=== PATIENT | male | born 1940 | race Caucasian/White ===

== ENCOUNTER 2017-01-19 15:58 | Observation (INO) ==
[2017-01-19] MEDS ORDERED: methylPREDNISolone 125 MG/2 ML VIAL IVP ONE (16:15)
[2017-01-19] MEDS ORDERED: Ipratropium/Albuterol Neb 3 ML IH ONE (16:15)
--- NOTE | 2017-01-19 16:16 | Emergency Department Note ---
START Narrative - START START: I examined this patient and my medical decision-making was reviewed with the Resident Physician. I agree with the documented findings, disposition and treatment plan as described except to the extent set forth below. 76 yo M here for sob/wheezing. hx of copd. on oxygen periodcially at home. uses nebs at home but no relief today. +wheezing. will eval for copd exacerbation vs pneumonia.
[2017-01-19] MEDS ORDERED: Ondansetron 4 MG/2 ML VIAL IVP ONE (16:26)
[2017-01-19 16:38] LABS: Hematocrit 42.7 % (37.5-50.1); Hemoglobin 13.4 g/dL (12.9-16.9); Mean Corpuscular HGB Conc 31.4 g/dL (31.6-35.5); Mean Corpuscular Hemoglobin 26.5 pg (28.0-33.3); Mean Corpuscular Volume 84.4 fL (83.0-100.0); Mean Platelet Volume 9.9 fL (9.4-12.4); Platelet Count 253 K/mcL (140-400); Red Blood Count 5.06 M/mcL (4.19-5.50); Red Cell Distribution Width 18.1 % (11.5-14.5)
[2017-01-19 16:50] LABS: Albumin 3.6 g/dL (3.5-5.0); Albumin/Globulin Ratio 0.9 (1.1-2.2); Bilirubin,Direct 0.1 mg/dL (0.0-0.5); Bilirubin,Indirect 0.3 mg/dL (0.0-1.2); Bilirubin,Total 0.4 mg/dL (0.2-1.2); Calcium 9.7 mg/dL (8.6-10.8); Globulin 4.1 g/dL (2.4-3.5); Potassium 4.5 mEq/L (3.5-4.5); Total Protein 7.7 g/dL (6.0-8.3)
[2017-01-19 17:03] LABS: Eosinophils # 2.4 K/mcL (0.0-0.6); Lymphocytes # 1.8 K/mcL (0.6-4.6); Monocytes # 1.5 K/mcL (0.0-1.3); Neutrophils # 2.4 K/mcL (1.6-8.9); Platelet Estimate Normal (Normal)
[2017-01-19 17:04] LABS: Anisocytosis 1+ (Not Present)
--- NOTE | 2017-01-19 17:23 | Emergency Department Note ---
Disposition Clinical Impression: COPD (chronic obstructive pulmonary disease) Qualifiers: COPD type: COPD with acute exacerbation Qualified Code(s): J44.1 - Chronic obstructive pulmonary disease with (acute) exacerbation Disposition: Admitted As Inpatient Forms: ED Satisfaction Letter Time of Disposition: 17:41 General Adult HPI - General Chief complaint: ED Shortness of Breath/Dyspnea Stated complaint: PACO Time Seen by Provider: 01/19/17 16:10 Source: patient Limitations: no limitations Nursing Notes Reviewed: Yes Vital Signs Reviewed: Yes - History of Present Illness HPI Narrative: Two-week history of worsening dyspnea, productive cough with green sputum which is changed from his normal. No fevers. No chest pain. Does use albuterol at home with no relief. Pain Scale: 5 - Related Data Home Medications Medication Instructions Recorded Confirmed Albuterol Sulfate [Ventolin Hfa] 2 puff IH Q4H PRN 01/24/16 01/08/17 Aspirin 81 mg PO DAILY 01/24/16 01/08/17 Atorvastatin [Lipitor] 40 mg PO HS 01/24/16 01/08/17 Budesonide/Formoterol 160/4.5 2 puff IH BIDR 01/24/16 01/08/17 [Symbicort 160/4.5] Carvedilol 12.5 mg PO BID 01/24/16 01/08/17 Cholecalciferol (D-3) [Vitamin D] 2,000 unit PO DAILY 01/24/16 01/08/17 DULoxetine [Cymbalta] 30 mg PO DAILY 01/24/16 01/08/17 Fluticasone Propionate Nasal 1 spray NS DAILY 01/24/16 01/08/17 [Flonase] Furosemide [Lasix] 20 mg PO DAILY 01/24/16 01/08/17 Lisinopril [Zestril] 10 mg PO DAILY 01/24/16 01/08/17 Meclizine HCl [Verticalm] 25 mg PO AD PRN 01/24/16 01/08/17 Montelukast [Singulair] 10 mg PO DAILY 01/24/16 01/08/17 Multivitamin [Multi-Day Vitamins] 1 tab PO DAILY 01/24/16 01/08/17 Oxygen 1 each .ROUTE AD PRN 01/24/16 01/08/17 Roflumilast [Daliresp] 500 mcg PO DAILY 01/24/16 01/08/17 Ipratropium/Albuterol Neb [Duoneb] 3 ml IH Q6HR 12/03/16 01/08/17 Zanaflex PRN 12/04/16 Allergies Allergy/AdvReac Type Severity Reaction Status Date / Time Amoxicillin [From Augmentin] Allergy Vomiting Verified 01/25/16 17:09 clavulanic acid Allergy Vomiting Verified 01/25/16 17:09 [From Augmentin] codeine Allergy Hallucinati Verified 01/08/17 09:48 ng hydrocodone [From Vicodin] Allergy Vomiting Verified 01/25/16 17:09 Iodinated Contrast- Oral and Allergy See Verified 01/25/16 17:09 IV Dye Comments [Iodinated Contrast Media - IV Dye] latex Allergy See Verified 01/25/16 17:09 Comments meloxicam [From Mobic] Allergy Dizziness Verified 01/25/16 17:09 ondansetron Allergy Vomiting Verified 01/25/16 17:09 [From Zofran (as hydrochloride)] Oxycodone [From Percocet] Allergy Hallucinati Verified 01/25/16 17:09 ng pregabalin [From Lyrica] Allergy Dizziness Verified 01/25/16 17:09 All systems ED: reviewed and negative except as stated. Constitutional: Denies: fever, chills ENT ED: Denies: congestion Cardiovascular: Denies: chest pain, palpitations, dyspnea on exertion, syncope Respiratory: Reports: cough, dyspnea, wheezes, sputum production Gastrointestinal: Reports: nausea, vomiting (Associated with the coughing), diarrhea. Denies: abdominal pain, hematemesis, melena, hematochezia Genitourinary: Denies: urgency, dysuria, frequency, hematuria Musculoskeletal: Denies: back pain, neck pain Integumentary: Denies: rash, abrasion Neurological: Denies: headache, weakness Past Medical History - Past Medical History Attestation: Yes The following information was validated with the patient. Source: patient Medical history: Reports: aortic aneurysm, COPD, coronary artery disease, hyperlipidemia, myocardial infarction, renal disease, other Surgical history: Reports: angioplasty/stent, coronary bypass (CABG) Psychiatric history: Reports: anxiety - Social History Smoking Status: Former smoker Smokeless Tobacco Status: No Alcohol use: Reports: none Drug use: Reports: none Physical Exam - General Limitations: no limitations General appearance: alert, in distress (Patient appears to be in respiratory distress. He is using accessory muscles.) - Head Head exam: atraumatic, normocephalic, normal inspection - Eye Eye exam: Present: normal appearance, PERRL, EOMI. Absent: scleral icterus, conjunctival injection - ENT ENT exam: normal exam, normal oropharynx, mucous membranes moist - Neck Neck exam: Present: normal inspection, full ROM, trachea midline. Absent: tenderness, meningismus, lymphadenopathy - Chest Chest inspection: Present: normal inspection, symmetric chest wall rise. Absent : tenderness - Respiratory Respiratory exam: Present: respiratory distress, wheezes, accessory muscle use, prolonged expiratory phase - Cardiovascular Cardiovascular exam: Present: regular rate, normal rhythm, normal heart sounds - Abdominal Exam Abdominal exam: Present: soft, Non-Tender, normal bowel sounds. Absent: tenderness, distention, guarding, rebound, rigidity, organomegaly, Powell's sign , Rovsing's sign, tenderness at McBurney's Point - Extremities Exam Extremities exam: Present: normal inspection, full ROM, normal capillary refill. Absent: tenderness, pedal edema - Back Exam Back exam: Present: normal inspection, full ROM. Absent: tenderness - Neurological Exam Neurological exam: Present: alert, oriented X3 - Psychiatric Psychiatric exam: Present: normal affect, normal mood - Skin Skin exam: Present: warm, dry, intact, normal color. Absent: rash, cyanosis, diaphoresis, erythema Course Course Narrative: Male patient presents emergency department complaining of a 2 week history of dyspnea. States it has been getting worse over the past 2 days. Denies any fever or chills. Does have a productive cough with green sputum. Has a history of COPD. He is short of breath while sitting in bed. He is tachypneic. He has wheezing diffusely. He is using accessory muscles. He denies being a smoker. Patient denies any chest pain. He denies any extremity swelling. He also reports a 2 day history of nausea vomiting and diarrhea. We will provide the patient with 3 DuoNeb's and steroids. We will do a chest x- ray and get basic lab workup on patient. He does use oxygen at home but only intermittently. I anticipate admission for this patient for COPD exacerbation. - Reevaluation(s) Reevaluation #1: Patient reassessed and found to be breathing easier after 3 DuoNeb's and steroids. We will admit him to the hospital for COPD exacerbation. We have started him on antibiotics due to his change in sputum. Patient's glucose was noted to be low. He is still mentating appropriately. We have provided him with snacks. States that he did not want me earlier today due to being nauseated and short of breath. Time: 17:39 - Consultations Consultation #1: [employer] [facility] accepted Pt in stable condition Time: 17:49 Vital Signs Temperature 98.3 F 01/19/17 16:00 Pulse Rate 84 01/19/17 16:00 Respiratory Rate 16 01/19/17 16:00 Blood Pressure 147/81 01/19/17 16:00 O2 Sat by Pulse Oximetry 97 01/19/17 16:00 Temperature 98.3 F 01/19/17 16:00 Pulse Rate 65 01/19/17 17:18 Respiratory Rate 18 01/19/17 17:18 Blood Pressure 107/76 01/19/17 17:18 O2 Sat by Pulse Oximetry 96 01/19/17 17:18 Oxygen Delivery Oxygen Delivery Nasal Cannula Medical Decision Making - Medical Records Medical records reviewed: Yes I reviewed the patient's medical records. - Lab Data Lab results reviewed: Yes I reviewed the patient's lab results. Result diagrams: 01/19/17 16:28 01/19/17 16:28 Lab Results 01/19/17 01/19/17 01/19/17 Range/Units 16:28 16:28 16:28 WBC 8.1 (4.3-11.1) K/mcL RBC 5.06 (4.19-5.50) M/mcL Hgb 13.4 (12.9-16.9) g/dL Hct 42.7 (37.5-50.1) % MCV 84.4 (83.0-100.0) fL MCH 26.5 L (28.0-33.3) pg MCHC 31.4 L (31.6-35.5) g/dL RDW 18.1 H (11.5-14.5) % Plt Count 253 (140-400) K/mcL MPV 9.9 (9.4-12.4) fL Immature Gran % Test Not Performed Seg Neutrophils % 30.0 % Lymphocytes % 22.0 % Monocytes % 18.0 % Eosinophils % 30.0 % Basophils % Test Not Performed Neutrophils # 2.4 (1.6-8.9) K/mcL Lymphocytes # 1.8 (0.6-4.6) K/mcL Monocytes # 1.5 H (0.0-1.3) K/mcL Eosinophils # 2.4 H (0.0-0.6) K/mcL Basophils # Test Not Performed Platelet Estimate Normal (Normal) Anisocytosis 1+ A (Not Present) Sodium 136 (136-145) mEq/L Potassium 4.5 (3.5-4.5) mEq/L Chloride 103 (98-109) mEq/L Carbon Dioxide 24 (19-29) mEq/L BUN 20 (8-26) mg/dL Creatinine 1.55 H (0.72-1.25) mg/dL Est GFR ( Amer) 53 L (> 60) Est GFR (Non-Af Amer) 44 L (> 60) BUN/Creatinine Ratio 13 (6-26) Glucose 58 L (70-99) mg/dL Calculated Osmolality 282 (280-300) Lactic Acid 1.8 (0.5-2.2) mmol/L Calcium 9.7 (8.6-10.8) mg/dL Total Bilirubin 0.4 (0.2-1.2) mg/dL Direct Bilirubin 0.1 (0.0-0.5) mg/dL Indirect Bilirubin 0.3 (0.0-1.2) mg/dL AST 24 (5-34) Units/L ALT 21 (0-55) Units/L Alkaline Phosphatase 68 (38-126) Units/L Troponin I (0-0.03) ng/mL B-Natriuretic Peptide (0-100) pg/mL Serum Total Protein 7.7 (6.0-8.3) g/dL Albumin 3.6 (3.5-5.0) g/dL Globulin 4.1 H (2.4-3.5) g/dL Albumin/Globulin Ratio 0.9 L (1.1-2.2) Lipase 51 (8-78) Units/L 01/19/17 01/19/17 Range/Units 16:28 16:28 WBC (4.3-11.1) K/mcL RBC (4.19-5.50) M/mcL Hgb (12.9-16.9) g/dL Hct (37.5-50.1) % MCV (83.0-100.0) fL MCH (28.0-33.3) pg MCHC (31.6-35.5) g/dL RDW (11.5-14.5) % Plt Count (140-400) K/mcL MPV (9.4-12.4) fL Immature Gran % Seg Neutrophils % % Lymphocytes % % Monocytes % % Eosinophils % % Basophils % Neutrophils # (1.6-8.9) K/mcL Lymphocytes # (0.6-4.6) K/mcL Monocytes # (0.0-1.3) K/mcL Eosinophils # (0.0-0.6) K/mcL Basophils # Platelet Estimate (Normal) Anisocytosis (Not Present) Sodium (136-145) mEq/L Potassium (3.5-4.5) mEq/L Chloride (98-109) mEq/L Carbon Dioxide (19-29) mEq/L BUN (8-26) mg/dL Creatinine (0.72-1.25) mg/dL Est GFR ( Amer) (> 60) Est GFR (Non-Af Amer) (> 60) BUN/Creatinine Ratio (6-26) Glucose (70-99) mg/dL Calculated Osmolality (280-300) Lactic Acid (0.5-2.2) mmol/L Calcium (8.6-10.8) mg/dL Total Bilirubin (0.2-1.2) mg/dL Direct Bilirubin (0.0-0.5) mg/dL Indirect Bilirubin (0.0-1.2) mg/dL AST (5-34) Units/L ALT (0-55) Units/L Alkaline Phosphatase (38-126) Units/L Troponin I 0.01 (0-0.03) ng/mL B-Natriuretic Peptide 56 (0-100) pg/mL Serum Total Protein (6.0-8.3) g/dL Albumin (3.5-5.0) g/dL Globulin (2.4-3.5) g/dL Albumin/Globulin Ratio (1.1-2.2) Lipase (8-78) Units/L - Radiology Data Radiology results reviewed: Yes I reviewed the patient's radiology results. Chest X-Ray 10/08/17 16:15 IMPRESSION: No acute process. D/ / Portillo Vernon MD / Portillo Vernon MD Interpreting Provider: Portillo Vernon MD - EKG Data EKG #1 EKG attestation: Yes I reviewed and interpreted this EKG. EKG results narrative: ormal sinus rh no signs of acute ischemia. Right bundle branch block. No significant changes from previous EKG dated 01/24/2016. However his previous EKG did have an incomplete bundle branch block now it is completed.
[2017-01-19] MEDS ORDERED: Azithromycin 500 MG in D5% in Water 250 ML IVPB ONE (17:36)
[2017-01-19] MEDS ORDERED: Acetaminophen 325 MG TABLET PO PRN (19:39)
[2017-01-19] MEDS ORDERED: Naloxone 0.4 MG/ML INJ IVP PRN (19:39)
[2017-01-19] MEDS ORDERED: Albuterol 2.5 MG/3 ML NEBULIZER IH PRN (19:43)
--- NOTE | 2017-01-19 19:51 | Internal Med History&Physical ---
<Elidia Barr M - Last Filed: 01/19/17 20:36> Date of Encounter: 01/19/17 Time of Encounter: 19:47 Assessment and Plan (1) Acute exacerbation of chronic obstructive airways disease Current visit: Yes Status: Acute Patient presents with increased shortness of breath and productive cough. He wears oxygen PRN at home but has been using it more often. CXR showed no acute process. Diffuse wheezing on auscultation. Solu-medrol 125mg IVP given in the ED. Continue with 40mg IVP TID. Levaquin 500mg IVPB daily duoneb treatments QID albuterol nebulizer Q2hr prn budesonide formotorol BID Continue home doses of Singulair and Darilesp titrate oxygent to maintain saturation. (2) CAD (coronary artery disease) Current visit: Yes Status: Chronic Patient with CAD s/p CABG. He denies any chest pain today and troponin is 0.01. EKG shows no ischemic changes. Continue home dose of aspirin, beta re, statin. Qualifiers: Coronary Disease-Associated Artery/Lesion type: bypass graft [place] vs. transplanted heart: [place] heart Associated angina: without angina Qualified Code(s): I25.810 - Atherosclerosis of coronary artery bypass graft(s) without angina pectoris (3) Hypertension Current visit: Yes Status: Chronic Holding lasix and lisinopril for THADDEUS. Continue home beta re. Hydralazine PRN. Qualifiers: Hypertension type: essential hypertension Qualified Code(s): I10 - Essential (primary) hypertension (4) Acute kidney injury superimposed on chronic kidney disease Current visit: Yes Status: Acute Creatinine of 1.55, up from previous of 1.26. Patient reports Nausea and vomiting the last 2 days, and THADDEUS likely secondary to mild dehyration. Hold lasix and lisinopril. 0.9NS at 100mL/hr x 1L. Check chemistry in the morning. (5) Nausea and vomiting Current visit: Yes Status: Acute Patient reports nausea and vomiting over the last 2 days, though has been able to hold down food. He denies any sick contacts. Had HIatal hernia repair 1 year ago. IV fluids 0.9NS at 100mL/hr Protonix 40mg IVP daily Maalox prn Qualifiers: Vomiting type: cyclical vomiting Vomiting Intractability: non-intractable Qualified Code(s): G43.A0 - Cyclical vomiting, not intractable (6) DVT prophylaxis Current visit: Yes Status: Acute anti-embolic stockings Heparin SQ TID Internal Medicine - H&P: HPI Chief complaint: shortness of breath Admitted From: Emergency Dept Plans for Post Hospital Care: Home History of present illness: Mr. Perez is a 76 year old male with HTN, HLD, CAD s/p CABG, COPD, CKD who presented to the ED today with complaints of increased shortness of breath, productive cough. Patient reports that for the last 2 weeks, he has had increasing shortness of breath, wheezing and productive cough. He wears oxygen PRN at home and has needed to wear it more often recently. He also reports occasional chills. Yesterday, he developed nausea, vomiting and diarrhea as well. He denies lightheadedness, headache, chest pain, palpitations. Evaluation in the ED included a CXR which showed no acute process, ekg showed normal sinus rhythm. BNP was normal at 56. troponin was negative at 0.01. He had THADDEUS with Cr of 1.55, up from previous of 1.26. He was given steroids, duoneb treatments and azithromycin in the ED. On exam, patient alert and oriented, in no distress. Heart has regular rate and rhythm, lungs have diffuse wheezing bilaterally. abdomen is soft with some epigastric tenderness and positive bowel sounds. No peripheral edema. Past Med Surg Social Fam HX - Past Medical History Medical history: aortic aneurysm, COPD, coronary artery disease, hyperlipidemia , myocardial infarction, renal disease, other Psychiatric history: anxiety - Past Surgical History Surgical History: angioplasty/stent, coronary bypass (CABG) - Social History Smoking Status: Former smoker Smokeless Tobacco Status: No Alcohol use: none Drug use: none - Family History Mother Living Status: Father Living Status: Internal Medicine - H&P: Meds Albuterol Sulfate [Ventolin Hfa] 2 puff IH Q4H PRN 01/24/16 [History] Aspirin 81 mg PO DAILY 01/24/16 [History] Atorvastatin [Lipitor] 40 mg PO HS 01/24/16 [History] Budesonide/Formoterol 160/4.5 [Symbicort 160/4.5] 2 puff IH BIDR 01/24/16 [ History] Carvedilol 12.5 mg PO BID 01/24/16 [History] Cholecalciferol (D-3) [Vitamin D] 2,000 unit PO DAILY 01/24/16 [History] DULoxetine [Cymbalta] 30 mg PO DAILY 01/24/16 [History] Fluticasone Propionate Nasal [Flonase] 1 spray NS DAILY 01/24/16 [History] Furosemide [Lasix] 20 mg PO DAILY 01/24/16 [History] Lisinopril [Zestril] 10 mg PO DAILY 01/24/16 [History] Meclizine HCl [Verticalm] 25 mg PO AD PRN 01/24/16 [History] Montelukast [Singulair] 10 mg PO DAILY 01/24/16 [History] Multivitamin [Multi-Day Vitamins] 1 tab PO DAILY 01/24/16 [History] Oxygen 1 each .ROUTE AD PRN 01/24/16 [History] Roflumilast [Daliresp] 500 mcg PO DAILY 01/24/16 [History] Ipratropium/Albuterol Neb [Duoneb] 3 ml IH Q6HR 12/03/16 [History] Zanaflex PRN 12/04/16 [History] 3 Allergy/AdvReac Type Severity Reaction Status Date / Time Amoxicillin [From Augmentin] Allergy Vomiting Verified 01/25/16 17:09 clavulanic acid Allergy Vomiting Verified 01/25/16 17:09 [From Augmentin] codeine Allergy Hallucinati Verified 01/08/17 09:48 ng hydrocodone [From Vicodin] Allergy Vomiting Verified 01/25/16 17:09 Iodinated Contrast- Oral and Allergy See Verified 01/25/16 17:09 IV Dye Comments [Iodinated Contrast Media - IV Dye] latex Allergy See Verified 01/25/16 17:09 Comments meloxicam [From Mobic] Allergy Dizziness Verified 01/25/16 17:09 ondansetron Allergy Vomiting Verified 01/25/16 17:09 [From Zofran (as hydrochloride)] Oxycodone [From Percocet] Allergy Hallucinati Verified 01/25/16 17:09 ng pregabalin [From Lyrica] Allergy Dizziness Verified 01/25/16 17:09 All Systems PM: A 10-system review of systems was performed and is negative for pertinent findings except as documented above in the HPI. - Constitutional Constitutional: chills, no fever(s), no night sweats - EENT Eyes: no change in vision, no discharge, no pain, no photophobia Ears: no ear discharge, no ear pain, no tinnitus Nose, mouth and throat: no dysphagia, no nasal discharge, no neck pain, no sore throat - Cardiovascular Cardiovascular ROS IM: dyspnea, no chest pain, no diaphoresis, no lightheadedness, no palpitations, no syncope - Respiratory Respiratory: cough, dyspnea, dyspnea on exertion, wheezing, excessive phlegm production - Gastrointestinal Gastrointestinal: diarrhea, nausea, vomiting, no abdominal pain, no hematemesis , no hematochezia, no melena - Musculoskeletal Musculoskeletal ROS IM: no numbness, no tingling - Integumentary Integumentary IM: no rash, no unusual bruising - Neurological Neurological ROS: no confusion, no convulsions, no focal weakness, no numbness, no tingling, no tremor(s) - Hematologic/Lymphatic Hematologic/Lymphatic: no easy bruising - Constitutional Vitals: Temp Pulse Resp BP Pulse Ox 98.3 F 65 16 110/59 96 01/19/17 16:00 01/19/17 17:18 01/19/17 18:35 01/19/17 18:35 01/19/17 17:18 General appearance: Present: A&O X 3, pleasant, no acute distress - Head Head exam: Present: atraumatic, normocephalic - Eye Eye exam: Present: PERRL, conjuntiva pink, sclera anicteric Pupils: Present: PERRL - Neck Neck exam general surgery: Present: supple, trachea midline. Absent: lymphadenopathy - Respiratory Respiratory exam: Present: wheezes. Absent: accessory muscle use, rales, rhonchi - Cardiovascular Cardiovascular exam: Present: RRR, +S1, +S2. Absent: diastolic murmur, gallop, rubs, systolic murmur - GI/Abdominal GI/Abdominal exam: Present: normal bowel sounds, soft, no peritoneal signs. Absent: distended, tenderness - Extremities Exam Extremities exam: Present: warm, radial pulses palpable and symmetrical. Absent : calf tenderness, cyanotic, pedal edema - Neurological Exam Neurological exam: Present: CN II-XII intact, oriented X3, no focal deficits. Absent: pronater drift, facial droop, speech deficit - Skin Skin exam: Present: dry, intact Internal Med - H&P Results - Labs CBC & Chem 7: 01/19/17 16:28 01/19/17 16:28 Labs: All Lab Results (24 Hours) 01/19/17 01/19/17 01/19/17 Range/Units 16:28 16:28 16:28 WBC 8.1 (4.3-11.1) K/mcL RBC 5.06 (4.19-5.50) M/mcL Hgb 13.4 (12.9-16.9) g/dL Hct 42.7 (37.5-50.1) % MCV 84.4 (83.0-100.0) fL MCH 26.5 L (28.0-33.3) pg MCHC 31.4 L (31.6-35.5) g/dL RDW 18.1 H (11.5-14.5) % Plt Count 253 (140-400) K/mcL MPV 9.9 (9.4-12.4) fL Immature Gran % Test Not Performed Seg Neutrophils % 30.0 % Lymphocytes % 22.0 % Monocytes % 18.0 % Eosinophils % 30.0 % Basophils % Test Not Performed Neutrophils # 2.4 (1.6-8.9) K/mcL Lymphocytes # 1.8 (0.6-4.6) K/mcL Monocytes # 1.5 H (0.0-1.3) K/mcL Eosinophils # 2.4 H (0.0-0.6) K/mcL Basophils # Test Not Performed Platelet Estimate Normal (Normal) Anisocytosis 1+ A (Not Present) Sodium 136 (136-145) mEq/L Potassium 4.5 (3.5-4.5) mEq/L Chloride 103 (98-109) mEq/L Carbon Dioxide 24 (19-29) mEq/L BUN 20 (8-26) mg/dL Creatinine 1.55 H (0.72-1.25) mg/dL Est GFR ( Amer) 53 L (> 60) Est GFR (Non-Af Amer) 44 L (> 60) BUN/Creatinine Ratio 13 (6-26) Glucose 58 L (70-99) mg/dL Calculated Osmolality 282 (280-300) Lactic Acid 1.8 (0.5-2.2) mmol/L Calcium 9.7 (8.6-10.8) mg/dL Total Bilirubin 0.4 (0.2-1.2) mg/dL Direct Bilirubin 0.1 (0.0-0.5) mg/dL Indirect Bilirubin 0.3 (0.0-1.2) mg/dL AST 24 (5-34) Units/L ALT 21 (0-55) Units/L Alkaline Phosphatase 68 (38-126) Units/L Troponin I (0-0.03) ng/mL B-Natriuretic Peptide (0-100) pg/mL Serum Total Protein 7.7 (6.0-8.3) g/dL Albumin 3.6 (3.5-5.0) g/dL Globulin 4.1 H (2.4-3.5) g/dL Albumin/Globulin Ratio 0.9 L (1.1-2.2) Lipase 51 (8-78) Units/L 01/19/17 01/19/17 Range/Units 16:28 16:28 WBC (4.3-11.1) K/mcL RBC (4.19-5.50) M/mcL Hgb (12.9-16.9) g/dL Hct (37.5-50.1) % MCV (83.0-100.0) fL MCH (28.0-33.3) pg MCHC (31.6-35.5) g/dL RDW (11.5-14.5) % Plt Count (140-400) K/mcL MPV (9.4-12.4) fL Immature Gran % Seg Neutrophils % % Lymphocytes % % Monocytes % % Eosinophils % % Basophils % Neutrophils # (1.6-8.9) K/mcL Lymphocytes # (0.6-4.6) K/mcL Monocytes # (0.0-1.3) K/mcL Eosinophils # (0.0-0.6) K/mcL Basophils # Platelet Estimate (Normal) Anisocytosis (Not Present) Sodium (136-145) mEq/L Potassium (3.5-4.5) mEq/L Chloride (98-109) mEq/L Carbon Dioxide (19-29) mEq/L BUN (8-26) mg/dL Creatinine (0.72-1.25) mg/dL Est GFR ( Amer) (> 60) Est GFR (Non-Af Amer) (> 60) BUN/Creatinine Ratio (6-26) Glucose (70-99) mg/dL Calculated Osmolality (280-300) Lactic Acid (0.5-2.2) mmol/L Calcium (8.6-10.8) mg/dL Total Bilirubin (0.2-1.2) mg/dL Direct Bilirubin (0.0-0.5) mg/dL Indirect Bilirubin (0.0-1.2) mg/dL AST (5-34) Units/L ALT (0-55) Units/L Alkaline Phosphatase (38-126) Units/L Troponin I 0.01 (0-0.03) ng/mL B-Natriuretic Peptide 56 (0-100) pg/mL Serum Total Protein (6.0-8.3) g/dL Albumin (3.5-5.0) g/dL Globulin (2.4-3.5) g/dL Albumin/Globulin Ratio (1.1-2.2) Lipase (8-78) Units/L - Diagnostic Studies Chest x-ray Additional comments: Chest X-Ray 01/19/17 16:15 IMPRESSION: No acute process. D/ / Portillo Vernon MD / Portillo Vernon MD Interpreting Provider: Portillo Vernon MD <Fareed Lundberg - Last Filed: 01/20/17 06:15> Date of Encounter: 01/19/17 Internal Medicine - H&P: HPI History of present illness: Mr. Perez is a 76 year old male All Systems PM: A 10-system review of systems was performed and is negative for pertinent findings except as documented above in the HPI. - Constitutional Vitals: Temp Pulse Resp BP Pulse Ox 97.8 F 67 16 129/70 96 01/20/17 04:00 01/20/17 04:00 01/20/17 04:42 01/20/17 04:00 01/20/17 04:42 Internal Med - H&P Results - Labs CBC & Chem 7: 01/20/17 04:24 10/09/17 04:24 Labs: Short CBC 01/20/17 Range/Units 04:24 WBC 3.5 L D (4.3-11.1) K/mcL Hgb 12.2 L (12.9-16.9) g/dL Hct 38.1 (37.5-50.1) % Plt Count 204 (140-400) K/mcL Neutrophils # 2.4 (1.6-8.9) K/mcL BMP 01/20/17 04:24 Sodium 135 L Potassium 4.8 H Chloride 105 Carbon Dioxide 22 BUN 22 Creatinine 1.33 H Glucose 138 H Calcium 9.0 - Attending Attestation I have personally performed a face to face evaluation on this patient and I discussed the assessment and plan with the nurse practitioner. I have reviewed and agree with the documented care plan. History and Exam by me shows: Mr. Perez is a 76 year old male with HTN, HLD, CAD s/p CABG, COPD, CKD who presented to the ED today with complaints of increased shortness of breath, productive cough. Patient reports that for the last 2 weeks, he has had increasing shortness of breath, wheezing and productive cough. He wears oxygen PRN at home and has needed to wear it more often recently. Evaluation in the ED included a CXR which showed no acute process, ekg showed normal sinus rhythm. BNP was normal at 56. troponin was negative at 0.01. Gen: A, A< O x 3 Chest: Diminished BS b/l basal regions, Moderate wheezing noticed Heart : S1 S2 + RRR No murmurs a/p 1. Acute COPD exacerbation Cont Duoneb + O2 Cont IV Steroids
[2017-01-19] MEDS ORDERED: 0.9 % Sodium Chloride 1,000 ML IVC SCH ×2 (20:00)
[2017-01-19] MEDS ORDERED: Levofloxacin 500 MG/100 ML 500 MG/100 ML BAG IVPB SCH (20:00)
[2017-01-19] MEDS ORDERED: Mag Hydrox/Al Hydrox/Simeth 30 ML UDC PO PRN (20:50)
[2017-01-19] MEDS ORDERED: Levofloxacin 500 MG/100 ML 500 MG/100 ML BAG IVPB ONE (21:00)
[2017-01-19] MEDS: *HR* Heparin 5,000 UNIT/ML VIAL SQ SCH (21:30)
[2017-01-19] MEDS: Ipratropium/Albuterol Neb 3 ML IH SCH (22:25)
[2017-01-19] MEDS: Budesonide/Formoterol 160/4.5 MDI IH SCH (22:33)
[2017-01-19] MEDS: MethylPREDNISolone 40 MG/ML VIAL IVP SCH (23:43)
[2017-01-20] MEDS: Ipratropium/Albuterol Neb 3 ML IH SCH ×2 (04:42→11:02)
[2017-01-20 05:11] LABS: Eosinophils % 0.3 %; Hematocrit 38.1 % (37.5-50.1); Hemoglobin 12.2 g/dL (12.9-16.9); Immature Granulocytes % 0.6 % (0-4); Lymphocytes % 28.7 %; Mean Corpuscular Hemoglobin 27.2 pg (28.0-33.3); Mean Corpuscular Volume 84.9 fL (83.0-100.0); Mean Platelet Volume 11.4 fL (9.4-12.4); Monocytes # 0.1 K/mcL (0.0-1.3); Monocytes % 1.7 %; Neutrophils # 2.4 K/mcL (1.6-8.9); Platelet Count 204 K/mcL (140-400); Red Blood Count 4.49 M/mcL (4.19-5.50); Red Cell Distribution Width 17.6 % (11.5-14.5); Segmented Neutrophils % 68.7 %
[2017-01-20 05:24] LABS: BUN/Creatinine Ratio 17 (6-26); Blood Urea Nitrogen 22 mg/dL (8-26); Carbon Dioxide 22 mEq/L (19-29); Chloride 105 mEq/L (98-109); Glucose 138 mg/dL (70-99); Osmolality,Calculated 286 (280-300); Potassium 4.8 mEq/L (3.5-4.5); Sodium 135 mEq/L (136-145); eGFR For African Americans > 60 (> 60); eGFR For Non-African Americans 52 (> 60)
[2017-01-20] MEDS: *HR* Heparin 5,000 UNIT/ML VIAL SQ SCH ×2 (05:56→13:24)
[2017-01-20] MEDS ORDERED: Pantoprazole 40 MG VIAL IVP SCH (06:30)
[2017-01-20] MEDS: MethylPREDNISolone 40 MG/ML VIAL IVP SCH (07:36)
[2017-01-20] MEDS ORDERED: DALIRESP 500 MCG PO SCH (09:00)
[2017-01-20] MEDS ORDERED: Aspirin 81 MG TAB.CHEW PO SCH (09:00)
[2017-01-20] MEDS: Budesonide/Formoterol 160/4.5 MDI IH SCH (11:02)
--- NOTE | 2017-01-20 13:11 | Discharge Summary ---
Date of Encounter: 01/20/17 Time of Encounter: 12:59 - Discharge Diagnosis (1) Acute exacerbation of chronic obstructive airways disease Priority: Primary Status: Acute Comments: Prateek Perez is a 36-year-old male with past medical history COPD, CAD, CKD, immunodeficiency who presented to [facility] 01/19/2017 with complaints of shortness of breath. He was found to be in a COPD exacerbation was placed in observation status for IV ATB steroids. His symptoms improved and he was discharged home with PO ATB and steroids. 1. Acute exacerbation of COPD: presented with worsening shortness of breath and diffuse wheezing. CXR nonacute, no evidence of infiltrates. Symptoms improved with IV steroids and Levaquin. Wears home O2 PRN. Back to baseline at time of discharge. Discharge home on steroid burst, Levaquin (to complete total course of 7 days). Recommend follow-up with PCP within one week. 2. Acute on chronic kidney disease: per hx. Cr 1.5 on arrival which is slightly higher than baseline. Likely prerenal with poor PO intake prior to presentation. Creatinine improved with holding home Lasix, VALENTÍN and IV fluids. Recommend repeat CMP with PCP within one week 3. Hypertension: per hx. home Lasix and VALENTÍN held with THADDEUS.. BP has been stable ( low/soft at times). Insinuating holding home VALENTÍN and Lasix; we will defer resuming to PCP. Cont home BB. 4. Hypoglycemia: Blood sugar 58 on presentation. Patient reports not eating day before. Blood sugar normalized with by mouth intake. Can follow-up with PCP. 5. CAD: per hx. asymptomatic, denied chest pain. Continue home ASA, BB, statin. 6. 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 Can follow-up as previously planned. (2) Acute kidney injury superimposed on chronic kidney disease Priority: Primary Status: Acute (3) CAD (coronary artery disease) Priority: Primary Status: Chronic Qualifiers: Coronary Disease-Associated Artery/Lesion type: bypass graft Kaw vs. transplanted heart: [place] heart Associated angina: without angina Qualified Code(s): I25.810 - Atherosclerosis of coronary artery bypass graft(s) without angina pectoris (4) Chronic back pain Priority: Primary Status: Chronic Qualifiers: Back pain location: low back pain Back pain laterality: unspecified Sciatica presence: without sciatica Qualified Code(s): M54.5 - Low back pain; G89.29 - Other chronic pain - Discharge Medications Prescriptions: Levofloxacin [Levaquin] 250 mg PO DAILY #6 tablet predniSONE [PredniSONE] 40 mg PO DAILY #5 tablet Home Medications: Albuterol Sulfate [Ventolin Hfa] 2 puff IH Q4H PRN 01/24/16 [History] Aspirin 81 mg PO DAILY 01/24/16 [History] Atorvastatin [Lipitor] 40 mg PO HS 01/24/16 [History] Budesonide/Formoterol 160/4.5 [Symbicort 160/4.5] 2 puff IH BIDR 01/24/16 [ History] Carvedilol 12.5 mg PO BID 01/24/16 [History] Cholecalciferol (D-3) [Vitamin D] 2,000 unit PO DAILY 01/24/16 [History] DULoxetine [Cymbalta] 30 mg PO DAILY 01/24/16 [History] Fluticasone Propionate Nasal [Flonase] 1 spray NS DAILY 01/24/16 [History] Meclizine HCl [Verticalm] 25 mg PO AD PRN 01/24/16 [History] Montelukast [Singulair] 10 mg PO DAILY 01/24/16 [History] Multivitamin [Multi-Day Vitamins] 1 tab PO DAILY 01/24/16 [History] Oxygen 1 each .ROUTE AD PRN 01/24/16 [History] Roflumilast [Daliresp] 500 mcg PO DAILY 01/24/16 [History] Ipratropium/Albuterol Neb [Duoneb] 3 ml IH Q6HR 12/03/16 [History] Levofloxacin [Levaquin] 250 mg PO DAILY #6 tablet 01/20/17 [Rx] predniSONE [PredniSONE] 40 mg PO DAILY #5 tablet 01/20/17 [Rx] Allergies/Adverse Reactions: 3 Allergy/AdvReac Type Severity Reaction Status Date / Time Amoxicillin [From Augmentin] Allergy Vomiting Verified 01/25/16 17:09 clavulanic acid Allergy Vomiting Verified 01/25/16 17:09 [From Augmentin] codeine Allergy Hallucinati Verified 01/08/17 09:48 ng hydrocodone [From Vicodin] Allergy Vomiting Verified 01/25/16 17:09 Iodinated Contrast- Oral and Allergy See Verified 01/25/16 17:09 IV Dye Comments [Iodinated Contrast Media - IV Dye] latex Allergy See Verified 01/25/16 17:09 Comments meloxicam [From Mobic] Allergy Dizziness Verified 01/25/16 17:09 ondansetron Allergy Vomiting Verified 01/25/16 17:09 [From Zofran (as hydrochloride)] Oxycodone [From Percocet] Allergy Hallucinati Verified 01/25/16 17:09 ng pregabalin [From Lyrica] Allergy Dizziness Verified 01/25/16 17:09 Date of admission: 01/19/17 18:01 Primary care physician: Joaquina Amezquita CNP Discharging clinician: Allie Mcdaniel Anticipated date of discharge: 01/20/17 - Patient Status Disposition: Home, Self-Care Condition: Good Functional capacity at discharge: independent ambulation Overall status at discharge: patient is progressing back to baseline - Discharge Instructions Follow Up With: Joaquina Amezquita CNP [Primary Care Provider] - Additional Instructions: Please call your family doctor and make an appointment within 1 week. Your Lasix and lisinopril was stopped this admission due to increasing your kidney function. You should have your blood pressure and labs rechecked within 5-7 days - Diet and Activity Activity: increase activity as tolerated, resume usual activities as tolerated Diet: advance to your usual diet Interval History: Seen and examined at bedside, patient is new to me. Information obtained from chart review and patient report. Patient says he feels better, is back to baseline. No fevers or chills has some shortness of breath with ambulation. Denies chest pain. Hospital course: See assessment and plan for hospital course - Time Spent with Patient Total time spent providing and/or coordinating discharge services: Less than 30 minutes - Constitutional Vitals: Temp Pulse Resp BP Pulse Ox 98.2 F 93 16 125/70 97 01/20/17 10:45 01/20/17 10:45 01/20/17 11:03 01/20/17 10:45 01/20/17 11:03 General appearance: Present: A&O X 3, pleasant, no acute distress - Head Head exam: Present: atraumatic, normocephalic - Eye Eye exam: Present: PERRL, conjuntiva pink, sclera anicteric Pupils: Present: PERRL - Neck Neck exam general surgery: Present: supple, trachea midline. Absent: lymphadenopathy - Respiratory Respiratory exam: Present: CTAB. Absent: accessory muscle use, rales, rhonchi, wheezes - Cardiovascular Cardiovascular exam: Present: RRR, +S1, +S2. Absent: diastolic murmur, gallop, rubs, systolic murmur - GI/Abdominal GI/Abdominal exam: Present: normal bowel sounds, soft, no peritoneal signs. Absent: distended, tenderness - Extremities Exam Extremities exam: Present: warm, radial pulses palpable and symmetrical. Absent : calf tenderness, cyanotic, pedal edema - Neurological Exam Neurological exam: Present: CN II-XII intact, oriented X3, no focal deficits. Absent: pronater drift, facial droop, speech deficit - Skin Skin exam: Present: dry, intact
--- NOTE | 2017-01-20 13:28 | Electrocardiograph Report ---
[place] [id number] Test Date: 2017-01-19 Pat Name: Prateek Perez Department: 103 Room: 3B37 Gender: M [employer]: MSC : 1940 Requested By: Ashley Long Order Number: [id number] Reading MD: Skyler Rosenbaum Measurements Intervals Arthur Rate: 91 P: 67 DC: 143 QRS: -62 QRSD: 145 T: 68 QT: 362 QTc: 411 Interpretive Statements SINUS RHYTHM POSSIBLE LEFT ATRIAL ENLARGEMENT [-0.1mV P WAVE IN V1/V2] MARKED LEFT AXIS DEVIATION [QRS AXIS < -30] RIGHT BUNDLE BRANCH BLOCK [120+ ms QRS DURATION, UPRIGHT V1, 40+ ms S IN I/aVL/V4/V5/V6] Electronically Signed On 01-20-2017 13:26:55 EDT by Skyler Rosenbaum
[2017-01-20 14:10] VITALS: BP 133/64
[2017-01-20] MEDS ORDERED: Levofloxacin 250 MG/50 ML 250 MG/50 ML BAG IVPB SCH (21:00)
== END 2017-01-20 14:50 | disposition home or self-care (01) ==
LOC: 3BNU 15:58 → EMEROO 15:58 → 3BNU 20:00
PROVIDERS: ADMIT Nurse Practitioner Family; ATTEND Registered Nurse

== ENCOUNTER 2017-03-02 20:58 | Inpatient (IN) ==
[2017-03-02] MEDS ORDERED: Vancomycin 1,500 MG in D5% in Water 250 ML IVPB ONE (21:06)
[2017-03-02] MEDS ORDERED: 0.9 % Sodium Chloride 500 ML IVC ONE (21:07)
[2017-03-02] MEDS ORDERED: Ipratropium/Albuterol Neb 3 ML IH ONE (21:08)
[2017-03-02 21:29] LABS: Basophils # 0.1 K/mcL (0.0-0.2); Basophils % 0.7 %; Eosinophils # 0.6 K/mcL (0.0-0.6); Eosinophils % 6.8 %; Hematocrit 43.8 % (37.5-50.1); Hemoglobin 14.4 g/dL (12.9-16.9); Immature Granulocytes % 1.7 % (0-4); Lymphocytes # 1.4 K/mcL (0.6-4.6); Lymphocytes % 14.3 %; Mean Corpuscular HGB Conc 32.9 g/dL (31.6-35.5); Mean Corpuscular Hemoglobin 27.5 pg (28.0-33.3); Mean Corpuscular Volume 83.6 fL (83.0-100.0); Mean Platelet Volume 10.6 fL (9.4-12.4); Monocytes # 1.3 K/mcL (0.0-1.3); Monocytes % 14.2 %; Neutrophils # 5.9 K/mcL (1.6-8.9); Platelet Count 244 K/mcL (140-400); Red Blood Count 5.24 M/mcL (4.19-5.50); Red Cell Distribution Width 15.5 % (11.5-14.5); Segmented Neutrophils % 62.3 %
[2017-03-02] MEDS ORDERED: Cefepime HCl 2,000 MG in Water for inj. (sterile) 20 ML IVP ONE (21:29)
[2017-03-02 21:35] LABS: INR 1.1; Prothrombin Time 11.5 Seconds (9.4-12.1)
[2017-03-02 21:37] LABS: Bilirubin,Urine Negative (Negative); Blood,Urine Negative (Negative); Clarity,Urine Clear (Clear); Color,Urine Yellow (Yellow); Glucose,Urine (UA) Normal (Normal); Ketones,Urine Negative (Negative); Leukocyte Esterase,Urine Negative (Negative); Nitrite,Urine Negative (Negative); Protein,Urine Trace mg/dL (Neg-Trace); Specific Gravity,Urine 1.019 (1.010-1.025); Urobilinogen,Urine Normal (Normal)
[2017-03-02 21:37] LABS: Activated Partial Thrombo Time 28.7 Seconds (26.0-36.0)
[2017-03-02 21:39] LABS: Bacteria,Urine None Seen per hpf (None-Few); Hyaline Casts,Urine None Seen per lpf (None-Few); RBC,Urine 0-3 per hpf (0-3); Squamous Epithelial Cell,Urine Moderate per lpf (None-Few); WBC,Urine 0-3 per hpf (0-3)
[2017-03-02] MEDS: 0.9 % Sodium Chloride 1,000 ML IVC SCH ×2 (21:39→22:41)
[2017-03-02 21:45] LABS: Alanine Aminotransferase 50 Units/L (0-55); Albumin 3.1 g/dL (3.5-5.0); Albumin/Globulin Ratio 0.9 (1.1-2.2); Alkaline Phosphatase 65 Units/L (38-126); Aspartate Amino Transferase 31 Units/L (5-34); BUN/Creatinine Ratio 24 (6-26); Bilirubin,Direct 0.2 mg/dL (0.0-0.5); Bilirubin,Indirect 0.3 mg/dL (0.0-1.2); Bilirubin,Total 0.5 mg/dL (0.2-1.2); Blood Urea Nitrogen 26 mg/dL (8-26); Calcium 8.8 mg/dL (8.6-10.8); Carbon Dioxide 20 mEq/L (19-29); Chloride 105 mEq/L (98-109); Globulin 3.6 g/dL (2.4-3.5); Glucose 100 mg/dL (70-99); Lipase 505 Units/L (8-78); Magnesium 1.8 mg/dL (1.6-2.6); Osmolality,Calculated 287 (280-300); Phosphorous 2.8 mg/dL (2.3-4.7); Sodium 136 mEq/L (136-145); Total Protein 6.7 g/dL (6.0-8.3); eGFR For African Americans > 60 (> 60); eGFR For Non-African Americans > 60 (> 60)
[2017-03-02] MEDS ORDERED: Aspirin 325 MG TABLET PO ONE (21:54)
[2017-03-02 21:56] LABS: ABG Base Excess 1 mEq/L (-2 to 3); ABG HCO3 23 mEq/L (21-27); ABG Oxygen Saturation 98 % (95-98); ABG PCO2 31 mmHg (35-45); ABG PH 7.48 pH Units (7.32-7.45); ABG PO2 101 mmHg (85-104); ABG TCO2 24 mEq/L (20-26); Blood Gas Modality NC
--- NOTE | 2017-03-02 21:58 | Emergency Department Note ---
Disposition Clinical Impression: COPD (chronic obstructive pulmonary disease) Qualifiers: COPD type: unspecified COPD Qualified Code(s): J44.9 - Chronic obstructive pulmonary disease, unspecified Chronic kidney disease (CKD) Qualifiers: Chronic kidney disease stage: unspecified stage Qualified Code(s): N18.9 - Chronic kidney disease, unspecified Nausea and vomiting Qualifiers: Vomiting type: unspecified Vomiting Intractability: non-intractable Qualified Code(s): R11.2 - Nausea with vomiting, unspecified Diarrhea Qualifiers: Diarrhea type: presumed infectious Qualified Code(s): A09 - Infectious gastroenteritis and colitis, unspecified Pancreatitis Qualifiers: Chronicity: acute Pancreatitis type: unspecified pancreatitis type Acute pancreatitis complication: no infection or necrosis Qualified Code(s): K85.90 - Acute pancreatitis without necrosis or infection, unspecified Disposition: Admitted As Inpatient Condition: Undetermined Time of Disposition: 23:41 SOB HPI - General Chief Complaint: ED Shortness of Breath/Dyspnea Stated Complaint: CP, PACO Time Seen by Provider: 03/02/17 21:04 Source: patient Mode of arrival: ambulatory Limitations: no limitations Nursing Notes Reviewed: Yes Vital Signs Reviewed: Yes - History of Present Illness 76-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 The patient states that he has been experiencing some intermittent watery diarrhea and nausea over the course of the past 4-7 days. The patient is unsure exactly when it started but states that he has had multiple episodes. Patient recently finished up antibiotics for what he thought was an upper respiratory infection. The patient also states that he has been experiencing a hacking cough with sputum production and shortness of breath with chest discomfort that has been ongoing over the course of the past 24 hours. The patient noted that he is febrile with a fever as high as 102 degrees Fahrenheit at home. He denies any other complaints at this time. He is on oxygen here in the emergency department. He denies any other complaints. Pt Subjective Complaint: shortness of breath Onset (ago): day(s) (4-7) Context: recent illness Severity: mild, moderate Associated symptoms: Reports: chest pain, fever, cough, sputum production Treatment prior to arrival: none Cough present: Yes Cough Description: Involuntary, Productive Cough Frequency: Continuous Sputum production: Yes Sputum Amount: Moderate Sputum Color: Cream, Yellow - Related Data Home oxygen amount: none Home Medications Medication Instructions Recorded Confirmed Albuterol Sulfate [Ventolin Hfa] 2 puff IH Q4H PRN 01/24/16 03/03/17 Aspirin 81 mg PO DAILY 01/24/16 03/03/17 Atorvastatin [Lipitor] 40 mg PO HS 01/24/16 03/03/17 Budesonide/Formoterol 160/4.5 2 puff IH BIDR 01/24/16 03/03/17 [Symbicort 160/4.5] Carvedilol 12.5 mg PO BID 01/24/16 03/03/17 DULoxetine [Cymbalta] 30 mg PO DAILY 01/24/16 03/03/17 Fluticasone Propionate Nasal 1 spray NS DAILY 01/24/16 03/03/17 [Flonase] Meclizine HCl [Verticalm] 25 mg PO AD PRN 01/24/16 03/03/17 Montelukast [Singulair] 10 mg PO DAILY 01/24/16 03/03/17 Multivitamin [Multi-Day Vitamins] 1 tab PO DAILY 01/24/16 03/03/17 Oxygen 1 each .ROUTE AD PRN 01/24/16 03/03/17 Roflumilast [Daliresp] 500 mcg PO DAILY 01/24/16 03/03/17 Ipratropium/Albuterol Neb [Duoneb] 3 ml IH Q6HR 12/03/16 01/20/17 Allergies Allergy/AdvReac Type Severity Reaction Status Date / Time Amoxicillin [From Augmentin] Allergy Vomiting Verified 03/02/17 21:02 clavulanic acid Allergy Vomiting Verified 03/02/17 21:02 [From Augmentin] codeine Allergy Hallucinati Verified 03/02/17 21:02 ng hydrocodone [From Vicodin] Allergy Vomiting Verified 03/02/17 21:02 Iodinated Contrast- Oral and Allergy See Verified 03/02/17 21:02 IV Dye Comments [Iodinated Contrast Media - IV Dye] latex Allergy See Verified 03/02/17 21:02 Comments meloxicam [From Mobic] Allergy Dizziness Verified 03/02/17 21:02 ondansetron Allergy Vomiting Verified 03/02/17 21:02 [From Zofran (as hydrochloride)] Oxycodone [From Percocet] Allergy Hallucinati Verified 03/02/17 21:02 ng pregabalin [From Lyrica] Allergy Dizziness Verified 03/02/17 21:02 All systems ED: reviewed and negative except as stated. Constitutional: Reports: fever, chills, weakness ENT ED: Reports: congestion Cardiovascular: Reports: chest pain, dyspnea on exertion. Denies: orthopnea Respiratory: Reports: cough, dyspnea, sputum production. Denies: wheezes, hemoptysis Gastrointestinal: Reports: nausea, diarrhea. Denies: abdominal pain, vomiting, constipation Genitourinary: Denies: urgency, dysuria Musculoskeletal: Denies: back pain Neurological: Denies: headache, weakness, numbness Past Medical History - Past Medical History Attestation: Yes The following information was validated with the patient. Source: patient Medical history: Reports: aortic aneurysm, COPD, coronary artery disease, hyperlipidemia, myocardial infarction, renal disease, other Surgical history: Reports: angioplasty/stent, coronary bypass (CABG) Psychiatric history: Reports: anxiety - Social History Smoking Status: Former smoker Smokeless Tobacco Status: No Alcohol use: Reports: none Drug use: Reports: none Physical Exam - General Limitations: no limitations General appearance: alert, in no apparent distress - Head Head exam: atraumatic, normocephalic, normal inspection - Eye Eye exam: Present: normal appearance, PERRL, EOMI - ENT ENT exam: normal exam, normal oropharynx, mucous membranes moist - Neck Neck exam: Present: normal inspection, full ROM, trachea midline - Chest Chest inspection: Present: normal inspection, symmetric chest wall rise - Respiratory Respiratory exam: Present: other (Coarse breath sounds) - Cardiovascular Cardiovascular exam: Present: normal rhythm, tachycardia, normal heart sounds - Abdominal Exam Abdominal exam: Present: soft, Non-Tender. Absent: tenderness, distention, guarding, rebound, rigidity - Extremities Exam Extremities exam: Present: normal inspection, full ROM. Absent: tenderness, pedal edema Course Vital Signs Temperature 101.0 F H 03/02/17 21:00 Pulse Rate 117 03/02/17 21:00 Respiratory Rate 22 03/02/17 21:00 Blood Pressure 112/79 03/02/17 21:00 O2 Sat by Pulse Oximetry 98 03/02/17 21:00 Temperature 97.8 F 03/03/17 02:01 Pulse Rate 67 03/03/17 02:01 Respiratory Rate 14 03/03/17 02:01 Blood Pressure 111/71 03/03/17 02:01 O2 Sat by Pulse Oximetry 97 03/03/17 02:01 Oxygen Delivery Oxygen Delivery Nasal Cannula Shortness of Breath/Dyspnea - MDM Narrative Medical decision making narrative: Workup in the emergency department demonstrates findings consistent with pancreatitis. CT of abdomen and pelvis also has findings consistent with pancreatitis. There is also some noted perinephric fat stranding. Patient has no signs of urinary tract infection. The patient has been experiencing some diarrhea status post anabolic U so I am concerned about possible C. difficile. Awaiting sample at this time. We will admit the patient to the hospital service for pancreatitis as well as generalized weakness. The patient agrees to plan. We will admit to the hospitalist, accepted by Dr. Gonzalez. - Lab Data Lab results reviewed: Yes I reviewed the patient's lab results. Result diagrams: 03/03/17 03:50 03/03/17 03:50 Lab Results 03/02/17 03/02/17 03/02/17 Range/Units 21:21 21:21 21:21 WBC 9.5 (4.3-11.1) K/mcL RBC 5.24 (4.19-5.50) M/mcL Hgb 14.4 (12.9-16.9) g/dL Hct 43.8 (37.5-50.1) % MCV 83.6 (83.0-100.0) fL MCH 27.5 L (28.0-33.3) pg MCHC 32.9 (31.6-35.5) g/dL RDW 15.5 H (11.5-14.5) % Plt Count 244 (140-400) K/mcL MPV 10.6 (9.4-12.4) fL Immature Gran % 1.7 (0-4) % Seg Neutrophils % 62.3 % Lymphocytes % 14.3 % Monocytes % 14.2 % Eosinophils % 6.8 % Basophils % 0.7 % Neutrophils # 5.9 (1.6-8.9) K/mcL Lymphocytes # 1.4 (0.6-4.6) K/mcL Monocytes # 1.3 (0.0-1.3) K/mcL Eosinophils # 0.6 (0.0-0.6) K/mcL Basophils # 0.1 (0.0-0.2) K/mcL PT 11.5 (9.4-12.1) Seconds INR 1.1 APTT 28.7 (26.0-36.0) Seconds ABG pH (7.32-7.45) pH Units ABG pCO2 (35-45) mmHg ABG pO2 (85-104) mmHg ABG HCO3 (21-27) mEq/L ABG Total CO2 (20-26) mEq/L ABG O2 Saturation (95-98) % ABG Base Excess (-2 to 3) mEq/L Blood Gas Modality Inspired O2 (1-15=lpm [id number]=%) Sodium 136 (136-145) mEq/L Potassium 4.0 (3.5-4.5) mEq/L Chloride 105 (98-109) mEq/L Carbon Dioxide 20 (19-29) mEq/L BUN 26 (8-26) mg/dL Creatinine 1.09 (0.72-1.25) mg/dL Est GFR ( Amer) > 60 (> 60) Est GFR (Non-Af Amer) > 60 (> 60) BUN/Creatinine Ratio 24 (6-26) Glucose 100 H (70-99) mg/dL Calculated Osmolality 287 (280-300) Lactic Acid (0.5-2.2) mmol/L Calcium 8.8 (8.6-10.8) mg/dL Phosphorus 2.8 (2.3-4.7) mg/dL Magnesium 1.8 (1.6-2.6) mg/dL Total Bilirubin 0.5 (0.2-1.2) mg/dL Direct Bilirubin 0.2 (0.0-0.5) mg/dL Indirect Bilirubin 0.3 (0.0-1.2) mg/dL AST 31 (5-34) Units/L ALT 50 (0-55) Units/L Alkaline Phosphatase 65 (38-126) Units/L Troponin I (0-0.03) ng/mL B-Natriuretic Peptide (0-100) pg/mL Serum Total Protein 6.7 (6.0-8.3) g/dL Albumin 3.1 L (3.5-5.0) g/dL Globulin 3.6 H (2.4-3.5) g/dL Albumin/Globulin Ratio 0.9 L (1.1-2.2) Lipase 505 H (8-78) Units/L Urine Color (Yellow) Urine Clarity (Clear) Urine pH (5.0-8.0) pH Units Ur Specific [place] (1.010-1.025) Urine Protein (Neg-Trace) mg/dL Urine Glucose (UA) (Normal) mg/dL Urine Ketones (Negative) mg/dL Urine Blood (Negative) Urine Nitrite (Negative) Urine Bilirubin (Negative) Urine Urobilinogen (Normal) mg/dL Ur Leukocyte Esterase (Negative) Urine Microscopic RBC (0-3) per hpf Urine Microscopic WBC (0-3) per hpf Ur Squamous Epith Cells (None-Few) per lpf Urine Bacteria (None-Few) per hpf Hyaline Casts (None-Few) per lpf Ur Culture Indicated? (NO) Stl C. diff Tox B Gene Specimen Rejected 03/02/17 03/02/17 03/02/17 Range/Units 21:21 21:21 21:21 WBC (4.3-11.1) K/mcL RBC (4.19-5.50) M/mcL Hgb (12.9-16.9) g/dL Hct (37.5-50.1) % MCV (83.0-100.0) fL MCH (28.0-33.3) pg MCHC (31.6-35.5) g/dL RDW (11.5-14.5) % Plt Count (140-400) K/mcL MPV (9.4-12.4) fL Immature Gran % (0-4) % Seg Neutrophils % % Lymphocytes % % Monocytes % % Eosinophils % % Basophils % % Neutrophils # (1.6-8.9) K/mcL Lymphocytes # (0.6-4.6) K/mcL Monocytes # (0.0-1.3) K/mcL Eosinophils # (0.0-0.6) K/mcL Basophils # (0.0-0.2) K/mcL PT (9.4-12.1) Seconds INR APTT (26.0-36.0) Seconds ABG pH (7.32-7.45) pH Units ABG pCO2 (35-45) mmHg ABG pO2 (85-104) mmHg ABG HCO3 (21-27) mEq/L ABG Total CO2 (20-26) mEq/L ABG O2 Saturation (95-98) % ABG Base Excess (-2 to 3) mEq/L Blood Gas Modality Inspired O2 (1-15=lpm ci67-655=%) Sodium (136-145) mEq/L Potassium (3.5-4.5) mEq/L Chloride (98-109) mEq/L Carbon Dioxide (19-29) mEq/L BUN (8-26) mg/dL Creatinine (0.72-1.25) mg/dL Est GFR ( Amer) (> 60) Est GFR (Non-Af Amer) (> 60) BUN/Creatinine Ratio (6-26) Glucose (70-99) mg/dL Calculated Osmolality (280-300) Lactic Acid 1.0 (0.5-2.2) mmol/L Calcium (8.6-10.8) mg/dL Phosphorus (2.3-4.7) mg/dL Magnesium (1.6-2.6) mg/dL Total Bilirubin (0.2-1.2) mg/dL Direct Bilirubin (0.0-0.5) mg/dL Indirect Bilirubin (0.0-1.2) mg/dL AST (5-34) Units/L ALT (0-55) Units/L Alkaline Phosphatase (38-126) Units/L Troponin I 0.04 H* (0-0.03) ng/mL B-Natriuretic Peptide 69 (0-100) pg/mL Serum Total Protein (6.0-8.3) g/dL Albumin (3.5-5.0) g/dL Globulin (2.4-3.5) g/dL Albumin/Globulin Ratio (1.1-2.2) Lipase (8-78) Units/L Urine Color (Yellow) Urine Clarity (Clear) Urine pH (5.0-8.0) pH Units Ur Specific [place] (1.010-1.025) Urine Protein (Neg-Trace) mg/dL Urine Glucose (UA) (Normal) mg/dL Urine Ketones (Negative) mg/dL Urine Blood (Negative) Urine Nitrite (Negative) Urine Bilirubin (Negative) Urine Urobilinogen (Normal) mg/dL Ur Leukocyte Esterase (Negative) Urine Microscopic RBC (0-3) per hpf Urine Microscopic WBC (0-3) per hpf Ur Squamous Epith Cells (None-Few) per lpf Urine Bacteria (None-Few) per hpf Hyaline Casts (None-Few) per lpf Ur Culture Indicated? (NO) Stl C. diff Tox B Gene Specimen Rejected 03/02/17 03/02/17 03/02/17 Range/Units 21:28 21:51 23:23 WBC (4.3-11.1) K/mcL RBC (4.19-5.50) M/mcL Hgb (12.9-16.9) g/dL Hct (37.5-50.1) % MCV (83.0-100.0) fL MCH (28.0-33.3) pg MCHC (31.6-35.5) g/dL RDW (11.5-14.5) % Plt Count (140-400) K/mcL MPV (9.4-12.4) fL Immature Gran % (0-4) % Seg Neutrophils % % Lymphocytes % % Monocytes % % Eosinophils % % Basophils % % Neutrophils # (1.6-8.9) K/mcL Lymphocytes # (0.6-4.6) K/mcL Monocytes # (0.0-1.3) K/mcL Eosinophils # (0.0-0.6) K/mcL Basophils # (0.0-0.2) K/mcL PT (9.4-12.1) Seconds INR APTT (26.0-36.0) Seconds ABG pH 7.48 H (7.32-7.45) pH Units ABG pCO2 31 L (35-45) mmHg ABG pO2 101 (85-104) mmHg ABG HCO3 23 (21-27) mEq/L ABG Total CO2 24 (20-26) mEq/L ABG O2 Saturation 98 (95-98) % ABG Base Excess 1 (-2 to 3) mEq/L Blood Gas Modality [place] Inspired O2 32.0 (1-15=lpm xi81-487=%) Sodium (136-145) mEq/L Potassium (3.5-4.5) mEq/L Chloride (98-109) mEq/L Carbon Dioxide (19-29) mEq/L BUN (8-26) mg/dL Creatinine (0.72-1.25) mg/dL Est GFR ( Amer) (> 60) Est GFR (Non-Af Amer) (> 60) BUN/Creatinine Ratio (6-26) Glucose (70-99) mg/dL Calculated Osmolality (280-300) Lactic Acid (0.5-2.2) mmol/L Calcium (8.6-10.8) mg/dL Phosphorus (2.3-4.7) mg/dL Magnesium (1.6-2.6) mg/dL Total Bilirubin (0.2-1.2) mg/dL Direct Bilirubin (0.0-0.5) mg/dL Indirect Bilirubin (0.0-1.2) mg/dL AST (5-34) Units/L ALT (0-55) Units/L Alkaline Phosphatase (38-126) Units/L Troponin I (0-0.03) ng/mL B-Natriuretic Peptide (0-100) pg/mL Serum Total Protein (6.0-8.3) g/dL Albumin (3.5-5.0) g/dL Globulin (2.4-3.5) g/dL Albumin/Globulin Ratio (1.1-2.2) Lipase (8-78) Units/L Urine Color Yellow (Yellow) Urine Clarity Clear (Clear) Urine pH 6.0 (5.0-8.0) pH Units Ur Specific [place] 1.019 (1.010-1.025) Urine Protein Trace (Neg-Trace) mg/dL Urine Glucose (UA) Normal (Normal) mg/dL Urine Ketones Negative (Negative) mg/dL Urine Blood Negative (Negative) Urine Nitrite Negative (Negative) Urine Bilirubin Negative (Negative) Urine Urobilinogen Normal (Normal) mg/dL Ur Leukocyte Esterase Negative (Negative) Urine Microscopic RBC 0-3 (0-3) per hpf Urine Microscopic WBC 0-3 (0-3) per hpf Ur Squamous Epith Cells Moderate H (None-Few) per lpf Urine Bacteria None Seen (None-Few) per hpf Hyaline Casts None Seen (None-Few) per lpf Ur Culture Indicated? NO (NO) Stl C. diff Tox B Gene TNP Specimen Rejected 03/02/17 Range/Units 23:23 WBC (4.3-11.1) K/mcL RBC (4.19-5.50) M/mcL Hgb (12.9-16.9) g/dL Hct (37.5-50.1) % MCV (83.0-100.0) fL MCH (28.0-33.3) pg MCHC (31.6-35.5) g/dL RDW (11.5-14.5) % Plt Count (140-400) K/mcL MPV (9.4-12.4) fL Immature Gran % (0-4) % Seg Neutrophils % % Lymphocytes % % Monocytes % % Eosinophils % % Basophils % % Neutrophils # (1.6-8.9) K/mcL Lymphocytes # (0.6-4.6) K/mcL Monocytes # (0.0-1.3) K/mcL Eosinophils # (0.0-0.6) K/mcL Basophils # (0.0-0.2) K/mcL PT (9.4-12.1) Seconds INR APTT (26.0-36.0) Seconds ABG pH (7.32-7.45) pH Units ABG pCO2 (35-45) mmHg ABG pO2 (85-104) mmHg ABG HCO3 (21-27) mEq/L ABG Total CO2 (20-26) mEq/L ABG O2 Saturation (95-98) % ABG Base Excess (-2 to 3) mEq/L Blood Gas Modality Inspired O2 (1-15=lpm [id number]=%) Sodium (136-145) mEq/L Potassium (3.5-4.5) mEq/L Chloride (98-109) mEq/L Carbon Dioxide (19-29) mEq/L BUN (8-26) mg/dL Creatinine (0.72-1.25) mg/dL Est GFR ( Amer) (> 60) Est GFR (Non-Af Amer) (> 60) BUN/Creatinine Ratio (6-26) Glucose (70-99) mg/dL Calculated Osmolality (280-300) Lactic Acid (0.5-2.2) mmol/L Calcium (8.6-10.8) mg/dL Phosphorus (2.3-4.7) mg/dL Magnesium (1.6-2.6) mg/dL Total Bilirubin (0.2-1.2) mg/dL Direct Bilirubin (0.0-0.5) mg/dL Indirect Bilirubin (0.0-1.2) mg/dL AST (5-34) Units/L ALT (0-55) Units/L Alkaline Phosphatase (38-126) Units/L Troponin I (0-0.03) ng/mL B-Natriuretic Peptide (0-100) pg/mL Serum Total Protein (6.0-8.3) g/dL Albumin (3.5-5.0) g/dL Globulin (2.4-3.5) g/dL Albumin/Globulin Ratio (1.1-2.2) Lipase (8-78) Units/L Urine Color (Yellow) Urine Clarity (Clear) Urine pH (5.0-8.0) pH Units Ur Specific [place] (1.010-1.025) Urine Protein (Neg-Trace) mg/dL Urine Glucose (UA) (Normal) mg/dL Urine Ketones (Negative) mg/dL Urine Blood (Negative) Urine Nitrite (Negative) Urine Bilirubin (Negative) Urine Urobilinogen (Normal) mg/dL Ur Leukocyte Esterase (Negative) Urine Microscopic RBC (0-3) per hpf Urine Microscopic WBC (0-3) per hpf Ur Squamous Epith Cells (None-Few) per lpf Urine Bacteria (None-Few) per hpf Hyaline Casts (None-Few) per lpf Ur Culture Indicated? (NO) Stl C. diff Tox B Gene Specimen Rejected Not Liquid - EKG Data EKG attestation: Yes I reviewed and interpreted this EKG. EKG results narrative: Heart rate 10 4 bpm. VT interval 362 seconds. Normal axis. Electronic ventricular pacemaker. EKG similar to EKG from 01/19/2017. No acute changes noted. Attestation Statement - Attestation Attestation: I examined this patient and my medical decision-making was reviewed with the Resident Physician. I agree with the documented findings, disposition and treatment plan as described except to the extent set forth below. Fever, acute pancreatitis. Sepsis workup initiated. Broad spectrum antibiotics initiated. Plan admit for further evaluation pancreatitis in the setting of febrile illness and possible sepsis.
[2017-03-02] MEDS ORDERED: traMADol 50 MG TABLET PO ONE (22:39)
[2017-03-03] MEDS ORDERED: Naloxone 0.4 MG/ML INJ IVP PRN (03:31)
--- NOTE | 2017-03-03 04:02 | Internal Med History&Physical ---
Date of Encounter: 03/03/17 Time of Encounter: 03:20 Assessment and Plan (1) Acute pancreatitis Current visit: Yes Status: Acute Elevated lipase and CT findings reporting acute pancreatitis continue IV fluids pain control Phenergan prn n/v NPO at this time Pt denies any alcohol use f/u lipid panel Pt's clinical exam negative at this time, however I evaluated the patient after he had received pain medications in the ER. Qualifiers: Pancreatitis type: unspecified pancreatitis type Acute pancreatitis complication: unspecified Qualified Code(s): K85.90 - Acute pancreatitis without necrosis or infection, unspecified (2) Atypical chest pain Current visit: Yes Status: Acute Unlikely of cardiac etiology, however given history, will trend serial TNI chest pain free at this time If repeat TNI worsens, call cardiology consult continue ASA, BB, statin tele monitoring nitroglycerin SL prn chest pain Echo from Jan 2016: LVEF 55-60%. There is hypokinesis of the basal-mid inferior wall. Mild left ventricular diastolic dysfunction. (3) Elevated troponin Current visit: Yes Status: Acute as listed above (4) COPD (chronic obstructive pulmonary disease) Current visit: Yes Status: Acute Qualifiers: COPD type: unspecified COPD Qualified Code(s): J44.9 - Chronic obstructive pulmonary disease, unspecified (5) CAD (coronary artery disease) Current visit: No Status: Chronic chest pain free at this time trend serial TNI continue ASA, statin, BB Qualifiers: Coronary Disease-Associated Artery/Lesion type: bypass graft [place] vs. transplanted heart: [place] heart Associated angina: without angina Qualified Code(s): I25.810 - Atherosclerosis of coronary artery bypass graft(s) without angina pectoris (6) Hypertension Current visit: No Status: Chronic BP within acceptable range continue home meds Qualifiers: Hypertension type: essential hypertension Qualified Code(s): I10 - Essential (primary) hypertension (7) DVT prophylaxis Current visit: No Status: Acute Heparin SQ Internal Medicine - H&P: HPI Chief complaint: fever Admitted From: Home Plans for Post Hospital Care: Home History of present illness: Mr. Perez is a 76 year old male with PMH of HTN, HLD, CAD s/p CABG, COPD, CKD who presented to the ER for evaluation of persistent fever and cough x 2 days. Pt states he has been febrile (Tmax at home: 102) with generalized weakness and intermittent substernal chest pain for the last two days. States the chest pain is dull in nature with radiation to the back. Has of CAD s/p CABG and states this pain is different from his prior [place]. Reports of having loose stools one time in the last two days. Denies any n/v. In the ER, pt received empiric abx treatment Vancomycin and Cefepime. CT abd/pelvis concerning for acute pancreatitis. Mild elevation of TNI noted. At this time, patient resting in bed and denies any discomfort. No chest pain, sob, abd pain, n/v, fever, or chills. Social hx: former smoker Denies alcohol use Of note: pt was admitted on 01/19/17 for COPD exacerbation Past Med Surg Social Fam HX - Past Medical History Medical history: aortic aneurysm, COPD, coronary artery disease, hyperlipidemia , myocardial infarction, renal disease, other Psychiatric history: anxiety - Past Surgical History Surgical History: angioplasty/stent, coronary bypass (CABG) - Social History Smoking Status: Former smoker Smokeless Tobacco Status: No Alcohol use: none Drug use: none - Family History Mother Adopted: No Living Status: Hx Family Cardiac Disorders: No Hx Family Respiratory Disorders: No Hx Family Cancer: No Hx Family GI Disorders: No Hx Family Genitourinary Disorders: No Hx Family Endocrine Disorder: Yes Hx Family Musculoskeletal Disorders: No Hx Family Neuromuscular Disorders: No Hx Family Neurologic Disorders: No Hx Family HEENT Disorders: No Hx Family Autoimmune Disorders: No Hx Family Psychosocial Disorders: No Hx Family Medical Disorders: No Father History Unknown: Yes Adopted: No Living Status: Hx Family Cardiac Disorders: Yes Hx Family Respiratory Disorders: Yes Hx Family Cancer: No Hx Family Genitourinary Disorders: No Hx Family Endocrine Disorder: No Hx Family Musculoskeletal Disorders: No Hx Family Neuromuscular Disorders: No Hx Family Neurologic Disorders: No Hx Family Reproductive Disorders: No Hx Family Psychosocial Disorders: No Hx Family Medical Disorders: No Internal Medicine - H&P: Meds Albuterol Sulfate [Ventolin Hfa] 2 puff IH Q4H PRN 01/24/16 [History] Aspirin 81 mg PO DAILY 01/24/16 [History] Atorvastatin [Lipitor] 40 mg PO HS 01/24/16 [History] Budesonide/Formoterol 160/4.5 [Symbicort 160/4.5] 2 puff IH BIDR 01/24/16 [ History] Carvedilol 12.5 mg PO BID 01/24/16 [History] DULoxetine [Cymbalta] 30 mg PO DAILY 01/24/16 [History] Fluticasone Propionate Nasal [Flonase] 1 spray NS DAILY 01/24/16 [History] Meclizine HCl [Verticalm] 25 mg PO AD PRN 01/24/16 [History] Montelukast [Singulair] 10 mg PO DAILY 01/24/16 [History] Multivitamin [Multi-Day Vitamins] 1 tab PO DAILY 01/24/16 [History] Oxygen 1 each .ROUTE AD PRN 01/24/16 [History] Roflumilast [Daliresp] 500 mcg PO DAILY 01/24/16 [History] Ipratropium/Albuterol Neb [Duoneb] 3 ml IH Q6HR 12/03/16 [History] 3 Allergy/AdvReac Type Severity Reaction Status Date / Time Amoxicillin [From Augmentin] Allergy Vomiting Verified 03/02/17 21:02 clavulanic acid Allergy Vomiting Verified 03/02/17 21:02 [From Augmentin] codeine Allergy Hallucinati Verified 03/02/17 21:02 ng hydrocodone [From Vicodin] Allergy Vomiting Verified 03/02/17 21:02 Iodinated Contrast- Oral and Allergy See Verified 03/02/17 21:02 IV Dye Comments [Iodinated Contrast Media - IV Dye] latex Allergy See Verified 03/02/17 21:02 Comments meloxicam [From Mobic] Allergy Dizziness Verified 03/02/17 21:02 ondansetron Allergy Vomiting Verified 03/02/17 21:02 [From Zofran (as hydrochloride)] Oxycodone [From Percocet] Allergy Hallucinati Verified 03/02/17 21:02 ng pregabalin [From Lyrica] Allergy Dizziness Verified 03/02/17 21:02 All Systems PM: A 10-system review of systems was performed and is negative for pertinent findings except as documented above in the HPI. - Constitutional Constitutional: as per HPI - Constitutional Vitals: Temp Pulse Resp BP Pulse Ox 97.8 F 67 14 111/71 97 03/03/17 02:01 03/03/17 02:01 03/03/17 02:01 03/03/17 02:01 03/03/17 02:01 General appearance: Present: cooperative, A&O X 3, no acute distress, answers questions appropriately - Head Head exam: Present: atraumatic, normocephalic - Eye Eye exam: Present: conjuntiva pink, sclera anicteric - Respiratory Respiratory exam: Present: CTAB. Absent: accessory muscle use, rales, rhonchi, wheezes - Cardiovascular Cardiovascular exam: Present: RRR, +S1, +S2. Absent: diastolic murmur, gallop, rubs, systolic murmur - GI/Abdominal GI/Abdominal exam: Present: normal bowel sounds, soft, no peritoneal signs. Absent: distended, tenderness - Extremities Exam Extremities exam: Present: warm, radial pulses palpable and symmetrical. Absent : calf tenderness, cyanotic, pedal edema - Neurological Exam Neurological exam: Present: alert, oriented X3 - Psychiatric Psychiatric exam: Present: normal affect, normal mood Internal Med - H&P Results - Labs CBC & Chem 7: 03/02/17 21:21 03/02/17 21:21
[2017-03-03] MEDS ORDERED: Ipratropium/Albuterol Neb 3 ML IH PRN (04:13)
[2017-03-03] MEDS ORDERED: Nitroglycerin 0.4 MG TAB.SUBL SL PRN (04:17)
[2017-03-03 04:28] LABS: Basophils % 0.7 %; Eosinophils # 0.4 K/mcL (0.0-0.6); Eosinophils % 8.1 %; Hematocrit 41.4 % (37.5-50.1); Hemoglobin 13.3 g/dL (12.9-16.9); Immature Granulocytes % 3.2 % (0-4); Lymphocytes % 19.3 %; Mean Corpuscular HGB Conc 32.1 g/dL (31.6-35.5); Mean Corpuscular Hemoglobin 27.5 pg (28.0-33.3); Mean Corpuscular Volume 85.7 fL (83.0-100.0); Mean Platelet Volume 10.9 fL (9.4-12.4); Monocytes # 0.7 K/mcL (0.0-1.3); Monocytes % 13.9 %; Neutrophils # 2.9 K/mcL (1.6-8.9); Platelet Count 185 K/mcL (140-400); Red Blood Count 4.83 M/mcL (4.19-5.50); Red Cell Distribution Width 15.7 % (11.5-14.5); Segmented Neutrophils % 54.8 %
[2017-03-03 04:51] LABS: BUN/Creatinine Ratio 20 (6-26); Blood Urea Nitrogen 21 mg/dL (8-26); Calcium 8.1 mg/dL (8.6-10.8); Carbon Dioxide 21 mEq/L (19-29); Chloride 109 mEq/L (98-109); Cholesterol 117 mg/dL (< 200); Glucose 89 mg/dL (70-99); HDL Cholesterol 39 mg/dL (40-59); LDL Cholesterol,Calculated 47 mg/dL (0-99); Osmolality,Calculated 286 (280-300); Phosphorous 3.1 mg/dL (2.3-4.7); Potassium 3.8 mEq/L (3.5-4.5); Sodium 137 mEq/L (136-145); Triglycerides 156 mg/dL (< 150); eGFR For African Americans > 60 (> 60); eGFR For Non-African Americans > 60 (> 60)
[2017-03-03 04:59] LABS: Magnesium 1.9 mg/dL (1.6-2.6)
[2017-03-03] MEDS: 0.9 % Sodium Chloride 1,000 ML IVC SCH ×3 (06:13→13:32)
[2017-03-03] MEDS: *HR* Heparin 5,000 UNIT/ML VIAL SQ SCH ×2 (06:14→17:53)
[2017-03-03] MEDS ORDERED: Piperacillin/Tazobactam 3.375 GM in D5% in Water 50 ML IVPB SCH (08:00)
[2017-03-03] MEDS: Budesonide/Formoterol 160/4.5 MDI IH SCH ×2 (08:17→21:35)
--- NOTE | 2017-03-03 09:20 | Internal Med Progress Note ---
<Octavia Sanchez - Last Filed: 03/03/17 18:10> Date of Encounter: 03/03/17 Time of Encounter: 09:19 - Assessment and plan (1) Acute pancreatitis Current Visit: Yes Status: Acute Assessment and plan: -CT findings suggestive of pancreatitis, initial lipase elevated (505) -continue IVF, decreased rate to 100mL/hr -morphine 2mg IVP and tramadol PO PRN for pain -continue NPO, avoid PO meds when possible -consider clear liquid diet tomorrow -will recheck lipase in morning Qualifiers: Pancreatitis type: unspecified pancreatitis type Acute pancreatitis complication: unspecified Qualified Code(s): K85.90 - Acute pancreatitis without necrosis or infection, unspecified (2) COPD (chronic obstructive pulmonary disease) Current Visit: Yes Status: Acute Assessment and plan: -albuterol inhaler as needed -duoneb and symbicort scheduled -IV rocephin for bronchitis Qualifiers: COPD type: unspecified COPD Qualified Code(s): J44.9 - Chronic obstructive pulmonary disease, unspecified (3) CAD (coronary artery disease) Current Visit: No Status: Chronic Assessment and plan: -ASA, statin, beta-re -no chest pain at this time Qualifiers: Coronary Disease-Associated Artery/Lesion type: bypass graft [place] vs. transplanted heart: [place] heart Associated angina: without angina Qualified Code(s): I25.810 - Atherosclerosis of coronary artery bypass graft(s) without angina pectoris (4) Atypical chest pain Current Visit: Yes Status: Acute Assessment and plan: -no complaints of chest pain at this time -initial troponin elevated (0.04) and trending down (0.01) -01/2016 Echo shows LVEF 55-60% -sublingual nitro for chest pain as needed -will continue to monitor on telemetry (5) Elevated troponin Current Visit: Yes Status: Acute Assessment and plan: -no complaints of chest pain at this time -initial troponin 0.04, this morning 0.01 -continue telemetry monitoring (6) Hypertension Current Visit: No Status: Chronic Assessment and plan: -IV hydralazine for SBP >160 -holding lisinopril to avoid PO meds and because pancreatitis can be an adverse effect of this medication Qualifiers: Hypertension type: essential hypertension Qualified Code(s): I10 - Essential (primary) hypertension (7) DVT prophylaxis Current Visit: No Status: Acute Assessment and plan: -heparin 5000 units SubQ Q12H - Subjective Interval history: Patient seen and examined this morning at bedside, he is sitting comfortably in bed. Patient is feeling well, denies fever, N/V, abdominal pain, dyspnea, coughing, wheezing, pain between shoulders. He admits to "shaking chills," pain at left IV site that radiates up to shoulder. - Constitutional Vitals: Temp Pulse Resp BP Pulse Ox 98.0 F 81 16 133/75 100 03/03/17 07:08 03/03/17 07:08 03/03/17 08:19 03/03/17 07:08 03/03/17 08:19 General appearance: Present: cooperative, A&O X 3, no acute distress, answers questions appropriately Exam: Gen.: Vitals noted. No acute distress. HEENT: EOMI, Normocephalic, atraumatic, MMM Neck: Supple. No adenopathy. Cardiac: RRR, no murmur, +S1/S2 Pulmonary: CTA bilaterally, no wheezes, rales or rhonchi Abdomen: soft, nontender, BS noted Extremities: no BLE edema, DP pulses palpable and equal b/l Neuro: AAOx3, moves all extremities, no focal deficits Psych: Appropriate mood and behavior Internal Medicine: Result - Labs CBC & Chem 7: 03/03/17 03:50 03/03/17 03:50 Labs: Short CBC 03/03/17 Range/Units 03:50 WBC 5.3 (4.3-11.1) K/mcL Hgb 13.3 (12.9-16.9) g/dL Hct 41.4 (37.5-50.1) % Plt Count 185 (140-400) K/mcL Neutrophils # 2.9 (1.6-8.9) K/mcL BMP 03/03/17 03:50 Sodium 137 Potassium 3.8 Chloride 109 Carbon Dioxide 21 BUN 21 Creatinine 1.07 Glucose 89 Calcium 8.1 L Cardiac Enzymes 03/03/17 Range/Units 03:50 Troponin I 0.01 (0-0.03) ng/mL - ABG Interpretation ABG results: ABG ABG pH 7.48 pH Units (7.32-7.45) H 03/02/17 21:51 ABG pCO2 31 mmHg (35-45) L 03/02/17 21:51 ABG pO2 101 mmHg (85-104) 03/02/17 21:51 ABG O2 Saturation 98 % (95-98) 03/02/17 21:51 PT/INR, D-dimer PT 11.5 Seconds (9.4-12.1) 03/02/17 21:21 - VTE Documentation of Mechanical Device: Intermittent pneumatic compression device Consult Discharge Plan - Plan Referrals: Joaquina Amezquita CNP [Primary Care Provider] - <Jama Jones - Last Filed: 03/03/17 18:26> Date of Encounter: 03/03/17 - Constitutional Vitals: Temp Pulse Resp BP Pulse Ox 99.0 F 80 16 128/63 98 03/03/17 14:52 03/03/17 14:52 03/03/17 15:51 03/03/17 14:52 03/03/17 15:51 Internal Medicine: Result - Labs CBC & Chem 7: 03/03/17 03:50 03/03/17 03:50 Labs: Short CBC 03/03/17 Range/Units 03:50 WBC 5.3 (4.3-11.1) K/mcL Hgb 13.3 (12.9-16.9) g/dL Hct 41.4 (37.5-50.1) % Plt Count 185 (140-400) K/mcL Neutrophils # 2.9 (1.6-8.9) K/mcL BMP 03/03/17 03:50 Sodium 137 Potassium 3.8 Chloride 109 Carbon Dioxide 21 BUN 21 Creatinine 1.07 Glucose 89 Calcium 8.1 L Cardiac Enzymes 03/03/17 Range/Units 03:50 Troponin I 0.01 (0-0.03) ng/mL - ABG Interpretation ABG results: ABG ABG pH 7.48 pH Units (7.32-7.45) H 03/02/17 21:51 ABG pCO2 31 mmHg (35-45) L 03/02/17 21:51 ABG pO2 101 mmHg (85-104) 03/02/17 21:51 ABG O2 Saturation 98 % (95-98) 03/02/17 21:51 PT/INR, D-dimer PT 11.5 Seconds (9.4-12.1) 03/02/17 21:21 - Attending Attestation acute pancreatitis npo IVF, may start clears in the morning if stable hx of IgG deficiency COPD stable, treat acute bacterial bronchitis with rocephin I examined this patient and my medical decision-making was reviewed with the Resident Physician. I agree with the documented findings, disposition and treatment plan as described except to the extent set forth below.
[2017-03-03] MEDS: Aspirin 81 MG TAB.CHEW PO SCH (10:18)
[2017-03-03] MEDS: Multivit/Ca/Min/Fe/FA 1 TAB TABLET PO SCH (10:19)
[2017-03-03] MEDS: DALIRESP 500 MCG PO SCH (10:23)
[2017-03-03] MEDS: Fluticasone Propionate Nasal 50 MCG/SPRAY BOTTLE NS SCH (10:24)
[2017-03-03] MEDS: traMADol 50 MG TABLET PO PRN ×2 (10:34→19:41)
[2017-03-03] MEDS: Ipratropium/Albuterol Neb 3 ML IH SCH ×3 (11:35→21:35)
--- NOTE | 2017-03-03 13:09 | Electrocardiograph Report ---
[place] [id number] Test Date: 2017-03-02 Pat Name: Prateek Perez Department: 104 Room: 3A Gender: M Contact Lens Lathe Operator: NISREEN : 1940 Requested By: Oscar Sainz Order Number: [id number] Reading MD: Anisha Bailey Measurements Intervals [place] Rate: 104 P: ME: 362 QRS: -21 QRSD: 134 T: 67 QT: 328 QTc: 388 Interpretive Statements PROBABLY SINUS RHYTHM WITH RBBB ARTIFACT LIMITS INTERPRETATION Electronically Signed On 03-03-2017 12:47:24 EST by Anisha Bailey
[2017-03-03] MEDS: *HR* Promethazine 25 MG/ML VIAL IVP PRN (13:22)
[2017-03-03] MEDS: cefTRIAXone 1,000 MG in Water for inj. (sterile) 10 ML IVP SCH (13:28)
[2017-03-03] MEDS: *HR* Morphine 2 MG/ML SYRINGE IVP PRN (17:49)
[2017-03-03] MEDS ORDERED: *HR* Dextrose 50 % in Water (Syg) 50 ML SYRINGE IVP ONE (18:12)
[2017-03-03] MEDS: D5% in 0.45% NACL 1,000 ML IVC SCH (18:22)
[2017-03-03] MEDS: Acetaminophen 325 MG TABLET PO PRN (19:59)
[2017-03-03] MEDS ORDERED: Cefepime HCl 2,000 MG in Water for inj. (sterile) 20 ML IVP ONE (21:07)
[2017-03-04] MEDS: 0.9 % Sodium Chloride 1,000 ML IVC SCH (02:57)
[2017-03-04] MEDS: Ipratropium/Albuterol Neb 3 ML IH SCH ×4 (04:33→21:25)
[2017-03-04] MEDS: D5% in 0.45% NACL 1,000 ML IVC SCH (04:50)
[2017-03-04] MEDS: *HR* Heparin 5,000 UNIT/ML VIAL SQ SCH ×2 (04:52→16:27)
[2017-03-04] MEDS: *HR* Morphine 2 MG/ML SYRINGE IVP PRN ×3 (04:56→22:15)
[2017-03-04] MEDS: *HR* Promethazine 25 MG/ML VIAL IVP PRN ×3 (04:56→22:14)
[2017-03-04 05:50] LABS: BUN/Creatinine Ratio 17 (6-26); Blood Urea Nitrogen 20 mg/dL (8-26); Calcium 8.2 mg/dL (8.6-10.8); Carbon Dioxide 24 mEq/L (19-29); Chloride 106 mEq/L (98-109); Glucose 92 mg/dL (70-99); Lipase 32 Units/L (8-78); Osmolality,Calculated 280 (280-300); Sodium 134 mEq/L (136-145); eGFR For African Americans > 60 (> 60); eGFR For Non-African Americans 59 (> 60)
[2017-03-04] MEDS: cefTRIAXone 1,000 MG in Water for inj. (sterile) 10 ML IVP SCH (08:06)
[2017-03-04] MEDS: Aspirin 81 MG TAB.CHEW PO SCH (08:06)
[2017-03-04] MEDS: Multivit/Ca/Min/Fe/FA 1 TAB TABLET PO SCH (08:06)
[2017-03-04] MEDS: DALIRESP 500 MCG PO SCH (08:07)
[2017-03-04] MEDS: Fluticasone Propionate Nasal 50 MCG/SPRAY BOTTLE NS SCH (08:08)
[2017-03-04] MEDS: Budesonide/Formoterol 160/4.5 MDI IH SCH ×2 (10:47→21:25)
[2017-03-04] MEDS: traMADol 50 MG TABLET PO PRN (16:27)
--- NOTE | 2017-03-04 18:26 | Internal Med Progress Note ---
Date of Encounter: 03/04/17 Time of Encounter: 18:24 - Assessment and plan (1) Acute pancreatitis Current Visit: Yes Status: Acute Qualifiers: Pancreatitis type: unspecified pancreatitis type Acute pancreatitis complication: unspecified Qualified Code(s): K85.90 - Acute pancreatitis without necrosis or infection, unspecified (2) COPD (chronic obstructive pulmonary disease) Current Visit: Yes Status: Acute Qualifiers: COPD type: unspecified COPD Qualified Code(s): J44.9 - Chronic obstructive pulmonary disease, unspecified (3) Chest pain Current Visit: Yes Status: Acute Qualifiers: Chest pain type: unspecified Qualified Code(s): R07.9 - Chest pain, unspecified (4) Hypertension Current Visit: Yes Status: Chronic Qualifiers: Hypertension type: essential hypertension Qualified Code(s): I10 - Essential (primary) hypertension - Subjective Interval history: Admitted for alcoholic pancreatitis. CT scan showed pseudocyst. Patient is running low-grade fever. WBC was not followed previously therefore I ordered CBC and CMP and a repeat chest x-ray. Patient is on IV Rocephin I will add meropenem also. His amylase lipase will also be followed. Abdominal examination showed tender belly and apparently patient was eating. I will make him nothing by mouth except for meds and recommended not even use ice chips. We would like to see if pseudocyst stabilized. An admission patient had chest pain with mildly elevated troponin. - Constitutional Vitals: Temp Pulse Resp BP Pulse Ox 99.3 F 71 16 121/66 97 03/04/17 15:00 03/04/17 15:00 03/04/17 15:58 03/04/17 15:00 03/04/17 15:58 General appearance: Present: cooperative, A&O X 3, no acute distress, answers questions appropriately - Head Head exam: Present: atraumatic, normocephalic - Eye Eye exam: Present: PERRL, conjuntiva pink, sclera anicteric Pupils: Present: PERRL - Neck Neck exam general surgery: Present: supple, trachea midline. Absent: lymphadenopathy - Respiratory Respiratory exam: Present: CTAB. Absent: accessory muscle use, rales, rhonchi, wheezes - Cardiovascular Cardiovascular exam: Present: RRR, +S1, +S2. Absent: diastolic murmur, gallop, rubs, systolic murmur - GI/Abdominal GI/Abdominal exam: Present: diminished bowel sounds, distended, soft, tenderness , no peritoneal signs - Extremities Exam Extremities exam: Present: warm, radial pulses palpable and symmetrical. Absent : calf tenderness, cyanotic, pedal edema - Neurological Exam Neurological exam: Present: CN II-XII intact, oriented X3, no focal deficits. Absent: pronater drift, facial droop, speech deficit - Skin Skin exam: Present: dry, intact Internal Medicine: Result - Labs CBC & Chem 7: 03/03/17 03:50 03/04/17 04:49 Labs: BMP 03/04/17 04:49 Sodium 134 L Potassium 4.0 Chloride 106 Carbon Dioxide 24 BUN 20 Creatinine 1.20 Glucose 92 Calcium 8.2 L - ABG Interpretation ABG results: ABG ABG pH 7.48 pH Units (7.32-7.45) H 03/02/17 21:51 ABG pCO2 31 mmHg (35-45) L 03/02/17 21:51 ABG pO2 101 mmHg (85-104) 03/02/17 21:51 ABG O2 Saturation 98 % (95-98) 03/02/17 21:51 PT/INR, D-dimer PT 11.5 Seconds (9.4-12.1) 03/02/17 21:21 - VTE Documentation of Mechanical Device: Intermittent pneumatic compression device Consult Discharge Plan - Plan Referrals: Joaquina Amezquita, [employer] OPERATOR [Primary Care Provider] -
[2017-03-04] MEDS: Meropenem 1,000 MG in Water for inj. (sterile) 10 ML IVP SCH ×2 (21:47→22:15)
[2017-03-05] MEDS: Ipratropium/Albuterol Neb 3 ML IH SCH ×4 (03:44→21:53)
[2017-03-05] MEDS: Meropenem 1,000 MG in Water for inj. (sterile) 10 ML IVP SCH (05:14)
[2017-03-05] MEDS: *HR* Heparin 5,000 UNIT/ML VIAL SQ SCH ×2 (05:15→17:43)
[2017-03-05 05:45] LABS: Basophils % 0.7 %; Eosinophils # 0.4 K/mcL (0.0-0.6); Eosinophils % 8.3 %; Immature Granulocytes % 0.7 % (0-4); Lymphocytes # 0.9 K/mcL (0.6-4.6); Lymphocytes % 21.3 %; Mean Corpuscular HGB Conc 32.2 g/dL (31.6-35.5); Mean Corpuscular Hemoglobin 27.4 pg (28.0-33.3); Mean Corpuscular Volume 84.9 fL (83.0-100.0); Mean Platelet Volume 11.1 fL (9.4-12.4); Monocytes # 0.7 K/mcL (0.0-1.3); Monocytes % 15.8 %; Neutrophils # 2.3 K/mcL (1.6-8.9); Platelet Count 142 K/mcL (140-400); Red Blood Count 4.24 M/mcL (4.19-5.50); Red Cell Distribution Width 15.9 % (11.5-14.5); Segmented Neutrophils % 53.2 %
[2017-03-05 05:49] LABS: Hemoglobin 11.6 g/dL (12.9-16.9)
[2017-03-05 06:03] LABS: Albumin/Globulin Ratio 0.7 (1.1-2.2); Bilirubin,Total 0.5 mg/dL (0.2-1.2); Calcium 8.2 mg/dL (8.6-10.8); Chol/HDL Ratio 3.4 (0-4.9); Globulin 3.2 g/dL (2.4-3.5); Potassium 4.3 mEq/L (3.5-4.5); Total Protein 5.4 g/dL (6.0-8.3)
[2017-03-05 06:08] LABS: Albumin 2.2 g/dL (3.5-5.0)
[2017-03-05] MEDS: cefTRIAXone 1,000 MG in Water for inj. (sterile) 10 ML IVP SCH (09:39)
[2017-03-05] MEDS: traMADol 50 MG TABLET PO PRN (09:41)
[2017-03-05] MEDS: Multivit/Ca/Min/Fe/FA 1 TAB TABLET PO SCH (09:42)
[2017-03-05] MEDS: Aspirin 81 MG TAB.CHEW PO SCH (09:42)
[2017-03-05] MEDS: Fluticasone Propionate Nasal 50 MCG/SPRAY BOTTLE NS SCH (09:43)
[2017-03-05] MEDS: Budesonide/Formoterol 160/4.5 MDI IH SCH ×2 (11:09→21:53)
[2017-03-05] MEDS ORDERED: *HR* Dextrose 50 % in Water (Syg) 50 ML SYRINGE IVP ONE (12:05)
[2017-03-05] MEDS: *HR* Morphine 2 MG/ML SYRINGE IVP PRN (14:30)
--- NOTE | 2017-03-05 16:23 | Internal Med Progress Note ---
Date of Encounter: 03/05/17 Time of Encounter: 16:21 - Assessment and plan (1) Acute pancreatitis Current Visit: Yes Status: Acute Qualifiers: Pancreatitis type: unspecified pancreatitis type Acute pancreatitis complication: unspecified Qualified Code(s): K85.90 - Acute pancreatitis without necrosis or infection, unspecified (2) COPD (chronic obstructive pulmonary disease) Current Visit: Yes Status: Acute Qualifiers: COPD type: unspecified COPD Qualified Code(s): J44.9 - Chronic obstructive pulmonary disease, unspecified (3) Chest pain Current Visit: Yes Status: Acute Qualifiers: Chest pain type: unspecified Qualified Code(s): R07.9 - Chest pain, unspecified (4) Hypertension Current Visit: Yes Status: Chronic Qualifiers: Hypertension type: essential hypertension Qualified Code(s): I10 - Essential (primary) hypertension - Subjective Interval history: Admitted for alcoholic pancreatitis. CT scan showed pseudocyst. Patient is running low-grade fever. WBC was not followed previously therefore I ordered CBC and CMP and a repeat chest x-ray. Patient is on IV Rocephin I will add meropenem also. His amylase lipase will also be followed. Abdominal examination showed tender belly and apparently patient was eating. I will make him nothing by mouth except for meds and recommended not even use ice chips. We would like to see if pseudocyst stabilized. An admission patient had chest pain with mildly elevated troponin. 03/05 patient claims that his belly pain has improved. Abdominal tenderness has reduced. Wants to eat. Still has some belly pain. His lipase is down now. We will restart clear liquids to see if he continues to improve. White count has elevated we will watch it closely. Chest x-ray showed bilateral pneumonia therefore Oni is admitted beside Rocephin. Meropenem can be DC'd. - Constitutional Vitals: Temp Pulse Resp BP Pulse Ox 99.2 F 61 16 118/68 95 03/05/17 11:26 03/05/17 11:26 03/05/17 16:19 03/05/17 11:26 03/05/17 16:19 General appearance: Present: cooperative, A&O X 3, no acute distress, answers questions appropriately - Head Head exam: Present: atraumatic, normocephalic - Eye Eye exam: Present: PERRL, conjuntiva pink, sclera anicteric Pupils: Present: PERRL - Neck Neck exam general surgery: Present: supple, trachea midline. Absent: lymphadenopathy - Respiratory Respiratory exam: Present: CTAB. Absent: accessory muscle use, rales, rhonchi, wheezes - Cardiovascular Cardiovascular exam: Present: RRR, +S1, +S2. Absent: diastolic murmur, gallop, rubs, systolic murmur - GI/Abdominal GI/Abdominal exam: Present: normal bowel sounds, soft, tenderness, no peritoneal signs. Absent: distended - Extremities Exam Extremities exam: Present: warm, radial pulses palpable and symmetrical. Absent : calf tenderness, cyanotic, pedal edema - Neurological Exam Neurological exam: Present: CN II-XII intact, oriented X3, no focal deficits. Absent: pronater drift, facial droop, speech deficit - Skin Skin exam: Present: dry, intact Internal Medicine: Result - Labs CBC & Chem 7: 03/05/17 04:36 03/05/17 04:36 - ABG Interpretation ABG results: ABG ABG pH 7.48 pH Units (7.32-7.45) H 03/02/17 21:51 ABG pCO2 31 mmHg (35-45) L 03/02/17 21:51 ABG pO2 101 mmHg (85-104) 03/02/17 21:51 ABG O2 Saturation 98 % (95-98) 03/02/17 21:51 PT/INR, D-dimer PT 11.5 Seconds (9.4-12.1) 03/02/17 21:21 - VTE Documentation of Mechanical Device: Intermittent pneumatic compression device Consult Discharge Plan - Plan Referrals: Joaquina Amezquita INSO[employer] LIP TURNER [Primary Care Provider] -
[2017-03-05] MEDS: MetroNIDAZOLE 500 MG/100 ML 500 MG/100 ML BAG IVPB SCH ×2 (16:31→23:59)
[2017-03-05] MEDS: Acetaminophen 325 MG TABLET PO PRN (19:42)
[2017-03-06] MEDS: *HR* Morphine 2 MG/ML SYRINGE IVP PRN (04:17)
[2017-03-06] MEDS: Ipratropium/Albuterol Neb 3 ML IH SCH ×4 (04:40→22:40)
[2017-03-06 04:46] LABS: Basophils % 0.5 %; Eosinophils # 0.4 K/mcL (0.0-0.6); Eosinophils % 9.8 %; Hematocrit 35.1 % (37.5-50.1); Hemoglobin 11.3 g/dL (12.9-16.9); Immature Granulocytes % 0.8 % (0-4); Lymphocytes # 0.7 K/mcL (0.6-4.6); Lymphocytes % 18.8 %; Mean Corpuscular HGB Conc 32.2 g/dL (31.6-35.5); Mean Corpuscular Hemoglobin 27.6 pg (28.0-33.3); Mean Corpuscular Volume 85.6 fL (83.0-100.0); Mean Platelet Volume 11.1 fL (9.4-12.4); Monocytes # 0.6 K/mcL (0.0-1.3); Monocytes % 14.9 %; Platelet Count 134 K/mcL (140-400); Red Cell Distribution Width 15.8 % (11.5-14.5); Segmented Neutrophils % 55.2 %
[2017-03-06 05:07] LABS: Albumin 2.2 g/dL (3.5-5.0); Albumin/Globulin Ratio 0.8 (1.1-2.2); Bilirubin,Total 0.3 mg/dL (0.2-1.2); Calcium 8.2 mg/dL (8.6-10.8); Globulin 2.9 g/dL (2.4-3.5); Magnesium 2.1 mg/dL (1.6-2.6); Total Protein 5.1 g/dL (6.0-8.3)
[2017-03-06] MEDS: *HR* Heparin 5,000 UNIT/ML VIAL SQ SCH ×2 (05:59→18:29)
[2017-03-06] MEDS ORDERED: *HR* Dextrose 50 % in Water (Syg) 50 ML SYRINGE IVP ONE (07:48)
[2017-03-06] MEDS: MetroNIDAZOLE 500 MG/100 ML 500 MG/100 ML BAG IVPB SCH ×3 (08:23→23:49)
[2017-03-06] MEDS: Aspirin 81 MG TAB.CHEW PO SCH (08:24)
[2017-03-06] MEDS: Multivit/Ca/Min/Fe/FA 1 TAB TABLET PO SCH (08:25)
[2017-03-06] MEDS: Fluticasone Propionate Nasal 50 MCG/SPRAY BOTTLE NS SCH (08:25)
[2017-03-06] MEDS: Budesonide/Formoterol 160/4.5 MDI IH SCH ×2 (09:22→22:40)
[2017-03-06] MEDS: cefTRIAXone 1,000 MG in Water for inj. (sterile) 10 ML IVP SCH (09:58)
[2017-03-06] MEDS: traMADol 50 MG TABLET PO PRN (13:02)
--- NOTE | 2017-03-06 14:54 | Internal Med Progress Note ---
Date of Encounter: 03/06/17 Time of Encounter: 14:50 - Assessment and plan (1) Acute pancreatitis Current Visit: Yes Status: Acute Qualifiers: Pancreatitis type: unspecified pancreatitis type Acute pancreatitis complication: unspecified Qualified Code(s): K85.90 - Acute pancreatitis without necrosis or infection, unspecified (2) COPD (chronic obstructive pulmonary disease) Current Visit: Yes Status: Acute Qualifiers: COPD type: unspecified COPD Qualified Code(s): J44.9 - Chronic obstructive pulmonary disease, unspecified (3) Chest pain Current Visit: Yes Status: Acute Qualifiers: Chest pain type: unspecified Qualified Code(s): R07.9 - Chest pain, unspecified (4) Aspiration pneumonia Current Visit: Yes Status: Acute Qualifiers: Aspiration pneumonia type: unspecified Laterality: bilateral Lung location: lower lobe of lung Qualified Code(s): J69.0 - Pneumonitis due to inhalation of food and vomit (5) Hypertension Current Visit: Yes Status: Chronic Qualifiers: Hypertension type: essential hypertension Qualified Code(s): I10 - Essential (primary) hypertension - Subjective Interval history: Admitted for alcoholic pancreatitis. CT scan showed pseudocyst. Patient is running low-grade fever. WBC was not followed previously therefore I ordered CBC and CMP and a repeat chest x-ray. Patient is on IV Rocephin . His amylase lipase will also be followed. Abdominal examination showed tender belly and apparently patient was eating. I will make him nothing by mouth except for meds and recommended not even use ice chips. We would like to see if pseudocyst stabilized. An admission patient had chest pain with mildly elevated troponin. 03/05 patient claims that his belly pain has improved. Abdominal tenderness has reduced. Wants to eat. Still has some belly pain. His lipase is down now. We will restart clear liquids to see if he continues to improve. White count has elevated we will watch it closely. Chest x-ray showed bilateral pneumonia therefore Oni is admitted beside Rocephin. Meropenem can be DC'd. 03/06 asymptomatic. Abdominal and has resolved. Wants to eat Will restart diet. Noted creatinine has been rising though overall fluid balance is positive. This could be a complication off pancreatitis versus drug reaction versus sepsis. Initially when I came in he was on vancomycin which has been DC' d. He had meropenem for couple of days but now he has been switched to Rocephin and Flagyl for his pneumonia which is bilateral. For now I will leave the Rocephin while we are consulting nephrology and ordering UA. Repeat renal function. Gentle IV hydration - Constitutional Vitals: Temp Pulse Resp BP Pulse Ox 98.1 F 79 16 123/68 96 03/06/17 14:32 03/06/17 14:32 03/06/17 14:32 03/06/17 14:32 03/06/17 14:32 General appearance: Present: cooperative, A&O X 3, no acute distress, answers questions appropriately - Head Head exam: Present: atraumatic, normocephalic - Eye Eye exam: Present: PERRL, conjuntiva pink, sclera anicteric Pupils: Present: PERRL - Neck Neck exam general surgery: Present: supple, trachea midline. Absent: lymphadenopathy - Respiratory Respiratory exam: Present: CTAB. Absent: accessory muscle use, rales, rhonchi, wheezes - Cardiovascular Cardiovascular exam: Present: RRR, +S1, +S2. Absent: diastolic murmur, gallop, rubs, systolic murmur - GI/Abdominal GI/Abdominal exam: Present: normal bowel sounds, soft, no peritoneal signs. Absent: distended, tenderness - Extremities Exam Extremities exam: Present: warm, radial pulses palpable and symmetrical. Absent : calf tenderness, cyanotic, pedal edema - Neurological Exam Neurological exam: Present: CN II-XII intact, oriented X3, no focal deficits. Absent: pronater drift, facial droop, speech deficit - Skin Skin exam: Present: dry, intact Internal Medicine: Result - Labs CBC & Chem 7: 03/06/17 04:00 03/06/17 04:00 Labs: Short CBC 03/06/17 Range/Units 04:00 WBC 3.7 L (4.3-11.1) K/mcL Hgb 11.3 L (12.9-16.9) g/dL Hct 35.1 L (37.5-50.1) % Plt Count 134 L (140-400) K/mcL Neutrophils # 2.0 (1.6-8.9) K/mcL BMP 03/06/17 04:00 Sodium 134 L Potassium 4.0 Chloride 106 Carbon Dioxide 22 BUN 25 Creatinine 2.28 H Glucose 150 H Calcium 8.2 L Liver Function 03/06/17 Range/Units 04:00 Total Bilirubin 0.3 (0.2-1.2) mg/dL AST 25 (5-34) Units/L ALT 28 (0-55) Units/L Alkaline Phosphatase 41 (38-126) Units/L Albumin 2.2 L (3.5-5.0) g/dL - ABG Interpretation ABG results: ABG ABG pH 7.48 pH Units (7.32-7.45) H 03/02/17 21:51 ABG pCO2 31 mmHg (35-45) L 03/02/17 21:51 ABG pO2 101 mmHg (85-104) 03/02/17 21:51 ABG O2 Saturation 98 % (95-98) 03/02/17 21:51 PT/INR, D-dimer PT 11.5 Seconds (9.4-12.1) 03/02/17 21:21 - VTE Documentation of Mechanical Device: Intermittent pneumatic compression device Consult Discharge Plan - Plan Referrals: Joaquina Amezquita USER EXPERIENCE LEAD [Primary Care Provider] -
[2017-03-06 15:54] LABS: Bilirubin,Urine Negative (Negative); Blood,Urine Negative (Negative); Clarity,Urine Cloudy (Clear); Color,Urine Yellow (Yellow); Glucose,Urine (UA) Normal (Normal); Ketones,Urine Negative (Negative); Leukocyte Esterase,Urine Trace (Negative); Nitrite,Urine Negative (Negative); Protein,Urine 30 mg/dL (Neg-Trace); Specific Gravity,Urine 1.017 (1.010-1.025); Urobilinogen,Urine Normal (Normal)
[2017-03-06 15:57] LABS: Bacteria,Urine None Seen per hpf (None-Few); Hyaline Casts,Urine None Seen per lpf (None-Few); Squamous Epithelial Cell,Urine Many per lpf (None-Few)
--- NOTE | 2017-03-06 16:31 | Nephrology Consult Note ---
Date of Encounter: 03/06/17 Time of Encounter: 16:00 Assessment and Plan (1) KEVIN (acute kidney injury) Status: Acute Elevated SCr in the setting of acute pancreatitis and decreased po intake suspect pre-renal Will resume IVF Will check CPK and uric acid levels Will check urine for sodium, eosinophils, creatinine and UA Avoid nephrotoxins if possible (2) Acute pancreatitis Status: Acute Per primary team but clinically resolved Qualifiers: Pancreatitis type: unspecified pancreatitis type Acute pancreatitis complication: unspecified Qualified Code(s): K85.90 - Acute pancreatitis without necrosis or infection, unspecified History of Present Illness - Reason for Consult Consult date: 03/06/17 Acute Kidney Injury - History of Present Illness 76 y o male with PMH of HTN, CAD s/p CABG and COPD admitted with fevers and cough and was diagnosed with acute pancreatitis seen on CT abd/pelvis. Renal consulted for worsening renal function during hospital stay. SCr was noted at 1.09, GFR >60 on admission and worsen to 1.57, GFR 43 2 days ago and to 2.26, GFR 28 today. Pt seen and examined with present who recalls prior history of Kevin which resolved over time. He has not seen nephrology in the past. No NSAIDs use. decreased po intake noted during hospital stay along with NPO. He initially received IVF which was stopped and may have received lasix as well. Past Med Surg Social Fam HX - Past Medical History Medical history: aortic aneurysm, COPD, coronary artery disease, hyperlipidemia , myocardial infarction, renal disease, other Psychiatric history: anxiety - Past Surgical History Surgical History: angioplasty/stent, coronary bypass (CABG) - Social History Smoking Status: Former smoker Smokeless Tobacco Status: No Alcohol use: none Drug use: none - Family History Mother Adopted: No Living Status: Hx Family Cardiac Disorders: No Hx Family Respiratory Disorders: No Hx Family Cancer: No Hx Family GI Disorders: No Hx Family Genitourinary Disorders: No Hx Family Endocrine Disorder: Yes Hx Family Musculoskeletal Disorders: No Hx Family Neuromuscular Disorders: No Hx Family Neurologic Disorders: No Hx Family HEENT Disorders: No Hx Family Autoimmune Disorders: No Hx Family Psychosocial Disorders: No Hx Family Medical Disorders: No Father History Unknown: Yes Adopted: No Living Status: Hx Family Cardiac Disorders: Yes Hx Family Respiratory Disorders: Yes Hx Family Cancer: No Hx Family Genitourinary Disorders: No Hx Family Endocrine Disorder: No Hx Family Musculoskeletal Disorders: No Hx Family Neuromuscular Disorders: No Hx Family Neurologic Disorders: No Hx Family Reproductive Disorders: No Hx Family Psychosocial Disorders: No Hx Family Medical Disorders: No Medications and Allergies Albuterol Sulfate [Ventolin Hfa] 2 puff IH Q4H PRN 01/24/16 [History] Atorvastatin [Lipitor] 40 mg PO HS 01/24/16 [History] Budesonide/Formoterol 160/4.5 [Symbicort 160/4.5] 2 puff IH BIDR 01/24/16 [ History] Carvedilol 12.5 mg PO BID 01/24/16 [History] DULoxetine [Cymbalta] 30 mg PO DAILY 01/24/16 [History] Fluticasone Propionate Nasal [Flonase] 1 spray NS DAILY 01/24/16 [History] Meclizine HCl [Verticalm] 25 mg PO AD PRN 01/24/16 [History] Montelukast [Singulair] 10 mg PO DAILY 01/24/16 [History] Multivitamin [Multi-Day Vitamins] 1 tab PO DAILY 01/24/16 [History] Oxygen 1 each .ROUTE AD PRN 01/24/16 [History] Roflumilast [Daliresp] 500 mcg PO DAILY 01/24/16 [History] Ipratropium/Albuterol Neb [Duoneb] 3 ml IH Q6HR 12/03/16 [History] Furosemide [Lasix] 20 mg PO DAILY 03/03/17 [History] Aspirin Enteric Coated [Aspirin EC] 325 mg PO DAILY #30 tablet. 03/08/17 [Rx] Cefuroxime PO [Ceftin] 500 mg PO Q12HR #18 tablet 03/08/17 [Rx] Nystatin [Nystatin Suspension] 100,000 units PO QID #120 ml 03/08/17 [Rx] metroNIDAZOLE [Flagyl] 500 mg PO TID #27 tablet 03/08/17 [Rx] 3 Allergy/AdvReac Type Severity Reaction Status Date / Time Amoxicillin [From Augmentin] Allergy Vomiting Verified 03/02/17 21:02 clavulanic acid Allergy Vomiting Verified 03/02/17 21:02 [From Augmentin] codeine Allergy Hallucinati Verified 03/02/17 21:02 ng hydrocodone [From Vicodin] Allergy Vomiting Verified 03/02/17 21:02 Iodinated Contrast- Oral and Allergy See Verified 03/02/17 21:02 IV Dye Comments [Iodinated Contrast Media - IV Dye] latex Allergy See Verified 03/02/17 21:02 Comments meloxicam [From Mobic] Allergy Dizziness Verified 03/02/17 21:02 ondansetron Allergy Vomiting Verified 03/02/17 21:02 [From Zofran (as hydrochloride)] Oxycodone [From Percocet] Allergy Hallucinati Verified 03/02/17 21:02 ng pregabalin [From Lyrica] Allergy Dizziness Verified 03/02/17 21:02 Review of Systems All Systems: reviewed and no additional remarkable complaints except as stated ( 10 systems reviewed) Exam - Vital Signs Vital signs: Initial Vital Signs Temp Pulse Resp BP Pulse Ox 101.0 F H 117 22 112/79 98 03/02/17 21:00 03/02/17 21:00 03/02/17 21:00 03/02/17 21:00 03/02/17 21:00 Vital Signs - Last 8 Hours Temp Pulse Resp BP Pulse Ox 03/06/17 15:28 16 123/68 96 03/06/17 14:32 98.1 F 79 16 123/68 96 03/06/17 09:21 16 152/77 98 Intake and Output 03/06/17 03/06/17 03/06/17 07:59 15:59 23:59 Intake Total 700 / 700 900 / 900 Output Total 0 / 0 300 / 300 Balance 700 / 700 600 / 600 Intake: IV Fluids 100 / 100 100 / 100 Flagyl Premix 500 MG/100 ML 500 100 / 100 100 / 100 mg In 100 ml @ 100 mls/hr IVPB Q8HR [facility] Rx#:[id number] Oral 600 / 600 800 / 800 Output: Urine 0 / 0 300 / 300 Other: Meal Lunch Percent of Meal Consumed 100% # Voids 1 # Bowel Movements 0 0 Weight 88.1 kg Blood Glucose* 62 83 Patient Weight 03/06/17 23:59 Weight 88.1 kg - General Appearance General appearance: well-developed, well-nourished EENT: ATNC, mucous membranes moist Neck: no JVD, supple Respiratory: clear Cardiology: edema (trace bilat LE), normal S1, normal S2 Gastrointestinal: no tenderness, no guarding Integumentary: warm and dry Neurologic: no focal deficit Musculoskeletal: no deformities Psychiatric: mood/affect appropriate, cooperative Results - Lab Results 03/08/17 06:18 03/08/17 06:18 Most recent lab results ABG pH 7.48 pH Units (7.32-7.45) H 03/02/17 21:51 ABG pCO2 31 mmHg (35-45) L 03/02/17 21:51 ABG pO2 101 mmHg (85-104) 03/02/17 21:51 ABG HCO3 23 mEq/L (21-27) 03/02/17 21:51 ABG O2 Saturation 98 % (95-98) 03/02/17 21:51 Calcium 8.2 mg/dL (8.6-10.8) L 03/06/17 04:00 Phosphorus 3.1 mg/dL (2.3-4.7) 03/03/17 03:50 Magnesium 2.1 mg/dL (1.6-2.6) 03/06/17 04:00 Urine Creatinine 66 mg/dL 03/06/17 16:00 Urine Sodium 28.0 mEq/L 03/06/17 16:00 Consult Discharge Plan - Plan Instructions: Chronic Obstructive Pulmonary Disease (DC) Referrals: Joaquina Amezquita REVENUE CYCLE MANAGER [Primary Care Provider] - Prescriptions: Cefuroxime PO [Ceftin] 500 mg PO Q12HR #18 tablet Aspirin Enteric Coated [Aspirin EC] 325 mg PO DAILY #30 tablet. metroNIDAZOLE [Flagyl] 500 mg PO TID #27 tablet Nystatin [Nystatin Suspension] 100,000 units PO QID #120 ml
[2017-03-06 16:56] LABS: Uric Acid 6.8 mg/dL (3.5-7.2)
[2017-03-06] MEDS: 0.9 % Sodium Chloride 1,000 ML IVC SCH (18:29)
[2017-03-06] MEDS: Meropenem 1,000 MG in Water for inj. (sterile) 10 ML IVP SCH ×4 (19:07→20:11)
[2017-03-07] MEDS: Ipratropium/Albuterol Neb 3 ML IH SCH ×4 (04:45→21:29)
[2017-03-07] MEDS: *HR* Heparin 5,000 UNIT/ML VIAL SQ SCH ×2 (06:13→20:43)
[2017-03-07 06:48] LABS: Basophils % 0.5 %; Eosinophils # 0.4 K/mcL (0.0-0.6); Eosinophils % 6.2 %; Hematocrit 36.7 % (37.5-50.1); Hemoglobin 11.8 g/dL (12.9-16.9); Immature Granulocytes % 0.3 % (0-4); Lymphocytes % 15.6 %; Mean Corpuscular HGB Conc 32.2 g/dL (31.6-35.5); Mean Corpuscular Hemoglobin 27.1 pg (28.0-33.3); Mean Corpuscular Volume 84.4 fL (83.0-100.0); Mean Platelet Volume 11.2 fL (9.4-12.4); Monocytes # 0.8 K/mcL (0.0-1.3); Monocytes % 12.1 %; Neutrophils # 4.2 K/mcL (1.6-8.9); Platelet Count 141 K/mcL (140-400); Red Blood Count 4.35 M/mcL (4.19-5.50); Red Cell Distribution Width 15.8 % (11.5-14.5); Segmented Neutrophils % 65.3 %
[2017-03-07 07:04] LABS: Albumin 2.3 g/dL (3.5-5.0); Albumin/Globulin Ratio 0.7 (1.1-2.2); Bilirubin,Total 0.4 mg/dL (0.2-1.2); Calcium 8.1 mg/dL (8.6-10.8); Globulin 3.4 g/dL (2.4-3.5); Total Protein 5.7 g/dL (6.0-8.3)
[2017-03-07 07:08] LABS: Potassium 4.4 mEq/L (3.5-4.5)
[2017-03-07 07:19] LABS: Platelet Estimate Normal (Normal)
[2017-03-07 07:20] LABS: Large Platelets Present (Not Present)
[2017-03-07] MEDS: cefTRIAXone 1,000 MG in Water for inj. (sterile) 10 ML IVP SCH (09:52)
[2017-03-07] MEDS: Multivit/Ca/Min/Fe/FA 1 TAB TABLET PO SCH (09:53)
[2017-03-07] MEDS: Aspirin 81 MG TAB.CHEW PO SCH (09:53)
[2017-03-07] MEDS: MetroNIDAZOLE 500 MG/100 ML 500 MG/100 ML BAG IVPB SCH ×2 (09:54→20:42)
[2017-03-07] MEDS: 0.9 % Sodium Chloride 1,000 ML IVC SCH (10:13)
[2017-03-07] MEDS: Budesonide/Formoterol 160/4.5 MDI IH SCH ×2 (10:52→21:29)
[2017-03-07] MEDS: *HR* Morphine 2 MG/ML SYRINGE IVP PRN (14:34)
--- NOTE | 2017-03-07 16:07 | Internal Med Progress Note ---
Date of Encounter: 03/07/17 Time of Encounter: 16:05 - Assessment and plan (1) Acute kidney injury superimposed on chronic kidney disease Current Visit: No Status: Acute Assessment and plan: Noted creatinine has been rising though overall fluid balance is positive. This could be a complication off pancreatitis versus drug reaction versus sepsis. Initially when I came in he was on vancomycin which has been DC'd. Repeat BMP showed elevation of creatinine. Nephrology is on the case. (2) Acute pancreatitis Current Visit: Yes Status: Acute Assessment and plan: Admitted for alcoholic pancreatitis. CT scan showed pseudocyst. Resolved tolerating full diet Qualifiers: Pancreatitis type: unspecified pancreatitis type Acute pancreatitis complication: unspecified Qualified Code(s): K85.90 - Acute pancreatitis without necrosis or infection, unspecified (3) Aspiration pneumonia Current Visit: Yes Status: Acute Assessment and plan: On IV Rocephin and Flagyl. Qualifiers: Aspiration pneumonia type: unspecified Laterality: bilateral Lung location: lower lobe of lung Qualified Code(s): J69.0 - Pneumonitis due to inhalation of food and vomit (4) COPD (chronic obstructive pulmonary disease) Current Visit: Yes Status: Acute Assessment and plan: Stable on nebulizers. Qualifiers: COPD type: unspecified COPD Qualified Code(s): J44.9 - Chronic obstructive pulmonary disease, unspecified (5) Chest pain Current Visit: Yes Status: Acute Assessment and plan: Chest pain with mildly elevated troponin on admission which has not recurred. Perhaps still related to chronic kidney disease. Will need further evaluation as outpatient once medically stable especially pulmonary osman. Qualifiers: Chest pain type: unspecified Qualified Code(s): R07.9 - Chest pain, unspecified (6) Hypertension Current Visit: Yes Status: Chronic Assessment and plan: Stable continue home medication Qualifiers: Hypertension type: essential hypertension Qualified Code(s): I10 - Essential (primary) hypertension - Subjective Interval history: Admitted for alcoholic pancreatitis. CT scan showed pseudocyst. Patient is running low-grade fever. WBC was not followed previously therefore I ordered CBC and CMP and a repeat chest x-ray. Patient is on IV Rocephin . His amylase lipase will also be followed. Abdominal examination showed tender belly and apparently patient was eating. I will make him nothing by mouth except for meds and recommended not even use ice chips. We would like to see if pseudocyst stabilized. An admission patient had chest pain with mildly elevated troponin. 03/05 patient claims that his belly pain has improved. Abdominal tenderness has reduced. Wants to eat. Still has some belly pain. His lipase is down now. We will restart clear liquids to see if he continues to improve. White count has elevated we will watch it closely. Chest x-ray showed bilateral pneumonia therefore Flagyl is admitted beside Rocephin. Meropenem can be DC'd. 03/06 asymptomatic. Abdominal and has resolved. Wants to eat Will restart diet. Noted creatinine has been rising though overall fluid balance is positive. This could be a complication off pancreatitis versus drug reaction versus sepsis. Initially when I came in he was on vancomycin which has been DC' d. He had meropenem for couple of days but now he has been switched to Rocephin and Flagyl for his pneumonia which is bilateral. For now I will leave the Rocephin while we are consulting nephrology and ordering UA. Repeat renal function. Gentle IV hydration 03/07 asymptomatic. Normal symptoms resolved tolerating full diet. Renal function worsen. - Constitutional Vitals: Temp Pulse Resp BP Pulse Ox 97.6 F 88 16 123/68 98 03/07/17 14:30 03/07/17 14:30 03/07/17 15:30 03/07/17 15:30 03/07/17 15:30 General appearance: Present: cooperative, A&O X 3, no acute distress, answers questions appropriately - Head Head exam: Present: atraumatic, normocephalic - Eye Eye exam: Present: PERRL, conjuntiva pink, sclera anicteric Pupils: Present: PERRL - Neck Neck exam general surgery: Present: supple, trachea midline. Absent: lymphadenopathy - Respiratory Respiratory exam: Present: CTAB. Absent: accessory muscle use, rales, rhonchi, wheezes - Cardiovascular Cardiovascular exam: Present: RRR, +S1, +S2. Absent: diastolic murmur, gallop, rubs, systolic murmur - GI/Abdominal GI/Abdominal exam: Present: normal bowel sounds, soft, no peritoneal signs. Absent: distended, tenderness - Extremities Exam Extremities exam: Present: warm, radial pulses palpable and symmetrical. Absent : calf tenderness, cyanotic, pedal edema - Neurological Exam Neurological exam: Present: CN II-XII intact, oriented X3, no focal deficits. Absent: pronater drift, facial droop, speech deficit - Skin Skin exam: Present: dry, intact Internal Medicine: Result - Labs CBC & Chem 7: 03/07/17 06:37 03/07/17 06:37 Labs: Short CBC 03/07/17 Range/Units 06:37 WBC 6.5 D (4.3-11.1) K/mcL Hgb 11.8 L (12.9-16.9) g/dL Hct 36.7 L (37.5-50.1) % Plt Count 141 (140-400) K/mcL Neutrophils # 4.2 (1.6-8.9) K/mcL BMP 03/07/17 06:37 Sodium 133 L Potassium 4.4 Chloride 110 H Carbon Dioxide 16 L BUN 27 H Creatinine 2.46 H Glucose 95 Calcium 8.1 L Liver Function 03/07/17 Range/Units 06:37 Total Bilirubin 0.4 (0.2-1.2) mg/dL AST 32 (5-34) Units/L ALT 29 (0-55) Units/L Alkaline Phosphatase 47 (38-126) Units/L Albumin 2.3 L (3.5-5.0) g/dL - ABG Interpretation ABG results: ABG ABG pH 7.48 pH Units (7.32-7.45) H 03/02/17 21:51 ABG pCO2 31 mmHg (35-45) L 03/02/17 21:51 ABG pO2 101 mmHg (85-104) 03/02/17 21:51 ABG O2 Saturation 98 % (95-98) 03/02/17 21:51 PT/INR, D-dimer PT 11.5 Seconds (9.4-12.1) 03/02/17 21:21 - VTE Documentation of Mechanical Device: Intermittent pneumatic compression device Consult Discharge Plan - Plan Referrals: Joaquina Amezquita CNP [Primary Care Provider] -
--- NOTE | 2017-03-07 16:39 | Nephrology Progress Note ---
Date of Encounter: 03/07/17 - Assessment and Plan (1) THADDEUS (acute kidney injury) Current Visit: Yes Status: Acute Objective - Vital Signs Vital signs: Vital Signs Temp Pulse Resp BP Pulse Ox 03/07/17 15:30 16 123/68 98 03/07/17 14:30 97.6 F 88 16 123/68 98 03/07/17 10:49 16 123/68 98 03/07/17 06:39 98.4 F 78 16 127/90 94 03/07/17 04:46 17 98 03/07/17 04:33 98.5 F 60 16 113/56 97 03/07/17 00:36 98.6 F 72 17 113/60 96 03/06/17 22:40 18 96 03/06/17 20:00 98.6 F 69 17 106/62 96 Intake and Output 03/07/17 03/07/17 03/07/17 07:59 15:59 23:59 Intake Total 1100 / 1100 360 / 360 Output Total 850 / 850 0 / 0 Balance 250 / 250 360 / 360 Intake: IV Fluids 1100 / 1100 0.9 % Sodium Chloride 1,000 ML 1000 / 1000 @ 75 mls/hr IVC .[id number] [facility] Rx #:[id number] Flagyl Premix 500 MG/100 ML 500 100 / 100 mg In 100 ml @ 100 mls/hr IVPB Q8HR [facility] Rx#:[id number] Oral 360 / 360 Output: Urine 850 / 850 0 / 0 Other: Meal Lunch Percent of Meal Consumed 100% # Bowel Movements 0 0 Weight 88.2 kg Blood Glucose* 103 82 91 Patient Weight 03/07/17 23:59 Weight 88.2 kg - Lab 03/07/17 06:37 03/07/17 06:37 Most recent lab results ABG pH 7.48 pH Units (7.32-7.45) H 03/02/17 21:51 ABG pCO2 31 mmHg (35-45) L 03/02/17 21:51 ABG pO2 101 mmHg (85-104) 03/02/17 21:51 ABG HCO3 23 mEq/L (21-27) 03/02/17 21:51 ABG O2 Saturation 98 % (95-98) 03/02/17 21:51 Calcium 8.1 mg/dL (8.6-10.8) L 03/07/17 06:37 Phosphorus 3.1 mg/dL (2.3-4.7) 03/03/17 03:50 Magnesium 2.0 mg/dL (1.6-2.6) 03/07/17 06:37 Urine Creatinine 66 mg/dL 03/06/17 16:00 Urine Sodium 28.0 mEq/L 03/06/17 16:00 - VTE Documentation of Mechanical Device: Intermittent pneumatic compression device Consult Discharge Plan - Plan Referrals: Joaquina Amezquita ESTIMATION MANAGER [Primary Care Provider] -
[2017-03-07] MEDS: Fluticasone Propionate Nasal 50 MCG/SPRAY BOTTLE NS SCH (20:29)
[2017-03-08] MEDS: MetroNIDAZOLE 500 MG/100 ML 500 MG/100 ML BAG IVPB SCH ×2 (00:35→08:53)
[2017-03-08] MEDS: 0.9 % Sodium Chloride 1,000 ML IVC SCH ×2 (03:21→03:22)
[2017-03-08] MEDS: Ipratropium/Albuterol Neb 3 ML IH SCH ×3 (04:47→15:58)
[2017-03-08] MEDS: *HR* Heparin 5,000 UNIT/ML VIAL SQ SCH (05:14)
[2017-03-08] MEDS: *HR* Morphine 2 MG/ML SYRINGE IVP PRN ×2 (05:14→11:26)
[2017-03-08 06:59] LABS: Albumin 2.1 g/dL (3.5-5.0); Albumin/Globulin Ratio 0.7 (1.1-2.2); Bilirubin,Total 0.3 mg/dL (0.2-1.2); Potassium 3.9 mEq/L (3.5-4.5); Total Protein 5.1 g/dL (6.0-8.3)
[2017-03-08 07:07] LABS: Basophils # 0.1 K/mcL (0.0-0.2); Eosinophils # 0.4 K/mcL (0.0-0.6); Eosinophils % 6.7 %; Hematocrit 33.5 % (37.5-50.1); Hemoglobin 10.9 g/dL (12.9-16.9); Immature Granulocytes % 0.6 % (0-4); Lymphocytes # 1.1 K/mcL (0.6-4.6); Lymphocytes % 20.6 %; Mean Corpuscular HGB Conc 32.5 g/dL (31.6-35.5); Mean Corpuscular Hemoglobin 27.4 pg (28.0-33.3); Mean Corpuscular Volume 84.2 fL (83.0-100.0); Mean Platelet Volume 11.4 fL (9.4-12.4); Monocytes # 0.7 K/mcL (0.0-1.3); Monocytes % 12.4 %; Neutrophils # 3.1 K/mcL (1.6-8.9); Platelet Count 151 K/mcL (140-400); Red Blood Count 3.98 M/mcL (4.19-5.50); Red Cell Distribution Width 15.8 % (11.5-14.5); Segmented Neutrophils % 58.7 %
[2017-03-08] MEDS: cefTRIAXone 1,000 MG in Water for inj. (sterile) 10 ML IVP SCH (08:53)
[2017-03-08] MEDS: Multivit/Ca/Min/Fe/FA 1 TAB TABLET PO SCH (08:54)
[2017-03-08] MEDS: Aspirin 81 MG TAB.CHEW PO SCH (08:54)
[2017-03-08] MEDS: Budesonide/Formoterol 160/4.5 MDI IH SCH (10:18)
[2017-03-08 14:46] VITALS: BP 135/79
--- NOTE | 2017-03-08 15:25 | Discharge Summary ---
Date of Encounter: 03/08/17 Time of Encounter: 15:18 - Discharge Diagnosis (1) Acute kidney injury superimposed on chronic kidney disease Priority: Secondary Status: Acute (2) Acute pancreatitis Priority: Primary Status: Acute Qualifiers: Pancreatitis type: unspecified pancreatitis type Acute pancreatitis complication: unspecified Qualified Code(s): K85.90 - Acute pancreatitis without necrosis or infection, unspecified (3) Aspiration pneumonia Priority: Primary Status: Acute Qualifiers: Aspiration pneumonia type: unspecified Laterality: bilateral Lung location: lower lobe of lung Qualified Code(s): J69.0 - Pneumonitis due to inhalation of food and vomit (4) COPD (chronic obstructive pulmonary disease) Priority: Secondary Status: Acute Qualifiers: COPD type: unspecified COPD Qualified Code(s): J44.9 - Chronic obstructive pulmonary disease, unspecified (5) Chest pain Priority: Secondary Status: Acute Qualifiers: Chest pain type: unspecified Qualified Code(s): R07.9 - Chest pain, unspecified (6) Hypertension Priority: Secondary Status: Chronic Qualifiers: Hypertension type: essential hypertension Qualified Code(s): I10 - Essential (primary) hypertension - Discharge Medications Prescriptions: Cefuroxime PO [Ceftin] 500 mg PO Q12HR #18 tablet Aspirin Enteric Coated [Aspirin EC] 325 mg PO DAILY #30 tablet. metroNIDAZOLE [Flagyl] 500 mg PO TID #27 tablet Home Medications: Albuterol Sulfate [Ventolin Hfa] 2 puff IH Q4H PRN 01/24/16 [History] Atorvastatin [Lipitor] 40 mg PO HS 01/24/16 [History] Budesonide/Formoterol 160/4.5 [Symbicort 160/4.5] 2 puff IH BIDR 01/24/16 [ History] Carvedilol 12.5 mg PO BID 01/24/16 [History] DULoxetine [Cymbalta] 30 mg PO DAILY 01/24/16 [History] Fluticasone Propionate Nasal [Flonase] 1 spray NS DAILY 01/24/16 [History] Meclizine HCl [Verticalm] 25 mg PO AD PRN 01/24/16 [History] Montelukast [Singulair] 10 mg PO DAILY 01/24/16 [History] Multivitamin [Multi-Day Vitamins] 1 tab PO DAILY 10/12/16 [History] Oxygen 1 each .ROUTE AD PRN 01/24/16 [History] Roflumilast [Daliresp] 500 mcg PO DAILY 01/24/16 [History] Ipratropium/Albuterol Neb [Duoneb] 3 ml IH Q6HR 12/03/16 [History] Furosemide [Lasix] 20 mg PO DAILY 03/03/17 [History] Aspirin Enteric Coated [Aspirin EC] 325 mg PO DAILY #30 tablet. 03/08/17 [Rx] Cefuroxime PO [Ceftin] 500 mg PO Q12HR #18 tablet 03/08/17 [Rx] metroNIDAZOLE [Flagyl] 500 mg PO TID #27 tablet 03/08/17 [Rx] Allergies/Adverse Reactions: 3 Allergy/AdvReac Type Severity Reaction Status Date / Time Amoxicillin [From Augmentin] Allergy Vomiting Verified 03/02/17 21:02 clavulanic acid Allergy Vomiting Verified 03/02/17 21:02 [From Augmentin] codeine Allergy Hallucinati Verified 03/02/17 21:02 ng hydrocodone [From Vicodin] Allergy Vomiting Verified 03/02/17 21:02 Iodinated Contrast- Oral and Allergy See Verified 03/02/17 21:02 IV Dye Comments [Iodinated Contrast Media - IV Dye] latex Allergy See Verified 03/02/17 21:02 Comments meloxicam [From Mobic] Allergy Dizziness Verified 03/02/17 21:02 ondansetron Allergy Vomiting Verified 03/02/17 21:02 [From Zofran (as hydrochloride)] Oxycodone [From Percocet] Allergy Hallucinati Verified 03/02/17 21:02 ng pregabalin [From Lyrica] Allergy Dizziness Verified 03/02/17 21:02 Date of admission: 03/05/17 10:51 Primary care physician: Joaquina Amezquita CNP Consults: 03/06/17 14:48 Consult to Nephrology [CONS] Routine Consulting Provider: Kidney Petty/JHONATHAN/GLADIS/SHARONDA Reason for Consult: Acute kidney injury patient on vancomycin previously Time Notified: 14:48 Call Completed: Yes Discharging clinician: Yared Mcdonald Anticipated date of discharge: 03/08/17 - Patient Status Disposition: Home, Self-Care Condition: Undetermined Functional capacity at discharge: independent ambulation Overall status at discharge: patient is progressing back to baseline - Discharge Instructions Follow Up With: Joaquina Amezquita, [facility] [Primary Care Provider] - - Diet and Activity Activity: increase activity as tolerated Diet: advance to your usual diet Hospital course: Mr. Perez is a 76 year old male Admitted for alcoholic pancreatitis. CT scan showed pseudocyst. Improved with conservative management. He is tolerating full diet. Chest x-ray showed bilateral pneumonia therefore Oni is admitted beside Jeisontxjonathan. An admission patient had chest pain with mildly elevated troponin. It was felt that this could be secondary to chronic kidney disease. He is advised to follow with his family doctor and request a stress tests as outpatient once his pulmonary condition improved and he is off antibiotics. Renal function deteriorated while he has CKD. Nephrology Dr. Perera was consulted. Patient was hydrated and his renal function is started trending down. He will follow-up with Dr. Perera in office. Patient complain of left hand weakness. We offered him to stay and we can do an MRI or nerve conduction study to see the cause however he does not want to stay. indicated that he has an appointment with his doctor and they would rather like to deal with this as outpatient. We recommended to use a an aspirin a day and let his family doctor do the workup and/or if they changed her mind they are welcome to return and we can admit them and do further workup. The patient and showed good understanding and verbalize straight however there still wants to go home. They have advised to follow up with family doctor next week and with Dr. Perera in next month. Check renal function is follow-up next week and follow the results of his family doctor and Dr. Perera. - Time Spent with Patient Total time spent providing and/or coordinating discharge services: Greater than 30 minutes - Constitutional Vitals: Temp Pulse Resp BP Pulse Ox 97.9 F 75 14 135/79 97 03/08/17 14:45 03/08/17 14:45 03/08/17 14:45 03/08/17 14:45 03/08/17 14:45 General appearance: Present: cooperative, A&O X 3, no acute distress, answers questions appropriately - Head Head exam: Present: atraumatic, normocephalic - Eye Eye exam: Present: PERRL, conjuntiva pink, sclera anicteric Pupils: Present: PERRL - Neck Neck exam general surgery: Present: supple, trachea midline. Absent: lymphadenopathy - Respiratory Respiratory exam: Present: CTAB. Absent: accessory muscle use, rales, rhonchi, wheezes - Cardiovascular Cardiovascular exam: Present: RRR, +S1, +S2. Absent: diastolic murmur, gallop, rubs, systolic murmur - GI/Abdominal GI/Abdominal exam: Present: normal bowel sounds, soft, no peritoneal signs. Absent: distended, tenderness - Extremities Exam Extremities exam: Present: warm, radial pulses palpable and symmetrical. Absent : calf tenderness, cyanotic, pedal edema Additional comments: Patient left hand has some weakness very mild though full range of motion at all joints. Deep tendon reflexes within normal range. Only flexors of the fingers have some weakness but extension is normal - Neurological Exam Neurological exam: Present: CN II-XII intact, oriented X3, no focal deficits. Absent: pronater drift, facial droop, speech deficit - Skin Skin exam: Present: dry, intact - VTE Documentation of Mechanical Device: Intermittent pneumatic compression device
--- NOTE | 2017-03-08 17:10 | Nephrology Progress Note ---
Date of Encounter: 03/08/17 - Assessment and Plan (1) THADDEUS (acute kidney injury) Status: Acute Scr improving at 2.15, GFR 30 Ok to discharge as long as pt continues adequate fluid inatke Repeat BMP in a week Followup with me in within 4 weeks Continue to avoid nephrotoxins Subjective Interval history: Pt seen and examined eager to go home. UOP 1100c in the past 24hrs Objective - Vital Signs Vital signs: Vital Signs Temp Pulse Resp BP Pulse Ox 03/08/17 15:58 16 94 03/08/17 14:45 97.9 F 75 14 135/79 97 03/08/17 12:03 98.9 F 63 14 143/81 97 03/08/17 06:52 98.8 F 69 18 146/79 97 03/08/17 04:49 14 98 03/08/17 03:28 98.9 F 80 18 144/65 95 03/08/17 00:42 98.8 F 76 18 148/79 97 03/07/17 21:32 14 96 03/07/17 18:57 98.8 F 71 18 149/85 99 Intake and Output 03/08/17 03/08/17 03/08/17 07:59 15:59 23:59 Intake Total 1700 / 1700 1220 / 1220 Output Total 1200 / 1200 1400 / 1400 Balance 500 / 500 -180 / -180 Intake: IV Fluids 1100 / 1100 100 / 100 0.9 % Sodium Chloride 1,000 ML 1000 / 1000 @ 75 mls/hr IVC .[id number] [facility] Rx #:[id number] Flagyl Premix 500 MG/100 ML 500 100 / 100 100 / 100 mg In 100 ml @ 100 mls/hr IVPB Q8HR [facility] Rx#:[id number] Oral 600 / 600 1120 / 1120 Output: Urine 1200 / 1200 1400 / 1400 Other: Meal Lunch Percent of Meal Consumed 100% Blood Glucose* 141 91 - Lab 03/08/17 06:18 03/08/17 06:18 Most recent lab results ABG pH 7.48 pH Units (7.32-7.45) H 03/02/17 21:51 ABG pCO2 31 mmHg (35-45) L 03/02/17 21:51 ABG pO2 101 mmHg (85-104) 03/02/17 21:51 ABG HCO3 23 mEq/L (21-27) 03/02/17 21:51 ABG O2 Saturation 98 % (95-98) 03/02/17 21:51 Calcium 8.0 mg/dL (8.6-10.8) L 03/08/17 06:18 Phosphorus 3.1 mg/dL (2.3-4.7) 03/03/17 03:50 Magnesium 2.0 mg/dL (1.6-2.6) 03/07/17 06:37 Urine Creatinine 66 mg/dL 03/06/17 16:00 Urine Sodium 28.0 mEq/L 03/06/17 16:00 - VTE Documentation of Mechanical Device: Intermittent pneumatic compression device Consult Discharge Plan - Plan Instructions: Chronic Obstructive Pulmonary Disease (DC) Referrals: Joaquina Amezquita CNP [Primary Care Provider] - Prescriptions: Cefuroxime PO [Ceftin] 500 mg PO Q12HR #18 tablet Aspirin Enteric Coated [Aspirin EC] 325 mg PO DAILY #30 tablet. metroNIDAZOLE [Flagyl] 500 mg PO TID #27 tablet Nystatin [Nystatin Suspension] 100,000 units PO QID #120 ml
== END 2017-03-08 16:13 | disposition home or self-care (01) | DRG 438 ==
LOC: EMEROO 20:58 → 3ANU 20:58
PROVIDERS: ADMIT Internal Medicine; ATTEND Internal Medicine

== ENCOUNTER 2018-02-04 03:05 | Inpatient (IN) ==
[2018-02-04] MEDS ORDERED: 0.9 % Sodium Chloride 1,000 ML IVC ONE ×3 (03:23→05:38)
[2018-02-04] MEDS ORDERED: Ipratropium/Albuterol Neb 3 ML IH ONE (03:23)
[2018-02-04] MEDS ORDERED: methylPREDNISolone 125 MG/2 ML VIAL IVP ONE (03:23)
--- NOTE | 2018-02-04 03:46 | Emergency Department Note ---
Disposition Clinical Impression: Acute exacerbation of chronic obstructive airways disease, SIRS due to infectious process without acute organ dysfunction Fever Qualifiers: Fever type: unspecified Qualified Code(s): R50.9 - Fever, unspecified Disposition: Admitted As Inpatient Condition: Fair Referrals: Garret Gonzalez DO [Primary Care Provider] - SOB HPI - General Chief Complaint: ED Shortness of Breath/Dyspnea Stated Complaint: PACO Time Seen by Provider: 02/04/18 03:12 Source: patient, family Mode of arrival: private vehicle Limitations: no limitations Nursing Notes Reviewed: Yes Vital Signs Reviewed: Yes - History of Present Illness Patient with history of IgG deficiency and COPD presents from home for evaluation of fever, chills, vomiting, shortness of breath and a rash. He states that he has been feeling more short of breath than usual and he has had an increase in coughing frequency. His cough is nonproductive. He has been using his breathing treatments and home oxygen. He was seen by his primary care provider yesterday for these symptoms. He was started on a new antibiotic and was also given a shot of Toradol. He developed a rash to the left side of the face, left ear scalp and posterior neck. This has also worsened throughout the day. This evening just before bed. Patient stated that he was feeling much worse and had shaking chills. His checked his temperature and it was 103.5. Patient denies abdominal pain, headache, joint pain or swelling, peripheral edema, dysuria or diarrhea. He complains of upper back pain which he attributes to increased work of breathing and coughing. He also complains of "burning pain in the lungs." He denies dizziness, vertigo, syncope, extremity weakness, paraesthesias or confusion. Pt Subjective Complaint: shortness of breath Onset (ago): day(s) Context: other (Hx of IgG deficiency. Receives regular infusions. Most recent one was last Friday) Severity: moderate Consistency/Duration: constant Improves with: nothing Worsens with: coughing Known history of: COPD, other (IgG deficiency) Associated symptoms: Reports: chest pain ("Lung pain"), fever, cough, wheezing, nausea/vomiting, rash (Head, fece, neck - since yesterday AM. Worse today. ). Denies: pain with inspiration, sputum production, orthopnea, lower extremity pain, polyuria, polydipsia, parasthesias, palpitations, hemoptysis, diaphoresis, syncope, abdominal pain Treatment prior to arrival: other (Tylenol at 22:00) Cough present: Yes Cough Description: Voluntary, Involuntary, Non-Productive, Dry, Weak Cough Frequency: Intermittent Sputum production: No - Related Data Home oxygen amount: 2 liters Home Medications Medication Instructions Recorded Confirmed Albuterol Sulfate [Ventolin Hfa] 2 puff IH Q4H PRN 01/24/16 02/04/18 Atorvastatin [Lipitor] 40 mg PO HS 01/24/16 02/04/18 Budesonide/Formoterol 160/4.5 2 puff IH BIDR 01/24/16 02/04/18 [Symbicort 160/4.5] Carvedilol 12.5 mg PO BID 01/24/16 02/04/18 DULoxetine [Cymbalta] 30 mg PO DAILY 01/24/16 02/04/18 Fluticasone Propionate Nasal 1 spray NS DAILY 01/24/16 02/04/18 [Flonase] Montelukast [Singulair] 10 mg PO DAILY 01/24/16 02/04/18 Oxygen 2 l NS AD PRN 01/24/16 02/04/18 Roflumilast [Daliresp] 500 mcg PO DAILY 01/24/16 02/04/18 Furosemide [Lasix] 20 mg PO DAILY 03/03/17 02/04/18 Aspirin [Lo-Dose Aspirin EC] 81 mg PO DAILY 06/03/17 02/04/18 Cranberry Fruit Extract [Cranberry] 500 mg PO DAILY 06/03/17 02/04/18 Cyanocobalamin (Vitamin B-12) 1,000 mcg PO DAILY 06/03/17 02/04/18 [Vitamin B-12] Lisinopril [Zestril] 5 mg PO DAILY 06/03/17 02/04/18 Acetaminophen [Tylenol] 500 mg PO Q8H PRN 12/02/17 02/04/18 Albuterol Sulfate 2.5 mg IH Q8H PRN 12/02/17 02/04/18 Benzonatate [Tessalon] 100 mg PO TID 12/02/17 02/04/18 HYDROcodone/Acet 7.5/325 mg [[place] 1 tab PO Q6H PRN 12/02/17 02/04/18 7.5-325 mg] Ipratropium/Albuterol Neb [Duoneb] 3 ml IH Q6HR 12/02/17 02/04/18 Multivitamin [One Daily 1 tab PO DAILY 12/02/17 02/04/18 Multivitamin] Previous Rx's Medication Instructions Recorded Ondansetron ODT [Zofran ODT] 4 mg PO Q6HR PRN #20 tab.rapdis 11/23/17 Allergies Allergy/AdvReac Type Severity Reaction Status Date / Time Amoxicillin [From Augmentin] AdvReac Vomiting Verified 12/02/17 09:32 clavulanic acid AdvReac Vomiting Verified 12/02/17 09:32 [From Augmentin] codeine AdvReac Hallucinati Verified 12/02/17 09:32 ng hydrocodone [From Vicodin] AdvReac Hallucinati Verified 12/02/17 09:32 ng Iodinated Contrast- Oral and AdvReac See Verified 12/02/17 09:32 IV Dye Comments [Iodinated Contrast Media - IV Dye] latex AdvReac Rash Verified 12/02/17 09:32 meloxicam [From Mobic] AdvReac Dizziness Verified 12/02/17 09:32 ondansetron AdvReac Vomiting Verified 12/02/17 09:32 [From Zofran (as hydrochloride)] Oxycodone [From Percocet] AdvReac Hallucinati Verified 12/02/17 09:32 ng pregabalin [From Lyrica] AdvReac Dizziness Verified 12/02/17 09:32 All systems ED: reviewed and negative except as stated. Review of Systems: As Per HPI Constitutional: Reports: as per HPI, fever, chills. Denies: weakness Eyes: Denies: eye discharge ENT ED: Reports: throat pain ("irritated"). Denies: ear pain, congestion, dysphagia Cardiovascular: Reports: as per HPI, chest pain, dyspnea on exertion. Denies: palpitations, orthopnea, edema, syncope Respiratory: Reports: as per HPI, cough, dyspnea, wheezes. Denies: hemoptysis, stridor, sputum production Gastrointestinal: Reports: as per HPI, vomiting (twice). Denies: abdominal pain, nausea, diarrhea, constipation Genitourinary: Denies: urgency, dysuria, frequency, hematuria Musculoskeletal: Reports: back pain ("Across shoulders / upper back"), myalgia ([place] all over). Denies: neck pain, joint swelling, arthralgia Integumentary: Reports: as per HPI, rash Neurological: Denies: headache, weakness, numbness, paresthesias, confusion, vertigo Hematological/Lymphatic: Denies: easy bleeding, easy bruising, lymphadenopathy Past Medical History - Past Medical History Attestation: Yes The following information was validated with the patient. Source: patient Medical history: Reports: aortic aneurysm, COPD, coronary artery disease, hyperlipidemia, myocardial infarction, renal disease, other Surgical history: Reports: angioplasty/stent, cancer surgery, coronary bypass (CABG) Psychiatric history: Reports: anxiety - Social History Smoking Status: Never smoker Smokeless Tobacco Status: No Alcohol use: Reports: none Drug use: Reports: none Physical Exam - General Limitations: no limitations General appearance: alert, in no apparent distress - Head Head exam: atraumatic, normocephalic, normal inspection - Eye Eye exam: Present: normal appearance, PERRL. Absent: scleral icterus, conjunctival injection, periorbital swelling - ENT ENT exam: mucous membranes moist, other (oral thrush and mild palatal erythema) - Neck Neck exam: Present: normal inspection, full ROM, trachea midline. Absent: tenderness, meningismus, lymphadenopathy - Chest Chest inspection: Present: normal inspection, symmetric chest wall rise - Respiratory Respiratory exam: Present: respiratory distress, wheezes, accessory muscle use. Absent: stridor, prolonged expiratory phase - Expanded Respiratory Exam Location: wheezes: Left, Right, Upper, Lower, decreased breath sounds: Left, Right, Upper, Lower - Cardiovascular Cardiovascular exam: Present: normal rhythm, tachycardia - Abdominal Exam Abdominal exam: Present: soft, Non-Tender. Absent: distention, guarding, rebound, rigidity, mass, pulsatile mass - Extremities Exam Extremities exam: Present: normal inspection, full ROM. Absent: pedal edema - Back Exam Back exam: Present: normal inspection. Absent: tenderness, CVA tenderness (R), CVA tenderness (L), vertebral tenderness, sciatic notch tenderness (R), sciatic notch tenderness (L) - Neurological Exam Neurological exam: Present: alert, oriented X3, CN II-XII intact - Psychiatric Psychiatric exam: Present: normal affect, normal mood - Skin Skin exam: Present: warm, dry, intact, normal color, rash - Expanded Skin Exam Type of lesion: Present: rash Distribution: head, face Description: Present: erythematous, papular. Absent: tenderness, swelling, vesicular, blisters, bullous, petechial, purpuric Course Course Narrative: Patient brought back to room 23. EKG obtained and was given to Dr. Flores. Patient is febrile, tachycardic, dehydrated and tachypneic. Two peripheral IV's and NS ordered. Tylenol ordered for fever and pain. Labs and CXR ordered. Suspect sepsis. Case discussed with Dr. Flores. He has had face to face time with the patient and agrees with the assessment and plan. CXR normal per radiologist. EKG unchanged morphology, sinus tachycardia. Labs es sentially normal except Na 132. Flu swab negative. Lactic acid normal. Patient states that he feels like he can breathe much better since receiving the duoneb. He is able to speak in complete sentences now. Still wheezy diffusely but improved air flow. Sats 98% on 2L. Tylenol given for fever and pain. Pain better, fever worse. More IV Fluids ordered. Per review of [facility], patient was given Azithromycin from PCP visit yesterday. He has worsened since then. Hospitalist paged for admission. Azithromycin ordered. Case discussed with the Hospitalist. He agrees to admit and agrees with the plan to give Azithromycin alone for now. Vital Signs Temperature 98.6 F 02/04/18 03:08 Pulse Rate 108 02/04/18 03:08 Respiratory Rate 24 02/04/18 03:08 Blood Pressure 118/79 02/04/18 03:08 O2 Sat by Pulse Oximetry 96 02/04/18 03:08 Temperature 101.6 F H 02/04/18 05:17 Pulse Rate 99 02/04/18 05:17 Respiratory Rate 18 02/04/18 05:17 Blood Pressure 129/64 02/04/18 05:17 O2 Sat by Pulse Oximetry 99 02/04/18 05:17 Oxygen Delivery Oxygen Delivery Nasal Cannula Shortness of Breath/Dyspnea - Medical Records Medical records reviewed: Yes I reviewed the patient's medical records. - Lab Data Lab results reviewed: Yes I reviewed the patient's lab results. Lab results narrative: Laboratory Last Values WBC 5.2 K/mcL (4.3-11.1) 02/04/18 04:04 RBC 4.64 M/mcL (4.19-5.50) 02/04/18 04:04 Hgb 12.8 g/dL (12.9-16.9) L 02/04/18 04:04 Hct 39.9 % (37.5-50.1) 02/04/18 04:04 MCV 86.0 fL (83.0-100.0) 02/04/18 04:04 MCH 27.6 pg (28.0-33.3) L 02/04/18 04:04 MCHC 32.1 g/dL (31.6-35.5) 02/04/18 04:04 RDW 15.3 % (11.5-14.5) H 02/04/18 04:04 Plt Count 139 K/mcL (140-400) L 02/04/18 04:04 MPV 11.0 fL (9.4-12.4) 02/04/18 04:04 Immature Gran % 1.7 % (0-4) 02/04/18 04:04 Seg Neutrophils % 66.7 % 02/04/18 04:04 Lymphocytes % 13.1 % 02/04/18 04:04 Monocytes % 10.2 % 02/04/18 04:04 Eosinophils % 7.7 % 02/04/18 04:04 Basophils % 0.6 % 02/04/18 04:04 Neutrophils # 3.5 K/mcL (1.6-8.9) 02/04/18 04:04 Lymphocytes # 0.7 K/mcL (0.6-4.6) 02/04/18 04:04 Monocytes # 0.5 K/mcL (0.0-1.3) 02/04/18 04:04 Eosinophils # 0.4 K/mcL (0.0-0.6) 02/04/18 04:04 Basophils # 0.0 K/mcL (0.0-0.2) 02/04/18 04:04 PT 11.6 Seconds (9.4-12.1) 02/04/18 04:04 INR 1.0 02/04/18 04:04 APTT 30.1 Seconds (26.0-36.0) 02/04/18 04:04 Sodium 132 mEq/L (136-145) L 02/04/18 04:04 Potassium 4.2 mEq/L (3.5-5.1) 02/04/18 04:04 Chloride 103 mEq/L (98-107) 02/04/18 04:04 Carbon Dioxide 23 mEq/L (23-29) 02/04/18 04:04 BUN 29 mg/dL (8-23) H 02/04/18 04:04 Creatinine 1.27 mg/dL (0.70-1.30) 02/04/18 04:04 Est GFR ( Amer) > 60 (> 60) 02/04/18 04:04 Est GFR (Non-Af Amer) 55 (> 60) L 02/04/18 04:04 BUN/Creatinine Ratio 23 (6-26) 02/04/18 04:04 Glucose 107 mg/dL (70-105) H 02/04/18 04:04 Calculated Osmolality 280 (280-300) 02/04/18 04:04 Lactic Acid 1.2 mmol/L (0.5-2.2) 02/04/18 04:04 Calcium 8.4 mg/dL (8.6-10.3) L 02/04/18 04:04 Troponin I < 0.03 ng/mL (< 0.04) 02/04/18 04:04 Urine Color Yellow (Yellow) 02/04/18 04:10 Urine Clarity Clear (Clear) 02/04/18 04:10 Urine pH 6.5 pH Units (5.0-8.0) 02/04/18 04:10 Ur Specific [place] 1.024 (1.010-1.025) 02/04/18 04:10 Urine Protein 100 mg/dL (Neg-Trace) H 02/04/18 04:10 Urine Glucose (UA) Normal mg/dL (Normal) 02/04/18 04:10 Urine Ketones Negative mg/dL (Negative) 02/04/18 04:10 Urine Blood Negative (Negative) 02/04/18 04:10 Urine Nitrite Negative (Negative) 02/04/18 04:10 Urine Bilirubin Negative (Negative) 02/04/18 04:10 Urine Urobilinogen Normal mg/dL (Normal) 02/04/18 04:10 Ur Leukocyte Esterase Negative (Negative) 02/04/18 04:10 Urine Microscopic RBC 0-3 per hpf (0-3) 02/04/18 04:10 Urine Microscopic WBC 0-3 per hpf (0-3) 02/04/18 04:10 Ur Squamous Epith Cells Moderate per lpf (None-Few) H 02/04/18 04:10 Urine Bacteria None Seen per hpf (None-Few) 02/04/18 04:10 Hyaline Casts None Seen per lpf (None-Few) 02/04/18 04:10 Ur Culture Indicated? NO (NO) 02/04/18 04:10 Result diagrams: 02/04/18 04:04 02/04/18 04:04 Lab Results 02/04/18 02/04/18 02/04/18 Range/Units 04:04 04:04 04:04 WBC 5.2 (4.3-11.1) K/mcL RBC 4.64 (4.19-5.50) M/mcL Hgb 12.8 L (12.9-16.9) g/dL Hct 39.9 (37.5-50.1) % MCV 86.0 (83.0-100.0) fL MCH 27.6 L (28.0-33.3) pg MCHC 32.1 (31.6-35.5) g/dL RDW 15.3 H (11.5-14.5) % Plt Count 139 L (140-400) K/mcL MPV 11.0 (9.4-12.4) fL Immature Gran % 1.7 (0-4) % Seg Neutrophils % 66.7 % Lymphocytes % 13.1 % Monocytes % 10.2 % Eosinophils % 7.7 % Basophils % 0.6 % Neutrophils # 3.5 (1.6-8.9) K/mcL Lymphocytes # 0.7 (0.6-4.6) K/mcL Monocytes # 0.5 (0.0-1.3) K/mcL Eosinophils # 0.4 (0.0-0.6) K/mcL Basophils # 0.0 (0.0-0.2) K/mcL PT (9.4-12.1) Seconds INR APTT (26.0-36.0) Seconds Sodium 132 L (136-145) mEq/L Potassium 4.2 (3.5-5.1) mEq/L Chloride 103 (98-107) mEq/L Carbon Dioxide 23 (23-29) mEq/L BUN 29 H (8-23) mg/dL Creatinine 1.27 (0.70-1.30) mg/dL Est GFR ( Amer) > 60 (> 60) Est GFR (Non-Af Amer) 55 L (> 60) BUN/Creatinine Ratio 23 (6-26) Glucose 107 H (70-105) mg/dL Calculated Osmolality 280 (280-300) Lactic Acid 1.2 (0.5-2.2) mmol/L Calcium 8.4 L (8.6-10.3) mg/dL Troponin I (< 0.04) ng/mL Urine Color (Yellow) Urine Clarity (Clear) Urine pH (5.0-8.0) pH Units Ur Specific [place] (1.010-1.025) Urine Protein (Neg-Trace) mg/dL Urine Glucose (UA) (Normal) mg/dL Urine Ketones (Negative) mg/dL Urine Blood (Negative) Urine Nitrite (Negative) Urine Bilirubin (Negative) Urine Urobilinogen (Normal) mg/dL Ur Leukocyte Esterase (Negative) Urine Microscopic RBC (0-3) per hpf Urine Microscopic WBC (0-3) per hpf Ur Squamous Epith Cells (None-Few) per lpf Urine Bacteria (None-Few) per hpf Hyaline Casts (None-Few) per lpf Ur Culture Indicated? (NO) 02/04/18 02/04/18 02/04/18 Range/Units 04:04 04:04 04:10 WBC (4.3-11.1) K/mcL RBC (4.19-5.50) M/mcL Hgb (12.9-16.9) g/dL Hct (37.5-50.1) % MCV (83.0-100.0) fL MCH (28.0-33.3) pg MCHC (31.6-35.5) g/dL RDW (11.5-14.5) % Plt Count (140-400) K/mcL MPV (9.4-12.4) fL Immature Gran % (0-4) % Seg Neutrophils % % Lymphocytes % % Monocytes % % Eosinophils % % Basophils % % Neutrophils # (1.6-8.9) K/mcL Lymphocytes # (0.6-4.6) K/mcL Monocytes # (0.0-1.3) K/mcL Eosinophils # (0.0-0.6) K/mcL Basophils # (0.0-0.2) K/mcL PT 11.6 (9.4-12.1) Seconds INR 1.0 APTT 30.1 (26.0-36.0) Seconds Sodium (136-145) mEq/L Potassium (3.5-5.1) mEq/L Chloride (98-107) mEq/L Carbon Dioxide (23-29) mEq/L BUN (8-23) mg/dL Creatinine (0.70-1.30) mg/dL Est GFR ( Amer) (> 60) Est GFR (Non-Af Amer) (> 60) BUN/Creatinine Ratio (6-26) Glucose (70-105) mg/dL Calculated Osmolality (280-300) Lactic Acid (0.5-2.2) mmol/L Calcium (8.6-10.3) mg/dL Troponin I < 0.03 (< 0.04) ng/mL Urine Color Yellow (Yellow) Urine Clarity Clear (Clear) Urine pH 6.5 (5.0-8.0) pH Units Ur Specific [place] 1.024 (1.010-1.025) Urine Protein 100 H (Neg-Trace) mg/dL Urine Glucose (UA) Normal (Normal) mg/dL Urine Ketones Negative (Negative) mg/dL Urine Blood Negative (Negative) Urine Nitrite Negative (Negative) Urine Bilirubin Negative (Negative) Urine Urobilinogen Normal (Normal) mg/dL Ur Leukocyte Esterase Negative (Negative) Urine Microscopic RBC 0-3 (0-3) per hpf Urine Microscopic WBC 0-3 (0-3) per hpf Ur Squamous Epith Cells Moderate H (None-Few) per lpf Urine Bacteria None Seen (None-Few) per hpf Hyaline Casts None Seen (None-Few) per lpf Ur Culture Indicated? NO (NO) - Radiology Data Radiology results reviewed: Yes I reviewed the patient's radiology results. Chest X-Ray 02/04/18 03:23 IMPRESSION: No acute process. Stable exam. D/ / Kobe Hyatt MD / Kobe Hyatt MD Interpreting Provider: Kobe Hyatt MD - EKG Data EKG attestation: Yes I reviewed and interpreted this EKG. EKG results narrative: EKG shows a sinus tachycardia with ventricular rate of 108. Right bundle branch block. No significant change from prior EKG dated 01/27/2018. Attestation Statement - Attestation Attestation: I, Ever Flores MD, personally evaluated this patient and discussed their management with the midlevel provicer, [employer]. I reviewed the midlevel provider's note and agree with the documented findings, medical decision making, and plan of care. 77-year-old male presents to the emergency department with a complaint of chills and fever associated with increased cough and shortness of breath. Patient was seen here in the emergency department 8 days ago for the same complaints and was treated with prednisone. He followed up yesterday with his primary care provider because symptoms have not improved. He was placed on a Zithromax Z-SENG yesterday. This evening he developed a fever 3.9 at home with chills. He complains of increased cough with yellow-green sputum production. Some wheezing and shortness of breath. On examination patient is a well-developed well-nourished elderly male in no acute distress. He is alert and oriented 3. There is no cyanosis or diaphoresis. Temperature at time of my examination is 102.6 after patient had received Tylenol earlier in the emergency department. He has decreased breath sounds bilaterally with expiratory wheezes bilaterally. Heart regular with a mild tachycardia. Abdomen is soft and nontender with increased bowel sounds. Labs reviewed. No acute abnormality on chest x-ray. EKG shows sinus tachycardia with a right bundle branch block. The hospitalist, Dr. Mancera, was consulted and accepted admission of the patient.
[2018-02-04 04:24] LABS: Basophils % 0.6 %; Eosinophils # 0.4 K/mcL (0.0-0.6); Eosinophils % 7.7 %; Hematocrit 39.9 % (37.5-50.1); Hemoglobin 12.8 g/dL (12.9-16.9); Immature Granulocytes % 1.7 % (0-4); Lymphocytes # 0.7 K/mcL (0.6-4.6); Lymphocytes % 13.1 %; Mean Corpuscular HGB Conc 32.1 g/dL (31.6-35.5); Mean Corpuscular Hemoglobin 27.6 pg (28.0-33.3); Monocytes # 0.5 K/mcL (0.0-1.3); Monocytes % 10.2 %; Neutrophils # 3.5 K/mcL (1.6-8.9); Platelet Count 139 K/mcL (140-400); Red Blood Count 4.64 M/mcL (4.19-5.50); Red Cell Distribution Width 15.3 % (11.5-14.5); Segmented Neutrophils % 66.7 %
[2018-02-04 04:27] LABS: Bilirubin,Urine Negative (Negative); Blood,Urine Negative (Negative); Clarity,Urine Clear (Clear); Color,Urine Yellow (Yellow); Glucose,Urine (UA) Normal (Normal); Ketones,Urine Negative (Negative); Leukocyte Esterase,Urine Negative (Negative); Nitrite,Urine Negative (Negative); PH,Urine 6.5 pH Units (5.0-8.0); Protein,Urine 100 mg/dL (Neg-Trace); Specific Gravity,Urine 1.024 (1.010-1.025); Urobilinogen,Urine Normal (Normal)
[2018-02-04 04:30] LABS: Bacteria,Urine None Seen per hpf (None-Few); Hyaline Casts,Urine None Seen per lpf (None-Few); RBC,Urine 0-3 per hpf (0-3); Squamous Epithelial Cell,Urine Moderate per lpf (None-Few); WBC,Urine 0-3 per hpf (0-3)
[2018-02-04 04:38] LABS: Prothrombin Time 11.6 Seconds (9.4-12.1)
[2018-02-04 04:40] LABS: Activated Partial Thrombo Time 30.1 Seconds (26.0-36.0)
[2018-02-04 04:42] LABS: BUN/Creatinine Ratio 23 (6-26); Blood Urea Nitrogen 29 mg/dL (8-23); Calcium 8.4 mg/dL (8.6-10.3); Carbon Dioxide 23 mEq/L (23-29); Chloride 103 mEq/L (98-107); Glucose 107 mg/dL (70-105); Osmolality,Calculated 280 (280-300); Potassium 4.2 mEq/L (3.5-5.1); Sodium 132 mEq/L (136-145); eGFR For Non-African Americans 55 (> 60)
[2018-02-04] MEDS ORDERED: Azithromycin 500 MG in D5% in Water 250 ML IVPB ONE (05:04)
[2018-02-04] MEDS ORDERED: *HR* HYDROcodone/Acet 7.5/325 mg TABLET PO PRN (05:23)
[2018-02-04] MEDS ORDERED: Ondansetron ODT 4 MG TAB.RAPDIS PO PRN (05:23)
--- NOTE | 2018-02-04 06:19 | Internal Med History&Physical ---
Date of Encounter: 02/04/18 Time of Encounter: 06:13 Internal Medicine - H&P: HPI Chief complaint: SOB Admitted From: Home Plans for Post Hospital Care: Home History of present illness: Prateek Perez is a 77 year old man with a history of IgA and IgG deficiency, and COPD on 2-3L home O2 who presents to the ER complaining of increasing shortness of breath, fever, chills and cough productive of scant sput um. His symptoms have antonio rebellious to his home oxygen and nebulizer therapy. He saw his PCP for these symptoms a few days ago and was Rx an unspecified abx after which he developed a rash on his face. He reported worsening of his generalized malaise and chills, with his detecting a temperature of 103.5F. He complained of some back pain due to the incessant coughing. Here he was found febrile on multiple occasions but the rest of his vital signs remained within normal limits. He was given IV steroids, fluids and nebulizer treatment. CXR done, reviewed independently by me, is not revealing of any focal consolidations. On my assessment he is sitting up in bed. He corroborates the above information and says that the breathing treatment received in the ER has helped him significantly. He PMHx: Coronary artery disease status post CABG 2 and stents 2 SHx: Past smoking hx. Worked in [email or web address]. FHx: Reviewed and not found to be contributory. Review of systems: All systems reviewed and negative except as listed above in the HPI. Past Med Surg Social Fam HX - Past Medical History Medical history: aortic aneurysm, COPD, coronary artery disease, hyperlipidemia, myocardial infarction, renal disease, other Additional medical history: open heart-2009, vertigo, [place] hearing aids B/L, heart disease, hypertension, aortic aneurysm, lumbar 3/4 HNP, lumbar stenosis, severe degenerative arthritis at L2/3, infusions for IGG level, kidney failure, hypothryroidism, anurysm on aorta, 2 places on lungs,IGG level low, gout, pancreatitis, pneumonia, gout Psychiatric history: anxiety - Past Surgical History Surgical History: angioplasty/stent, cancer surgery, coronary bypass (CABG) Additional surgical history: karissa procedure, back stimulator - Social History Smoking Status: Never smoker Smokeless Tobacco Status: No Alcohol use: none Drug use: none - Family History Mother Adopted: No Living Status: Hx Family Cardiac Disorders: No Hx Family Respiratory Disorders: No Hx Family Cancer: Yes Hx Family GI Disorders: No Hx Family Endocrine Disorder: No Hx Family Neuromuscular Disorders: No Hx Family Neurologic Disorders: No Hx Family HEENT Disorders: No Hx Family Autoimmune Disorders: No Father Adopted: No Family Member Ethnicity: Non- Living Status: Hx Family Cardiac Disorders: Yes Hx Family Respiratory Disorders: No Hx Family Cancer: No Hx Family GI Disorders: No Hx Family Endocrine Disorder: No Hx Family Neuromuscular Disorders: No Hx Family Neurologic Disorders: No Hx Family HEENT Disorders: No Hx Family Autoimmune Disorders: No Internal Medicine - H&P: Meds Albuterol Sulfate [Ventolin Hfa] 2 puff IH Q4H PRN 01/24/16 [History] Atorvastatin [Lipitor] 40 mg PO HS 01/24/16 [History] Budesonide/Formoterol 160/4.5 [Symbicort 160/4.5] 2 puff IH BIDR 01/24/16 [History] Carvedilol 12.5 mg PO BID 01/24/16 [History] DULoxetine [Cymbalta] 30 mg PO DAILY 01/24/16 [History] Fluticasone Propionate Nasal [Flonase] 1 spray NS DAILY 01/24/16 [History] Montelukast [Singulair] 10 mg PO DAILY 01/24/16 [History] Oxygen 2 l NS AD PRN 01/24/16 [History] Roflumilast [Daliresp] 500 mcg PO DAILY 01/24/16 [History] Furosemide [Lasix] 20 mg PO DAILY 03/03/17 [History] Aspirin [Lo-Dose Aspirin EC] 81 mg PO DAILY 06/03/17 [History] Cranberry Fruit Extract [Cranberry] 500 mg PO DAILY 06/03/17 [History] Cyanocobalamin (Vitamin B-12) [Vitamin B-12] 1,000 mcg PO DAILY 06/03/17 [History] Lisinopril [Zestril] 5 mg PO DAILY 06/03/17 [History] Ondansetron ODT [Zofran ODT] 4 mg PO Q6HR PRN #20 tab.rapdis 11/23/17 [Rx] Acetaminophen [Tylenol] 500 mg PO Q8H PRN 12/02/17 [History] Albuterol Sulfate 2.5 mg IH Q8H PRN 12/02/17 [History] Benzonatate [Tessalon] 100 mg PO TID 12/02/17 [History] HYDROcodone/Acet 7.5/325 mg [[place] 7.5-325 mg] 1 tab PO Q6H PRN 12/02/17 [History] Ipratropium/Albuterol Neb [Duoneb] 3 ml IH Q6HR 12/02/17 [History] Multivitamin [One Daily Multivitamin] 1 tab PO DAILY 12/02/17 [History] Allergy/AdvReac Type Severity Reaction Status Date / Time Amoxicillin [From Augmentin] AdvReac Vomiting Verified 12/02/17 09:32 clavulanic acid AdvReac Vomiting Verified 12/02/17 09:32 [From Augmentin] codeine AdvReac Hallucinati Verified 12/02/17 09:32 ng hydrocodone [From Vicodin] AdvReac Hallucinati Verified 12/02/17 09:32 ng Iodinated Contrast- Oral and AdvReac See Verified 12/02/17 09:32 IV Dye Comments [Iodinated Contrast Media - IV Dye] latex AdvReac Rash Verified 12/02/17 09:32 meloxicam [From Mobic] AdvReac Dizziness Verified 12/02/17 09:32 ondansetron AdvReac Vomiting Verified 12/02/17 09:32 [From Zofran (as hydrochloride)] Oxycodone [From Percocet] AdvReac Hallucinati Verified 12/02/17 09:32 ng pregabalin [From Lyrica] AdvReac Dizziness Verified 12/02/17 09:32 All Systems PM: A 10-system review of systems was performed and is negative for pertinent findings except as documented above in the HPI. - Constitutional Vitals: Temp Pulse Resp BP Pulse Ox 101.6 F H 99 18 129/64 99 02/04/18 05:17 02/04/18 05:17 02/04/18 05:17 02/04/18 05:17 02/04/18 05:17 Exam: Vitals: Reviewed General: Well developed, mild respiratory distress with prolonged talking Skin: Hyperpigmented skin on forearms. HEENT: Moist mucous membranes. No conjunctivae pallor. Neck: No lymphadenopathy. No JVD. No carotid bruits. No palpable thyroid. Chest: Diminished thoracic expansion with reduced breath sounds and expiratory wheezing. Heart: Normal S1 & S2; rhythmic. No rubs or murmurs. Abdomen: Non-distended, soft and non-tender to palpation. Extremities: No cyanosis or edema. No calf tenderness. Normal distal pulses. Neurological: Awake, alert and oriented to person, place and time. No focal deficits. Psych: Affect appropriate. Internal Med - H&P Results - Labs CBC & Chem 7: 02/04/18 04:04 02/04/18 04:04 Labs: Short CBC 02/04/18 Range/Units 04:04 WBC 5.2 (4.3-11.1) K/mcL Hgb 12.8 L (12.9-16.9) g/dL Hct 39.9 (37.5-50.1) % Plt Count 139 L (140-400) K/mcL Neutrophils # 3.5 (1.6-8.9) K/mcL BMP 02/04/18 04:04 Sodium 132 L Potassium 4.2 Chloride 103 Carbon Dioxide 23 BUN 29 H Creatinine 1.27 Glucose 107 H Calcium 8.4 L Cardiac Enzymes 02/04/18 Range/Units 04:04 Troponin I < 0.03 (< 0.04) ng/mL Urine 02/04/18 Range/Units 04:10 Urine Color Yellow (Yellow) Urine Clarity Clear (Clear) Urine pH 6.5 (5.0-8.0) pH Units Ur Specific [place] 1.024 (1.010-1.025) Urine Protein 100 H (Neg-Trace) mg/dL Urine Glucose (UA) Normal (Normal) mg/dL - Impressions ITS Impressions Chest X-Ray 02/04/18 03:23 IMPRESSION: No acute process. Stable exam. D/ / Kobe Hyatt MD / Kobe Hyatt MD Interpreting Provider: Kobe Hyatt MD - Assessment and plan (1) Acute exacerbation of chronic obstructive airways disease Current Visit: Yes Status: Acute Assessment and plan: Will keep on supplemental oxygen, steroids and q4hrs duonebs. The patient also has fever and significant respiratory symptoms concerning for pneumonia however his chest x-ray is normal. We have obtained blood cultures. Will administer levofloxacin 500mg daily. Will also obtain sputum cultures. (2) CAD (coronary artery disease) Current Visit: Yes Status: Chronic Assessment and plan: No signs of acute ischemic disease. Continue ASA/Statin. Qualifiers: Coronary Disease-Associated Artery/Lesion type: bypass graft [place] vs. transplanted heart: [place] heart Associated angina: without angina Qualified Code(s): I25.810 - Atherosclerosis of coronary artery bypass graft(s) without angina pectoris (3) Hypertension Current Visit: Yes Status: Chronic Assessment and plan: Will resume lisinopril daily. Qualifiers: Hypertension type: essential hypertension Qualified Code(s): I10 - Essential (primary) hypertension (4) Lumbago Current Visit: Yes Status: Acute Assessment and plan: Will continue home pain meds prn. Qualifiers: Chronicity: chronic Back pain laterality: midline Sciatica presence: unspecified whether sciatica present Qualified Code(s): M54.5 - Low back pain; G89.29 - Other chronic pain - Time Spent With Patient Total time spent is greater than 50% in coordination of care (as documented) at patient's floor/unit and/or counseling patient: Greater than 35 minutes
[2018-02-04] MEDS: *HR* Heparin 5,000 UNIT/ML VIAL SQ SCH ×3 (06:44→19:20)
[2018-02-04] MEDS ORDERED: Ringers Solution, Lactated 1,000 ML IVC SCH (07:00)
[2018-02-04] MEDS: Budesonide/Formoterol 160/4.5 1 PUFF INH IH SCH ×2 (08:09→19:35)
[2018-02-04] MEDS: Ipratropium/Albuterol Neb 3 ML IH SCH ×5 (08:09→23:04)
[2018-02-04] MEDS: Benzonatate 100 MG CAPSULE PO SCH ×3 (08:15→19:20)
[2018-02-04] MEDS: Multivit/Ca/Min/Fe/FA 1 TAB TABLET PO SCH (08:15)
[2018-02-04] MEDS: Aspirin Enteric Coated 81 MG Tablet PO SCH (08:15)
[2018-02-04] MEDS: Levofloxacin 500 MG/100 ML 500 MG/100 ML BAG IVPB SCH (08:15)
[2018-02-04] MEDS: Cyanocobalamin (B-12) 1,000 MCG TABLET PO SCH (08:15)
[2018-02-04] MEDS: Fluticasone Propionate Nasal 50 MCG/SPRAY BOTTLE NS SCH (08:16)
[2018-02-04] MEDS: Roflumilast [Daliresp] 500 MCG PO SCH (08:16)
--- NOTE | 2018-02-04 11:19 | Infectious Disease Consult ---
Date of Encounter: 02/04/18 Time of Encounter: 11:10 Assessment and Plan (1) Sepsis Status: Acute Assessment and plan: Had 3 SIRS criteria on admission including fever, tachycardia and tachypnea Likely secondary to viral syndrome or COPD exacerbation Qualifiers: Sepsis type: sepsis due to unspecified organism Qualified Code(s): A41.9 - Sepsis, unspecified organism (2) COPD exacerbation Status: Acute Assessment and plan: Causative organism not clear. Chest x-ray on 02/04/2018: No acute process. Stable exam Blood cultures no growth to date Influenza type a and B antigen negative on 02/04/2018 Check urine legionella and pneumococcal antigen Check sputum culture. Check register infectious panel Continue levofloxacin Await cultures to finalize Monitor blood for drug toxicity Duration of treatment depends on the clinical picture and what the rest of the cultures and serologies reveal We will continue to follow (3) Drug allergy, antibiotic Status: Acute Assessment and plan: Allergies to amoxicillin; reaction unknown (4) Hypogammaglobulinemia Status: Acute Assessment and plan: Being followed by Dr. Crowley from allergy immunology Gets weekly immunoglobulin shots in the abdomen I will discuss with her to see how immunosuppressed this patient is and if he has received his vaccines (5) CAD (coronary artery disease) Status: Chronic Qualifiers: Coronary Disease-Associated Artery/Lesion type: bypass graft [place] vs. transplanted heart: [place] heart Associated angina: without angina Qualified Code(s): I25.810 - Atherosclerosis of coronary artery bypass graft(s) without angina pectoris Infectious Disease HPI - Data of Consult Patient: new to practice Consult date: 02/04/18 Requesting Physician: Cristina Guzmán Primary Care Provider: Garret Gonzalez DO - Consult Narrative Reason for consult: "Ig deficiency, now with possible lower RIT" History of present illness: Mr. Perez is a 77 year old male Patient is 77-year-old man who presented to [facility] today with shortness of breath, we are consulted for possible lower respiratory tract infection. Patient is 77-year-old gentleman who has past medical history mentioned below including heart artery disease with history of CABG 2 and angioplasty 2 also has IgA and IgG deficiency and COPD requiring O2 nasal cannula at home 2-3 L presented to the emergency department with worsening shortness of breath, chills, cough that was productive with scant sputum. Patient was seen February [address] Fung and was diagnosed with COPD exacerbation and oral candidiasis and was given azithromycin and oral liquids fluconazole. Since admission, patient has been febrile with a MAXIMUM TEMPERATURE of 102.6 Fahrenheit, tachycardic with a heart rate of 108 and tachypnea. Presenting labs revealed a WBC of 5.2 with normal differential no bands. Patient had a urinalysis which was nonrevealing. His chemistry showed no acute issues. Lactic acid was 1.2. Influenza A and B antigen were done and came back negative. Blood cultures were obtained 2 with results pending. A chest x-ray showed no acute process with stable exam. Patient was started empirically on Levaquin and high-dose steroids and we were asked to evaluate the patient's make further recommendations. Currently patient laying in bed. Does not appear toxic. Alert and oriented 3 and answers questions. He has sometimes trouble answering questions by think he cause of his hearing issues. Patient tells me that he gets IgG shots in his abdomen on a weekly basis. Review of systems and physical exam not suggestive of any sinusitis, otitis or meningitis or encephalitis. Patient denies any chest pain or shortness of breath. He does have this chronic cough. Patient denies any nausea or vomiting abdominal pain diarrhea or constipation. Patient denies any urinary symptoms. States the patient is allergic to amoxicillin but he was unable to tell me what was is allergic reaction. CC: Cristina Guzmán Past Med Surg Social Fam HX - Past Medical History Medical history: aortic aneurysm, COPD, coronary artery disease, hyperlipidemia, myocardial infarction, renal disease, other Additional medical history: open heart-2009, vertigo, [place] hearing aids B/L, heart disease, hypertension, aortic aneurysm, lumbar 3/4 HNP, lumbar stenosis, severe degenerative arthritis at L2/3, infusions for IGG level, kidney failure, hypothryroidism, anurysm on aorta, 2 places on lungs,IGG level low, gout, pancreatitis, pneumonia, gout Psychiatric history: anxiety - Past Surgical History Surgical History: angioplasty/stent, cancer surgery, coronary bypass (CABG) Additional surgical history: karissa procedure, back stimulator - Social History Smoking Status: Never smoker Smokeless Tobacco Status: No Alcohol use: none Drug use: none - Family History Father Adopted: No Family Member Ethnicity: Non- Living Status: Hx Family Cardiac Disorders: Yes Hx Family Respiratory Disorders: No Hx Family Cancer: No Hx Family GI Disorders: No Hx Family Endocrine Disorder: No Hx Family Neuromuscular Disorders: No Hx Family Neurologic Disorders: No Hx Family HEENT Disorders: No Hx Family Autoimmune Disorders: No Mother Adopted: No Living Status: Hx Family Cardiac Disorders: No Hx Family Respiratory Disorders: No Hx Family Cancer: Yes Hx Family GI Disorders: No Hx Family Endocrine Disorder: No Hx Family Neuromuscular Disorders: No Hx Family Neurologic Disorders: No Hx Family HEENT Disorders: No Hx Family Autoimmune Disorders: No Infectious Disease-CN:Meds RX: Albuterol Sulfate [Ventolin Hfa] 2 puff IH Q4-6H 01/24/16 [History] RX: Atorvastatin [Lipitor] 40 mg PO HS 01/24/16 [History] RX: Budesonide/Formoterol 160/4.5 [Symbicort 160/4.5] 2 puff IH BIDR 01/24/16 [History] RX: Carvedilol 12.5 mg PO BID 01/24/16 [History] RX: DULoxetine [Cymbalta] 30 mg PO DAILY 01/24/16 [History] RX: Fluticasone Propionate Nasal [Flonase] 1 spray NS DAILY 01/24/16 [History] RX: Montelukast [Singulair] 10 mg PO DAILY 01/24/16 [History] RX: Oxygen 2 l NS AD PRN 01/24/16 [History] RX: Roflumilast [Daliresp] 500 mcg PO DAILY 01/24/16 [History] RX: Furosemide [Lasix] 20 mg PO DAILY 03/03/17 [History] Aspirin [Lo-Dose Aspirin EC] 81 mg PO DAILY 06/03/17 [History] Cranberry Fruit Extract [Cranberry] 500 mg PO DAILY 06/03/17 [History] Cyanocobalamin (Vitamin B-12) [Vitamin B-12] 1,000 mcg PO DAILY 06/03/17 [History] Ondansetron ODT [Zofran ODT] 4 mg PO Q6HR PRN #20 tab.rapdis 11/23/17 [Rx] Acetaminophen [Tylenol] 500 - 1,000 mg PO Q6H PRN 12/02/17 [History] Benzonatate [Tessalon] 100 mg PO TID PRN 12/02/17 [History] Ipratropium/Albuterol Neb [Duoneb] 3 ml IH Q4H 12/02/17 [History] Multivitamin [One Daily Multivitamin] 1 tab PO DAILY 12/02/17 [History] RX: Albuterol Sulfate 2.5 mg IH Q8H PRN 12/02/17 [History] Acetylcysteine [Nac] 500 mg PO TID 02/04/18 [History] Guaifenesin [Mucinex] 600 mg PO BID PRN 02/04/18 [History] RX: Lisinopril [Zestril] 5 mg PO DAILY 02/04/18 [History] RX: Meclizine [Antivert] 25 mg PO DAILY PRN 02/04/18 [History] RX: Tizanidine HCl 4 mg PO TID PRN 02/04/18 [History] Allergy/AdvReac Type Severity Reaction Status Date / Time Amoxicillin [From Augmentin] AdvReac Vomiting Verified 12/02/17 09:32 clavulanic acid AdvReac Vomiting Verified 12/02/17 09:32 [From Augmentin] hydrocodone [From Vicodin] AdvReac Hallucinati Verified 12/02/17 09:32 ng Iodinated Contrast- Oral and AdvReac See Verified 12/02/17 09:32 IV Dye Comments [Iodinated Contrast Media - IV Dye] Oxycodone [From Percocet] AdvReac Hallucinati Verified 12/02/17 09:32 ng pregabalin [From Lyrica] AdvReac Dizziness Verified 12/02/17 09:32 Review of systems: 10 point review of systems done, negative other for what mentioned in the history of present illness. Exam - Constitutional Vitals: Temp Pulse Resp BP Pulse Ox 98.5 F 82 16 119/66 96 02/04/18 06:28 02/04/18 06:28 02/04/18 06:28 02/04/18 06:28 02/04/18 06:28 General appearance: cooperative, no acute distress, no febrile - Head Head exam: Present: atraumatic, normocephalic - Eye Eye exam: Present: EOMI, PERRL, sclera anicteric - ENT ENT exam: Present: mucous membranes moist - Neck Neck exam: Present: full ROM. Absent: meningismus - Respiratory Additional comments: Course past sounds bilaterally. Worse at the bases with some expiratory wheezing. Some fine rhonchi also audible. Chest expanding symmetrically. - Cardiovascular Cardiovascular exam: Present: RRR, +S1, +S2 - GI/Abdominal GI/Abdominal exam: Present: normal bowel sounds, soft. Absent: tenderness - Extremities Exam Extremities exam: Present: full ROM. Absent: calf tenderness, joint swelling - Back Exam Back exam: Absent: CVA tenderness (L), CVA tenderness (R) - Neurological Exam Neurological exam: Present: alert, oriented X3 - Psychiatric Psychiatric exam: Present: normal affect, normal mood - Skin Skin exam: Present: normal color. Absent: rash Infectious Disease CN: Results - Labs CBC & Chem 7: 02/04/18 04:04 02/04/18 04:04 Cultures: Cultures 02/04/18 04:36 Blood Culture - Preliminary Peripheral Venipuncture Culture is incubating and being continuously monitored for growth. Final report to follow. 02/04/18 04:04 Blood Culture - Preliminary Peripheral Venipuncture Culture is incubating and being continuously monitored for growth. Final report to follow. 02/04/18 04:04 Influenza Types A,B Antigen - Final Nasopharyngeal Serology: Serology 02/04/18 Range/Units 04:10 Urine Color Yellow (Yellow) Urine Clarity Clear (Clear) Urine pH 6.5 (5.0-8.0) pH Units Ur Specific [place] 1.024 (1.010-1.025) Urine Protein 100 H (Neg-Trace) mg/dL Urine Glucose (UA) Normal (Normal) mg/dL Urine Ketones Negative (Negative) mg/dL Urine Blood Negative (Negative) Urine Nitrite Negative (Negative) Urine Bilirubin Negative (Negative) Urine Urobilinogen Normal (Normal) mg/dL Ur Leukocyte Esterase Negative (Negative) Urine Microscopic RBC 0-3 (0-3) per hpf Urine Microscopic WBC 0-3 (0-3) per hpf Ur Squamous Epith Cells Moderate H (None-Few) per lpf Urine Bacteria None Seen (None-Few) per hpf Hyaline Casts None Seen (None-Few) per lpf Ur Culture Indicated? NO (NO) Consult Discharge Plan - Plan Referrals: Garret Gonzalez DO [Primary Care Provider] - (Your appointment has been requested. Our offices will call you with an appointment time and date. )
--- NOTE | 2018-02-04 11:28 | Event Note ---
Date of Encounter: 02/04/18 Time of Encounter: 11:26 Patient seen and examined at the bedside. I agree with the admitting hospitalist assessment and plan of care with regards to this patient. He does have chronic history of hypo-agammaglobulinemia and gets weekly gammaglobulin subcutaneous tetanus injections. He is immunocompromised and I would like to consult infectious disease for further guidance regarding his antibiotic coverage. He is already gotten Levaquin and azithromycin which should be good for the next 24 hours however further antibiotic will be guarded as per infectious disease. Blood cultures have been sent and are negative so far influenza A and B is negative. Sputum cultures also been collected and sent. His chest x-ray does not show evidence of focal consolidation but given his immunocompromise nature and his high spiking fevers yesterday it is still worrisome Rest of the assessment and plan as per H&P
[2018-02-04 13:35] LABS: Adenovirus Not Detected (Not Detect); Bordetella Pertussis Not Detected (Not Detect); Chlamydophila pneumoniae Not Detected (Not Detect); Coronavirus 229E Not Detected (Not Detect); Coronavirus HKU1 Not Detected (Not Detect); Coronavirus NL63 Not Detected (Not Detect); Coronavirus OC43 Not Detected (Not Detect); Human Metapneumovirus Not Detected (Not Detect); Human Rhinovirus/Enterovirus DETECTED (Not Detect); Influenza A Subtype 2009 H1 Not Detected (Not Detect); Influenza A Untypeable Not Detected (Not Detect); Influenza B Not Detected (Not Detect); Mycoplasma pneumoniae Not Detected (Not Detect); Parainfluenza Virus 1 Not Detected (Not Detect); Parainfluenza Virus 2 Not Detected (Not Detect); Parainfluenza Virus 3 Not Detected (Not Detect); Parainfluenza Virus 4 Not Detected (Not Detect); Respiratory Syncytial Virus Not Detected (Not Detect)
[2018-02-05] MEDS: Ipratropium/Albuterol Neb 3 ML IH SCH ×6 (03:07→23:41)
[2018-02-05] MEDS: *HR* Heparin 5,000 UNIT/ML VIAL SQ SCH ×3 (05:48→20:32)
[2018-02-05] MEDS: Budesonide/Formoterol 160/4.5 1 PUFF INH IH SCH ×2 (08:04→20:02)
[2018-02-05] MEDS: Multivit/Ca/Min/Fe/FA 1 TAB TABLET PO SCH (09:18)
[2018-02-05] MEDS: Cyanocobalamin (B-12) 1,000 MCG TABLET PO SCH (09:18)
[2018-02-05] MEDS: predniSONE 20 MG TABLET PO SCH (09:18)
[2018-02-05] MEDS: Benzonatate 100 MG CAPSULE PO SCH ×3 (09:18→20:31)
[2018-02-05] MEDS: Levofloxacin 500 MG/100 ML 500 MG/100 ML BAG IVPB SCH (09:19)
[2018-02-05] MEDS: Aspirin Enteric Coated 81 MG Tablet PO SCH (09:19)
[2018-02-05] MEDS: Fluticasone Propionate Nasal 50 MCG/SPRAY BOTTLE NS SCH (09:25)
[2018-02-05] MEDS: Roflumilast [Daliresp] 500 MCG PO SCH (10:10)
--- NOTE | 2018-02-05 11:32 | Infectious Disease Progress No ---
Date of Encounter: 02/05/18 Time of Encounter: 11:29 - Assessment and Plan (1) Sepsis Current Visit: Yes Status: Acute The patient had three SIRS criteria on admission. Likely secondary to COPD exacerbation and Entero/Rhinovirus. Improved. Afebrile overnight. Tachycardia and tachypnea have resolved. Blood cultures drawn 02/04/18 are pending x 2 sets. Qualifiers: Sepsis type: sepsis due to unspecified organism Qualified Code(s): A41.9 - Sepsis, unspecified organism (2) Viral syndrome Current Visit: Yes Status: Acute Causative organism: Entero/rhinovirus. Droplet precautions per protocol. Continue supportive care. No further recommendations from the ID team. We will sign off. Please re-consult PRN. (3) COPD exacerbation Current Visit: Yes Status: Acute Likely secondary to rhino/enterovirus. CXR negative for PNA. Complicated due to the patient's hypogammaglobulinemia. Continue supportive care (O2, nebs, steroids, etc.). Continue Levaquin 750mg IV daily. Duration of treatment depends on the clinical picture, but recommend a total of 5 days. Monitor renal function and for drug toxicity and dose-adjust antibiotics. (4) Headache Current Visit: Yes Status: Acute Etiology unclear: viral syndrome vs. other. Improved. Reported neck pain over the weekend, but none at this time. Pain management per the primary team. Qualifiers: Headache type: other headache syndrome Qualified Code(s): G44.89 - Other headache syndrome (5) Drug allergy, antibiotic Current Visit: Yes Status: Acute Has Augmentin listed as allergy, but reports vomiting when taken previously. (6) CVID (common variable immunodeficiency) Current Visit: Yes Status: Acute Follows with Dr. Luis Carlos Crowley for hypogammaglobulinemia. - Subjective Interval history: Patient seen and examined. No acute events noted overnight. Patient states that he doesn't feel very well today. Denies fevers, chills, or rigors overnight. Reports intermittent chest pain associated with cough or deep inspiration. Reports cough productive of clear sputum. Reports mild posterior headache, but denies neck pain/stiffness at this time. Reports previous history of neck pain prior to admission unrelieved by IM toradol at his PCP's office. Reports facial swelling and feeling warm all over. Denies nausea, vomiting, or diarrhea. Denies abdominal pain or urinary complaints. Denies appetite changes. Reports last BM 1 hour ago. Denies oral thrush. Infect Dis PN-Objective Data - Labs CBC & Chem 7: 02/04/18 04:04 02/04/18 04:04 Labs: Laboratory Results - last 24 hr 02/04/18 12:25 Chlamy pneumoniae PCR Not Detected Adenovirus (PCR) Not Detected B. pertussis DNA (PCR) Not Detected B.parapertussis DNA PCR Not Detected Coronavirus OC43 (PCR) Not Detected Coronavirus HKU1 (PCR) Not Detected Coronavirus 229E (PCR) Not Detected Coronavirus NL63 (PCR) Not Detected Human Metapneumovir PCR Not Detected Influenza A (H1) PCR Not Detected Influ A (H1N1/09) PCR Not Detected Influenza A (H3) PCR Not Detected Influenza A Untype (PCR) Not Detected Influenza Type B (PCR) Not Detected M.pneumoniae DNA (PCR) Not Detected Parainfluenza 1 (PCR) Not Detected Parainfluenza 2 (PCR) Not Detected Parainfluenza 3 (PCR) Not Detected Parainfluenza 4 (PCR) Not Detected RSV (PCR) Not Detected Entero/Rhino (PCR) DETECTED A Cultures: Cultures 02/04/18 14:24 Legionella Antigen - Final Urine,Clean Catch Streptococcus pneumoniae Antigen (M - Final 02/04/18 08:30 Sputum Culture - Preliminary Sputum 02/04/18 04:36 Blood Culture - Preliminary Peripheral Venipuncture Culture is incubating and being continuously monitored for growth. Final report to follow. 02/04/18 04:04 Blood Culture - Preliminary Peripheral Venipuncture Culture is incubating and being continuously monitored for growth. Final report to follow. 02/04/18 04:04 Influenza Types A,B Antigen - Final Nasopharyngeal Serology 02/04/18 02/04/18 Range/Units 12:25 04:10 Urine Color Yellow (Yellow) Urine Clarity Clear (Clear) Urine pH 6.5 (5.0-8.0) pH Units Ur Specific [place] 1.024 (1.010-1.025) Urine Protein 100 H (Neg-Trace) mg/dL Urine Glucose (UA) Normal (Normal) mg/dL Urine Ketones Negative (Negative) mg/dL Urine Blood Negative (Negative) Urine Nitrite Negative (Negative) Urine Bilirubin Negative (Negative) Urine Urobilinogen Normal (Normal) mg/dL Ur Leukocyte Esterase Negative (Negative) Urine Microscopic RBC 0-3 (0-3) per hpf Urine Microscopic WBC 0-3 (0-3) per hpf Ur Squamous Epith Cells Moderate H (None-Few) per lpf Urine Bacteria None Seen (None-Few) per hpf Hyaline Casts None Seen (None-Few) per lpf Ur Culture Indicated? NO (NO) Chlamy pneumoniae PCR Not Detected (Not Detect) Adenovirus (PCR) Not Detected (Not Detect) B. pertussis DNA (PCR) Not Detected (Not Detect) B.parapertussis DNA PCR Not Detected (Not Detect) Coronavirus OC43 (PCR) Not Detected (Not Detect) Coronavirus HKU1 (PCR) Not Detected (Not Detect) Coronavirus 229E (PCR) Not Detected (Not Detect) Coronavirus NL63 (PCR) Not Detected (Not Detect) Human Metapneumovir PCR Not Detected (Not Detect) Influenza A (H1) PCR Not Detected (Not Detect) Influ A (H1N1/09) PCR Not Detected (Not Detect) Influenza A (H3) PCR Not Detected (Not Detect) Influenza A Untype (PCR) Not Detected (Not Detect) Influenza Type B (PCR) Not Detected (Not Detect) M.pneumoniae DNA (PCR) Not Detected (Not Detect) Parainfluenza 1 (PCR) Not Detected (Not Detect) Parainfluenza 2 (PCR) Not Detected (Not Detect) Parainfluenza 3 (PCR) Not Detected (Not Detect) Parainfluenza 4 (PCR) Not Detected (Not Detect) RSV (PCR) Not Detected (Not Detect) Entero/Rhino (PCR) DETECTED A (Not Detect) Exam - Constitutional Vitals: Temp Pulse Resp BP Pulse Ox 97.7 F 72 18 136/66 98 02/05/18 07:24 02/05/18 07:24 02/05/18 11:24 02/05/18 07:24 02/05/18 11:24 General appearance: average body habitus, cooperative, no acute distress - Head Head exam: Present: atraumatic, normal inspection, normocephalic - Eye Eye exam: Present: EOMI, normal appearance, PERRL Pupils: Present: normal accommodation - ENT ENT exam: Present: mucous membranes moist - Neck Neck exam: Present: normal inspection. Absent: meningismus - Respiratory Respiratory exam: Present: wheezes (Coarse inspiratory/expiratory wheezes throughout.). Absent: rales, tachypnea - Cardiovascular Cardiovascular exam: Present: RRR, +S1, +S2 - GI/Abdominal GI/Abdominal exam: Present: normal bowel sounds, soft. Absent: distended, t enderness - Extremities Exam Extremities exam: Present: normal inspection. Absent: joint swelling, pedal edema, tenderness - Neurological Exam Neurological exam: Present: alert, oriented X3, no focal deficits - Psychiatric Psychiatric exam: Present: normal affect, normal mood - Skin Skin exam: Present: dry, intact, normal color, warm Consult Discharge Plan - Plan Referrals: Garret Gonzalez DO [Primary Care Provider] - (Your appointment has been requested. Our offices will call you with an appointment time and date. ) - Attending Attestation I examined this patient and my medical decision-making was reviewed with the Re sident Physician. I agree with the documented findings, disposition and treatment plan as described except to the extent set forth below.
--- NOTE | 2018-02-05 12:55 | Internal Med Progress Note ---
Hospitalist Progress Note - Encounter Date of Encounter: 02/05/18 Time of Encounter: 11:00 - Subjective Interval History: Mr. Perez is a 77-year-old male who was entered for COPD exacerbation shortness of breath. He is O2 dependent at home with oxygen 2-3 L. His initial presentation through the emergency room with increased dyspnea fever chills prod uctive cough with scant sputum. He also presented with a rash on his face, after starting an unknown prescription for an antibiotic by his primary care. He stated that his signs and symptoms had been ongoing for the past 2-3 days and not worsening over that time frame with an increase in the malaise and weakness. Chest x-ray was completed and is positive for a spinal stimulator in the leads are stable at the median sternotomy. Otherwise there are no acute processes Urine was obtained and was found to be positive for streptococcal pneumoniae, resulting in urosepsis. History is positive for hypogammaglobullulinemia, he doses receive Igg transfusions weekly per Dr. Crowley to boost his immune response. He was due for transfusion this week. Further history shows that he is also positive for rhinovirus and viral syndrome, THADDEUS, and hypertension. Today he continues on oxygen at 2 L SPO2 on room air is 100% however he is dyspneic at rest with increased shortness of breath with minimal exertion. His is at bedside, and she states she has spoke with his home infusion pharma cist and that he speculates that the patient has developed acute encephalitis. We did reassure the patient's that white blood cells are within the normal count at 5.2 however we will continue to wait on blood cultures which are pending and we also monitor for any neurological deficits at this time he is alert and oriented 4 denies any blurred vision headache dizziness. Denies any stiffness in his neck Kernig sign is negative. - Exam Vitals: Temp Pulse Resp BP Pulse Ox 98.1 F 73 18 135/70 97 02/05/18 11:39 02/05/18 11:39 02/05/18 11:39 02/05/18 11:39 02/05/18 11:39 Exam: SPO2 97% with oxygen on @2LPM, becomes dyspnic with minimal exertion, walking to bathroom w.o oxygen. reports severe shortness of breath while showering. - Assessment and Plan (1) Sepsis due to Streptococcus pneumoniae Current Visit: Yes Status: Acute Assessment and Plan: We will continue with IV Levaquin, blood cultures are pending. Have placed a call in to Dr. Sneed regarding IgG replacement. (2) CAD (coronary artery disease) Current Visit: Yes Status: Chronic Assessment and Plan: Denies any chest pain, today we will continue to monitor with telemetry and continue his cardiac medications (3) Hypertension Current Visit: Yes Status: Chronic Assessment and Plan: Blood pressure stable at 135/70 we will continue to monitor (4) Acute exacerbation of chronic obstructive airways disease Current Visit: Yes Status: Acute Assessment and Plan: Names dyspneic at rest with oxygen on at 2 L per nasal cannula SPO2 is 97%. Has increased dyspnea with minimal exertion such as walking to the bathroom. Also has increased severe dyspnea with increased activity such showering. Remains dyspneic for upwards to 15 minutes with replacement of oxygen after taking a shower. However after replacement of oxygen patient return to baseline We will continue with IV antibiotic and prednisone. Encouraged to wear his oxy gen as much as possible. Encouraged to take hand-held nebulizers every 4 hours while awake. (5) Lumbago Current Visit: Yes Status: Acute Assessment and Plan: Chronic we will continue with current medications DVT Prophylaxis: Per protocol - Summary of Assessment and Plan Summary of Assessment and Plan: We will continue with current medications IV antibiotics and monitoring with telemetry as well as monitoring of respiratory status. Blood cultures are pending. We will obtain EKGs lab work as his last IgG samples were obtained in October and more low. Placed a call into Dr. Sneed regarding possible infusion of his IgG immunoglobulin as it is due. Consult is pending. - Time Spent with Patient Total time spent is greater than 50% in coordination of care (as documented) at patient's floor/unit and/or counseling patient: 25 - 35 minutes Plan of Care Discussed with: patient (and at bedside) Internal Medicine: Result - Labs CBC & Chem 7: 02/04/18 04:04 02/04/18 04:04 - ABG Interpretation ABG results: PT/INR, D-dimer PT 11.6 Seconds (9.4-12.1) 02/04/18 04:04 - Pulse Oximetry Interpretation Digit-Finger Pulse Oximetry Readin (@2LPM/NC) Consult Discharge Plan - Plan Referrals: Garret Gonzalez DO [Primary Care Provider] - (Your appointment has been requested. Our offices will call you with an appointment time and date. ) (2) CAD (coronary artery disease) Qualifiers: Coronary Disease-Associated Artery/Lesion type: bypass graft [place] vs. transplanted heart: [place] heart Associated angina: without angina Qualified Code(s): I25.810 - Atherosclerosis of coronary artery bypass graft(s) without angina pectoris (3) Hypertension Qualifiers: Hypertension type: essential hypertension Qualified Code(s): I10 - Essential (primary) hypertension (5) Lumbago Qualifiers: Chronicity: chronic Back pain laterality: midline Sciatica presence: unspecified whether sciatica present Qualified Code(s): M54.5 - Low back pain; G89.29 - Other chronic pain
--- NOTE | 2018-02-05 16:08 | Allergy Consult Note ---
Date of Encounter: 02/05/18 Time of Encounter: 15:00 Assessment and Plan (1) CVID (common variable immunodeficiency) Current Visit: Yes Status: Acute Patient has CVID and is currently admitted with sepsis, viral syndrome, and COPD exacerbation. He did not tolerate his gammagard subcu infusion last Friday. He had large local reactions, fatigue and "not feeling well". He then developed fever, headache, runny nose. It is hard to tell if this was all the viral syndrome or partly from the infusion. I would like to go back to gamunex subcu and will start with 10g weekly. I have talked to pharmacy at [facility] and they are working on PA. He is okay to discharge from my standpoint when the hospitalist clears him for discharge. History of Present Illness Consult date: 02/05/18 (hypogammagloblinemia) Requesting physician: Mis Flannery History of present illness: Patient has history of CVID and has been on IVIG for many years. I recently switched him to gammard 10% subcu 15g weekly. He did his first infusion last Friday and said it was painful and his stomach was red and hard afterward. His stomach hurt so bad that he could not lean over. He then did not feel good and started with a headache on Friday. On Friday he was not able to use his nebulizer as his electric was out for the whole day. On friday he was seen at PCP and was given zpack and oral fluconazole. He was given a shot of tordol becasue of his headache and this did not help. He was shaky off and on. Friday night he had a temp of 103 and vomiting and was brought to ER. He has received levaquin PO for sepsis and COPD exacerbation. He has improved and has been afebrile today. He is still wheezing but feels this is closer to his baseline. He is no longer nauseated. He is nervous to do the subcu Ig again. He has tolerated Gamunex IVIG for years then was switched to privigen but did not feel well with it. 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, infusions for IGG level, kidney failure, hypothryroidism, anurysm on aorta, 2 places on lungs,IGG level low, gout, pancreatitis, pneumonia, gout Psychiatric history: anxiety - Past Surgical History Surgical History: angioplasty/stent, cancer surgery, coronary bypass (CABG) Additional surgical history: karissa procedure, back stimulator - Social History Smoking Status: Never smoker Smokeless Tobacco Status: No Alcohol use: none Drug use: none - Family History Mother Adopted: No Living Status: Hx Family Cardiac Disorders: No Hx Family Respiratory Disorders: No Hx Family Cancer: Yes Hx Family GI Disorders: No Hx Family Endocrine Disorder: No Hx Family Neuromuscular Disorders: No Hx Family Neurologic Disorders: No Hx Family HEENT Disorders: No Hx Family Autoimmune Disorders: No Father Adopted: No Family Member Ethnicity: Non- Living Status: Hx Family Cardiac Disorders: Yes Hx Family Respiratory Disorders: No Hx Family Cancer: No Hx Family GI Disorders: No Hx Family Endocrine Disorder: No Hx Family Neuromuscular Disorders: No Hx Family Neurologic Disorders: No Hx Family HEENT Disorders: No Hx Family Autoimmune Disorders: No Medications and Allergies Albuterol Sulfate [Ventolin Hfa] 2 puff IH Q4-6H 01/24/16 [History] Atorvastatin [Lipitor] 40 mg PO HS 01/24/16 [History] Budesonide/Formoterol 160/4.5 [Symbicort 160/4.5] 2 puff IH BIDR 01/24/16 [History] Carvedilol 12.5 mg PO BID 01/24/16 [History] DULoxetine [Cymbalta] 30 mg PO DAILY 01/24/16 [History] Fluticasone Propionate Nasal [Flonase] 1 spray NS DAILY 01/24/16 [History] Montelukast [Singulair] 10 mg PO DAILY 01/24/16 [History] Oxygen 2 l NS AD PRN 01/24/16 [History] Roflumilast [Daliresp] 500 mcg PO DAILY 01/24/16 [History] Furosemide [Lasix] 20 mg PO DAILY 03/03/17 [History] Aspirin [Lo-Dose Aspirin EC] 81 mg PO DAILY 06/03/17 [History] Cranberry Fruit Extract [Cranberry] 500 mg PO DAILY 06/03/17 [History] Cyanocobalamin (Vitamin B-12) [Vitamin B-12] 1,000 mcg PO DAILY 06/03/17 [History] Ondansetron ODT [Zofran ODT] 4 mg PO Q6HR PRN #20 tab.rapdis 11/23/17 [Rx] Acetaminophen [Tylenol] 500 - 1,000 mg PO Q6H PRN 12/02/17 [History] Albuterol Sulfate 2.5 mg IH Q8H PRN 12/02/17 [History] Benzonatate [Tessalon] 100 mg PO TID PRN 12/02/17 [History] Ipratropium/Albuterol Neb [Duoneb] 3 ml IH Q4H 12/02/17 [History] Multivitamin [One Daily Multivitamin] 1 tab PO DAILY 12/02/17 [History] Acetylcysteine [Nac] 500 mg PO TID 02/04/18 [History] Guaifenesin [Mucinex] 600 mg PO BID PRN 02/04/18 [History] Lisinopril [Zestril] 5 mg PO DAILY 02/04/18 [History] Meclizine [Antivert] 25 mg PO DAILY PRN 02/04/18 [History] Tizanidine HCl 4 mg PO TID PRN 02/04/18 [History] Allergy/AdvReac Type Severity Reaction Status Date / Time Amoxicillin [From Augmentin] AdvReac Vomiting Verified 12/02/17 09:32 clavulanic acid AdvReac Vomiting Verified 12/02/17 09:32 [From Augmentin] hydrocodone [From Vicodin] AdvReac Hallucinati Verified 12/02/17 09:32 ng Iodinated Contrast- Oral and AdvReac See Verified 12/02/17 09:32 IV Dye Comments [Iodinated Contrast Media - IV Dye] Oxycodone [From Percocet] AdvReac Hallucinati Verified 12/02/17 09:32 ng pregabalin [From Lyrica] AdvReac Dizziness Verified 12/02/17 09:32 ROS Allergy - Constitutional Constitutional ROS: fever(s), headache(s) - EENT Nose, mouth and throat: nasal congestion, nasal discharge - Respiratory cough, dyspnea, wheezing - Gastrointestinal Gastrointestinal: vomiting - Genitourinary Genitourinary ROS: no dysuria - Integumentary Integumentary: rash - Allergic/Immunologic no tongue swelling Allergy Exam Initial Vital Signs Temp Pulse Resp BP Pulse Ox 98.6 F 108 24 118/79 96 02/04/18 03:08 02/04/18 03:08 02/04/18 03:08 02/04/18 03:08 02/04/18 03:08 - General physical appearance well nourished, no distress - ENT normal nares, Other (white plaques on soft palate) - Neck no lymphadectomy - Respiratory normal expansion, normal respiratory effort Respiratory Exam: Respiratory Exam: Wheezing: bilateral - Abdomen Abdomen: non tender - Integumentary other (mild erythema of upper chest) - Additional Findings Cardiac-RRR Results - Labs 02/04/18 04:04 02/04/18 04:04 Abnormal lab results Hgb 12.8 g/dL (12.9-16.9) L 02/04/18 04:04 MCH 27.6 pg (28.0-33.3) L 02/04/18 04:04 RDW 15.3 % (11.5-14.5) H 02/04/18 04:04 Plt Count 139 K/mcL (140-400) L 02/04/18 04:04 Sodium 132 mEq/L (136-145) L 02/04/18 04:04 BUN 29 mg/dL (8-23) H 02/04/18 04:04 Est GFR (Non-Af Amer) 55 (> 60) L 02/04/18 04:04 Glucose 107 mg/dL (70-105) H 02/04/18 04:04 Calcium 8.4 mg/dL (8.6-10.3) L 02/04/18 04:04 Urine Protein 100 mg/dL (Neg-Trace) H 02/04/18 04:10 Ur Squamous Epith Cells Moderate per lpf (None-Few) H 02/04/18 04:10 Entero/Rhino (PCR) DETECTED (Not Detect) A 02/04/18 12:25 All other labs normal. Consult Discharge Plan - Plan Referrals: Garret Gonzalez DO [Primary Care Provider] - (Your appointment has been requested. Our offices will call you with an appointment time and date. )
[2018-02-06] MEDS: Ipratropium/Albuterol Neb 3 ML IH SCH ×5 (03:53→20:31)
[2018-02-06] MEDS: *HR* Heparin 5,000 UNIT/ML VIAL SQ SCH ×3 (05:42→22:39)
[2018-02-06] MEDS: Budesonide/Formoterol 160/4.5 1 PUFF INH IH SCH ×2 (07:35→20:31)
[2018-02-06] MEDS: predniSONE 20 MG TABLET PO SCH (10:19)
[2018-02-06] MEDS: Cyanocobalamin (B-12) 1,000 MCG TABLET PO SCH (10:19)
[2018-02-06] MEDS: Multivit/Ca/Min/Fe/FA 1 TAB TABLET PO SCH (10:19)
[2018-02-06] MEDS: Benzonatate 100 MG CAPSULE PO SCH ×3 (10:19→22:39)
[2018-02-06] MEDS: Aspirin Enteric Coated 81 MG Tablet PO SCH (10:19)
[2018-02-06] MEDS: Fluticasone Propionate Nasal 50 MCG/SPRAY BOTTLE NS SCH (10:20)
[2018-02-06] MEDS: Levofloxacin 500 MG/100 ML 500 MG/100 ML BAG IVPB SCH (10:20)
[2018-02-06] MEDS ORDERED: 0.9 % Sodium Chloride 1,000 ML ONE (11:13)
[2018-02-06] MEDS ORDERED: MethylPREDNISolone 40 MG/ML VIAL IVP ONE (11:20)
[2018-02-06] MEDS ORDERED: Ipratropium/Albuterol Neb 3 ML ONE (11:22)
[2018-02-06] MEDS ORDERED: MethylPREDNISolone 40 MG/ML VIAL ONE (11:23)
[2018-02-06] MEDS ORDERED: Ipratropium/Albuterol Neb 3 ML IH PRN (11:24)
[2018-02-06] MEDS ORDERED: 0.9 % Sodium Chloride 1,000 ML IVC SCH (11:30)
[2018-02-06 11:36] LABS: ABG Base Excess -3 mEq/L (-2 to 3); ABG HCO3 20 mEq/L (21-27); ABG Oxygen Saturation 99 % (95-98); ABG PCO2 27 mmHg (35-45); ABG PH 7.46 pH Units (7.32-7.45); ABG PO2 113 mmHg (85-104); ABG TCO2 20 mEq/L (20-26)
[2018-02-06] MEDS: Roflumilast [Daliresp] 500 MCG PO SCH (12:58)
--- NOTE | 2018-02-06 13:00 | Internal Med Progress Note ---
Hospitalist Progress Note - Encounter Date of Encounter: 02/06/18 Time of Encounter: 12:00 - Subjective Interval History: Patient was seen and examined at bedside appears to be in respiratory distress, using accessory muscles audible wheezes patient is diaphoretic and flushed. Appears anxious. Upon auscultation has decreased air exchange- states that he has hives I do not visualize any hives patient does appear red and diaphoretic. voices concern about allergic reaction to Levaquin since this was running when he became distressed. Denies any itchiness. Chest x-ray obtained as well as ABG given stat breathing treatment Solu-Medrol 40 mg IV as well as Benadryl. I did review this case with Dr. Velásquez who agree with plan. Temp 102 HR 125 Bp 150/84 Sats 100% Dr. Hollingsworth at bedside, patient appears to have stabilized-respirations easy and unlabored lung sounds are clear at this time improved air exchange patient will be transferred to for closer observation - Exam Vitals: Temp Pulse Resp BP Pulse Ox 102.6 F H 125 20 150/84 100 02/06/18 12:12 02/06/18 11:15 02/06/18 11:47 02/06/18 11:15 02/06/18 11:47 Exam: General appearance: Appears anxious in moderate respiratory distress - Head Head exam: Present: atraumatic, normal inspection, normocephalic - Eye Eye exam: Present: EOMI, normal appearance, PERRL Pupils: Present: normal accommodation - ENT ENT exam: Present: mucous membranes moist - Neck Neck exam: Present: normal inspection. Absent: meningismus - Respiratory Respiratory exam: Present: Audible wheezes (Coarse inspiratory/expiratory wheezes throughout.). Decreased breath sounds Absent: rales, tachypnea - Cardiovascular Cardiovascular exam: Present: RRR, +S1, +S2 - GI/Abdominal GI/Abdominal exam: Present: normal bowel sounds, soft. Absent: distended, tenderness - Extremities Exam Extremities exam: Present: normal inspection. Absent: joint swelling, pedal edema, tenderness - Neurological Exam Neurological exam: Present: alert, oriented X3, no focal deficits - Psychiatric Psychiatric exam: Present: normal affect, normal mood - Skin Skin exam: Present: Diaphoretic warm and flushed - Assessment and Plan (1) CAD (coronary artery disease) Current Visit: Yes Status: Chronic Assessment and Plan: Denies any chest pain, today we will continue to monitor with telemetry and continue his cardiac medications 02/06 Continue with aspirin and statin and beta re nitroglycerin as needed for chest pain Continuous cardiac monitoring (2) Hypertension Current Visit: Yes Status: Chronic Assessment and Plan: Blood pressure stable at 135/70 we will continue to monitor 02/06 Continue with lisinopril as well as carvedilol (3) Acute exacerbation of chronic obstructive airways disease Current Visit: Yes Status: Acute Assessment and Plan: Names dyspneic at rest with oxygen on at 2 L per nasal cannula SPO2 is 97%. Has increased dyspnea with minimal exertion such as walking to the bathroom. Also has increased severe dyspnea with increased activity such showering. Remains dyspneic for upwards to 15 minutes with replacement of oxygen after taking a shower. However after replacement of oxygen patient return to baseline We will continue with IV antibiotic and prednisone. Encouraged to wear his oxygen as much as possible. Encouraged to take hand-held nebulizers every 4 hours while awake. 02/06 Patient appears to be in respiratory distress ABG completed which does show hyperventilation-ABG pH 7.46 PCO2 27 PO2 113 bicarbonate 20 O2 99%. All double wheezes with decreased air exchange given Solu-Medrol as well as breathing treatments Patient placed on BiPap-we will recheck ABG 1 hour respiratory state has improved Continue with IV steroids (4) Lumbago Current Visit: Yes Status: Acute Assessment and Plan: Chronic we will continue with current medications (5) Sepsis due to Streptococcus pneumoniae Current Visit: Yes Status: Acute Assessment and Plan: We will stop levaquin appears he had possible allergic reaction- sx more viral positive for entero/rhino than pneumonia ID was consulted and signed off I did speak with them concerning allergic reaction and agreed that sx more viral and to stop ATB (6) Respiratory failure Current Visit: Yes Status: Acute Assessment and Plan: Patient having difficulty breathing with audible wheezes and decreased air exchange- ABG shows hyperventilation. Placed on Bipap and improved- suspect rt possible allergic reaction or COPD excerbation (7) Allergic reaction Current Visit: Yes Status: Acute Assessment and Plan: Patient began to experience wheezing and difficulty breathing after receiving levaquin, this was stopped- reports hives however no hives visualized- denies any itching, patient is flushed- BP stable HR tachycardic - given Benadryk and solumedrol will cont Benadryl as needed cont with solu medrol 60 mg IV scheduled - Summary of Assessment and Plan Summary of Assessment and Plan: Mr. Perez is a 77-year-old male who was entered for COPD exacerbation shortness of breath. He is O2 dependent at home with oxygen 2-3 L. His initial presentation through the emergency room with increased dyspnea fever chills productive cough with scant sputum. He also presented with a rash on his face, after starting an unknown prescription for an antibiotic by his primary care. He stated that his signs and symptoms had been ongoing for the past 2-3 days and not worsening over that time frame with an increase in the malaise and weakness. Chest x-ray was completed and is positive for a spinal stimulator in the leads are stable at the median sternotomy. Otherwise there are no acute processes Urine was obtained and was found to be positive for streptococcal pneumoniae, resulting in urosepsis. History is positive for hypogammaglobullulinemia, he doses receive Igg transfusions weekly per Dr. Crowley to boost his immune response. He was due for transfusion this week. Further history shows that he is also positive for rhinovirus and viral syndrome, THADDEUS, and hypertension. Had possible allergic reaction to levaquin which was stopped- sx more viral- con to have off and on fever- cont Bipap as needed - Time Spent with Patient Total time spent is greater than 50% in coordination of care (as documented) at patient's floor/unit and/or counseling patient: Internal Medicine: Result - Labs CBC & Chem 7: 02/06/18 13:40 02/06/18 13:40 - ABG Interpretation ABG results: ABG ABG pH 7.46 pH Units (7.32-7.45) H 02/06/18 11:32 ABG pCO2 27 mmHg (35-45) L 02/06/18 11:32 ABG pO2 113 mmHg (85-104) H 02/06/18 11:32 ABG O2 Saturation 99 % (95-98) H 02/06/18 11:32 PT/INR, D-dimer PT 11.6 Seconds (9.4-12.1) 02/04/18 04:04 - Impressions Impressions Chest X-Ray 02/06/18 11:18 IMPRESSION: No acute cardiopulmonary process. D/ / Brodie Duncan MD / Brodie Duncan MD Interpreting Provider: Brodie Duncan MD Consult Discharge Plan - Plan Referrals: Garret Gonzalez DO [Primary Care Provider] - (Your appointment has been requested. Our offices will call you with an appointment time and date. ) (1) CAD (coronary artery disease) Qualifiers: Coronary Disease-Associated Artery/Lesion type: bypass graft [place] vs. transplanted heart: [place] heart Associated angina: without angina Qualified Code(s): I25.810 - Atherosclerosis of coronary artery bypass graft(s) without angina pectoris (2) Hypertension Qualifiers: Hypertension type: essential hypertension Qualified Code(s): I10 - Essential (primary) hypertension (4) Lumbago Qualifiers: Chronicity: chronic Back pain laterality: midline Sciatica presence: unspecified whether sciatica present Qualified Code(s): M54.5 - Low back pain; G89.29 - Other chronic pain (6) Respiratory failure Qualifiers: Chronicity: acute Respiratory failure complication: unspecified whether with hypoxia or hypercapnia Qualified Code(s): J96.00 - Acute respiratory failure, unspecified whether with hypoxia or hypercapnia (7) Allergic reaction Qualifiers: Encounter type: initial encounter Qualified Code(s): T78.40XA - Allergy, unspecified, initial encounter
[2018-02-06 13:35] LABS: ABG Base Excess 0 mEq/L (-2 to 3); ABG HCO3 22 mEq/L (21-27); ABG Oxygen Saturation 99 % (95-98); ABG PCO2 27 mmHg (35-45); ABG PH 7.52 pH Units (7.32-7.45); ABG PO2 127 mmHg (85-104); ABG TCO2 23 mEq/L (20-26)
[2018-02-06 14:15] LABS: Basophils % 0.3 %; Eosinophils # 0.4 K/mcL (0.0-0.6); Eosinophils % 6.1 %; Hematocrit 36.9 % (37.5-50.1); Hemoglobin 11.9 g/dL (12.9-16.9); Immature Granulocytes % 0.5 % (0-4); Lymphocytes # 0.5 K/mcL (0.6-4.6); Lymphocytes % 8.5 %; Mean Corpuscular HGB Conc 32.2 g/dL (31.6-35.5); Mean Corpuscular Hemoglobin 27.7 pg (28.0-33.3); Mean Platelet Volume 11.2 fL (9.4-12.4); Monocytes # 0.3 K/mcL (0.0-1.3); Monocytes % 5.9 %; Neutrophils # 4.5 K/mcL (1.6-8.9); Platelet Count 129 K/mcL (140-400); Red Blood Count 4.29 M/mcL (4.19-5.50); Red Cell Distribution Width 15.3 % (11.5-14.5); Segmented Neutrophils % 78.7 %
[2018-02-06 14:35] LABS: Alanine Aminotransferase 15 Units/L (7-52); Albumin 3.2 g/dL (3.5-5.7); Albumin/Globulin Ratio 1.1 (1.1-2.2); Alkaline Phosphatase 40 Units/L (34-104); Aspartate Amino Transferase 18 Units/L (13-39); BUN/Creatinine Ratio 19 (6-26); Bilirubin,Total 0.3 mg/dL (0.3-1.0); Blood Urea Nitrogen 21 mg/dL (8-23); Calcium 9.1 mg/dL (8.6-10.3); Carbon Dioxide 21 mEq/L (23-29); Chloride 105 mEq/L (98-107); Globulin 2.9 g/dL (2.4-3.5); Glucose 103 mg/dL (70-105); Osmolality,Calculated 283 (280-300); Potassium 4.9 mEq/L (3.5-5.1); Sodium 135 mEq/L (136-145); Total Protein 6.1 g/dL (6.4-8.9); eGFR For Non-African Americans > 60 (> 60)
[2018-02-06] MEDS ORDERED: Saline Nasal Spray 44 ML BOTTLE NS PRN (16:19)
[2018-02-06] MEDS: methylPREDNISolone 125 MG/2 ML VIAL IVP SCH (18:24)
[2018-02-07] MEDS: Ipratropium/Albuterol Neb 3 ML IH SCH ×7 (00:38→23:33)
[2018-02-07] MEDS: methylPREDNISolone 125 MG/2 ML VIAL IVP SCH ×2 (01:17→08:24)
[2018-02-07] MEDS: *HR* Heparin 5,000 UNIT/ML VIAL SQ SCH ×3 (06:58→21:38)
[2018-02-07] MEDS: Budesonide/Formoterol 160/4.5 1 PUFF INH IH SCH ×2 (07:31→23:33)
[2018-02-07] MEDS: Aspirin Enteric Coated 81 MG Tablet PO SCH (08:23)
[2018-02-07] MEDS: Benzonatate 100 MG CAPSULE PO SCH ×3 (08:24→21:38)
[2018-02-07] MEDS: Cyanocobalamin (B-12) 1,000 MCG TABLET PO SCH (08:24)
[2018-02-07] MEDS: Multivit/Ca/Min/Fe/FA 1 TAB TABLET PO SCH (08:24)
[2018-02-07] MEDS: Fluticasone Propionate Nasal 50 MCG/SPRAY BOTTLE NS SCH (08:31)
[2018-02-07] MEDS: Roflumilast [Daliresp] 500 MCG PO SCH (08:32)
[2018-02-07] MEDS ORDERED: tiZANidine 4 MG TABLET PO PRN (10:53)
--- NOTE | 2018-02-07 13:07 | Internal Med Progress Note ---
Hospitalist Progress Note - Encounter Date of Encounter: 02/07/18 Time of Encounter: 12:00 - Subjective Interval History: Patient records reviewed. Transfer to [facility] in view of worsening respiratory distress that was attributed to COPD exacerbation +/- allergic rxn to levaquin. Briefly required BiPaP for about 1.5hrs then d/keshawn. Patient currently reports improvement in his symptoms although he is still mildly dyspneic on minimal exertion. No worsening cough/sputum production. - Exam Vitals: Temp Pulse Resp BP Pulse Ox 97.8 F 86 18 121/99 98 02/07/18 12:30 02/07/18 12:30 02/07/18 12:30 02/07/18 12:30 02/07/18 12:30 Exam: General: Alert and oriented, not in acute distress. Cardiovascular:Normal S1 & S2, No JVD. Pulse regular. Lungs: scattered wheezes Abdomen:Soft, non-tender, no rigidity. Extremities:No deformity or swelling Neurological:Normal cognition and motor skills. Non-focal Skin:Normal color, no rash, no lesions. - Assessment and Plan (1) Acute exacerbation of chronic obstructive airways disease Current Visit: Yes Status: Acute Assessment and Plan: due to Entero/Rhinovirus infection steroid increased to 60mg Q8 for possible allergic rxn to levaquin as well -> discussed withID yesterday and abx d/keshawn as the etiology of his respiratory distress is likely viral Significantly improvement in his symptoms noted, no evidence of hypercarbic respiratory failure bronchodilators cut down IV solumedrol to 40mg BID -> plan to transition to PO Pred 40mg and d/c home tomorrow if he continues to improve (2) Allergic reaction Current Visit: Yes Status: Acute Assessment and Plan: steroids as above benadryl PRN (3) CAD (coronary artery disease) Current Visit: Yes Status: Chronic Assessment and Plan: Denies any chest pain, today we will continue to monitor with telemetry and continue his cardiac medications (4) Hypertension Current Visit: Yes Status: Chronic Assessment and Plan: Blood pressure stable, continue home meds (5) Lumbago Current Visit: Yes Status: Chronic Assessment and Plan: Chronic, we will continue with current medications DVT Prophylaxis: SQ heparin - Time Spent with Patient Total time spent is greater than 50% in coordination of care (as documented) at patient's floor/unit and/or counseling patient: Plan of Care Discussed with: family Internal Medicine: Result - Labs CBC & Chem 7: 02/06/18 13:40 02/06/18 13:40 Labs: Short CBC 02/06/18 Range/Units 13:40 WBC 5.8 (4.3-11.1) K/mcL Hgb 11.9 L (12.9-16.9) g/dL Hct 36.9 L (37.5-50.1) % Plt Count 129 L (140-400) K/mcL Neutrophils # 4.5 (1.6-8.9) K/mcL BMP 02/06/18 13:40 Sodium 135 L Potassium 4.9 Chloride 105 Carbon Dioxide 21 L BUN 21 Creatinine 1.08 Glucose 103 Calcium 9.1 Liver Function 02/06/18 Range/Units 13:40 Total Bilirubin 0.3 (0.3-1.0) mg/dL AST 18 (13-39) Units/L ALT 15 (7-52) Units/L Alkaline Phosphatase 40 (34-104) Units/L Albumin 3.2 L (3.5-5.7) g/dL - ABG Interpretation ABG results: ABG ABG pH 7.52 pH Units (7.32-7.45) H 02/06/18 13:31 ABG pCO2 27 mmHg (35-45) L 02/06/18 13:31 ABG pO2 127 mmHg (85-104) H 02/06/18 13:31 ABG O2 Saturation 99 % (95-98) H 02/06/18 13:31 PT/INR, D-dimer PT 11.6 Seconds (9.4-12.1) 02/04/18 04:04 Consult Discharge Plan - Plan Referrals: Garret Gonzalez DO [Primary Care Provider] - (Your appointment has been requested. Our offices will call you with an appointment time and date. ) (2) Allergic reaction Qualifiers: Encounter type: initial encounter Qualified Code(s): T78.40XA - Allergy, unspecified, initial encounter (3) CAD (coronary artery disease) Qualifiers: Coronary Disease-Associated Artery/Lesion type: bypass graft [place] vs. transplanted heart: [place] heart Associated angina: without angina Qualified Code(s): I25.810 - Atherosclerosis of coronary artery bypass graft(s) without angina pectoris (4) Hypertension Qualifiers: Hypertension type: essential hypertension Qualified Code(s): I10 - Essential (primary) hypertension (5) Lumbago Qualifiers: Chronicity: chronic Back pain laterality: midline Sciatica presence: un specified whether sciatica present Qualified Code(s): M54.5 - Low back pain; G89.29 - Other chronic pain
[2018-02-07] MEDS ORDERED: ACETYLCYSTEINE 500 MG PO SCH (15:00)
[2018-02-07] MEDS: MethylPREDNISolone 40 MG/ML VIAL IVP SCH (21:38)
--- NOTE | 2018-02-07 22:07 | Electrocardiograph Report ---
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
[2018-02-08] MEDS: Ipratropium/Albuterol Neb 3 ML IH SCH ×2 (03:48→07:24)
[2018-02-08] MEDS: *HR* Heparin 5,000 UNIT/ML VIAL SQ SCH (06:46)
[2018-02-08] MEDS: Budesonide/Formoterol 160/4.5 1 PUFF INH IH SCH (07:24)
[2018-02-08 07:39] LABS: Immunoglobulin A 58 mg/dL (68-408); Immunoglobulin G 911 mg/dL (768-1632); Immunoglobulin M 25 mg/dL (35-263)
[2018-02-08 07:45] VITALS: BP 147/80
--- NOTE | 2018-02-08 09:06 | Discharge Summary ---
- NOTES TO OUTPATIENT PROVIDER Notes to Outpatient Provider: Patient with history of immunodeficiency and O2 dependent COPD was admitted for acute exacerbation of COPD secondary to entero/rhinovirus infection. During her hospital stay, she developed questionable reaction to Levaquin which improved on increased dose of IV Solu- Medrol and Benadryl. He will be discharged on 5 additional days of oral steroid and will follow-up with sausage cutter and his PCP as an outpatient. Orders not resulted at time of discharge: Pending orders 02/04/18 04:36 Culture,Blood [BC] Stat 02/06/18 13:40 Culture,Blood [BC] Stat Date of Encounter: 02/08/18 Time of Encounter: 07:30 - Discharge Diagnosis (1) Acute exacerbation of chronic obstructive airways disease Priority: Primary Status: Acute (2) Allergic reaction Priority: Secondary Status: Acute Qualifiers: Encounter type: initial encounter Qualified Code(s): T78.40XA - Allergy, unspecified, initial encounter (3) CAD (coronary artery disease) Priority: Secondary Status: Chronic Qualifiers: Coronary Disease-Associated Artery/Lesion type: bypass graft [place] vs. transplanted heart: [place] heart Associated angina: without angina Qualified Code(s): I25.810 - Atherosclerosis of coronary artery bypass graft(s) without angina pectoris (4) Hypertension Priority: Secondary Status: Chronic Qualifiers: Hypertension type: essential hypertension Qualified Code(s): I10 - Essential (primary) hypertension (5) Lumbago Priority: Secondary Status: Chronic Qualifiers: Chronicity: chronic Back pain laterality: midline Sciatica presence: unsp ecified whether sciatica present Qualified Code(s): M54.5 - Low back pain; G89.29 - Other chronic pain Hospital course: Mr. Perez is a 77 year old male with PMHx of IgA and IgG deficiency, COPD on 2-3L of O2, was admitted for acute exacerbation of COPD secondary to entero/rhinovirus infection. During her hospital stay, she developed questi onable reaction to Levaquin which improved on increased dose of IV Solu-Medrol and Benadryl. He will be discharged on 5 additional days of oral steroid and will follow-up with sausage cutter and his PCP as an outpatient. Discharge discussed with: patient, family, nurse - Time Spent with Patient Total time spent providing and/or coordinating discharge services: 31 mins - Discharge Medications Prescriptions: DiphenhydraMINE [Benadryl] 25 mg PO Q6HR PRN 3 Days #12 capsule PRN Reason: Rash predniSONE [PredniSONE] 40 mg PO DAILY 5 Days #10 tablet Home Medications: Albuterol Sulfate [Ventolin Hfa] 2 puff IH Q4-6H 01/24/16 [History] Atorvastatin [Lipitor] 40 mg PO HS 01/24/16 [History] Budesonide/Formoterol 160/4.5 [Symbicort 160/4.5] 2 puff IH BIDR 01/24/16 [History] Carvedilol 12.5 mg PO BID 01/24/16 [History] DULoxetine [Cymbalta] 30 mg PO DAILY 01/24/16 [History] Fluticasone Propionate Nasal [Flonase] 1 spray NS DAILY 01/24/16 [History] Montelukast [Singulair] 10 mg PO DAILY 01/24/16 [History] Oxygen 2 l NS AD PRN 01/24/16 [History] Roflumilast [Daliresp] 500 mcg PO DAILY 01/24/16 [History] Furosemide [Lasix] 20 mg PO DAILY 03/03/17 [History] Aspirin [Lo-Dose Aspirin EC] 81 mg PO DAILY 06/03/17 [History] Cranberry Fruit Extract [Cranberry] 500 mg PO DAILY 06/03/17 [History] Cyanocobalamin (Vitamin B-12) [Vitamin B-12] 1,000 mcg PO DAILY 06/03/17 [History] Ondansetron ODT [Zofran ODT] 4 mg PO Q6HR PRN #20 tab.rapdis 11/23/17 [Rx] Acetaminophen [Tylenol] 500 - 1,000 mg PO Q6H PRN 12/02/17 [History] Albuterol Sulfate 2.5 mg IH Q8H PRN 12/02/17 [History] Benzonatate [Tessalon] 100 mg PO TID PRN 12/02/17 [History] Ipratropium/Albuterol Neb [Duoneb] 3 ml IH Q4H 12/02/17 [History] Multivitamin [One Daily Multivitamin] 1 tab PO DAILY 12/02/17 [History] Acetylcysteine [Nac] 500 mg PO TID 02/04/18 [History] Guaifenesin [Mucinex] 600 mg PO BID PRN 02/04/18 [History] Lisinopril [Zestril] 5 mg PO DAILY 02/04/18 [History] Meclizine [Antivert] 25 mg PO DAILY PRN 02/04/18 [History] Tizanidine HCl 4 mg PO TID PRN 02/04/18 [History] DiphenhydraMINE [Benadryl] 25 mg PO Q6HR PRN 3 Days #12 capsule 02/08/18 [Rx] predniSONE [PredniSONE] 40 mg PO DAILY 5 Days #10 tablet 02/08/18 [Rx] Allergies/Adverse Reactions: Allergy/AdvReac Type Severity Reaction Status Date / Time Amoxicillin [From Augmentin] AdvReac Vomiting Verified 12/02/17 09:32 clavulanic acid AdvReac Vomiting Verified 12/02/17 09:32 [From Augmentin] hydrocodone [From Vicodin] AdvReac Hallucinati Verified 12/02/17 09:32 ng Iodinated Contrast- Oral and AdvReac See Verified 12/02/17 09:32 IV Dye Comments [Iodinated Contrast Media - IV Dye] Oxycodone [From Percocet] AdvReac Hallucinati Verified 12/02/17 09:32 ng pregabalin [From Lyrica] AdvReac Dizziness Verified 12/02/17 09:32 Date of admission: 02/06/18 13:41 Primary care physician: Garret Gonzalez DO Consults: 02/04/18 07:45 Consult to Nurse Navigator [CONS] Routine Comment: COPD 02/04/18 10:04 Consult to Infectious Diseases [CONS] Routine Consulting Provider: Infectious Disease Petty Reason for Consult: 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 Time Notified: 10:04 Call Completed: No - Constitutional Vitals: Temp Pulse Resp BP Pulse Ox 98.2 F 66 17 147/80 96 02/08/18 07:43 02/08/18 07:43 02/08/18 07:43 02/08/18 07:43 02/08/18 07:43 Exam: General: Alert and oriented, not in acute distress. Cardiovascular:Normal S1 & S2, No JVD. Pulse regular. Lungs: occasional wheezes Abdomen:Soft, non-tender, no rigidity. Extremities:No deformity or swelling Neurological:Normal cognition and motor skills. Non-focal Skin:Normal color, no rash, no lesions. - Patient Status Disposition: Home, Self-Care Condition: Fair Overall status at discharge: patient is progressing back to baseline - Discharge Instructions Instructions: Chronic Obstructive Pulmonary Disease (DC), Chronic Hypertension (DC) Follow Up With: Garret Gonzalez DO [Primary Care Provider] - (Your appointment has been requested. Our offices will call you with an appointment time and date. ) - Diet and Activity Activity: resume usual activities as tolerated Diet: low salt diet
[2018-02-08] MEDS: Multivit/Ca/Min/Fe/FA 1 TAB TABLET PO SCH (09:45)
[2018-02-08] MEDS: Aspirin Enteric Coated 81 MG Tablet PO SCH (09:45)
[2018-02-08] MEDS: Benzonatate 100 MG CAPSULE PO SCH (09:45)
[2018-02-08] MEDS: Cyanocobalamin (B-12) 1,000 MCG TABLET PO SCH (09:45)
[2018-02-08] MEDS: MethylPREDNISolone 40 MG/ML VIAL IVP SCH (09:45)
[2018-02-08] MEDS: Roflumilast [Daliresp] 500 MCG PO SCH (09:46)
[2018-02-08] MEDS: Fluticasone Propionate Nasal 50 MCG/SPRAY BOTTLE NS SCH (09:47)
== END 2018-02-08 11:01 | disposition home or self-care (01) | DRG 871 ==
LOC: 3BNU 03:05 → EMEROOARM 03:05 → SUATTDRO 05:19 → 3BNU 05:48 → SUATTDRO 02-06 13:41 → 2NNU 02-06 19:37 → 2ANU 02-07 20:50
PROVIDERS: ADMIT Internal Medicine; ATTEND Internal Medicine

== ENCOUNTER 2018-11-18 12:29 | Inpatient (IN) ==
[2018-11-18] MEDS ORDERED: Ipratropium/Albuterol Neb 3 ML ONE (12:34)
[2018-11-18] MEDS ORDERED: Ondansetron 4 MG/2 ML VIAL IVP ONE ×2 (12:35→12:43)
[2018-11-18] MEDS ORDERED: Ondansetron 4 MG/2 ML VIAL ONE (12:37)
[2018-11-18] MEDS ORDERED: Ipratropium/Albuterol Neb 3 ML IH ONE (12:40)
[2018-11-18] MEDS ORDERED: methylPREDNISolone 125 MG/2 ML VIAL IVP ONE (12:40)
[2018-11-18 13:04] LABS: VBG HCO3 26 mEq/L (21-27); VBG PCO2 51 mmHg (41-51); VBG PH 7.31 pH Units (7.32-7.42); VBG PO2 41 mmHg (25-50)
--- NOTE | 2018-11-18 13:08 | Emergency Department Note ---
Disposition Clinical Impression: COPD exacerbation, Shortness of breath Chest pain Qualifiers: Chest pain type: unspecified Qualified Code(s): R07.9 - Chest pain, unspecified Disposition: Admitted As Inpatient Condition: Undetermined Time of Disposition: 13:56 General Adult HPI - General Chief complaint: ED Shortness of Breath/Dyspnea Stated complaint: PACO Time Seen by Provider: 11/18/18 12:31 Source: patient, family Limitations: no limitations Nursing Notes Reviewed: Yes Vital Signs Reviewed: Yes - History of Present Illness Pain Scale: 2 - Related Data Home Medications Medication Instructions Recorded Confirmed Albuterol Sulfate [Ventolin Hfa] 2 puff IH Q4-6H 01/24/16 11/18/18 Atorvastatin [Lipitor] 40 mg PO DAILY 01/24/16 11/18/18 DULoxetine [Cymbalta] 30 mg PO DAILY 01/24/16 11/18/18 Fluticasone Propionate Nasal 1 spray NS DAILY 01/24/16 11/18/18 [Flonase] Montelukast [Singulair] 10 mg PO DAILY 01/24/16 11/18/18 Oxygen 2 l NS AD PRN 01/24/16 11/18/18 Roflumilast [Daliresp] 500 mcg PO DAILY 01/24/16 11/18/18 Furosemide [Lasix] 20 mg PO DAILY 03/03/17 11/18/18 Aspirin [Lo-Dose Aspirin EC] 81 mg PO DAILY 06/03/17 11/18/18 Cranberry Fruit Extract [Cranberry] 500 mg PO DAILY 06/03/17 11/18/18 Benzonatate [Tessalon] 100 mg PO TID PRN 12/02/17 11/18/18 Ipratropium/Albuterol Neb [Duoneb] 3 ml IH Q4H 12/02/17 11/18/18 Multivitamin [One Daily 1 tab PO DAILY 12/02/17 11/18/18 Multivitamin] Lisinopril [Zestril] 5 mg PO BID 02/04/18 11/18/18 Meclizine [Antivert] 25 mg PO DAILY PRN 02/04/18 11/18/18 Allopurinol [Zyloprim 100 MG] 100 mg PO DAILY 11/18/18 11/18/18 Naproxen [Naprosyn] 500 mg PO TID PRN 11/18/18 11/18/18 Allergies Allergy/AdvReac Type Severity Reaction Status Date / Time levofloxacin [From Levaquin] Allergy Anaphylaxis Verified 03/24/18 08:46 Glucose AdvReac Severe Anaphylaxis Verified 06/09/18 18:50 [From Gammagard S-D (IgA < 1 mcg/mL)] glycine AdvReac Severe Anaphylaxis Verified 06/09/18 18:50 [From Gammagard S-D (IgA < 1 mcg/mL)] IgA less than or equal to 50 AdvReac Severe Anaphylaxis Verified 06/09/18 18:51 mcg/mL [From Gammagard S-D (IgA < 1 mcg/mL)] immune globulin,gamma (IgG) AdvReac Severe Anaphylaxis Verified 06/09/18 18:51 human [From Gammagard S-D (IgA < 1 mcg/mL)] Amoxicillin [From Augmentin] AdvReac Vomiting Verified 12/02/17 09:32 clavulanic acid AdvReac Vomiting Verified 12/02/17 09:32 [From Augmentin] hydrocodone [From Vicodin] AdvReac Hallucinati Verified 12/02/17 09:32 ng Iodinated Contrast- Oral and AdvReac See Verified 12/02/17 09:32 IV Dye Comments [Iodinated Contrast Media - IV Dye] oxycodone [From Percocet] AdvReac Hallucinati Verified 12/02/17 09:32 ng pregabalin [From Lyrica] AdvReac Dizziness Verified 12/02/17 09:32 Past Medical History - Past Medical History Medical history: Reports: non-contributory, aortic aneurysm, CHF, COPD, coronary artery disease, hyperlipidemia, hypertension, myocardial infarction, renal disease, other Surgical history: Reports: angioplasty/stent, cancer surgery, coronary bypass (CABG) Psychiatric history: Reports: anxiety - Social History Smoking Status: Former smoker Smokeless Tobacco Status: No Alcohol use: Reports: none Drug use: Reports: none Physical Exam - General Limitations: no limitations General appearance: alert, anxious Course Vital Signs Temperature 98.0 F 11/18/18 12:30 Pulse Rate 78 11/18/18 12:30 Respiratory Rate 36 11/18/18 12:30 Blood Pressure 122/80 11/18/18 12:30 O2 Sat by Pulse Oximetry 100 11/18/18 12:30 Temperature 98.0 F 11/18/18 12:30 Pulse Rate 59 11/18/18 14:16 Respiratory Rate 16 11/18/18 15:23 Blood Pressure 112/67 11/18/18 14:16 O2 Sat by Pulse Oximetry 100 11/18/18 15:23 Oxygen Delivery Oxygen Delivery Nasal Cannula Medical Decision Making - MDM Narrative Medical decision making narrative: Chest X-Ray 11/18/18 12:30 IMPRESSION: No acute cardiopulmonary disease. D/ / Abdon Oconnell MD / Abdon Oconnell MD Interpreting Provider: Abdon Oconnell MD 1300 patient is feeling better chest x-rays unremarkable still on DuoNeb's. 1355 hrs.: We will go ahead and admit him to the hospital. He has improved. But with this history I think he needs to come in for evaluation and treatment. He is in agreement with the plan is his . - Lab Data Result diagrams: 11/18/18 12:35 11/18/18 12:35 Lab Results 11/18/18 11/18/18 11/18/18 Range/Units 12:35 12:35 13:01 WBC 7.8 (4.3-11.1) K/mcL RBC 4.70 (4.19-5.50) M/mcL Hgb 13.5 (12.9-16.9) g/dL Hct 43.0 (37.5-50.1) % MCV 91.5 (83.0-100.0) fL MCH 28.7 (28.0-33.3) pg MCHC 31.4 L (31.6-35.5) g/dL RDW 15.0 H (11.5-14.5) % Plt Count 223 (140-400) K/mcL MPV 11.1 (9.4-12.4) fL Immature Gran % 0.9 (0-4) % Seg Neutrophils % 47.2 % Lymphocytes % 36.6 % Monocytes % 8.8 % Eosinophils % 5.7 % Basophils % 0.8 % Neutrophils # 3.7 (1.6-8.9) K/mcL Lymphocytes # 2.8 (0.6-4.6) K/mcL Monocytes # 0.7 (0.0-1.3) K/mcL Eosinophils # 0.4 (0.0-0.6) K/mcL Basophils # 0.1 (0.0-0.2) K/mcL VBG pH 7.31 L (7.32-7.42) pH Units VBG pCO2 51 (41-51) mmHg VBG pO2 41 (25-50) mmHg VBG HCO3 26 (21-27) mEq/L Sodium 137 (136-145) mEq/L Potassium 4.3 (3.5-5.1) mEq/L Chloride 102 (98-107) mEq/L Carbon Dioxide 28 (23-29) mEq/L BUN 37 H (8-23) mg/dL Creatinine 1.55 H (0.70-1.30) mg/dL Est GFR ( Amer) 53 L (> 60) Est GFR (Non-Af Amer) 44 L (> 60) BUN/Creatinine Ratio 24 (6-26) Glucose 59 L (70-105) mg/dL Calculated Osmolality 290 (280-300) Calcium 9.7 (8.6-10.3) mg/dL Troponin I < 0.03 (< 0.04) ng/mL Attestation Statement - Attestation Attestation: This documentation is done with the assistance of Dragon dictation. Despite efforts made to ensure accuracy, there may be inaccuracies in safety compliance specialist or spelling and typographical errors. I examined this patient and my medical decision-making was reviewed with the Resident Physician. I agree with the documented findings, disposition and treatment plan as described except to the extent set forth below. Patient was seen and evaluated by Dr. Shi I agree with their evaluation and management plan, I supervised care the patient's stay. Patient was seen on arrival with his . They were out walking today he got very short of breath secondary to history of COPD and she says black lung. Very anxious also. Has audible wheezing 1-2 words conversational dyspnea. We will be starting breathing treatments a VBG labs chest x-ray reassess and most likely admission. They are in agreement with plan. I reviewed the residents documentation and agree with the residents assessment and plan of care. I have personally had face to face time with the patient. (Brief History, Brief Exam, and MDM) I personally supervised and was present for the chavez/critical portions of the following procedures completed by the resident: EKG was interpreted by the resident under my supervision, I agree with their interpretation.
[2018-11-18 13:11] LABS: Basophils # 0.1 K/mcL (0.0-0.2); Basophils % 0.8 %; Eosinophils # 0.4 K/mcL (0.0-0.6); Eosinophils % 5.7 %; Hemoglobin 13.5 g/dL (12.9-16.9); Immature Granulocytes % 0.9 % (0-4); Lymphocytes # 2.8 K/mcL (0.6-4.6); Lymphocytes % 36.6 %; Mean Corpuscular HGB Conc 31.4 g/dL (31.6-35.5); Mean Corpuscular Hemoglobin 28.7 pg (28.0-33.3); Mean Corpuscular Volume 91.5 fL (83.0-100.0); Mean Platelet Volume 11.1 fL (9.4-12.4); Monocytes # 0.7 K/mcL (0.0-1.3); Monocytes % 8.8 %; Neutrophils # 3.7 K/mcL (1.6-8.9); Platelet Count 223 K/mcL (140-400); Segmented Neutrophils % 47.2 %; White Blood Count 7.8 K/mcL (4.3-11.1)
[2018-11-18 13:27] LABS: BUN/Creatinine Ratio 24 (6-26); Blood Urea Nitrogen 37 mg/dL (8-23); Calcium 9.7 mg/dL (8.6-10.3); Carbon Dioxide 28 mEq/L (23-29); Chloride 102 mEq/L (98-107); Glucose 59 mg/dL (70-105); Osmolality,Calculated 290 (280-300); Potassium 4.3 mEq/L (3.5-5.1); Sodium 137 mEq/L (136-145); Troponin I < 0.03 ng/mL (< 0.04); eGFR For African Americans 53 (> 60); eGFR For Non-African Americans 44 (> 60)
--- NOTE | 2018-11-18 13:45 | Emergency Department Note ---
Disposition Clinical Impression: COPD exacerbation, Shortness of breath Chest pain Qualifiers: Chest pain type: unspecified Qualified Code(s): R07.9 - Chest pain, unspecified Disposition: Admitted As Inpatient Condition: Undetermined Referrals: Garret Gonzalez DO [Primary Care Provider] - Forms: ED Satisfaction Letter Time of Disposition: 14:00 General Adult HPI - General Chief complaint: ED Shortness of Breath/Dyspnea Stated complaint: PACO Time Seen by Provider: 11/18/18 12:31 Source: patient, family Mode of arrival: private vehicle Limitations: no limitations Nursing Notes Reviewed: Yes Vital Signs Reviewed: Yes - History of Present Illness HPI Narrative: Patient is a 77-year-old male with a past medical history including hypertension, hyperlipidemia, COPD on 3 L O2, coronary artery disease s/p CABG, aortic aneurysm, presenting with chief complaint of shortness of breath. The patient states he has a new productive cough for the past 2 days. He has had increased wheezing. He has been using his breathing treatments more home. He denies any fevers or chills. He complains of increased shortness of breath with exertion. He states he went to the store today. After walking around, he states he became suddenly short of breath and had a coughing attack. He had associated left sided chest pain that was sharp and non radiation, no abdominal pain. He did feel nauseous when he felt short of breath. He had an episode of vomiting up mucus. He is brought here for further evaluation. Pain Scale: 2 - Related Data Home Medications Medication Instructions Recorded Confirmed Albuterol Sulfate [Ventolin Hfa] 2 puff IH Q4-6H 01/24/16 02/04/18 Atorvastatin [Lipitor] 40 mg PO HS 01/24/16 02/04/18 Budesonide/Formoterol 160/4.5 2 puff IH BIDR 01/24/16 02/04/18 [Symbicort 160/4.5] Carvedilol 12.5 mg PO BID 01/24/16 02/04/18 DULoxetine [Cymbalta] 30 mg PO DAILY 01/24/16 02/04/18 Fluticasone Propionate Nasal 1 spray NS DAILY 01/24/16 02/04/18 [Flonase] Montelukast [Singulair] 10 mg PO DAILY 01/24/16 02/04/18 Oxygen 2 l NS AD PRN 01/24/16 02/04/18 Roflumilast [Daliresp] 500 mcg PO DAILY 01/24/16 02/04/18 Furosemide [Lasix] 20 mg PO DAILY 03/03/17 02/04/18 Aspirin [Lo-Dose Aspirin EC] 81 mg PO DAILY 06/03/17 02/04/18 Cranberry Fruit Extract [Cranberry] 500 mg PO DAILY 06/03/17 02/04/18 Cyanocobalamin (Vitamin B-12) 1,000 mcg PO DAILY 06/03/17 02/04/18 [Vitamin B-12] Acetaminophen [Tylenol] 500 - 1,000 mg PO Q6H PRN 12/02/17 02/04/18 Albuterol Sulfate 2.5 mg IH Q8H PRN 12/02/17 02/04/18 Benzonatate [Tessalon] 100 mg PO TID PRN 12/02/17 02/04/18 Ipratropium/Albuterol Neb [Duoneb] 3 ml IH Q4H 12/02/17 02/04/18 Multivitamin [One Daily 1 tab PO DAILY 12/02/17 02/04/18 Multivitamin] Acetylcysteine [Nac] 500 mg PO TID 02/04/18 02/04/18 Guaifenesin [Mucinex] 600 mg PO BID PRN 02/04/18 02/04/18 Lisinopril [Zestril] 5 mg PO DAILY 02/04/18 02/04/18 Meclizine [Antivert] 25 mg PO DAILY PRN 02/04/18 02/04/18 Tizanidine HCl 4 mg PO TID PRN 02/04/18 02/04/18 Previous Rx's Medication Instructions Recorded Ondansetron ODT [Zofran ODT] 4 mg PO Q6HR PRN #20 tab.rapdis 11/23/17 predniSONE [PredniSONE] 40 mg PO DAILY #10 tablet 06/09/18 Allergies Allergy/AdvReac Type Severity Reaction Status Date / Time levofloxacin [From Levaquin] Allergy Anaphylaxis Verified 03/24/18 08:46 Glucose AdvReac Severe Anaphylaxis Verified 06/09/18 18:50 [From Gammagard S-D (IgA < 1 mcg/mL)] glycine AdvReac Severe Anaphylaxis Verified 06/09/18 18:50 [From Gammagard S-D (IgA < 1 mcg/mL)] IgA less than or equal to 50 AdvReac Severe Anaphylaxis Verified 06/09/18 18:51 mcg/mL [From Gammagard S-D (IgA < 1 mcg/mL)] immune globulin,gamma (IgG) AdvReac Severe Anaphylaxis Verified 06/09/18 18:51 human [From Gammagard S-D (IgA < 1 mcg/mL)] Amoxicillin [From Augmentin] AdvReac Vomiting Verified 12/02/17 09:32 clavulanic acid AdvReac Vomiting Verified 12/02/17 09:32 [From Augmentin] hydrocodone [From Vicodin] AdvReac Hallucinati Verified 12/02/17 09:32 ng Iodinated Contrast- Oral and AdvReac See Verified 12/02/17 09:32 IV Dye Comments [Iodinated Contrast Media - IV Dye] oxycodone [From Percocet] AdvReac Hallucinati Verified 12/02/17 09:32 ng pregabalin [From Lyrica] AdvReac Dizziness Verified 12/02/17 09:32 All systems ED: reviewed and negative except as stated. Review of Systems: As Per HPI Constitutional: Denies: fever, chills ENT ED: Reports: congestion Cardiovascular: Reports: chest pain. Denies: palpitations Respiratory: Reports: cough, dyspnea Gastrointestinal: Reports: nausea. Denies: abdominal pain, vomiting, diarrhea Musculoskeletal: Denies: back pain Past Medical History - Past Medical History Attestation: Yes The following information was validated with the patient. Medical history: Reports: non-contributory, aortic aneurysm, CHF, COPD, coronary artery disease, hyperlipidemia, hypertension, myocardial infarction, renal disease, other Surgical history: Reports: angioplasty/stent, cancer surgery, coronary bypass (CABG) Psychiatric history: Reports: anxiety - Social History Smoking Status: Former smoker Smokeless Tobacco Status: No Alcohol use: Reports: none Drug use: Reports: none Physical Exam - General Limitations: no limitations General appearance: alert, anxious - Head Head exam: atraumatic, normocephalic - Eye Eye exam: Present: normal appearance, EOMI - ENT ENT exam: normal exam, normal oropharynx - Neck Neck exam: Present: normal inspection, trachea midline - Chest Chest inspection: Present: normal inspection, symmetric chest wall rise - Respiratory Respiratory exam: Present: other (Significantly diminished breath sounds bilaterally with expiratory wheezing, tachypnea) - Cardiovascular Cardiovascular exam: Present: regular rate, normal rhythm, other (bilateral radial pulses and dorsalis pedis pulses equal) - Abdominal Exam Abdominal exam: Present: soft, Non-Tender. Absent: distention - Extremities Exam Extremities exam: Present: normal capillary refill. Absent: pedal edema, calf tenderness - Neurological Exam Neurological exam: Present: alert, oriented X3 - Psychiatric Psychiatric exam: Present: anxious - Skin Skin exam: Present: warm, diaphoresis. Absent: pallor Course Vital Signs Temperature 98.0 F 11/18/18 12:30 Pulse Rate 78 11/18/18 12:30 Respiratory Rate 36 11/18/18 12:30 Blood Pressure 122/80 11/18/18 12:30 O2 Sat by Pulse Oximetry 100 11/18/18 12:30 Temperature 98.0 F 11/18/18 12:30 Pulse Rate 78 11/18/18 12:30 Respiratory Rate 26 11/18/18 12:50 Blood Pressure 122/80 11/18/18 12:30 O2 Sat by Pulse Oximetry 100 11/18/18 12:40 Oxygen Delivery Oxygen Delivery Nasal Cannula Medical Decision Making - [facility] Narrative Medical decision making narrative: Patient presented in significantly respiratory distress. He has a productive cough and had difficulty catching his breath. He has significant conversational dyspnea. He was placed on oxygen with minor improvement in his breathing. He was immediately given triple DuoNeb treatments, Solu-Medrol for COPD exacerbation. His lungs sound very tight with expiratory wheezing. We will also obtain cardiac workup in addition to a chest x-ray for COPD exacerbation. 13:10 The patient was reevaluated after receiving his breathing treatments. He states he is feeling better. Chest pain free. He is now talking in complete sentences. Increased air movement bilaterally, still with wheezing. He is oxygenating stable with supplemental oxygen. 13:30 Labs and imaging reviewed. Hospitalist paged for admission for ACS workup and COPD exacerbation. Lung sounds improved, still with wheezing. Remains on 4L O2 per NC. Azithromycin will be given for COPD exacerbation. 14:00 Discussed with hospitalist who accepts admission - Medical Records Medical records reviewed: Yes I reviewed the patient's medical records. - Lab Data Lab results reviewed: Yes I reviewed the patient's lab results. Result diagrams: 11/18/18 12:35 11/18/18 12:35 Lab Results 11/18/18 11/18/18 11/18/18 Range/Units 12:35 12:35 13:01 WBC 7.8 (4.3-11.1) K/mcL RBC 4.70 (4.19-5.50) M/mcL Hgb 13.5 (12.9-16.9) g/dL Hct 43.0 (37.5-50.1) % MCV 91.5 (83.0-100.0) fL MCH 28.7 (28.0-33.3) pg MCHC 31.4 L (31.6-35.5) g/dL RDW 15.0 H (11.5-14.5) % Plt Count 223 (140-400) K/mcL MPV 11.1 (9.4-12.4) fL Immature Gran % 0.9 (0-4) % Seg Neutrophils % 47.2 % Lymphocytes % 36.6 % Monocytes % 8.8 % Eosinophils % 5.7 % Basophils % 0.8 % Neutrophils # 3.7 (1.6-8.9) K/mcL Lymphocytes # 2.8 (0.6-4.6) K/mcL Monocytes # 0.7 (0.0-1.3) K/mcL Eosinophils # 0.4 (0.0-0.6) K/mcL Basophils # 0.1 (0.0-0.2) K/mcL VBG pH 7.31 L (7.32-7.42) pH Units VBG pCO2 51 (41-51) mmHg VBG pO2 41 (25-50) mmHg VBG HCO3 26 (21-27) mEq/L Sodium 137 (136-145) mEq/L Potassium 4.3 (3.5-5.1) mEq/L Chloride 102 (98-107) mEq/L Carbon Dioxide 28 (23-29) mEq/L BUN 37 H (8-23) mg/dL Creatinine 1.55 H (0.70-1.30) mg/dL Est GFR ( Amer) 53 L (> 60) Est GFR (Non-Af Amer) 44 L (> 60) BUN/Creatinine Ratio 24 (6-26) Glucose 59 L (70-105) mg/dL Calculated Osmolality 290 (280-300) Calcium 9.7 (8.6-10.3) mg/dL Troponin I < 0.03 (< 0.04) ng/mL - Radiology Data Radiology results reviewed: Yes I reviewed the patient's radiology results. Chest X-Ray 11/18/18 12:30 IMPRESSION: No acute cardiopulmonary disease. D/ / Abdon Oconnell MD / Abdon Oconnell MD Interpreting Provider: Abdon Oconnell MD - EKG Data EKG #1 EKG attestation: Yes I reviewed and interpreted this EKG. EKG results narrative: EKG obtained at 1235 shows sinus rhythm with heart rate 90, HI interval 123, QRS ratio 150, QTC 461, right bundle branch block and left anterior fascicular block, no ST elevation or depression, compared to old EKG on 06/09/2018 which shows no new changes.
[2018-11-18] MEDS ORDERED: Azithromycin 250 MG TABLET PO ONE (13:50)
[2018-11-18] MEDS ORDERED: traMADol 50 MG TABLET PO PRN (14:26)
[2018-11-18] MEDS ORDERED: Naloxone 0.4 MG/ML INJ IVP PRN (14:26)
[2018-11-18] MEDS ORDERED: Ringers Solution, Lactated 1,000 ML IVC SCH (14:30)
[2018-11-18] MEDS: Ipratropium/Albuterol Neb 3 ML IH SCH ×2 (15:23→20:12)
--- NOTE | 2018-11-18 16:37 | Internal Med History&Physical ---
Date of Encounter: 11/18/18 Time of Encounter: 16:32 Internal Medicine - H&P: HPI Chief complaint: shortness of breath Admitted From: Home Plans for Post Hospital Care: Home History of present illness: Mr. Perez is a 77 year old male PMH of chronic hypoxic respiratory failure on 3 litters of O2 by nasal cannula, COPD, chronic back pain and HLD. Patient presented to the ED due to sudden onset shortness of breath while he was grocery shopping. Patient reports today he went groceries shopping and decided not to wear his O2 because he thought [place], but a couple of minutes after he started walking around to get his groceries he started feeling short of breath. Reports chest discomfort associated with his shortness of breath, but reports the chest discomfort resolved after he got the nebs treatment in the ED. Denies fever but reports productive cough with increase yellowish sputum production. denies sick contacts, nausea or vomiting. Past Med Surg Social Fam HX - Past Medical History Medical history: non-contributory, aortic aneurysm, CHF, COPD, coronary artery disease, hyperlipidemia, hypertension, myocardial infarction, renal disease, other Additional medical history: gout, black lung Psychiatric history: anxiety - Past Surgical History Surgical History: angioplasty/stent, cancer surgery, coronary bypass (CABG) Additional surgical history: nasal surgery, spine stimulator - Social History Smoking Status: Former smoker Smokeless Tobacco Status: No Alcohol use: none Drug use: none - Family History Mother Adopted: No Living Status: Hx Family Cardiac Disorders: No Hx Family Respiratory Disorders: No Hx Family Cancer: Yes Hx Family GI Disorders: No Hx Family Endocrine Disorder: No Hx Family Neuromuscular Disorders: No Hx Family Neurologic Disorders: No Hx Family HEENT Disorders: No Hx Family Autoimmune Disorders: No Father Adopted: No Family Member Ethnicity: Non- Living Status: Hx Family Cardiac Disorders: Yes Hx Family Respiratory Disorders: No Hx Family Cancer: No Hx Family GI Disorders: No Hx Family Endocrine Disorder: No Hx Family Neuromuscular Disorders: No Hx Family Neurologic Disorders: No Hx Family HEENT Disorders: No Hx Family Autoimmune Disorders: No Internal Medicine - H&P: Meds Albuterol Sulfate [Ventolin Hfa] 2 puff IH Q4-6H 01/24/16 [History] Atorvastatin [Lipitor] 40 mg PO DAILY 01/24/16 [History] DULoxetine [Cymbalta] 30 mg PO DAILY 01/24/16 [History] Fluticasone Propionate Nasal [Flonase] 1 spray NS DAILY 01/24/16 [History] Montelukast [Singulair] 10 mg PO DAILY 01/24/16 [History] Oxygen 2 l NS AD PRN 01/24/16 [History] Roflumilast [Daliresp] 500 mcg PO DAILY 01/24/16 [History] Furosemide [Lasix] 20 mg PO DAILY 03/03/17 [History] Aspirin [Lo-Dose Aspirin EC] 81 mg PO DAILY 06/03/17 [History] Cranberry Fruit Extract [Cranberry] 500 mg PO DAILY 06/03/17 [History] Benzonatate [Tessalon] 100 mg PO TID PRN 12/02/17 [History] Ipratropium/Albuterol Neb [Duoneb] 3 ml IH Q4H 12/02/17 [History] Multivitamin [One Daily Multivitamin] 1 tab PO DAILY 12/02/17 [History] Lisinopril [Zestril] 5 mg PO BID 02/04/18 [History] Meclizine [Antivert] 25 mg PO DAILY PRN 02/04/18 [History] Allopurinol [Zyloprim 100 MG] 100 mg PO DAILY 11/18/18 [History] Naproxen [Naprosyn] 500 mg PO TID PRN 11/18/18 [History] Allergy/AdvReac Type Severity Reaction Status Date / Time levofloxacin [From Levaquin] Allergy Anaphylaxis Verified 03/24/18 08:46 Glucose AdvReac Severe Anaphylaxis Verified 06/09/18 18:50 [From Gammagard S-D (IgA < 1 mcg/mL)] glycine AdvReac Severe Anaphylaxis Verified 06/09/18 18:50 [From Gammagard S-D (IgA < 1 mcg/mL)] IgA less than or equal to 50 AdvReac Severe Anaphylaxis Verified 06/09/18 18:51 mcg/mL [From Gammagard S-D (IgA < 1 mcg/mL)] immune globulin,gamma (IgG) AdvReac Severe Anaphylaxis Verified 06/09/18 18:51 human [From Gammagard S-D (IgA < 1 mcg/mL)] Amoxicillin [From Augmentin] AdvReac Vomiting Verified 12/02/17 09:32 clavulanic acid AdvReac Vomiting Verified 12/02/17 09:32 [From Augmentin] hydrocodone [From Vicodin] AdvReac Hallucinati Verified 12/02/17 09:32 ng Iodinated Contrast- Oral and AdvReac See Verified 12/02/17 09:32 IV Dye Comments [Iodinated Contrast Media - IV Dye] oxycodone [From Percocet] AdvReac Hallucinati Verified 12/02/17 09:32 ng pregabalin [From Lyrica] AdvReac Dizziness Verified 12/02/17 09:32 All Systems PM: A 10-system review of systems was performed and is negative for pertinent findings except as documented above in the HPI. - Constitutional Constitutional: no chills, no fever(s), no weakness - EENT Eyes: no floaters - Cardiovascular Cardiovascular ROS IM: dyspnea, dyspnea on exertion, no chest pain, no edema, no lightheadedness, no palpitations - Respiratory Respiratory: cough, wheezing, excessive phlegm production - Gastrointestinal Gastrointestinal: no abdominal pain, no nausea, no vomiting - Genitourinary Genitourinary ROS male: no dysuria - Musculoskeletal Musculoskeletal ROS IM: no stiffness - Integumentary Integumentary IM: no erythema - Neurological Neurological ROS: no headache(s) - Psychiatric Psychiatric: no anxiety, no hopelessness, no irritability - Endocrine Endocrine IM: no cold intolerance, no excessive sweating - Hematologic/Lymphatic Hematologic/Lymphatic: no lymphadenopathy - Allergic/Immunologic Allergic/Immunologic: no GI upset with certain foods - Constitutional Vitals: Temp Pulse Resp BP Pulse Ox 98.0 F 59 16 112/67 100 11/18/18 12:30 11/18/18 14:16 11/18/18 15:23 11/18/18 14:16 11/18/18 15:23 Exam: Vitals: Reviewed. General: Alert and oriented x4. In mild distress due to shortness of breath Skin: Normal color, no rash, no lesions. HEENT: EOM, pupils equal, round and reactive. Cardiovascular: RRR, normal S1 & S2, no rubs, murmurs or gallops. Lungs:b/l expiratory wheezes, no rales or crackles. Abdomen: Soft, non-tender, no rigidity. Extremities: No deformity, no edema or tenderness, no joint swelling or clubbing. Neurological: Normal cognition and motor skills. Rest of the physical exam is non contributory Internal Med - H&P Results - Labs CBC & Chem 7: 11/18/18 12:35 11/18/18 12:35 Labs: Short CBC 11/18/18 Range/Units 12:35 WBC 7.8 (4.3-11.1) K/mcL Hgb 13.5 (12.9-16.9) g/dL Hct 43.0 (37.5-50.1) % Plt Count 223 (140-400) K/mcL Neutrophils # 3.7 (1.6-8.9) K/mcL BMP 11/18/18 12:35 Sodium 137 Potassium 4.3 Chloride 102 Carbon Dioxide 28 BUN 37 H Creatinine 1.55 H Glucose 59 L Calcium 9.7 Cardiac Enzymes 11/18/18 11/18/18 Range/Units 12:35 14:57 Troponin I < 0.03 < 0.03 (< 0.04) ng/mL - ABG Interpretation ABG results: 11/18/18 13:01 VBG pH 7.31 L VBG pCO2 51 VBG pO2 41 VBG HCO3 26 - Impressions ITS Impressions Chest X-Ray 11/18/18 12:30 IMPRESSION: No acute cardiopulmonary disease. D/ / Abdon Oconnell MD / Abdon Oconnell MD Interpreting Provider: Abdon Oconnell MD - Diagnostic Studies Chest x-ray Status: image reviewed by me (no acute findinds) - Assessment and Plan (1) COPD exacerbation Current Visit: Yes Status: Acute Assessment and plan: Patient with acute bronchitis. increase sputum production. and scattered b/l wheezing Plan Started on bronchodilators Q4RT scheduled solu-medrol 125mg/IV x1 Solu-Medrol 40mg/IV Q8hr started on empiric antibiotics coverage with azithromycin 500mg/PO daily Sputum culture and gram stain urine for atypical ordered O2 by nasal cannula, titrate for O2Sat >92% will resume home dose of singular (2) Chronic respiratory failure with hypoxia Current Visit: Yes Status: Acute Assessment and plan: plan of care as above.. (3) THADDEUS (acute kidney injury) Current Visit: No Status: Acute Assessment and plan: THADDEUS/CKD possible due to diuretics. will hold today dose of furosemide. started on IV hydration. will re-assess kidney function tomorrow morning. (4) CVID (common variable immunodeficiency) Current Visit: No Status: Chronic (5) DVT prophylaxis Current Visit: No Status: Chronic Assessment and plan: started on heparin subq. (6) CAD (coronary artery disease) Current Visit: No Status: Chronic Assessment and plan: on Aspirin 81mg/PO daily Qualifiers: Coronary Disease-Associated Artery/Lesion type: bypass graft [place] vs. transplanted heart: [place] heart Associated angina: without angina Qualified Code(s): I25.810 - Atherosclerosis of coronary artery bypass graft(s) without angina pectoris - Time Spent With Patient Total time spent is greater than 50% in coordination of care (as documented) at patient's floor/unit and/or counseling patient: Greater than 35 minutes (45)
[2018-11-18] MEDS: *HR* Heparin 5,000 UNIT/ML VIAL SQ SCH (17:31)
--- NOTE | 2018-11-18 18:32 | Electrocardiograph Report ---
[facility] [employer] Test Date: 2018-11-18 Pat Name: Prateek Perez Department: [id number] Room: 3B23 Gender: M Jive Developer: : 1940 Requested By: Bj Sims Order Number: [id number] Reading MD: Vance Verduzco Measurements Intervals [place] Rate: 90 P: 56 AR: 123 QRS: -64 QRSD: 150 T: 77 QT: 376 QTc: 461 Interpretive Statements Sinus rhythm RBBB and LAFB Electronically Signed On 11-18-2018 18:30:38 EDT by Vance Verduzco
--- NOTE | 2018-11-18 18:33 | Electrocardiograph Report ---
[facility] [employer] Test Date: 2018-11-18 Pat Name: Prateek Perez Department: [id number] Room: 3B23 Gender: M Laborer Pipeline: : 1940 Requested By: Sabiha Shi Order Number: [id number] Reading MD: Vance Verduzco Measurements Intervals [place] Rate: 59 P: 17 NE: 159 QRS: -60 QRSD: 148 T: 61 QT: 414 QTc: 411 Interpretive Statements Sinus rhythm RBBB and LAFB Electronically Signed On 11-18-2018 18:32:07 EDT by Vance Verduzco
[2018-11-18] MEDS: MethylPREDNISolone 40 MG/ML VIAL IVP SCH (23:45)
[2018-11-19] MEDS: Ipratropium/Albuterol Neb 3 ML IH SCH ×7 (00:05→23:35)
[2018-11-19 03:44] LABS: Calcium 8.9 mg/dL (8.6-10.3); Magnesium 2.1 mg/dL (1.6-2.6); Potassium 4.9 mEq/L (3.5-5.1)
[2018-11-19 03:48] LABS: Basophils % 0.1 %; Hemoglobin 12.3 g/dL (12.9-16.9); Immature Granulocytes % 0.6 % (0-4); Lymphocytes # 0.7 K/mcL (0.6-4.6); Lymphocytes % 9.3 %; Mean Corpuscular HGB Conc 32.4 g/dL (31.6-35.5); Mean Corpuscular Hemoglobin 28.5 pg (28.0-33.3); Mean Corpuscular Volume 88.2 fL (83.0-100.0); Mean Platelet Volume 10.7 fL (9.4-12.4); Monocytes # 0.1 K/mcL (0.0-1.3); Monocytes % 0.9 %; Neutrophils # 6.9 K/mcL (1.6-8.9); Platelet Count 163 K/mcL (140-400); Red Blood Count 4.31 M/mcL (4.19-5.50); Red Cell Distribution Width 14.6 % (11.5-14.5); Segmented Neutrophils % 89.1 %; White Blood Count 7.7 K/mcL (4.3-11.1)
[2018-11-19] MEDS: *HR* Heparin 5,000 UNIT/ML VIAL SQ SCH ×2 (05:46→17:02)
[2018-11-19] MEDS ORDERED: 0.9 % Sodium Chloride 1,000 ML IVC SCH (07:45)
[2018-11-19] MEDS: MethylPREDNISolone 40 MG/ML VIAL IVP SCH (08:43)
[2018-11-19] MEDS: amLODIPine 5 MG TABLET PO SCH (08:46)
[2018-11-19] MEDS: Aspirin Enteric Coated 81 MG Tablet PO SCH (08:46)
[2018-11-19] MEDS: Azithromycin 250 MG TABLET PO SCH (08:47)
--- NOTE | 2018-11-19 09:19 | Internal Med Progress Note ---
Hospitalist Progress Note - Encounter Date of Encounter: 11/19/18 Time of Encounter: 09:16 - Subjective Interval History: I have seen and evaluated the patient at bedside. Patient reports significant improvement on his breathing. denies shortness of breath or chest pain. denies nausea or vomiting. - Exam Vitals: Temp Pulse Resp BP Pulse Ox 97.5 F L 98 14 149/68 99 11/19/18 07:57 11/19/18 07:57 11/19/18 07:57 11/19/18 07:57 11/19/18 07:57 Exam: Vitals: Reviewed. General: Alert and oriented x4. In no distress Cardiovascular: RRR, normal S1 & S2, no rubs, murmurs or gallops. Lungs: CTA b/l, no rales or crackles. Abdomen: Soft, non-tender, no rigidity. NABS in all 4 quadrants Extremities: No edema Neurological: No focal neurological deficits Rest of the physical exam is non contributory - Assessment and Plan (1) COPD exacerbation Current Visit: Yes Status: Acute (2) Chronic respiratory failure with hypoxia Current Visit: Yes Status: Acute (3) THADDEUS (acute kidney injury) Current Visit: No Status: Acute (4) CVID (common variable immunodeficiency) Current Visit: No Status: Chronic (5) DVT prophylaxis Current Visit: No Status: Chronic (6) CAD (coronary artery disease) Current Visit: No Status: Chronic - Summary of Assessment and Plan Summary of Assessment and Plan: 7 year old male PMH of chronic hypoxic respiratory failure on 3 litters of O2 by nasal cannula, COPD, chronic back pain and HLD. Patient admitted to the hospital due to COPD exacerbation, acute bronchitis. Patient reported not being compliant with his oxygen while ambulating. Assessment: 1. COPD exacerbation 2. Acute kidney injury 3. Hypertension 4. Aortic Aneurism 5. CAD 6. HFpEF 7. VTE prophylaxis. Plan: Patient with significant improvement on his respiratory status. We will discontinue IV steroids. Started on prednisone 40 mg by mouth daily. continue bronchodilators and incentive spirometry on azithromycin Kidney function slightly worsen. patient euvolemic. will continue IV hydration with LR @75ml/hr x1 more litter and will re-assess kidney function tomorrow continue to hold lisinopril amlodipine 5mg/PO daily added for BP control heparin subq. Disposition: - patient to remain in the hospital for IV hydration. potential discharge tomorrow morning. - Time Spent with Patient Total time spent is greater than 50% in coordination of care (as documented) at patient's floor/unit and/or counseling patient: Greater than 35 minutes (40) Plan of Care Discussed with: patient (and the nurse.) Internal Medicine: Result - Labs CBC & Chem 7: 11/19/18 03:30 11/19/18 02:21 Labs: Short CBC 11/18/18 11/19/18 Range/Units 12:35 03:30 WBC 7.8 7.7 (4.3-11.1) K/mcL Hgb 13.5 12.3 L (12.9-16.9) g/dL Hct 43.0 38.0 (37.5-50.1) % Plt Count 223 163 (140-400) K/mcL Neutrophils # 3.7 6.9 (1.6-8.9) K/mcL BMP 11/18/18 11/19/18 12:35 02:21 Sodium 137 131 L Potassium 4.3 4.9 Chloride 102 104 Carbon Dioxide 28 16 L BUN 37 H 42 H Creatinine 1.55 H 1.66 H Glucose 59 L 142 H Calcium 9.7 8.9 Cardiac Enzymes 11/18/18 11/18/18 11/18/18 Range/Units 12:35 14:57 21:20 Troponin I < 0.03 < 0.03 < 0.03 (< 0.04) ng/mL 11/19/18 Range/Units 02:21 Troponin I < 0.03 (< 0.04) ng/mL - Impressions Impressions Chest X-Ray 11/18/18 12:30 IMPRESSION: No acute cardiopulmonary disease. D/ / Abdon Oconnell MD / Abdon Oconnell MD Interpreting Provider: Abdon Oconnell MD Consult Discharge Plan - Plan Referrals: Garret Gonzalez DO [Primary Care Provider] - (Appointment has been requested.) (6) CAD (coronary artery disease) Qualifiers: Coronary Disease-Associated Artery/Lesion type: bypass graft [place] vs. transplanted heart: [place] heart Associated angina: without angina Qualified Code(s): I25.810 - Atherosclerosis of coronary artery bypass graft(s) without angina pectoris
[2018-11-20] MEDS: Ipratropium/Albuterol Neb 3 ML IH SCH ×2 (03:46→08:04)
[2018-11-20] MEDS: *HR* Heparin 5,000 UNIT/ML VIAL SQ SCH (05:24)
[2018-11-20 07:20] VITALS: BP 129/74
[2018-11-20] MEDS: amLODIPine 5 MG TABLET PO SCH (07:35)
[2018-11-20] MEDS: Azithromycin 250 MG TABLET PO SCH (07:35)
[2018-11-20] MEDS: Aspirin Enteric Coated 81 MG Tablet PO SCH (07:35)
[2018-11-20 08:15] LABS: BUN/Creatinine Ratio 26 (6-26); Blood Urea Nitrogen 35 mg/dL (8-23); Calcium 8.8 mg/dL (8.6-10.3); Carbon Dioxide 25 mEq/L (23-29); Chloride 103 mEq/L (98-107); Glucose 97 mg/dL (70-105); Magnesium 2.2 mg/dL (1.6-2.6); Osmolality,Calculated 296 (280-300); Potassium 4.6 mEq/L (3.5-5.1); Sodium 139 mEq/L (136-145); eGFR For African Americans > 60 (> 60); eGFR For Non-African Americans 51 (> 60)
[2018-11-20] MEDS ORDERED: predniSONE 20 MG TABLET PO SCH (09:00)
--- NOTE | 2018-11-20 09:15 | Discharge Summary ---
- NOTES TO OUTPATIENT PROVIDER Notes to Outpatient Provider: have a repeat bmp within a week of hospital discharge Orders not resulted at time of discharge: Pending orders 11/18/18 14:31 Legionella Type 1 Antibody,IgM Stat Sputum Culture [Culture,Sputum with Gram Stain] [] Stat Date of Encounter: 11/20/18 Time of Encounter: 09:09 - Discharge Diagnosis (1) COPD exacerbation Priority: Primary Status: Resolved (2) Chronic respiratory failure with hypoxia Priority: Secondary Status: Chronic (3) THADDEUS (acute kidney injury) Priority: Secondary Status: Resolved Assessment and Plan: mild stage 1 (4) CVID (common variable immunodeficiency) Priority: Secondary Status: Chronic (5) DVT prophylaxis Priority: Secondary Status: Chronic (6) CAD (coronary artery disease) Priority: Secondary Status: Chronic Qualifiers: Coronary Disease-Associated Artery/Lesion type: bypass graft [place] vs. transplanted heart: [place] heart Associated angina: without angina Qualified Code(s): I25.810 - Atherosclerosis of coronary artery bypass graft(s) without angina pectoris Hospital course: Mr. Perez is a 77 year old male PMH of chronic hypoxic respiratory failure on 3 litters of O2 by nasal cannula, COPD, chronic back pain and HLD. Patient presented to the ED due to sudden onset shortness of breath while he was grocery shopping. Patient reports today he went groceries shopping and decided not to wear his O2 because he [place] P she was admitted to the hospital due to COPD exacerbation, and acute kidney injury. Patient was managed with IV steroids, and empiric antibiotics. Patient also received 2 litters of IV fluids with near resolution of this THADDEUS, creatinin on DC 1.36 from 1.66. Patient is hemodynamically stable to be discharged home. - Time Spent with Patient Total time spent providing and/or coordinating discharge services: Time spent: Greater than 30 minutes (35) - Discharge Medications Prescriptions: New Azithromycin [Zithromax] 500 mg PO DAILY 5 Days #5 tablet Continued Montelukast [Singulair] 10 mg PO DAILY Atorvastatin [Lipitor] 40 mg PO HS DULoxetine [Cymbalta] 30 mg PO DAILY Roflumilast [Daliresp] 500 mcg PO DAILY Fluticasone Propionate Nasal [Flonase] 1 spray NS QAM Furosemide [Lasix] 20 mg PO DAILY Aspirin [Lo-Dose Aspirin EC] 81 mg PO DAILY Multivitamin [One Daily Multivitamin] 1 tab PO DAILY Lisinopril [Zestril] 10 mg PO BID Allopurinol [Zyloprim 100 MG] 100 mg PO DAILY Naproxen [Naprosyn] 500 mg PO BID PRN PRN Reason: Pain Albuterol Sulfate [Proair Hfa] 2 puff IH Q6H PRN PRN Reason: Shortness Of Breath Carvedilol 12.5 mg PO BID Meclizine HCl [Verticalm] 25 mg PO DAILY PRN PRN Reason: Dizziness Umeclidinium [place] [Incruse Ellipta] 1 puff IH DAILY Cranberry 500 mg PO HS Albuterol Neb [Proventil Neb] 2.5 mg IH Q6H PRN PRN Reason: Shortness Of Breath predniSONE [PredniSONE] 20 mg PO DAILY Fluticasone/Vilanterol [Breo Ellipta 200-25 Mcg INH] 1 puff IH DAILY Home Medications: Atorvastatin [Lipitor] 40 mg PO HS 01/24/16 [History] DULoxetine [Cymbalta] 30 mg PO DAILY 01/24/16 [History] Fluticasone Propionate Nasal [Flonase] 1 spray NS QAM 01/24/16 [History] Montelukast [Singulair] 10 mg PO DAILY 01/24/16 [History] Roflumilast [Daliresp] 500 mcg PO DAILY 01/24/16 [History] Furosemide [Lasix] 20 mg PO DAILY 03/03/17 [History] Aspirin [Lo-Dose Aspirin EC] 81 mg PO DAILY 06/03/17 [History] Multivitamin [One Daily Multivitamin] 1 tab PO DAILY 12/02/17 [History] Lisinopril [Zestril] 10 mg PO BID 02/04/18 [History] Allopurinol [Zyloprim 100 MG] 100 mg PO DAILY 11/18/18 [History] Naproxen [Naprosyn] 500 mg PO BID PRN 11/18/18 [History] Albuterol Neb [Proventil Neb] 2.5 mg IH Q6H PRN 11/19/18 [History] Albuterol Sulfate [Proair Hfa] 2 puff IH Q6H PRN 11/19/18 [History] Carvedilol 12.5 mg PO BID 11/19/18 [History] Cranberry 500 mg PO HS 11/19/18 [History] Fluticasone/Vilanterol [Breo Ellipta 200-25 Mcg INH] 1 puff IH DAILY 11/19/18 [History] Meclizine HCl [Verticalm] 25 mg PO DAILY PRN 11/19/18 [History] Umeclidinium [place] [Incruse Ellipta] 1 puff IH DAILY 11/19/18 [History] predniSONE [PredniSONE] 20 mg PO DAILY 11/19/18 [History] Azithromycin [Zithromax] 500 mg PO DAILY 5 Days #5 tablet 11/20/18 [Rx] Allergies/Adverse Reactions: Allergy/AdvReac Type Severity Reaction Status Date / Time levofloxacin [From Levaquin] Allergy Anaphylaxis Verified 03/24/18 08:46 Glucose AdvReac Severe Anaphylaxis Verified 06/09/18 18:50 [From Gammagard S-D (IgA < 1 mcg/mL)] glycine AdvReac Severe Anaphylaxis Verified 06/09/18 18:50 [From Gammagard S-D (IgA < 1 mcg/mL)] IgA less than or equal to 50 AdvReac Severe Anaphylaxis Verified 06/09/18 18:51 mcg/mL [From Gammagard S-D (IgA < 1 mcg/mL)] immune globulin,gamma (IgG) AdvReac Severe Anaphylaxis Verified 06/09/18 18:51 human [From Gammagard S-D (IgA < 1 mcg/mL)] Amoxicillin [From Augmentin] AdvReac Vomiting Verified 12/02/17 09:32 clavulanic acid AdvReac Vomiting Verified 12/02/17 09:32 [From Augmentin] hydrocodone [From Vicodin] AdvReac Hallucinati Verified 12/02/17 09:32 ng Iodinated Contrast- Oral and AdvReac See Verified 12/02/17 09:32 IV Dye Comments [Iodinated Contrast Media - IV Dye] oxycodone [From Percocet] AdvReac Hallucinati Verified 12/02/17 09:32 ng pregabalin [From Lyrica] AdvReac Dizziness Verified 12/02/17 09:32 Date of admission: 11/19/18 15:24 Primary care physician: Garret Gonzalez DO Consults: 11/19/18 08:08 Consult to Nurse Navigator [CONS] Routine Comment: COPD - Constitutional Vitals: Temp Pulse Resp BP Pulse Ox 98.0 F 72 19 129/74 100 11/20/18 07:15 11/20/18 07:15 11/20/18 07:15 11/20/18 07:15 11/20/18 07:41 Exam: Vitals: Reviewed. General: Alert and oriented x4. In no distress Cardiovascular: RRR, normal S1 & S2, no rubs, murmurs or gallops. Lungs: CTA b/l, no rales or crackles. Abdomen: Soft, non-tender, no rigidity. NABS in all 4 quadrants Extremities: No edema Neurological: No focal neurological deficits Rest of the physical exam is non contributory - Patient Status Disposition: Home, Self-Care Condition: Good Functional capacity at discharge: independent ambulation Overall status at discharge: patient is back to baseline - Discharge Instructions Instructions: Azithromycin (By mouth), Chest Pain (DC), Pancreatitis (DC), Acute Kidney Injury (DC), Chronic Obstructive Pulmonary Disease (DC), Sepsis (DC), Pneumonia (DC) Follow Up With: Naa Crowley MD [Partnered Physician] - 12/21/18 11:15 am Debra Curry [LUMBER CUTTER/Student Nurse] - 02/09/19 2:45 pm Garret Gonzalez DO [Primary Care Provider] - 11/26/18 1:00 pm () Portillo Leyva DO [Partnered Physician] - 01/13/19 12:30 pm - Diet and Activity Activity: resume usual activities as tolerated, wear oxygen at all times (2 litters and 4 litters with ambulation) Diet: low salt diet
== END 2018-11-20 11:06 | disposition home or self-care (01) | DRG 191 ==
LOC: EMEROOARM 12:29 → 3BNU 12:29 → SUATTDRO 11-19 15:24
PROVIDERS: ADMIT Internal Medicine; ATTEND Internal Medicine

== ENCOUNTER 2018-12-10 22:13 | Observation (INO) ==
[2018-12-10] MEDS ORDERED: Aspirin 81 MG TAB.CHEW PO ONE (22:25)
[2018-12-10 22:36] LABS: Basophils % 0.4 %; Eosinophils # 0.2 K/mcL (0.0-0.6); Eosinophils % 3.4 %; Hematocrit 38.6 % (37.5-50.1); Hemoglobin 12.2 g/dL (12.9-16.9); Immature Granulocytes % 1.1 % (0-4); Lymphocytes # 2.4 K/mcL (0.6-4.6); Mean Corpuscular HGB Conc 31.6 g/dL (31.6-35.5); Mean Corpuscular Hemoglobin 29.3 pg (28.0-33.3); Mean Corpuscular Volume 92.6 fL (83.0-100.0); Mean Platelet Volume 10.7 fL (9.4-12.4); Monocytes # 0.5 K/mcL (0.0-1.3); Monocytes % 7.3 %; Neutrophils # 3.8 K/mcL (1.6-8.9); Platelet Count 150 K/mcL (140-400); Red Blood Count 4.17 M/mcL (4.19-5.50); Red Cell Distribution Width 16.5 % (11.5-14.5); Segmented Neutrophils % 53.8 %; White Blood Count 7.1 K/mcL (4.3-11.1)
[2018-12-10 22:58] LABS: Calcium 8.8 mg/dL (8.6-10.3); Potassium 3.9 mEq/L (3.5-5.1)
[2018-12-10 22:59] LABS: Troponin I 0.03 ng/mL (< 0.04)
[2018-12-10] MEDS ORDERED: Isovue-370 500 ML BOTTLE IVP ONE (23:02)
--- NOTE | 2018-12-10 23:05 | Emergency Department Note ---
Disposition Clinical Impression: Dyspnea Qualifiers: Dyspnea type: unspecified Qualified Code(s): R06.00 - Dyspnea, unspecified Thoracic back pain Qualifiers: Chronicity: acute Back pain laterality: midline Qualified Code(s): M54.6 - Pain in thoracic spine COPD (chronic obstructive pulmonary disease) Qualifiers: COPD type: unspecified COPD Qualified Code(s): J44.9 - Chronic obstructive pulmonary disease, unspecified Disposition: Admitted As Inpatient Condition: Good Time of Disposition: 03:10 SOB HPI - General Chief Complaint: ED Chest Pain Stated Complaint: Rose Time Seen by Provider: 12/10/18 22:20 Source: patient Nursing Notes Reviewed: Yes Vital Signs Reviewed: Yes - History of Present Illness 77-year-old male with history of COPD, lumbar pain, and thoracic aneurysm presents with complaint of dyspnea accompanied with mid scapular pain, and an episode of hypotension. He is accompanied by his who assist with history. Patient states that his low back was hurting earlier, and his gave him a dose of tizanidine, shortly after that, had taken his blood pressure noticed that it was low, stating it was 84/44, 68/42. She was accompanied with some dyspnea, as well as some mid scapular pain which prompted the visit to the emergency department. Patient states that he typically has low back pain, except admits The pain before. He does describe some worsening difficulty breathing and sputum production over the past few weeks, however this has been consistent with his history of COPD in the past. He denies any chest pain, diaphoresis, nausea, vomiting, abdominal pain, syncope, fever. - Related Data Home Medications Medication Instructions Recorded Confirmed Atorvastatin [Lipitor] 40 mg PO HS 01/24/16 12/11/18 DULoxetine [Cymbalta] 30 mg PO DAILY 01/24/16 12/11/18 Fluticasone Propionate Nasal 1 spray NS QAM 01/24/16 12/11/18 [Flonase] Montelukast [Singulair] 10 mg PO DAILY 01/24/16 12/11/18 Roflumilast [Daliresp] 500 mcg PO DAILY 01/24/16 12/11/18 Furosemide [Lasix] 20 mg PO DAILY 03/03/17 12/11/18 Aspirin [Lo-Dose Aspirin EC] 81 mg PO DAILY 06/03/17 12/11/18 Multivitamin [One Daily 1 tab PO DAILY 12/02/17 12/11/18 Multivitamin] Lisinopril [Zestril] 10 mg PO BID 02/04/18 12/11/18 Allopurinol [Zyloprim 100 MG] 100 mg PO DAILY 11/18/18 12/11/18 Naproxen [Naprosyn] 500 mg PO BID PRN 11/18/18 12/11/18 Albuterol Neb [Proventil Neb] 2.5 mg IH Q6H PRN 11/19/18 12/11/18 Albuterol Sulfate [Proair Hfa] 2 puff IH Q6H PRN 11/19/18 12/11/18 Carvedilol 12.5 mg PO BID 11/19/18 12/11/18 Cranberry 500 mg PO HS 11/19/18 12/11/18 Fluticasone/Vilanterol [Breo 1 puff IH DAILY 11/19/18 12/11/18 Ellipta 200-25 Mcg INH] Meclizine HCl [Verticalm] 25 mg PO DAILY PRN 11/19/18 12/11/18 Umeclidinium [place] [Incruse 1 puff IH DAILY 11/19/18 12/11/18 Ellipta] predniSONE [PredniSONE] 20 mg PO DAILY 11/19/18 12/11/18 Allergies Allergy/AdvReac Type Severity Reaction Status Date / Time levofloxacin [From Levaquin] Allergy Anaphylaxis Verified 03/24/18 08:46 Glucose AdvReac Severe Anaphylaxis Verified 06/09/18 18:50 [From Gammagard S-D (IgA < 1 mcg/mL)] glycine AdvReac Severe Anaphylaxis Verified 06/09/18 18:50 [From Gammagard S-D (IgA < 1 mcg/mL)] IgA less than or equal to 50 AdvReac Severe Anaphylaxis Verified 06/09/18 18:51 mcg/mL [From Gammagard S-D (IgA < 1 mcg/mL)] immune globulin,gamma (IgG) AdvReac Severe Anaphylaxis Verified 06/09/18 18:51 human [From Gammagard S-D (IgA < 1 mcg/mL)] Amoxicillin [From Augmentin] AdvReac Vomiting Verified 12/02/17 09:32 clavulanic acid AdvReac Vomiting Verified 12/02/17 09:32 [From Augmentin] hydrocodone [From Vicodin] AdvReac Hallucinati Verified 12/02/17 09:32 ng Iodinated Contrast Media AdvReac See Verified 12/02/17 09:32 [Iodinated Contrast Media - Comments IV Dye] oxycodone [From Percocet] AdvReac Hallucinati Verified 12/02/17 09:32 ng pregabalin [From Lyrica] AdvReac Dizziness Verified 12/02/17 09:32 All systems ED: reviewed and negative except as stated. Review of Systems: As Per HPI Constitutional: Denies: fever, chills ENT ED: Denies: throat pain Cardiovascular: Reports: as per HPI Respiratory: Reports: as per HPI Gastrointestinal: Denies: nausea, vomiting Genitourinary: Denies: dysuria Musculoskeletal: Reports: as per HPI Integumentary: Denies: rash Neurological: Denies: headache, weakness Endocrine: Denies: fatigue Hematological/Lymphatic: Denies: lymphadenopathy Allergic/Immunologic: Denies: facial swelling Past Medical History - Past Medical History Medical history: Reports: non-contributory, aortic aneurysm, CHF, COPD, coronary artery disease, hyperlipidemia, hypertension, myocardial infarction, renal disease, other Surgical history: Reports: angioplasty/stent, cancer surgery, coronary bypass (CABG) Psychiatric history: Reports: anxiety - Social History Smoking Status: Former smoker Smokeless Tobacco Status: No Alcohol use: Reports: none Drug use: Reports: none Physical Exam - General Limitations: no limitations General appearance: alert, in no apparent distress - Head Head exam: atraumatic, normocephalic - Eye Eye exam: Present: normal appearance, EOMI - ENT ENT exam: normal exam, mucous membranes moist - Neck Neck exam: Present: normal inspection, full ROM - Chest Chest inspection: Present: symmetric chest wall rise - Respiratory Respiratory exam: Present: normal lung sounds bilaterally. Absent: respiratory distress, wheezes - Cardiovascular Cardiovascular exam: Present: regular rate, normal rhythm - Abdominal Exam Abdominal exam: Present: soft, Non-Tender, scar - Extremities Exam Extremities exam: Present: normal inspection, full ROM, normal capillary refill - Back Exam Back exam: Present: full ROM, tenderness (midscapular) - Neurological Exam Neurological exam: Present: alert, oriented X3 - Psychiatric Psychiatric exam: Present: normal affect, normal mood - Skin Skin exam: Present: warm, intact, normal color, rash Course Course Narrative: Patient seen and examined. he has presented with dyspnea, and apparent hypotens alisa episode measured at home. Patient descirbes mid scapular pain, and presyncopal symptoms. He compares this to his past episdoe of CAD "widowmaker" in 2008. Pt followed by Dr. Leyva. states no recent cath or stress test. He does describe a history of thoracic aortic aneurysm. On my examination he is resting comfortably in exam bed. Vitals within normal limits. Distal pulses equal bilaterally in upper and lower extremities. No abdominal pain. Lungs clear to auscultation. Vitals appeared within normal limits. Workup ordered. Discussed with attending Dr. Flores who agreed to see patient. We will also order a CTA for aortic dissection. Patient has noted history of IV contrast dye. Did have a discussion with him, he states that he does get dizzy whenever he gets this. He states that he has been treated successfully in the past with Benadryl. He is agreeable to pre- dose of Benadryl and a CTA. - Reevaluation(s) Reevaluation #1: Pt has significant cardiac h/o including CHF CAD, with no recent stress or echo. His work up today unremarkable. CTA appears unremarkable. However, he did have documented episode of hypotension, near syncope, and mid scapular thoracic pain. I discussed with attending Dr. Flores who agreed for admission, dsypnea possible COPD exacerbatin, ACS rule out, hypotension episode. Discussed with patient and family agreeable to this as well. Time: 02:00 Reevaluation #2: Patient discussed with and accepted by hospitalist Dr. Mancera. Time: 03:09 Vital Signs Temperature 98.3 F 12/10/18 22:18 Pulse Rate 55 12/10/18 22:18 Respiratory Rate 16 12/10/18 22:18 Blood Pressure 101/50 12/10/18 22:18 O2 Sat by Pulse Oximetry 100 12/10/18 22:18 Temperature 98.4 F 12/11/18 05:20 Pulse Rate 63 12/11/18 05:20 Respiratory Rate 17 12/11/18 05:20 Blood Pressure 161/81 12/11/18 05:20 O2 Sat by Pulse Oximetry 98 12/11/18 05:20 Oxygen Delivery Oxygen Delivery Room Air Shortness of Breath/Dyspnea - MDM Narrative Medical decision making narrative: Chest X-Ray 12/10/18 22:25 IMPRESSION: No acute cardiopulmonary disease. D/ / Andrey Mims MD / Andrey Mims MD Interpreting Provider: Andrey Mims MD Dissection 12/11/18 00:00 IMPRESSION: No evidence of aortic dissection or aneurysm. 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 Calcific coronary disease status post CABG. There are few small midline fat containing ventral hernias. 1 contains a knuckle of bowel with no evidence of incarceration. Degenerative changes at L4-L5 combine to cause a moderate to severe central canal stenosis. D/ / Andrey Mims MD / Andrey Mims MD Interpreting Provider: Andrey Mims MD Laboratory Tests 12/10/18 12/10/18 12/10/18 22:14 22:14 22:14 WBC 7.1 RBC 4.17 L Hgb 12.2 L Hct 38.6 MCV 92.6 MCH 29.3 MCHC 31.6 RDW 16.5 H Plt Count 150 MPV 10.7 Immature Gran % 1.1 Seg Neutrophils % 53.8 Lymphocytes % 34.0 Monocytes % 7.3 Eosinophils % 3.4 Basophils % 0.4 Neutrophils # 3.8 Lymphocytes # 2.4 Monocytes # 0.5 Eosinophils # 0.2 Basophils # 0.0 Sodium 136 Potassium 3.9 Chloride 105 Carbon Dioxide 23 BUN 33 H Creatinine 1.60 H Est GFR ( Amer) 51 L Est GFR (Non-Af Amer) 42 L BUN/Creatinine Ratio 21 Glucose 89 Calculated Osmolality 289 Calcium 8.8 Troponin I 0.03 B-Natriuretic Peptide 100 H - Lab Data Lab results reviewed: Yes I reviewed the patient's lab results. Result diagrams: 12/10/18 22:14 12/10/18 22:14 Lab Results 12/10/18 12/10/18 12/10/18 Range/Units 22:14 22:14 22:14 WBC 7.1 (4.3-11.1) K/mcL RBC 4.17 L (4.19-5.50) M/mcL Hgb 12.2 L (12.9-16.9) g/dL Hct 38.6 (37.5-50.1) % MCV 92.6 (83.0-100.0) fL MCH 29.3 (28.0-33.3) pg MCHC 31.6 (31.6-35.5) g/dL RDW 16.5 H (11.5-14.5) % Plt Count 150 (140-400) K/mcL MPV 10.7 (9.4-12.4) fL Immature Gran % 1.1 (0-4) % Seg Neutrophils % 53.8 % Lymphocytes % 34.0 % Monocytes % 7.3 % Eosinophils % 3.4 % Basophils % 0.4 % Neutrophils # 3.8 (1.6-8.9) K/mcL Lymphocytes # 2.4 (0.6-4.6) K/mcL Monocytes # 0.5 (0.0-1.3) K/mcL Eosinophils # 0.2 (0.0-0.6) K/mcL Basophils # 0.0 (0.0-0.2) K/mcL Sodium 136 (136-145) mEq/L Potassium 3.9 (3.5-5.1) mEq/L Chloride 105 (98-107) mEq/L Carbon Dioxide 23 (23-29) mEq/L BUN 33 H (8-23) mg/dL Creatinine 1.60 H (0.70-1.30) mg/dL Est GFR ( Amer) 51 L (> 60) Est GFR (Non-Af Amer) 42 L (> 60) BUN/Creatinine Ratio 21 (6-26) Glucose 89 (70-105) mg/dL Calculated Osmolality 289 (280-300) Calcium 8.8 (8.6-10.3) mg/dL Troponin I 0.03 (< 0.04) ng/mL B-Natriuretic Peptide 100 H (Less than 100) pg/mL - Radiology Data Radiology results reviewed: Yes I reviewed the patient's radiology results. - EKG Data EKG attestation: Yes I reviewed and interpreted this EKG. EKG shows normal: Reports: sinus rhythm Rate: Reports: normal Ectopy: Reports: trigeminy When compared to previous EKG there are: changes noted (trigeminy) Interpretation: Denies: acute AL, pericarditis
[2018-12-10] MEDS ORDERED: 0.9 % Sodium Chloride 1,000 ML IVC ONE (23:11)
--- NOTE | 2018-12-11 03:00 | Emergency Department Note ---
Disposition Clinical Impression: Dyspnea, Thoracic back pain, COPD (chronic obstructive pulmonary disease) Disposition: Admitted As Inpatient Condition: Good Time of Disposition: 03:10 General Adult HPI - General Chief complaint: ED Chest Pain Stated complaint: Rose Time Seen by Provider: 12/10/18 22:20 Source: patient Limitations: no limitations Nursing Notes Reviewed: Yes Vital Signs Reviewed: Yes - History of Present Illness Pain Scale: 5 - Related Data Home Medications Medication Instructions Recorded Confirmed Atorvastatin [Lipitor] 40 mg PO HS 01/24/16 11/19/18 DULoxetine [Cymbalta] 30 mg PO DAILY 01/24/16 11/19/18 Fluticasone Propionate Nasal 1 spray NS QAM 01/24/16 11/19/18 [Flonase] Montelukast [Singulair] 10 mg PO DAILY 01/24/16 11/19/18 Roflumilast [Daliresp] 500 mcg PO DAILY 01/24/16 11/19/18 Furosemide [Lasix] 20 mg PO DAILY 03/03/17 11/19/18 Aspirin [Lo-Dose Aspirin EC] 81 mg PO DAILY 06/03/17 11/19/18 Multivitamin [One Daily 1 tab PO DAILY 12/02/17 11/19/18 Multivitamin] Lisinopril [Zestril] 10 mg PO BID 02/04/18 11/19/18 Allopurinol [Zyloprim 100 MG] 100 mg PO DAILY 11/18/18 11/19/18 Naproxen [Naprosyn] 500 mg PO BID PRN 11/18/18 11/19/18 Albuterol Neb [Proventil Neb] 2.5 mg IH Q6H PRN 11/19/18 11/19/18 Albuterol Sulfate [Proair Hfa] 2 puff IH Q6H PRN 11/19/18 11/19/18 Carvedilol 12.5 mg PO BID 11/19/18 11/19/18 Cranberry 500 mg PO HS 11/19/18 11/19/18 Fluticasone/Vilanterol [Breo 1 puff IH DAILY 11/19/18 11/19/18 Ellipta 200-25 Mcg INH] Meclizine HCl [Verticalm] 25 mg PO DAILY PRN 11/19/18 11/19/18 Umeclidinium [place] [Incruse 1 puff IH DAILY 11/19/18 11/19/18 Ellipta] predniSONE [PredniSONE] 20 mg PO DAILY 11/19/18 11/19/18 Previous Rx's Medication Instructions Recorded Azithromycin [Zithromax] 500 mg PO DAILY 5 Days #5 tablet 11/20/18 Allergies Allergy/AdvReac Type Severity Reaction Status Date / Time levofloxacin [From Levaquin] Allergy Anaphylaxis Verified 03/24/18 08:46 Glucose AdvReac Severe Anaphylaxis Verified 06/09/18 18:50 [From Gammagard S-D (IgA < 1 mcg/mL)] glycine AdvReac Severe Anaphylaxis Verified 06/09/18 18:50 [From Gammagard S-D (IgA < 1 mcg/mL)] IgA less than or equal to 50 AdvReac Severe Anaphylaxis Verified 06/09/18 18:51 mcg/mL [From Gammagard S-D (IgA < 1 mcg/mL)] immune globulin,gamma (IgG) AdvReac Severe Anaphylaxis Verified 06/09/18 18:51 human [From Gammagard S-D (IgA < 1 mcg/mL)] Amoxicillin [From Augmentin] AdvReac Vomiting Verified 12/02/17 09:32 clavulanic acid AdvReac Vomiting Verified 12/02/17 09:32 [From Augmentin] hydrocodone [From Vicodin] AdvReac Hallucinati Verified 12/02/17 09:32 ng Iodinated Contrast Media AdvReac See Verified 12/02/17 09:32 [Iodinated Contrast Media - Comments IV Dye] oxycodone [From Percocet] AdvReac Hallucinati Verified 12/02/17 09:32 ng pregabalin [From Lyrica] AdvReac Dizziness Verified 12/02/17 09:32 Constitutional: Denies: fever, chills ENT ED: Denies: throat pain Cardiovascular: Reports: as per HPI Respiratory: Reports: as per HPI Gastrointestinal: Denies: nausea, vomiting Genitourinary: Denies: dysuria Musculoskeletal: Reports: as per HPI Integumentary: Denies: rash Neurological: Denies: headache, weakness Endocrine: Denies: fatigue Hematological/Lymphatic: Denies: lymphadenopathy Allergic/Immunologic: Denies: facial swelling Past Medical History - Past Medical History Medical history: Reports: non-contributory, aortic aneurysm, CHF, COPD, coronary artery disease, hyperlipidemia, hypertension, myocardial infarction, renal dis ease, other Surgical history: Reports: angioplasty/stent, cancer surgery, coronary bypass (CABG) Psychiatric history: Reports: anxiety - Social History Smoking Status: Former smoker Smokeless Tobacco Status: No Alcohol use: Reports: none Drug use: Reports: none Physical Exam - General Limitations: no limitations General appearance: alert, in no apparent distress Course Vital Signs Temperature 98.3 F 12/10/18 22:18 Pulse Rate 55 12/10/18 22:18 Respiratory Rate 16 12/10/18 22:18 Blood Pressure 101/50 12/10/18 22:18 O2 Sat by Pulse Oximetry 100 12/10/18 22:18 Temperature 98.3 F 12/10/18 22:18 Pulse Rate 54 12/10/18 23:10 Respiratory Rate 19 12/10/18 23:10 Blood Pressure 117/66 12/10/18 23:10 O2 Sat by Pulse Oximetry 100 12/10/18 23:10 Oxygen Delivery Oxygen Delivery Nasal Cannula Medical Decision Making - Medical Records Medical records reviewed: Yes I reviewed the patient's medical records. - Lab Data Lab results reviewed: Yes I reviewed the patient's lab results. Result diagrams: 12/10/18 22:14 12/10/18 22:14 Lab Results 12/10/18 12/10/18 12/10/18 Range/Units 22:14 22:14 22:14 WBC 7.1 (4.3-11.1) K/mcL RBC 4.17 L (4.19-5.50) M/mcL Hgb 12.2 L (12.9-16.9) g/dL Hct 38.6 (37.5-50.1) % MCV 92.6 (83.0-100.0) fL MCH 29.3 (28.0-33.3) pg MCHC 31.6 (31.6-35.5) g/dL RDW 16.5 H (11.5-14.5) % Plt Count 150 (140-400) K/mcL MPV 10.7 (9.4-12.4) fL Immature Gran % 1.1 (0-4) % Seg Neutrophils % 53.8 % Lymphocytes % 34.0 % Monocytes % 7.3 % Eosinophils % 3.4 % Basophils % 0.4 % Neutrophils # 3.8 (1.6-8.9) K/mcL Lymphocytes # 2.4 (0.6-4.6) K/mcL Monocytes # 0.5 (0.0-1.3) K/mcL Eosinophils # 0.2 (0.0-0.6) K/mcL Basophils # 0.0 (0.0-0.2) K/mcL Sodium 136 (136-145) mEq/L Potassium 3.9 (3.5-5.1) mEq/L Chloride 105 (98-107) mEq/L Carbon Dioxide 23 (23-29) mEq/L BUN 33 H (8-23) mg/dL Creatinine 1.60 H (0.70-1.30) mg/dL Est GFR ( Amer) 51 L (> 60) Est GFR (Non-Af Amer) 42 L (> 60) BUN/Creatinine Ratio 21 (6-26) Glucose 89 (70-105) mg/dL Calculated Osmolality 289 (280-300) Calcium 8.8 (8.6-10.3) mg/dL Troponin I 0.03 (< 0.04) ng/mL B-Natriuretic Peptide 100 H (Less than 100) pg/mL - Radiology Data Radiology results reviewed: Yes I reviewed the patient's radiology results. Chest X-Ray 12/10/18 22:25 IMPRESSION: No acute cardiopulmonary disease. D/ / Andrey Mims MD / Andrey Mims MD Interpreting Provider: Andrey Mims MD Dissection 12/11/18 00:00 IMPRESSION: No evidence of aortic dissection or aneurysm. 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 Calcific coronary disease status post CABG. There are few small midline fat containing ventral hernias. 1 contains a knuckle of bowel with no evidence of incarceration. Degenerative changes at L4-L5 combine to cause a moderate to severe central canal stenosis. D/ / Andrey Mims MD / Andrey Mims MD Interpreting Provider: Andrey Mims MD - EKG Data EKG #1 EKG attestation: Yes I reviewed and interpreted this EKG. EKG results narrative: EKG shows a sinus rhythm with ventricular rate of 61 with a ventricular trig eminy pattern. Right bundle branch block. Right bundle branch block was present on prior EKG dated 11/18/2018 and no significant changes other than the trigeminy pattern. Attestation Statement - Attestation Attestation: I, Ever Flores MD, personally evaluated this patient and discussed their management with the midlevel provicer, PAC/CLINCHING MACHINE OPERATOR. I reviewed the midlevel provider's note and agree with the documented findings, medical decision making, and plan of care. 77-year-old male presents to the emergency department with a complaint of some mid back pain between his shoulder blades which started about 3 PM yesterday afternoon. This evening his gave him a Zanaflex for the back pain. He has taken Zanaflex intermittently in the past for back pain. He has never had any problem. About 15 or 20 minutes after taking Zanaflex patient states he started feeling worse and checked his blood pressure and it was very low. He did also have some mild chest discomfort associated with this episode. Patient has a prior cardiac history and reports that he had pain in his mid back previously from his heart. He also had some increased shortness of breath. No increased cough or fever. On examination patient is a well-developed well-nourished well-appearing elderly male in no acute distress. He is alert and oriented 3. There is no cyanosis or diaphoresis. Chest is nontender to palpation. Breath sounds are clear and equal bilaterally. Heart regular rate and rhythm with frequent ectopy. Abdomen soft and nontender with normal bowel sounds. EKG shows a sinus rhythm with ventricular rate of 61 with a ventricular trigeminy pattern. Right bundle branch block. Right bundle branch block was present on prior EKG dated 11/18/2018 and no significant changes other than the trigeminy pattern. CTA dissection study showed no evidence of dissection or aneurysm. Labs reviewed. The hospitalist, Dr. Mancera, was consulted and accepted admission of the patient.
[2018-12-11] MEDS ORDERED: 0.9 % Sodium Chloride 1,000 ML IVC SCH (03:15)
[2018-12-11] MEDS ORDERED: Naloxone 0.4 MG/ML INJ IVP PRN (04:53)
[2018-12-11] MEDS ORDERED: Nitroglycerin 0.4 MG TAB.SUBL SL PRN (05:12)
--- NOTE | 2018-12-11 05:32 | Internal Med History&Physical ---
<Nelida Mancera A - Last Filed: 12/11/18 07:18> Date of Encounter: 12/11/18 Internal Medicine - H&P: HPI History of present illness: Mr. Perez is a 77 year old male Internal Medicine - H&P: Meds Atorvastatin [Lipitor] 40 mg PO HS 01/24/16 [History] DULoxetine [Cymbalta] 30 mg PO DAILY 01/24/16 [History] Fluticasone Propionate Nasal [Flonase] 1 spray NS QAM 01/24/16 [History] Montelukast [Singulair] 10 mg PO DAILY 01/24/16 [History] Roflumilast [Daliresp] 500 mcg PO DAILY 01/24/16 [History] Furosemide [Lasix] 20 mg PO DAILY 03/03/17 [History] Aspirin [Lo-Dose Aspirin EC] 81 mg PO DAILY 06/03/17 [History] Multivitamin [One Daily Multivitamin] 1 tab PO DAILY 12/02/17 [History] Lisinopril [Zestril] 10 mg PO BID 02/04/18 [History] Allopurinol [Zyloprim 100 MG] 100 mg PO DAILY 11/18/18 [History] Naproxen [Naprosyn] 500 mg PO BID PRN 11/18/18 [History] Albuterol Neb [Proventil Neb] 2.5 mg IH Q6H PRN 11/19/18 [History] Albuterol Sulfate [Proair Hfa] 2 puff IH Q6H PRN 11/19/18 [History] Carvedilol 12.5 mg PO BID 11/19/18 [History] Cranberry 500 mg PO HS 11/19/18 [History] Fluticasone/Vilanterol [Breo Ellipta 200-25 Mcg INH] 1 puff IH DAILY 11/19/18 [History] Meclizine HCl [Verticalm] 25 mg PO DAILY PRN 11/19/18 [History] Umeclidinium [place] [Incruse Ellipta] 1 puff IH DAILY 11/19/18 [History] predniSONE [PredniSONE] 20 mg PO DAILY 11/19/18 [History] Allergy/AdvReac Type Severity Reaction Status Date / Time levofloxacin [From Levaquin] Allergy Anaphylaxis Verified 03/24/18 08:46 Glucose AdvReac Severe Anaphylaxis Verified 06/09/18 18:50 [From Gammagard S-D (IgA < 1 mcg/mL)] glycine AdvReac Severe Anaphylaxis Verified 06/09/18 18:50 [From Gammagard S-D (IgA < 1 mcg/mL)] IgA less than or equal to 50 AdvReac Severe Anaphylaxis Verified 06/09/18 18:51 mcg/mL [From Gammagard S-D (IgA < 1 mcg/mL)] immune globulin,gamma (IgG) AdvReac Severe Anaphylaxis Verified 06/09/18 18:51 human [From Gammagard S-D (IgA < 1 mcg/mL)] Amoxicillin [From Augmentin] AdvReac Vomiting Verified 12/02/17 09:32 clavulanic acid AdvReac Vomiting Verified 12/02/17 09:32 [From Augmentin] hydrocodone [From Vicodin] AdvReac Hallucinati Verified 12/02/17 09:32 ng Iodinated Contrast Media AdvReac See Verified 12/02/17 09:32 [Iodinated Contrast Media - Comments IV Dye] oxycodone [From Percocet] AdvReac Hallucinati Verified 12/02/17 09:32 ng pregabalin [From Lyrica] AdvReac Dizziness Verified 12/02/17 09:32 All Systems PM: A 10-system review of systems was performed and is negative for pertinent findings except as documented above in the HPI. - Constitutional Vitals: Temp Pulse Resp BP Pulse Ox 98.9 F 55 16 135/79 98 12/11/18 06:49 12/11/18 06:49 12/11/18 06:49 12/11/18 06:49 12/11/18 06:49 Internal Med - H&P Results - Labs CBC & Chem 7: 12/10/18 22:14 12/11/18 05:49 Labs: Short CBC 12/10/18 Range/Units 22:14 WBC 7.1 (4.3-11.1) K/mcL Hgb 12.2 L (12.9-16.9) g/dL Hct 38.6 (37.5-50.1) % Plt Count 150 (140-400) K/mcL Neutrophils # 3.8 (1.6-8.9) K/mcL BMP 12/10/18 12/11/18 22:14 05:49 Sodium 136 138 Potassium 3.9 4.5 Chloride 105 105 Carbon Dioxide 23 26 BUN 33 H 28 H Creatinine 1.60 H 1.27 Glucose 89 90 Calcium 8.8 8.4 L Cardiac Enzymes 12/10/18 12/11/18 Range/Units 22:14 05:49 Troponin I 0.03 0.03 (< 0.04) ng/mL - Impressions ITS Impressions Chest X-Ray 12/10/18 22:25 IMPRESSION: No acute cardiopulmonary disease. D/ / Andrey Mims MD / Andrey Mims MD Interpreting Provider: Andrey Mims MD Dissection 12/11/18 00:00 IMPRESSION: No evidence of aortic dissection or aneurysm. 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 Calcific coronary disease status post CABG. There are few small midline fat containing ventral hernias. 1 contains a knuckle of bowel with no evidence of incarceration. Degenerative changes at L4-L5 combine to cause a moderate to severe central canal stenosis. D/ / Andrey Mims MD / Andrey Mims MD Interpreting Provider: Andrey Mims MD - Time Spent With Patient Total time spent is greater than 50% in coordination of care (as documented) at patient's floor/unit and/or counseling patient: - Attending Attestation I performed a history and physical examination of the patient and discussed their management with the resident. I reviewed the resident's note and agree with the documented plan of care. In short patient is a 77 year old male with pmh of cad s/p CABG and stent, thoracic aortic aneurysm, HTN, HLD, and COPD who presented to the ED with complaints of midscapular pain which began around 3 PM yesterday afternoon associated with lightheadedness and shortness of breath. Patient states he was in his usual health yesterday morning. He had been working outside helping out a friend who was replacing the tiles on his roof and was busy trying to get it done before any possibility of rain. He states he postponed eating or drinking as result. Around 3 PM he began having low back pain which had been hurting him earlier. His gave him a dose of tizanidine. He states that approximately 15 minutes later he began feeling dizzy and lightheaded which was then accompanied by some shortness of breath with wheezing and mid scapular pain. He applied his oxygen and increased it to 4 L. Patient normally uses 2-3 L as needed. Symptoms did not improve with increased O2 and rest. His reportedly checked his blood pressure and noticed that it was low, stating it was 84/44, 68/42 and subsequently came into the emergency department for further evaluation. Patient also noted that the mid scapular pain he was experiencing was similar to a previous presentation prior to a left heart catheter. On arrival patient was afebrile with a soft blood pressure 101/50. Patient was given a fluid bolus in the ED with improve ment in blood pressure. CT dissection study was obtained due to concern for aortic dissection which was unremarkable. Laboratory workup was notable for mildly elevated creatinine suggestive of acute on chronic kidney injury and negative troponin. EKG was obtained which showed sinus rhythm with right bundle branch block and trigeminy. Patient was given breathing treatments in the ED with improvement in his respirations/oxygenation. Chest x-ray was unremarkable. On my assessment patient was lying in bed in no acute distress. Vitals were stable saturating 98% on room air. Physical exam notable for him bilateral expiratory wheezing. No reports of chest pain no evidence of lower extremity edema. Patient reports he is currently on a prednisone taper from his PCP. Admitted for chest pain rule out, THADDEUS and mild COPD exacerbation. Suspect etiology much of patients symptoms likely secondary to dehydration contributing to his prerenal picture and further exacerbated by medication side effect of tizanidine which can potentially cause hypotension. Will continue to taper patients steriods, continue duo nebs and started on by mouth azithromycin. Continue telemetry; trend troponin. We will repeat EKG to assess for resolution of new EKG findings; will obtain a limited echo. Consider cardiology consult based on results of further cardiac workup. <Janette Pacheco - Last Filed: 12/11/18 08:54> Date of Encounter: 12/11/18 Time of Encounter: 04:00 Internal Medicine - H&P: HPI Chief complaint: midscapular back pain/ SOB History of present illness: Mr. Perez is a 77 year old male with pmh of CAD s/p CABG and stent, thoracic aortic aneurysm, HTN, HLD, and COPD presents with c/o midscapular back pain since 3pm yesterday. Patient states he was seated with his when he felt mid scapular back pain, associated with SOB, and nausea. Patient states pain was a 10/10. After onset patient states he took 2 regular strength Tylenol without relief. Patient attempted to lie down for a few minutes to aid with relief of the pain but pain did not resolve. Patient then took a muscle relaxer he uses for back pain and attempted to lie down. Within a few minutes patient states the pain got a little worse and upon rising from bed be came lightheaded and dizzy. The patients then took his blood pressure which was found to be 60/40 and 80/40. This prompted the patients to call EMS. Past Med Surg Social Fam HX - Past Medical History Medical history: non-contributory, aortic aneurysm, CHF, COPD, coronary artery disease, hyperlipidemia, hypertension, myocardial infarction, renal disease, other Additional medical history: gout, black lung Psychiatric history: anxiety - Past Surgical History Surgical History: angioplasty/stent, cancer surgery, coronary bypass (CABG) Additional surgical history: nasal surgery, spine stimulator - Social History Smoking Status: Former smoker Smokeless Tobacco Status: No Alcohol use: none Drug use: none - Family History Mother Adopted: No Living Status: Hx Family Cardiac Disorders: No Hx Family Respiratory Disorders: No Hx Family Cancer: Yes Hx Family GI Disorders: No Hx Family Endocrine Disorder: No Hx Family Neuromuscular Disorders: No Hx Family Neurologic Disorders: No Hx Family HEENT Disorders: No Hx Family Autoimmune Disorders: No Father Adopted: No Family Member Ethnicity: Non- Living Status: Hx Family Cardiac Disorders: Yes Hx Family Respiratory Disorders: No Hx Family Cancer: No Hx Family GI Disorders: No Hx Family Endocrine Disorder: No Hx Family Neuromuscular Disorders: No Hx Family Neurologic Disorders: No Hx Family HEENT Disorders: No Hx Family Autoimmune Disorders: No All Systems PM: A 10-system review of systems was performed and is negative for pertinent findings except as documented above in the HPI. - Constitutional Constitutional: no chills, no fever(s), no night sweats - EENT Eyes: no change in vision, no discharge, no pain, no photophobia Nose, mouth and throat: no dysphagia, no nasal discharge, no neck pain, no sore throat - Cardiovascular Cardiovascular ROS IM: as per HPI - Respiratory Respiratory: as per HPI, cough (Patient states a efw weeks ago he went to his PCP who placed him on steroid taper for his COPD ), no hemoptysis - Gastrointestinal Gastrointestinal: nausea, no abdominal pain, no diarrhea, no hematemesis, no hematochezia, no melena, no vomiting - Integumentary Integumentary IM: no rash, no unusual bruising - Constitutional Vitals: Temp Pulse Resp BP Pulse Ox 98.3 F 76 20 158/67 100 12/10/18 22:18 12/11/18 03:35 12/11/18 04:42 12/11/18 04:42 12/11/18 03:35 Exam: . - Head Head exam: Present: atraumatic, normocephalic - Eye Eye exam: Present: EOMI, PERRL - Neck Neck exam general surgery: Present: tenderness (paraspinal muscle tenderness noted in cervical spine. tender to palpation on spinous process of thoracic spine. ), trachea midline. Absent: lymphadenopathy, thyromegaly - Respiratory Respiratory exam: Present: decreased breath sounds, wheezes. Absent: chest wall tenderness - Cardiovascular Cardiovascular exam: Present: RRR, +S1, +S2. Absent: diastolic murmur, gallop, rubs - GI/Abdominal GI/Abdominal exam: Present: normal bowel sounds, soft. Absent: pulsatile mass, tenderness - Back Exam Back exam: Present: paraspinal tenderness (cervical spine c3-5), vertebral tenderness (T3-6) - Neurological Exam Neurological exam: Present: alert, oriented X3, no focal deficits Internal Med - H&P Results - Labs CBC & Chem 7: 12/10/18 22:14 12/11/18 05:49 Labs: Short CBC 12/10/18 Range/Units 22:14 WBC 7.1 (4.3-11.1) K/mcL Hgb 12.2 L (12.9-16.9) g/dL Hct 38.6 (37.5-50.1) % Plt Count 150 (140-400) K/mcL Neutrophils # 3.8 (1.6-8.9) K/mcL BMP 12/10/18 22:14 Sodium 136 Potassium 3.9 Chloride 105 Carbon Dioxide 23 BUN 33 H Creatinine 1.60 H Glucose 89 Calcium 8.8 Cardiac Enzymes 12/10/18 Range/Units 22:14 Troponin I 0.03 (< 0.04) ng/mL - Impressions ITS Impressions Chest X-Ray 12/10/18 22:25 IMPRESSION: No acute cardiopulmonary disease. D/ / Andrey Mims MD / Andrey Mims MD Interpreting Provider: Andrey Mims MD Dissection 12/11/18 00:00 IMPRESSION: No evidence of aortic dissection or aneurysm. 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 Calcific coronary disease status post CABG. There are few small midline fat containing ventral hernias. 1 contains a knuckle of bowel with no evidence of incarceration. Degenerative changes at L4-L5 combine to cause a moderate to severe central canal stenosis. D/ / Andrey Mims MD / Andrey Mims MD Interpreting Provider: Andrey Mims MD - Assessment and Plan (1) Atypical chest pain Current Visit: Yes Status: Acute Assessment and plan: Patient is a 77-year-old male with known coronary artery disease status post CABG, stent, thoracic aortic aneurysm, hypertension who presents with mid thoracic back pain and shortness of breath. In the ED CTA dissection was comp leted which showed no acute process. Chest x-ray was completed which showed no acute cardiopulmonary process. Troponins and BNP were drawn. Troponins have been negative BNP has been elevated. Patient has recently seen his PCP for COPD exacerbation and is currently on prednisone taper. Will consider various etiologies for patient's presentation of atypical chest pain/back pain; COPD exacerbation, aortic aneurysm, embolism, aortic dissection, herniated disc, angina, ACS. Plan: - Telemetry, continuous pulse ox. - Sublingual nitroglycerin when necessary Aspirin 81 mg, atorvastatin 40 mg - Carvedilol 12.5 twice a day - Heparin drip - Repeat EKG - Continue trending troponins. - CBC and BMP in a.m. - Consider cardiology consult if EKG is unchanged from prior or troponins increased. (2) COPD (chronic obstructive pulmonary disease) Current Visit: Yes Status: Acute Assessment and plan: Patient is a 77-year-old male with known COPD. Chest x-ray was completed which showed no acute cardiopulmonary process. Troponins and BNP were drawn. Troponins have been negative BNP has been elevated. Patient has recently seen his PCP for COPD exacerbation and is currently on prednisone taper. Plan: Continue prednisone taper, patient has 3 days remaining 10 mg by mouth daily - Dual nebs every 4 - Azithromycin 500 mg by mouth Qualifiers: COPD type: unspecified COPD Qualified Code(s): J44.9 - Chronic obstructive pulmonary disease, unspecified (3) Hypertension Current Visit: Yes Status: Chronic Assessment and plan: Continue antihypertensive medications Qualifiers: Hypertension type: essential hypertension Qualified Code(s): I10 - Essential (primary) hypertension (4) Chronic kidney disease (CKD) Current Visit: Yes Status: Chronic Assessment and plan: Given 2 L of fluid Serum creatinine is improving. We will continue to monitor. Qualifiers: Chronic kidney disease stage: unspecified stage Qualified Code(s): N18.9 - Chronic kidney disease, unspecified (5) Sleep apnea Current Visit: Yes Status: Acute Assessment and plan: Patient was diagnosed with obstructive sleep apnea on CPAP plan: - Use CPAP at night when necessary. Qualifiers: Qualified Code(s): G47.30 - Sleep apnea, unspecified (6) DVT prophylaxis Current Visit: Yes Status: Chronic Assessment and plan: Heparin GTT - Time Spent With Patient Total time spent is greater than 50% in coordination of care (as documented) at patient's floor/unit and/or counseling patient:
[2018-12-11 06:31] LABS: Chol/HDL Ratio 4.4 (0-4.9)
[2018-12-11 06:33] LABS: Troponin I 0.03 ng/mL (< 0.04)
[2018-12-11 06:41] LABS: BUN/Creatinine Ratio 22 (6-26); Blood Urea Nitrogen 28 mg/dL (8-23); Calcium 8.4 mg/dL (8.6-10.3); Carbon Dioxide 26 mEq/L (23-29); Chloride 105 mEq/L (98-107); Glucose 90 mg/dL (70-105); Osmolality,Calculated 291 (280-300); Potassium 4.5 mEq/L (3.5-5.1); Sodium 138 mEq/L (136-145); eGFR For African Americans > 60 (> 60); eGFR For Non-African Americans 55 (> 60)
[2018-12-11] MEDS: Ipratropium/Albuterol Neb 3 ML IH SCH ×3 (07:26→15:51)
[2018-12-11] MEDS ORDERED: Ipratropium/Albuterol Neb 3 ML IH SCH (08:00)
[2018-12-11] MEDS ORDERED: (Incruse Ellipta] 1 PUFF) IH SCH (09:00)
[2018-12-11] MEDS ORDERED: predniSONE 10 MG TABLET PO SCH (09:00)
[2018-12-11] MEDS ORDERED: Azithromycin 250 MG TABLET PO SCH (09:00)
[2018-12-11] MEDS ORDERED: Aspirin Enteric Coated 81 MG Tablet PO SCH (09:00)
[2018-12-11] MEDS ORDERED: Furosemide 20 MG TABLET PO SCH (09:00)
[2018-12-11] MEDS ORDERED: (Breo Ellipta 200-25 Mcg Inh) IH SCH (09:00)
[2018-12-11] MEDS ORDERED: Fluticasone Propionate Nasal 50 MCG/SPRAY BOTTLE NS SCH (09:00)
[2018-12-11] MEDS ORDERED: NON-FORMULARY MEDICATION 1 EACH EACH (Roflumilast [Daliresp] 500 MCG) PO SCH (09:00)
[2018-12-11] MEDS ORDERED: Multivit/Ca/Min/Fe/FA 1 TAB TABLET PO SCH (09:00)
[2018-12-11] MEDS ORDERED: Perflutren Lipid Microsphere 1.3 ML in 0.9 % Sodium Chloride 8.7 ML IVP ONE (10:19)
[2018-12-11 13:18] VITALS: BP 158/75
--- NOTE | 2018-12-11 14:45 | Discharge Summary ---
- NOTES TO OUTPATIENT PROVIDER Notes to Outpatient Provider: Post hospital discharge for presyncope attribute it to combination of hypovolemia and effect of muscle relaxant Date of Encounter: 12/11/18 Time of Encounter: 14:42 - Discharge Diagnosis (1) Pre-syncope Priority: Primary Status: Acute Assessment and Plan: Patient reports poor intake was working outside all day admit to dizziness and lightheadedness. administers that muscle relaxant tizanidine which according to the patient and his did have over a year and he takes intermittently, his echocardiogram revealed EF of 55-60%, orthostatic blood pressure measurement was unremarkable. Patient is requesting discharge stating that he feels better. Discussed with patient and his that the old tizanidi ne prescription should be discarded since it has been over a year in their possession as such the efficacy of the drug could likely compromised. (2) COPD (chronic obstructive pulmonary disease) Priority: Secondary Status: Acute Assessment and Plan: Resume home inhalers Qualifiers: COPD type: unspecified COPD Qualified Code(s): J44.9 - Chronic obstructive pulmonary disease, unspecified (3) Sleep apnea Priority: Secondary Status: Acute Assessment and Plan: Patient does admit to having his CPAP machine but noncompliant. He was encouraged to be compliant to CPAP he may benefit from reevaluation of his mask for proper fitting Qualifiers: Qualified Code(s): G47.30 - Sleep apnea, unspecified (4) Thoracic back pain Priority: Secondary Status: Acute Assessment and Plan: Discussed with patient that he should call his primary care physician to obtain a new prescription for his muscle relaxant. Chronic and stable chest x-ray was unremarkable, CT of the thorax was unremarkable-no thoracic aneurysm or dissection Qualifiers: Chronicity: acute Back pain laterality: midline Qualified Code(s): M54.6 - Pain in thoracic spine (5) Chronic kidney disease (CKD) Priority: Secondary Status: Chronic Assessment and Plan: Baseline serum creatinine ranges from 1.2-1.48 dating back to 2017, Likely CKD stage III gfr 40-58 Qualifiers: Chronic kidney disease stage: unspecified stage Qualified Code(s): N18.9 - Chronic kidney disease, unspecified (6) Hypertension Priority: Secondary Status: Chronic Assessment and Plan: Resume home medications Qualifiers: Hypertension type: essential hypertension Qualified Code(s): I10 - Essential (primary) hypertension (7) DVT prophylaxis Priority: Secondary Status: Chronic Assessment and Plan: Discharge today Hospital course: Mr. Perez is a 77 year old male was hospitalized for dizziness and acute on chronic thoracic pain. Workup included a CT of the thoracic spine for dissection which was negative, 2-D echo which was unremarkable. Orthostatic blood pressure measurement was also unremarkable Discharge discussed with: patient, family, nurse - Time Spent with Patient Total time spent providing and/or coordinating discharge services: - Discharge Medications Prescriptions: Continued Montelukast [Singulair] 10 mg PO DAILY Atorvastatin [Lipitor] 40 mg PO HS DULoxetine [Cymbalta] 30 mg PO DAILY Roflumilast [Daliresp] 500 mcg PO DAILY Fluticasone Propionate Nasal [Flonase] 1 spray NS QAM Furosemide [Lasix] 20 mg PO DAILY Aspirin [Lo-Dose Aspirin EC] 81 mg PO DAILY Multivitamin [One Daily Multivitamin] 1 tab PO DAILY Lisinopril [Zestril] 10 mg PO BID Allopurinol [Zyloprim 100 MG] 100 mg PO DAILY Naproxen [Naprosyn] 500 mg PO BID PRN PRN Reason: Pain Albuterol Sulfate [Proair Hfa] 2 puff IH Q6H PRN PRN Reason: Shortness Of Breath Carvedilol 12.5 mg PO BID Meclizine HCl [Verticalm] 25 mg PO DAILY PRN PRN Reason: Dizziness Umeclidinium [place] [Incruse Ellipta] 1 puff IH DAILY Albuterol Neb [Proventil Neb] 2.5 mg IH Q6H PRN PRN Reason: Shortness Of Breath predniSONE [PredniSONE] 20 mg PO DAILY Fluticasone/Vilanterol [Breo Ellipta 200-25 Mcg INH] 1 puff IH DAILY Discontinued Cranberry 500 mg PO HS Home Medications: Atorvastatin [Lipitor] 40 mg PO HS 01/24/16 [History] DULoxetine [Cymbalta] 30 mg PO DAILY 01/24/16 [History] Fluticasone Propionate Nasal [Flonase] 1 spray NS QAM 01/24/16 [History] Montelukast [Singulair] 10 mg PO DAILY 01/24/16 [History] Roflumilast [Daliresp] 500 mcg PO DAILY 01/24/16 [History] Furosemide [Lasix] 20 mg PO DAILY 03/03/17 [History] Aspirin [Lo-Dose Aspirin EC] 81 mg PO DAILY 06/03/17 [History] Multivitamin [One Daily Multivitamin] 1 tab PO DAILY 12/02/17 [History] Lisinopril [Zestril] 10 mg PO BID 02/04/18 [History] Allopurinol [Zyloprim 100 MG] 100 mg PO DAILY 11/18/18 [History] Naproxen [Naprosyn] 500 mg PO BID PRN 11/18/18 [History] Albuterol Neb [Proventil Neb] 2.5 mg IH Q6H PRN 11/19/18 [History] Albuterol Sulfate [Proair Hfa] 2 puff IH Q6H PRN 11/19/18 [History] Carvedilol 12.5 mg PO BID 11/19/18 [History] Fluticasone/Vilanterol [Breo Ellipta 200-25 Mcg INH] 1 puff IH DAILY 11/19/18 [History] Meclizine HCl [Verticalm] 25 mg PO DAILY PRN 11/19/18 [History] Umeclidinium [place] [Incruse Ellipta] 1 puff IH DAILY 11/19/18 [History] predniSONE [PredniSONE] 20 mg PO DAILY 11/19/18 [History] Allergies/Adverse Reactions: Allergy/AdvReac Type Severity Reaction Status Date / Time levofloxacin [From Levaquin] Allergy Anaphylaxis Verified 03/24/18 08:46 Glucose AdvReac Severe Anaphylaxis Verified 06/09/18 18:50 [From Gammagard S-D (IgA < 1 mcg/mL)] glycine AdvReac Severe Anaphylaxis Verified 06/09/18 18:50 [From Gammagard S-D (IgA < 1 mcg/mL)] IgA less than or equal to 50 AdvReac Severe Anaphylaxis Verified 06/09/18 18:51 mcg/mL [From Gammagard S-D (IgA < 1 mcg/mL)] immune globulin,gamma (IgG) AdvReac Severe Anaphylaxis Verified 06/09/18 18:51 human [From Gammagard S-D (IgA < 1 mcg/mL)] Amoxicillin [From Augmentin] AdvReac Vomiting Verified 08/21/18 09:32 clavulanic acid AdvReac Vomiting Verified 12/02/17 09:32 [From Augmentin] hydrocodone [From Vicodin] AdvReac Hallucinati Verified 12/02/17 09:32 ng Iodinated Contrast Media AdvReac See Verified 12/02/17 09:32 [Iodinated Contrast Media - Comments IV Dye] oxycodone [From Percocet] AdvReac Hallucinati Verified 12/02/17 09:32 ng pregabalin [From Lyrica] AdvReac Dizziness Verified 12/02/17 09:32 Date of admission: 12/11/18 03:15 Primary care physician: Garret Gonzalez DO Discharging clinician: Susy Jones Anticipated date of discharge: 12/11/18 - Constitutional Vitals: Temp Pulse Resp BP Pulse Ox 98.2 F 62 16 158/75 96 12/11/18 11:53 12/11/18 13:11 12/11/18 11:53 12/11/18 13:11 12/11/18 11:53 Exam: GEN: Obese male NAD, A&O x 3, Pleasant and conversant, at his bedside SKIN: [place] warm acyanotic not jaundice HEART: RRR, no murmurs LUNGS: CTA no wheeze or crackles, overall non labored ABDOMEN; Soft, non tender or distended, BS x 4 normactive EXT: No LE edema, Pedal pulses 1+, radial pulses 2+ PSYCH: Mood and affect is appropriate - Patient Status Disposition: Home, Self-Care Condition: Good Overall status at discharge: patient is back to baseline - Discharge Instructions Follow Up With: Garret Gonzalez DO [Primary Care Provider] - - Diet and Activity Activity: resume usual activities as tolerated Diet: low fat, low cholesterol, low salt diet
[2018-12-11] MEDS ORDERED: Acetaminophen 325 MG TABLET PO PRN (14:51)
[2018-12-11] MEDS ORDERED: NON-FORMULARY MEDICATION 1 EACH EACH (Cranberry 500 MG) PO SCH (21:00)
--- NOTE | 2018-12-11 21:00 | Electrocardiograph Report ---
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
--- NOTE | 2018-12-13 00:23 | Electrocardiograph Report ---
[facility] Test Date: 2018-12-10 Pat Name: Prateek Perez Department: [id number] Room: 2NE17 Gender: M Information Services Manager: : 1940 Requested By: Rikki Castro Order Number: [id number] Reading MD: Eugene Rodriguez Measurements Intervals [place] Rate: 61 P: -4 ID: [id number] QRS: -36 QRSD: 147 T: 39 QT: 402 QTc: 405 Interpretive Statements Sinus rhythm Ventricular trigeminy Right bundle branch block Electronically Signed On 12-13-2018 0:21:20 EDT by Eugene Rodriguez
== END 2018-12-11 16:30 | disposition home or self-care (01) ==
LOC: 2NENU 22:13 → EMEROOARM 22:13 → SUATTDRO 12-11 03:15 → 2NENU 12-11 04:45
PROVIDERS: ADMIT Internal Medicine; ATTEND Pharmacist

== ENCOUNTER 2019-02-24 12:39 | Observation (INO) ==
[2019-02-24] MEDS ORDERED: Aspirin 81 MG TAB.CHEW PO STA (12:42)
[2019-02-24] MEDS ORDERED: Ondansetron ODT 4 MG TAB.RAPDIS SL ONE (13:10)
[2019-02-24 15:00] LABS: Troponin I < 0.03 ng/mL (< 0.04)
[2019-02-24 16:47] LABS: Basophils % 0.7 %; Eosinophils # 0.3 K/mcL (0.0-0.6); Eosinophils % 5.5 %; Hematocrit 43.1 % (37.5-50.1); Hemoglobin 13.8 g/dL (12.9-16.9); Immature Granulocytes % 0.3 % (0-4); Lymphocytes # 2.1 K/mcL (0.6-4.6); Lymphocytes % 35.7 %; Mean Corpuscular Hemoglobin 29.9 pg (28.0-33.3); Mean Corpuscular Volume 93.5 fL (83.0-100.0); Mean Platelet Volume 11.3 fL (9.4-12.4); Monocytes # 0.6 K/mcL (0.0-1.3); Monocytes % 10.7 %; Neutrophils # 2.8 K/mcL (1.6-8.9); Platelet Count 182 K/mcL (140-400); Red Blood Count 4.61 M/mcL (4.19-5.50); Red Cell Distribution Width 15.5 % (11.5-14.5); Segmented Neutrophils % 47.1 %
[2019-02-24 16:56] LABS: BUN/Creatinine Ratio 19 (6-26); Blood Urea Nitrogen 27 mg/dL (8-23); Calcium 9.6 mg/dL (8.6-10.3); Carbon Dioxide 27 mEq/L (23-29); Chloride 101 mEq/L (98-107); Glucose 84 mg/dL (70-105); Osmolality,Calculated 286 (280-300); Potassium 4.5 mEq/L (3.5-5.1); Sodium 136 mEq/L (136-145); eGFR For African Americans 60 (> 60); eGFR For Non-African Americans 49 (> 60)
[2019-02-24] MEDS ORDERED: Benzonatate 100 MG CAPSULE PO PRN (17:59)
[2019-02-24] MEDS ORDERED: Albuterol 2.5 MG/3 ML NEBULIZER IH PRN (17:59)
[2019-02-24] MEDS ORDERED: Naloxone 0.4 MG/ML INJ IVP PRN (18:10)
[2019-02-24] MEDS ORDERED: Ondansetron 4 MG/2 ML VIAL IVP PRN (18:13)
[2019-02-24] MEDS ORDERED: 0.9 % Sodium Chloride 1,000 ML IVC SCH (18:15)
[2019-02-24] MEDS ORDERED: 0.9 % Sodium Chloride 500 ML IVC SCH (20:41)
[2019-02-24] MEDS: Acetaminophen 325 MG TABLET PO PRN (22:03)
[2019-02-24] MEDS: *HR* Heparin 5,000 UNIT/ML VIAL SQ SCH (22:04)
[2019-02-24] MEDS ORDERED: 0.9 % Sodium Chloride 250 ML IVC ONE (23:41)
[2019-02-24] MEDS ORDERED: 0.9 % Sodium Chloride 250 ML ONE (23:44)
[2019-02-25 05:31] LABS: BUN/Creatinine Ratio 18 (6-26); Blood Urea Nitrogen 26 mg/dL (8-23); Calcium 8.9 mg/dL (8.6-10.3); Carbon Dioxide 26 mEq/L (23-29); Chloride 106 mEq/L (98-107); Glucose 85 mg/dL (70-105); Osmolality,Calculated 294 (280-300); Potassium 4.1 mEq/L (3.5-5.1); Sodium 140 mEq/L (136-145); Troponin I < 0.03 ng/mL (< 0.04); eGFR For African Americans 58 (> 60); eGFR For Non-African Americans 48 (> 60)
[2019-02-25] MEDS: Acetaminophen 325 MG TABLET PO PRN (06:10)
[2019-02-25] MEDS: *HR* Heparin 5,000 UNIT/ML VIAL SQ SCH ×2 (06:11→13:21)
[2019-02-25] MEDS ORDERED: NON-FORMULARY MEDICATION 1 EACH EACH (Cranberry 500 MG) PO SCH (09:00)
[2019-02-25] MEDS ORDERED: Roflumilast [Daliresp] 500 MCG PO SCH (09:00)
[2019-02-25] MEDS ORDERED: Fluticasone Propionate Nasal 50 MCG/SPRAY BOTTLE NS SCH (09:00)
[2019-02-25] MEDS ORDERED: Multivit/Ca/Min/Fe/FA 1 TAB TABLET PO SCH (09:00)
[2019-02-25] MEDS ORDERED: Aspirin Enteric Coated 81 MG Tablet PO SCH (09:00)
[2019-02-25] MEDS ORDERED: Tiotropium 18 MCG inhalation IH SCH (09:00)
[2019-02-25] MEDS ORDERED: Budesonide/Formoterol 160/4.5 1 PUFF INH IH SCH (10:00)
[2019-02-25] MEDS ORDERED: 0.9 % Sodium Chloride 1,000 ML IVC SCH (13:45)
[2019-02-25] MEDS ORDERED: *HR* Propofol 200 MG/20 ML VIAL IVP ONE (14:18)
[2019-02-25 15:42] VITALS: BP 155/78
== END 2019-02-25 15:53 | disposition home or self-care (01) ==
LOC: EMEROOARM 12:39 → 3BNU 12:39 → SUATTDRO 17:17 → 3BNU 17:29
PROVIDERS: ADMIT Internal Medicine; ATTEND Internal Medicine
PROC: ENDOEBX (2019-02-25 14:30)

== ENCOUNTER 2019-04-07 18:22 | Observation (INO) ==
[2019-04-07] MEDS ORDERED: Aspirin 325 MG TABLET PO ONE (18:43)
[2019-04-07] MEDS ORDERED: Ipratropium/Albuterol Neb 3 ML IH ONE (18:43)
[2019-04-07] MEDS ORDERED: methylPREDNISolone 125 MG/2 ML VIAL IVP ONE (18:59)
[2019-04-07 19:14] LABS: Basophils % 0.8 %; Eosinophils # 0.4 K/mcL (0.0-0.6); Eosinophils % 7.1 %; Hematocrit 38.9 % (37.5-50.1); Hemoglobin 12.6 g/dL (12.9-16.9); Immature Granulocytes % 0.6 % (0-4); Lymphocytes # 2.2 K/mcL (0.6-4.6); Lymphocytes % 42.9 %; Mean Corpuscular HGB Conc 32.4 g/dL (31.6-35.5); Mean Corpuscular Hemoglobin 29.3 pg (28.0-33.3); Mean Platelet Volume 10.6 fL (9.4-12.4); Monocytes # 0.8 K/mcL (0.0-1.3); Monocytes % 15.3 %; Neutrophils # 1.7 K/mcL (1.6-8.9); Platelet Count 230 K/mcL (140-400); Red Cell Distribution Width 14.4 % (11.5-14.5); Segmented Neutrophils % 33.3 %; White Blood Count 5.1 K/mcL (4.3-11.1)
[2019-04-07 19:28] LABS: Mean Corpuscular Volume 90.5 fL (83.0-100.0)
[2019-04-07 19:36] LABS: BUN/Creatinine Ratio 19 (6-26); Blood Urea Nitrogen 39 mg/dL (8-23); Calcium 9.2 mg/dL (8.6-10.3); Carbon Dioxide 24 mEq/L (23-29); Chloride 105 mEq/L (98-107); Glucose 85 mg/dL (70-105); Osmolality,Calculated 293 (280-300); Potassium 4.3 mEq/L (3.5-5.1); Sodium 137 mEq/L (136-145); Troponin I < 0.03 ng/mL (< 0.04); eGFR For African Americans 38 (> 60); eGFR For Non-African Americans 31 (> 60)
[2019-04-07] MEDS ORDERED: 0.9 % Sodium Chloride 1,000 ML IVC ONE (20:08)
[2019-04-07] MEDS ORDERED: Naloxone 0.4 MG/ML INJ IVP PRN (20:43)
[2019-04-07] MEDS ORDERED: Albuterol 2.5 MG/3 ML NEBULIZER IH PRN (20:43)
[2019-04-07] MEDS ORDERED: GuaiFENesin Liq 200 MG/10 ML UDC PO PRN (21:04)
[2019-04-07] MEDS ORDERED: Benzonatate 100 MG CAPSULE PO PRN (21:04)
[2019-04-07 21:33] LABS: BUN/Creatinine Ratio 20 (6-26); Blood Urea Nitrogen 39 mg/dL (8-23); Calcium 8.8 mg/dL (8.6-10.3); Carbon Dioxide 24 mEq/L (23-29); Chloride 105 mEq/L (98-107); Glucose 126 mg/dL (70-105); Osmolality,Calculated 295 (280-300); Potassium 4.2 mEq/L (3.5-5.1); Sodium 137 mEq/L (136-145); eGFR For African Americans 40 (> 60); eGFR For Non-African Americans 33 (> 60)
[2019-04-07 21:34] LABS: Troponin I < 0.03 ng/mL (< 0.04)
[2019-04-07] MEDS: Ipratropium/Albuterol Neb 3 ML IH SCH (22:47)
[2019-04-07] MEDS: Doxycycline 100 MG CAPSULE PO SCH (22:53)
[2019-04-07] MEDS: *HR* Heparin 5,000 UNIT/ML VIAL SQ SCH (22:53)
[2019-04-08 01:29] LABS: Bilirubin,Urine Negative (Negative); Blood,Urine Negative (Negative); Clarity,Urine Clear (Clear); Color,Urine Yellow (Yellow); Glucose,Urine (UA) 250 mg/dL (Normal); Ketones,Urine Negative (Negative); Leukocyte Esterase,Urine Negative (Negative); Nitrite,Urine Negative (Negative); PH,Urine 5.5 pH Units (5.0-8.0); Protein,Urine Negative (Neg-Trace); Specific Gravity,Urine 1.018 (1.010-1.025); Urobilinogen,Urine Normal (Normal)
[2019-04-08 01:39] LABS: Sodium, Urine 59.3 mEq/L
[2019-04-08 03:49] LABS: Albumin 3.6 g/dL (3.5-5.7); Albumin/Globulin Ratio 1.3 (1.1-2.2); Basophils % 0.4 %; Bilirubin,Total 0.2 mg/dL (0.3-1.0); Calcium 8.8 mg/dL (8.6-10.3); Chol/HDL Ratio 5.7 (0-4.9); Globulin 2.7 g/dL (2.4-3.5); Hematocrit 38.7 % (37.5-50.1); Hemoglobin 12.4 g/dL (12.9-16.9); INR 1.1; Immature Granulocytes % 0.4 % (0-4); Lymphocytes % 27.9 %; Mean Corpuscular Hemoglobin 28.8 pg (28.0-33.3); Mean Platelet Volume 11.4 fL (9.4-12.4); Monocytes # 0.1 K/mcL (0.0-1.3); Monocytes % 1.9 %; Phosphorous 2.3 mg/dL (2.7-4.5); Platelet Count 222 K/mcL (140-400); Potassium 4.7 mEq/L (3.5-5.1); Red Cell Distribution Width 14.1 % (11.5-14.5); Segmented Neutrophils % 69.4 %; Total Protein 6.3 g/dL (6.4-8.9); White Blood Count 2.7 K/mcL (4.3-11.1)
[2019-04-08] MEDS: Ipratropium/Albuterol Neb 3 ML IH SCH (04:09)
[2019-04-08 04:21] LABS: Lymphocytes # 0.8 K/mcL (0.6-4.6); Neutrophils # 1.9 K/mcL (1.6-8.9)
[2019-04-08 04:52] LABS: Platelet Estimate Normal (Normal); Reactive Lymphocytes Present (Not Present)
[2019-04-08] MEDS: *HR* Heparin 5,000 UNIT/ML VIAL SQ SCH (05:52)
[2019-04-08] MEDS ORDERED: Ipratropium/Albuterol Neb 3 ML IH PRN (06:09)
[2019-04-08] MEDS ORDERED: Aspirin Enteric Coated 81 MG Tablet PO SCH (09:00)
[2019-04-08] MEDS ORDERED: Fluticasone Propionate Nasal 50 MCG/SPRAY BOTTLE NS SCH (09:00)
[2019-04-08] MEDS ORDERED: DALIRESP 500 MCG PO SCH (09:00)
[2019-04-08] MEDS ORDERED: predniSONE 20 MG TABLET PO SCH (09:00)
[2019-04-08] MEDS ORDERED: Budesonide/Formoterol 160/4.5 1 PUFF INH IH SCH ×2 (09:00→10:00)
[2019-04-08] MEDS ORDERED: amLODIPine 5 MG TABLET PO SCH (09:00)
[2019-04-08] MEDS: Doxycycline 100 MG CAPSULE PO SCH (09:42)
[2019-04-08] MEDS ORDERED: Albuterol 2.5 MG/3 ML NEBULIZER IH PRN (10:11)
[2019-04-08 11:13] VITALS: BP 151/71
[2019-04-09] MEDS ORDERED: NON-FORMULARY MEDICATION 1 EACH EACH (Cranberry 500 MG) PO SCH (09:00)
== END 2019-04-08 12:42 | disposition home or self-care (01) ==
LOC: 3BNU 18:22 → EMEROOARM 18:22 → 3BNU 21:55
PROVIDERS: ADMIT Internal Medicine; ATTEND Internal Medicine

== ENCOUNTER 2019-05-27 16:09 | Observation (INO) ==
[2019-05-27] MEDS ORDERED: Isovue-370 500 ML BOTTLE IVP ONE (16:23)
[2019-05-27 16:34] LABS: Hematocrit 40.6 % (37.5-50.1); Hemoglobin 13.1 g/dL (12.9-16.9); Mean Corpuscular HGB Conc 32.3 g/dL (31.6-35.5); Mean Corpuscular Hemoglobin 28.9 pg (28.0-33.3); Mean Corpuscular Volume 89.4 fL (83.0-100.0); Mean Platelet Volume 10.5 fL (9.4-12.4); Platelet Count 194 K/mcL (140-400); Red Blood Count 4.54 M/mcL (4.19-5.50); Red Cell Distribution Width 15.9 % (11.5-14.5); White Blood Count 9.1 K/mcL (4.3-11.1)
[2019-05-27 16:53] LABS: BUN/Creatinine Ratio 20 (6-26); Blood Urea Nitrogen 26 mg/dL (8-23); Calcium 9.3 mg/dL (8.6-10.3); Carbon Dioxide 23 mEq/L (23-29); Chloride 103 mEq/L (98-107); Ethanol < 10 mg/dL (Less than 10); Glucose 98 mg/dL (70-105); Osmolality,Calculated 287 (280-300); Potassium 4.4 mEq/L (3.5-5.1); Sodium 136 mEq/L (136-145); eGFR For African Americans > 60 (> 60); eGFR For Non-African Americans 52 (> 60)
[2019-05-27 16:54] LABS: Troponin I < 0.03 ng/mL (< 0.04)
[2019-05-27 19:10] LABS: Bilirubin,Urine Negative (Negative); Blood,Urine Negative (Negative); Clarity,Urine Clear (Clear); Color,Urine Yellow (Yellow); Glucose,Urine (UA) Normal (Normal); Ketones,Urine Negative (Negative); Leukocyte Esterase,Urine Negative (Negative); Nitrite,Urine Negative (Negative); PH,Urine 6.5 pH Units (5.0-8.0); Protein,Urine Negative (Neg-Trace); Specific Gravity,Urine 1.025 (1.010-1.025); Urobilinogen,Urine Normal (Normal)
[2019-05-27 19:30] LABS: Amphetamine Screen,Urine Negative ng/mL (Cutoff=1000); Barbiturate Screen,Urine Negative ng/mL (Cutoff=200); Benzodiazepines Screen,Urine Negative ng/mL (Cutoff=200); Cannabinoid Screen,Urine Negative ng/mL (Cutoff = 50); Cocaine Screen,Urine Negative ng/mL (Cutoff= 300); Opiate Screen,Urine Positive ng/mL (Cutoff=300); Phencyclidine Screen,Urine Negative ng/mL (Cutoff=25)
[2019-05-27] MEDS ORDERED: Naloxone 0.4 MG/ML INJ IVP PRN (20:22)
[2019-05-27] MEDS ORDERED: GuaiFENesin Liq 200 MG/10 ML UDC PO PRN (20:58)
[2019-05-27] MEDS ORDERED: Ondansetron ODT 4 MG TAB.RAPDIS SL PRN (21:01)
[2019-05-27] MEDS ORDERED: 0.9 % Sodium Chloride 1,000 ML IVC SCH (21:15)
[2019-05-27] MEDS: Albuterol 2.5 MG/3 ML NEBULIZER IH SCH (22:02)
[2019-05-28] MEDS: Albuterol 2.5 MG/3 ML NEBULIZER IH SCH ×5 (00:12→14:45)
[2019-05-28 02:00] LABS: Basophils % 0.6 %; Eosinophils # 0.2 K/mcL (0.0-0.6); Eosinophils % 2.8 %; Hematocrit 38.7 % (37.5-50.1); Hemoglobin 12.1 g/dL (12.9-16.9); Immature Granulocytes % 0.6 % (0-4); Lymphocytes # 2.1 K/mcL (0.6-4.6); Lymphocytes % 29.4 %; Mean Corpuscular HGB Conc 31.3 g/dL (31.6-35.5); Mean Corpuscular Volume 92.8 fL (83.0-100.0); Mean Platelet Volume 11.2 fL (9.4-12.4); Monocytes # 0.8 K/mcL (0.0-1.3); Monocytes % 10.9 %; Platelet Count 165 K/mcL (140-400); Red Blood Count 4.17 M/mcL (4.19-5.50); Red Cell Distribution Width 15.9 % (11.5-14.5); Segmented Neutrophils % 55.7 %; White Blood Count 7.2 K/mcL (4.3-11.1)
[2019-05-28 02:19] LABS: Calcium 9.1 mg/dL (8.6-10.3); Potassium 3.9 mEq/L (3.5-5.1)
[2019-05-28] MEDS ORDERED: carvediloL 6.25 MG TABLET PO SCH (08:00)
[2019-05-28] MEDS ORDERED: Aspirin Enteric Coated 81 MG Tablet PO SCH (09:00)
[2019-05-28] MEDS ORDERED: Fluticasone Propionate Nasal 50 MCG/SPRAY BOTTLE NS SCH (09:00)
[2019-05-28] MEDS ORDERED: Furosemide 20 MG TABLET PO SCH (09:00)
[2019-05-28] MEDS ORDERED: Azithromycin 250 MG TABLET PO SCH (09:00)
[2019-05-28] MEDS ORDERED: Multivit/Ca/Min/Fe/FA 1 TAB TABLET PO SCH (09:00)
[2019-05-28] MEDS ORDERED: NON-FORMULARY MEDICATION 1 EACH EACH (Roflumilast [Daliresp] 500 MCG) PO SCH (09:00)
[2019-05-28] MEDS ORDERED: Tiotropium 18 MCG inhalation IH SCH (10:00)
[2019-05-28] MEDS ORDERED: Budesonide/Formoterol 160/4.5 1 PUFF INH IH SCH (10:00)
[2019-05-28 10:50] VITALS: BP 116/68
== END 2019-05-28 15:26 | disposition home or self-care (01) ==
LOC: 3BNU 16:09 → EMEROOARM 16:09 → SUATTDRO 20:15 → 3BNU 20:19
PROVIDERS: ADMIT Student in an Organized Health Care Education/Training Program; ATTEND Internal Medicine

== ENCOUNTER 2019-10-01 11:04 | Observation (INO) ==
[2019-10-01] MEDS ORDERED: Aspirin 81 MG TAB.CHEW PO ONE (11:36)
[2019-10-01 12:19] LABS: INR 0.9; Prothrombin Time 10.7 Seconds (9.4-12.1)
[2019-10-01 12:20] LABS: Basophils % 0.6 %; Eosinophils # 0.2 K/mcL (0.0-0.6); Hemoglobin 12.8 g/dL (12.9-16.9); Immature Granulocytes % 0.6 % (0-4); Lymphocytes # 1.8 K/mcL (0.6-4.6); Lymphocytes % 35.8 %; Mean Corpuscular HGB Conc 31.2 g/dL (31.6-35.5); Mean Corpuscular Hemoglobin 29.2 pg (28.0-33.3); Mean Corpuscular Volume 93.4 fL (83.0-100.0); Mean Platelet Volume 10.7 fL (9.4-12.4); Monocytes # 0.5 K/mcL (0.0-1.3); Monocytes % 9.1 %; Neutrophils # 2.5 K/mcL (1.6-8.9); Platelet Count 186 K/mcL (140-400); Red Blood Count 4.39 M/mcL (4.19-5.50); Red Cell Distribution Width 15.2 % (11.5-14.5); Segmented Neutrophils % 50.9 %
[2019-10-01 12:22] LABS: Activated Partial Thrombo Time 28.8 Seconds (26.0-36.0)
[2019-10-01 12:34] LABS: Alanine Aminotransferase 15 Units/L (7-52); Albumin 3.5 g/dL (3.5-5.7); Albumin/Globulin Ratio 1.3 (1.1-2.2); Alkaline Phosphatase 58 Units/L (34-104); Aspartate Amino Transferase 19 Units/L (13-39); BUN/Creatinine Ratio 19 (6-26); Bilirubin,Total 0.3 mg/dL (0.3-1.0); Blood Urea Nitrogen 25 mg/dL (8-23); Calcium 8.4 mg/dL (8.6-10.3); Carbon Dioxide 23 mEq/L (23-29); Chloride 106 mEq/L (98-107); Globulin 2.8 g/dL (2.4-3.5); Glucose 123 mg/dL (70-105); Magnesium 2.3 mg/dL (1.6-2.6); Osmolality,Calculated 292 (280-300); Potassium 3.5 mEq/L (3.5-5.1); Sodium 138 mEq/L (136-145); Total Protein 6.3 g/dL (6.4-8.9); Troponin I < 0.03 ng/mL (< 0.04); eGFR For African Americans > 60 (> 60); eGFR For Non-African Americans 51 (> 60)
[2019-10-01 12:51] LABS: Bilirubin,Urine Negative (Negative); Blood,Urine Negative (Negative); Clarity,Urine Clear (Clear); Color,Urine Light-Yellow (Yellow); Glucose,Urine (UA) Normal (Normal); Ketones,Urine Negative (Negative); Leukocyte Esterase,Urine Negative (Negative); Nitrite,Urine Negative (Negative); Protein,Urine Negative (Neg-Trace); Specific Gravity,Urine 1.014 (1.010-1.025); Urobilinogen,Urine Normal (Normal)
[2019-10-01] MEDS ORDERED: Naloxone 0.4 MG/ML INJ IVP PRN (13:42)
[2019-10-01 14:06] LABS: Chol/HDL Ratio 5.4 (0-4.9); Cholesterol 231 mg/dL (< 200); HDL Cholesterol 43 mg/dL (40-59); LDL Cholesterol,Calculated 134 mg/dL (0-99); Triglycerides 270 mg/dL (< 150)
[2019-10-01] MEDS ORDERED: GuaiFENesin Liq 200 MG/10 ML UDC PO PRN (14:23)
[2019-10-01] MEDS ORDERED: Furosemide 20 MG/2 ML VIAL IVP ONE (14:24)
[2019-10-01] MEDS ORDERED: Furosemide 40 MG/4 ML VIAL IVP ONE (14:24)
[2019-10-01] MEDS: Ipratropium/Albuterol Neb 3 ML IH SCH ×4 (15:19→23:32)
[2019-10-01] MEDS: Benzonatate 100 MG CAPSULE PO SCH ×2 (16:18→21:31)
[2019-10-01] MEDS: carvediloL 6.25 MG TABLET PO SCH (16:18)
[2019-10-01] MEDS: *HR* Heparin 5,000 UNIT/ML VIAL SQ SCH (16:19)
[2019-10-01 18:09] LABS: Estimated Average Glucose 148 mg/dl
[2019-10-01] MEDS: lisinopriL 10 MG TABLET PO SCH (21:31)
[2019-10-01] MEDS: allopurinoL 100 MG TABLET PO SCH (21:31)
[2019-10-02 01:35] LABS: Calcium 8.9 mg/dL (8.6-10.3); Magnesium 2.2 mg/dL (1.6-2.6); Phosphorous 4.4 mg/dL (2.7-4.5); Potassium 3.5 mEq/L (3.5-5.1)
[2019-10-02] MEDS: Ipratropium/Albuterol Neb 3 ML IH SCH ×3 (03:25→11:21)
[2019-10-02] MEDS: *HR* Heparin 5,000 UNIT/ML VIAL SQ SCH (05:21)
[2019-10-02] MEDS: lisinopriL 10 MG TABLET PO SCH (08:35)
[2019-10-02] MEDS: Benzonatate 100 MG CAPSULE PO SCH (08:35)
[2019-10-02] MEDS: allopurinoL 100 MG TABLET PO SCH (08:36)
[2019-10-02] MEDS: carvediloL 6.25 MG TABLET PO SCH (08:36)
[2019-10-02] MEDS ORDERED: NON-FORMULARY MEDICATION 1 EACH EACH (Umeclidinium Bromide [Incruse Ellipta] 1 PUFF) IH SCH (09:00)
[2019-10-02] MEDS ORDERED: Fluticasone Propionate Nasal 50 MCG/SPRAY BOTTLE NS SCH (09:00)
[2019-10-02] MEDS ORDERED: NON-FORMULARY MEDICATION 1 EACH EACH (Roflumilast [Daliresp] 500 MCG) PO SCH (09:00)
[2019-10-02] MEDS ORDERED: Aspirin Enteric Coated 81 MG Tablet PO SCH (09:00)
[2019-10-02] MEDS ORDERED: Budesonide/Formoterol 160/4.5 1 PUFF INH IH SCH (10:00)
[2019-10-02 11:12] VITALS: BP 103/62
== END 2019-10-02 12:25 | disposition home or self-care (01) ==
LOC: 3BNU 11:04 → EMEROOARM 11:04 → 3BNU 15:44
PROVIDERS: ADMIT Pharmacist; ATTEND Pharmacist

== ENCOUNTER 2019-11-30 20:35 | Inpatient (IN) ==
[2019-11-30] MEDS ORDERED: Naloxone 0.4 MG/ML INJ IVP PRN (21:18)
[2019-11-30 22:11] LABS: Bilirubin,Urine Negative (Negative); Blood,Urine Negative (Negative); Clarity,Urine Clear (Clear); Color,Urine Light-Yellow (Yellow); Glucose,Urine (UA) Normal (Normal); Ketones,Urine Negative (Negative); Leukocyte Esterase,Urine Negative (Negative); Nitrite,Urine Negative (Negative); PH,Urine 6.5 pH Units (5.0-8.0); Protein,Urine Trace mg/dL (Neg-Trace); Urobilinogen,Urine Normal (Normal)
[2019-11-30 22:23] LABS: Basophils % 0.4 %; Eosinophils # 0.1 K/mcL (0.0-0.6); Eosinophils % 1.3 %; Hematocrit 44.1 % (37.5-50.1); Hemoglobin 14.1 g/dL (12.9-16.9); Immature Granulocytes % 1.2 % (0-4); Lymphocytes # 2.4 K/mcL (0.6-4.6); Lymphocytes % 24.9 %; Mean Corpuscular Hemoglobin 29.5 pg (28.0-33.3); Mean Corpuscular Volume 92.3 fL (83.0-100.0); Mean Platelet Volume 10.3 fL (9.4-12.4); Monocytes # 0.8 K/mcL (0.0-1.3); Monocytes % 8.4 %; Neutrophils # 6.2 K/mcL (1.6-8.9); Platelet Count 185 K/mcL (140-400); Red Blood Count 4.78 M/mcL (4.19-5.50); Red Cell Distribution Width 15.6 % (11.5-14.5); Segmented Neutrophils % 63.8 %; White Blood Count 9.7 K/mcL (4.3-11.1)
[2019-11-30 22:24] LABS: Prothrombin Time 10.8 Seconds (9.4-12.1)
[2019-11-30 22:48] LABS: Alanine Aminotransferase 22 Units/L (7-52); Albumin 3.9 g/dL (3.5-5.7); Albumin/Globulin Ratio 1.4 (1.1-2.2); Alkaline Phosphatase 49 Units/L (34-104); Aspartate Amino Transferase 24 Units/L (13-39); BUN/Creatinine Ratio 27 (6-26); Bilirubin,Total 0.5 mg/dL (0.3-1.0); Blood Urea Nitrogen 37 mg/dL (8-23); Calcium 9.2 mg/dL (8.6-10.3); Carbon Dioxide 21 mEq/L (23-29); Chloride 103 mEq/L (98-107); Globulin 2.8 g/dL (2.4-3.5); Glucose 105 mg/dL (70-105); Magnesium 2.2 mg/dL (1.6-2.6); Osmolality,Calculated 287 (280-300); Potassium 4.5 mEq/L (3.5-5.1); Sodium 134 mEq/L (136-145); Total Protein 6.7 g/dL (6.4-8.9); Troponin I 0.08 ng/mL (< 0.04); eGFR For African Americans > 60 (> 60); eGFR For Non-African Americans 50 (> 60)
[2019-11-30] MEDS ORDERED: Melatonin 3 MG TABLET PO PRN (23:33)
[2019-11-30] MEDS ORDERED: Albuterol 2.5 MG/3 ML NEBULIZER IH PRN (23:34)
[2019-12-01 04:12] LABS: Magnesium 2.2 mg/dL (1.6-2.6); Phosphorous 3.2 mg/dL (2.7-4.5)
[2019-12-01] MEDS: Aspirin 81 MG TAB.CHEW PO SCH (09:35)
[2019-12-01] MEDS: Furosemide 20 MG TABLET PO SCH (09:35)
[2019-12-01] MEDS ORDERED: GuaiFENesin Liq 200 MG/10 ML UDC PO PRN (11:07)
[2019-12-01] MEDS ORDERED: Albuterol 2.5 MG/3 ML NEBULIZER IH PRN (11:07)
[2019-12-01] MEDS ORDERED: Perflutren Lipid Microsphere 1.3 ML in 0.9 % Sodium Chloride 8.7 ML IVP PRN (12:15)
[2019-12-01] MEDS ORDERED: Aspirin Enteric Coated 81 MG Tablet PO SCH (12:30)
[2019-12-01] MEDS: Fluticasone Propionate Nasal 50 MCG/SPRAY BOTTLE NS SCH (12:32)
[2019-12-01] MEDS: Tiotropium 18 MCG inhalation IH SCH (14:37)
[2019-12-01] MEDS: Budesonide/Formoterol 160/4.5 1 PUFF INH IH SCH ×2 (14:37→20:09)
[2019-12-01] MEDS: *HR* Heparin 5,000 UNIT/ML VIAL SQ SCH ×2 (16:20→21:48)
[2019-12-01] MEDS: Acetaminophen 325 MG TABLET PO PRN (20:01)
[2019-12-01] MEDS ORDERED: predniSONE 20 MG TABLET PO ONE (21:00)
[2019-12-02 05:27] LABS: Basophils % 0.2 %; Eosinophils % 0.4 %; Hematocrit 44.7 % (37.5-50.1); Hemoglobin 13.9 g/dL (12.9-16.9); Immature Granulocytes % 0.9 % (0-4); Lymphocytes # 1.2 K/mcL (0.6-4.6); Lymphocytes % 21.1 %; Mean Corpuscular HGB Conc 31.1 g/dL (31.6-35.5); Mean Corpuscular Hemoglobin 28.8 pg (28.0-33.3); Mean Corpuscular Volume 92.7 fL (83.0-100.0); Mean Platelet Volume 10.6 fL (9.4-12.4); Monocytes # 0.1 K/mcL (0.0-1.3); Monocytes % 1.4 %; Neutrophils # 4.2 K/mcL (1.6-8.9); Platelet Count 181 K/mcL (140-400); Red Blood Count 4.82 M/mcL (4.19-5.50); Red Cell Distribution Width 15.4 % (11.5-14.5); White Blood Count 5.6 K/mcL (4.3-11.1)
[2019-12-02] MEDS: *HR* Heparin 5,000 UNIT/ML VIAL SQ SCH ×3 (06:24→20:45)
[2019-12-02 07:01] LABS: BUN/Creatinine Ratio 22 (6-26); Blood Urea Nitrogen 29 mg/dL (8-23); Calcium 9.5 mg/dL (8.6-10.3); Carbon Dioxide 21 mEq/L (23-29); Chloride 102 mEq/L (98-107); Glucose 170 mg/dL (70-105); Magnesium 2.3 mg/dL (1.6-2.6); Osmolality,Calculated 288 (280-300); Phosphorous 3.8 mg/dL (2.7-4.5); Potassium 4.7 mEq/L (3.5-5.1); Sodium 134 mEq/L (136-145); eGFR For African Americans > 60 (> 60); eGFR For Non-African Americans 54 (> 60)
[2019-12-02] MEDS ORDERED: predniSONE 20 MG TABLET PO ONE ×2 (09:00→16:45)
[2019-12-02] MEDS: Fluticasone Propionate Nasal 50 MCG/SPRAY BOTTLE NS SCH (09:49)
[2019-12-02] MEDS: Budesonide/Formoterol 160/4.5 1 PUFF INH IH SCH ×2 (10:48→20:06)
[2019-12-02] MEDS: Tiotropium 18 MCG inhalation IH SCH (10:49)
[2019-12-02] MEDS ORDERED: 0.9 % Sodium Chloride 500 ML ONE (11:26)
[2019-12-02] MEDS ORDERED: Clindamycin 600 MG/50 ML 1,200 MG/100 ML IV.SOLN IVPB ONE (11:27)
[2019-12-02] MEDS ORDERED: *HR* Midazolam HCl 5 MG/5 ML VIAL IVP ONE (12:10)
[2019-12-02] MEDS ORDERED: *HR* FentaNYL (PF) 100 MCG/2 ML VIAL ONE (12:10)
[2019-12-02] MEDS ORDERED: 0.9 % Sodium Chloride 1,000 ML ONE (12:13)
[2019-12-02] MEDS: Aspirin 81 MG TAB.CHEW PO SCH (15:49)
[2019-12-02] MEDS: Furosemide 20 MG TABLET PO SCH (15:49)
[2019-12-02] MEDS: Acetaminophen 325 MG TABLET PO PRN (17:14)
[2019-12-02] MEDS ORDERED: *HR* Acetaminophen w/Cod 300-30 mg 1 TAB TABLET PO ONE (20:23)
[2019-12-03] MEDS ORDERED: *HR* Acetaminophen w/Cod 300-30 mg 1 TAB TABLET PO ONE (02:30)
[2019-12-03 05:26] LABS: Basophils % 0.1 %; Eosinophils % 0.1 %; Hematocrit 44.8 % (37.5-50.1); Hemoglobin 13.8 g/dL (12.9-16.9); Immature Granulocytes % 0.4 % (0-4); Lymphocytes # 1.6 K/mcL (0.6-4.6); Lymphocytes % 17.7 %; Mean Corpuscular HGB Conc 30.8 g/dL (31.6-35.5); Mean Corpuscular Hemoglobin 28.9 pg (28.0-33.3); Mean Corpuscular Volume 93.9 fL (83.0-100.0); Mean Platelet Volume 10.8 fL (9.4-12.4); Monocytes # 0.7 K/mcL (0.0-1.3); Monocytes % 7.3 %; Neutrophils # 6.7 K/mcL (1.6-8.9); Platelet Count 165 K/mcL (140-400); Red Blood Count 4.77 M/mcL (4.19-5.50); Red Cell Distribution Width 15.3 % (11.5-14.5); Segmented Neutrophils % 74.4 %
[2019-12-03 06:02] LABS: Calcium 9.1 mg/dL (8.6-10.3); Magnesium 2.3 mg/dL (1.6-2.6); Phosphorous 3.4 mg/dL (2.7-4.5); Potassium 5.1 mEq/L (3.5-5.1)
[2019-12-03] MEDS: *HR* Heparin 5,000 UNIT/ML VIAL SQ SCH (06:11)
[2019-12-03] MEDS: Furosemide 20 MG TABLET PO SCH (07:52)
[2019-12-03] MEDS: Aspirin 81 MG TAB.CHEW PO SCH (07:52)
[2019-12-03] MEDS: Fluticasone Propionate Nasal 50 MCG/SPRAY BOTTLE NS SCH (07:57)
[2019-12-03] MEDS ORDERED: predniSONE 20 MG TABLET PO SCH (09:00)
[2019-12-03] MEDS ORDERED: carvediloL 6.25 MG TABLET PO SCH (09:30)
[2019-12-03] MEDS: Budesonide/Formoterol 160/4.5 1 PUFF INH IH SCH (10:07)
[2019-12-03] MEDS: Tiotropium 18 MCG inhalation IH SCH (10:08)
[2019-12-03 13:06] VITALS: BP 127/81
== END 2019-12-03 12:26 | disposition home or self-care (01) | DRG 243 ==
LOC: ICNU
PROVIDERS: ADMIT Family Medicine; ATTEND Family Medicine

== ENCOUNTER 2020-01-03 18:53 | Observation (INO) ==
[2020-01-03] MEDS ORDERED: Nitroglycerin 0.4 MG TAB.SUBL SL PRN (19:19)
[2020-01-03] MEDS ORDERED: Ipratropium/Albuterol Neb 3 ML IH ONE (19:19)
[2020-01-03 19:31] LABS: Basophils # 0.1 K/mcL (0.0-0.2); Basophils % 1.1 %; Eosinophils # 0.2 K/mcL (0.0-0.6); Eosinophils % 2.4 %; Hematocrit 45.4 % (37.5-50.1); Hemoglobin 14.4 g/dL (12.9-16.9); Immature Granulocytes % 0.5 % (0-4); Lymphocytes # 2.5 K/mcL (0.6-4.6); Lymphocytes % 38.1 %; Mean Corpuscular HGB Conc 31.7 g/dL (31.6-35.5); Mean Corpuscular Hemoglobin 30.6 pg (28.0-33.3); Mean Corpuscular Volume 96.6 fL (83.0-100.0); Mean Platelet Volume 10.6 fL (9.4-12.4); Monocytes # 0.5 K/mcL (0.0-1.3); Monocytes % 7.3 %; Neutrophils # 3.3 K/mcL (1.6-8.9); Platelet Count 240 K/mcL (140-400); Red Cell Distribution Width 14.7 % (11.5-14.5); Segmented Neutrophils % 50.6 %; White Blood Count 6.6 K/mcL (4.3-11.1)
[2020-01-03 19:35] LABS: Activated Partial Thrombo Time 31.4 Seconds (26.0-36.0)
[2020-01-03 19:41] LABS: BUN/Creatinine Ratio 17 (6-26); Blood Urea Nitrogen 28 mg/dL (8-23); Calcium 9.3 mg/dL (8.6-10.3); Carbon Dioxide 27 mEq/L (23-29); Chloride 103 mEq/L (98-107); Glucose 140 mg/dL (70-105); Osmolality,Calculated 294 (280-300); Potassium 4.1 mEq/L (3.5-5.1); Sodium 138 mEq/L (136-145); eGFR For African Americans 49 (> 60); eGFR For Non-African Americans 41 (> 60)
[2020-01-03 19:42] LABS: Troponin I < 0.03 ng/mL (< 0.04)
[2020-01-03] MEDS ORDERED: Naloxone 0.4 MG/ML INJ IVP PRN (20:51)
[2020-01-03] MEDS ORDERED: GuaiFENesin Liq 200 MG/10 ML UDC PO PRN (23:54)
[2020-01-04] MEDS ORDERED: *HR* Heparin 5,000 UNIT/ML VIAL SQ SCH (06:00)
[2020-01-04 07:08] LABS: Hematocrit 41.3 % (37.5-50.1); Mean Corpuscular HGB Conc 31.5 g/dL (31.6-35.5); Mean Corpuscular Hemoglobin 29.9 pg (28.0-33.3); Mean Corpuscular Volume 94.9 fL (83.0-100.0); Mean Platelet Volume 10.5 fL (9.4-12.4); Platelet Count 185 K/mcL (140-400); Red Blood Count 4.35 M/mcL (4.19-5.50); Red Cell Distribution Width 14.6 % (11.5-14.5); White Blood Count 5.5 K/mcL (4.3-11.1)
[2020-01-04 07:34] LABS: Alanine Aminotransferase 16 Units/L (7-52); Albumin 3.6 g/dL (3.5-5.7); Albumin/Globulin Ratio 1.4 (1.1-2.2); Alkaline Phosphatase 43 Units/L (34-104); Aspartate Amino Transferase 21 Units/L (13-39); BUN/Creatinine Ratio 20 (6-26); Bilirubin,Total 0.5 mg/dL (0.3-1.0); Blood Urea Nitrogen 27 mg/dL (8-23); Carbon Dioxide 27 mEq/L (23-29); Chloride 106 mEq/L (98-107); Globulin 2.6 g/dL (2.4-3.5); Glucose 92 mg/dL (70-105); Magnesium 2.1 mg/dL (1.6-2.6); Osmolality,Calculated 295 (280-300); Phosphorous 4.6 mg/dL (2.7-4.5); Potassium 4.2 mEq/L (3.5-5.1); Sodium 140 mEq/L (136-145); Total Protein 6.2 g/dL (6.4-8.9); eGFR For African Americans > 60 (> 60); eGFR For Non-African Americans 51 (> 60)
[2020-01-04 07:35] LABS: Troponin I < 0.03 ng/mL (< 0.04)
[2020-01-04] MEDS ORDERED: carvediloL 6.25 MG TABLET PO SCH (08:00)
[2020-01-04 08:41] LABS: Estimated Average Glucose 131 mg/dl
[2020-01-04] MEDS ORDERED: Furosemide 20 MG TABLET PO SCH (09:00)
[2020-01-04] MEDS ORDERED: allopurinoL 100 MG TABLET PO SCH (09:00)
[2020-01-04] MEDS ORDERED: Aspirin Enteric Coated 81 MG Tablet PO SCH (09:00)
[2020-01-04 11:01] VITALS: BP 138/84
[2020-01-04] MEDS: Albuterol 2.5 MG/3 ML NEBULIZER IH SCH ×2 (11:14)
== END 2020-01-04 15:18 | disposition home or self-care (01) ==
LOC: EMEROOARM 18:53 → 3BNU 18:53
PROVIDERS: ADMIT Family Medicine; ATTEND Family Medicine

== ENCOUNTER 2020-07-02 12:08 | Observation (INO) ==
[2020-07-02] MEDS ORDERED: Ipratropium/Albuterol Neb 3 ML IH ONE (12:45)
[2020-07-02] MEDS ORDERED: methylPREDNISolone 125 MG/2 ML VIAL IVP ONE (12:45)
[2020-07-02] MEDS ORDERED: *HR* FentaNYL (PF) 100 MCG/2 ML VIAL IVP ONE (13:00)
[2020-07-02 13:12] LABS: Basophils # 0.1 K/mcL (0.0-0.2); Basophils % 0.7 %; Eosinophils # 0.2 K/mcL (0.0-0.6); Hematocrit 44.4 % (37.5-50.1); Hemoglobin 14.2 g/dL (12.9-16.9); Immature Granulocytes % 0.7 % (0-4); Lymphocytes % 26.5 %; Mean Corpuscular Hemoglobin 30.6 pg (28.0-33.3); Mean Corpuscular Volume 95.7 fL (83.0-100.0); Mean Platelet Volume 10.2 fL (9.4-12.4); Monocytes # 0.8 K/mcL (0.0-1.3); Neutrophils # 4.4 K/mcL (1.6-8.9); Platelet Count 238 K/mcL (140-400); Red Blood Count 4.64 M/mcL (4.19-5.50); Red Cell Distribution Width 14.3 % (11.5-14.5); Segmented Neutrophils % 58.1 %; White Blood Count 7.6 K/mcL (4.3-11.1)
[2020-07-02] MEDS ORDERED: Aspirin 81 MG TAB.CHEW PO ONE (13:17)
[2020-07-02 13:31] LABS: Alanine Aminotransferase 18 Units/L (7-52); Albumin/Globulin Ratio 1.4 (1.1-2.2); Alkaline Phosphatase 44 Units/L (34-104); Aspartate Amino Transferase 21 Units/L (13-39); BUN/Creatinine Ratio 20 (6-26); Bilirubin,Total 0.5 mg/dL (0.3-1.0); Blood Urea Nitrogen 27 mg/dL (8-23); Calcium 9.6 mg/dL (8.6-10.3); Carbon Dioxide 24 mEq/L (23-29); Chloride 103 mEq/L (98-107); Globulin 2.8 g/dL (2.4-3.5); Glucose 80 mg/dL (70-105); Osmolality,Calculated 288 (280-300); Potassium 4.5 mEq/L (3.5-5.1); Sodium 137 mEq/L (136-145); Total Protein 6.8 g/dL (6.4-8.9); Troponin I < 0.03 ng/mL (< 0.04); eGFR For African Americans > 60 (> 60); eGFR For Non-African Americans 52 (> 60)
[2020-07-02] MEDS ORDERED: Azithromycin 500 MG in 0.9 % Sodium Chloride 250 ML IVPB ONE (13:54)
[2020-07-02 14:00] LABS: Adenovirus Not Detected (Not Detect); Bordetella Pertussis Not Detected (Not Detect); Chlamydophila pneumoniae Not Detected (Not Detect); Coronavirus 229E Not Detected (Not Detect); Coronavirus HKU1 Not Detected (Not Detect); Coronavirus NL63 Not Detected (Not Detect); Coronavirus OC43 Not Detected (Not Detect); Human Metapneumovirus Not Detected (Not Detect); Human Rhinovirus/Enterovirus Not Detected (Not Detect); Influenza A Subtype 2009 H1 Not Detected (Not Detect); Influenza B Not Detected (Not Detect); Mycoplasma pneumoniae Not Detected (Not Detect); Parainfluenza Virus 1 Not Detected (Not Detect); Parainfluenza Virus 2 Not Detected (Not Detect); Parainfluenza Virus 3 Not Detected (Not Detect); Parainfluenza Virus 4 Not Detected (Not Detect); Respiratory Syncytial Virus Not Detected (Not Detect); SARS-CoV-2 Not Detected (Not Detect)
[2020-07-02] MEDS ORDERED: Benzonatate 100 MG CAPSULE PO PRN (14:44)
[2020-07-02] MEDS ORDERED: Acetaminophen 325 MG TABLET PO PRN (14:47)
[2020-07-02] MEDS ORDERED: Melatonin 3 MG TABLET PO PRN (14:47)
[2020-07-02] MEDS ORDERED: Naloxone 0.4 MG/ML INJ IVP PRN (14:47)
[2020-07-02] MEDS ORDERED: Nitroglycerin 0.4 MG TAB.SUBL SL PRN (15:35)
[2020-07-02] MEDS: Albuterol 2.5 MG/3 ML NEBULIZER IH SCH ×2 (15:53→19:50)
[2020-07-02] MEDS: Isosorbide MONOnitrate (24 HR) 30 MG TAB.ER.24H PO SCH (16:13)
[2020-07-02] MEDS: carvediloL 6.25 MG TABLET PO SCH (16:14)
[2020-07-02] MEDS: Budesonide/Formoterol 160/4.5 1 PUFF INH IH SCH (19:50)
[2020-07-02] MEDS: allopurinoL 100 MG TABLET PO SCH (20:15)
[2020-07-02] MEDS: lisinopriL 10 MG TABLET PO SCH (23:04)
[2020-07-03] MEDS: Albuterol 2.5 MG/3 ML NEBULIZER IH SCH ×4 (00:25→11:27)
[2020-07-03 00:36] LABS: Basophils % 0.1 %; Hemoglobin 12.7 g/dL (12.9-16.9); Immature Granulocytes % 0.7 % (0-4); Lymphocytes # 1.1 K/mcL (0.6-4.6); Lymphocytes % 15.4 %; Mean Corpuscular HGB Conc 31.8 g/dL (31.6-35.5); Mean Corpuscular Hemoglobin 29.9 pg (28.0-33.3); Mean Corpuscular Volume 94.1 fL (83.0-100.0); Mean Platelet Volume 10.5 fL (9.4-12.4); Monocytes # 0.1 K/mcL (0.0-1.3); Monocytes % 1.5 %; Neutrophils # 5.7 K/mcL (1.6-8.9); Platelet Count 203 K/mcL (140-400); Red Blood Count 4.25 M/mcL (4.19-5.50); Red Cell Distribution Width 14.1 % (11.5-14.5); Segmented Neutrophils % 82.3 %; White Blood Count 6.9 K/mcL (4.3-11.1)
[2020-07-03 00:56] LABS: Calcium 8.9 mg/dL (8.6-10.3); Chol/HDL Ratio 3.8 (0-4.9); Potassium 4.7 mEq/L (3.5-5.1)
[2020-07-03 07:14] VITALS: BP 114/63
[2020-07-03] MEDS: Budesonide/Formoterol 160/4.5 1 PUFF INH IH SCH (07:27)
[2020-07-03] MEDS ORDERED: Aspirin Enteric Coated 81 MG Tablet PO SCH (09:00)
[2020-07-03] MEDS ORDERED: Fluticasone Propionate Nasal 50 MCG/SPRAY BOTTLE NS SCH (09:00)
[2020-07-03] MEDS ORDERED: predniSONE 20 MG TABLET PO SCH (09:00)
[2020-07-03] MEDS ORDERED: Azithromycin 250 MG TABLET PO SCH (09:00)
[2020-07-03] MEDS ORDERED: Furosemide 20 MG TABLET PO SCH (09:00)
[2020-07-03] MEDS ORDERED: Tiotropium 10 INH DOSE IH SCH (10:00)
[2020-07-03] MEDS: carvediloL 6.25 MG TABLET PO SCH (10:49)
[2020-07-03] MEDS: allopurinoL 100 MG TABLET PO SCH (10:49)
[2020-07-03] MEDS: Isosorbide MONOnitrate (24 HR) 30 MG TAB.ER.24H PO SCH (10:49)
[2020-07-03] MEDS: lisinopriL 10 MG TABLET PO SCH (10:49)
== END 2020-07-03 12:19 | disposition home or self-care (01) ==
LOC: 3BNU 12:08 → EMEROOARM 12:08 → 3BNU 15:46
PROVIDERS: ADMIT Internal Medicine; ATTEND Internal Medicine

== ENCOUNTER 2020-09-11 02:35 | Observation (INO) ==
[2020-09-11 03:17] LABS: Basophils % 0.9 %; Eosinophils # 0.1 K/mcL (0.0-0.6); Eosinophils % 1.8 %; Hematocrit 40.9 % (37.5-50.1); Hemoglobin 12.9 g/dL (12.9-16.9); Immature Granulocytes % 2.5 % (0-4); Lymphocytes # 0.6 K/mcL (0.6-4.6); Lymphocytes % 13.7 %; Mean Corpuscular HGB Conc 31.5 g/dL (31.6-35.5); Mean Corpuscular Hemoglobin 29.4 pg (28.0-33.3); Mean Corpuscular Volume 93.2 fL (83.0-100.0); Mean Platelet Volume 9.8 fL (9.4-12.4); Monocytes # 0.4 K/mcL (0.0-1.3); Neutrophils # 3.1 K/mcL (1.6-8.9); Platelet Count 218 K/mcL (140-400); Red Blood Count 4.39 M/mcL (4.19-5.50); Red Cell Distribution Width 14.2 % (11.5-14.5); Segmented Neutrophils % 71.1 %; White Blood Count 4.4 K/mcL (4.3-11.1)
[2020-09-11 03:25] LABS: INR 1.1; Prothrombin Time 12.5 Seconds (9.4-12.1)
[2020-09-11 03:28] LABS: Albumin 4.1 g/dL (3.5-5.7); Albumin/Globulin Ratio 1.3 (1.1-2.2); Bilirubin,Direct 0.1 mg/dL (0.0-0.2); Bilirubin,Indirect 0.4 mg/dL (0.0-1.0); Bilirubin,Total 0.5 mg/dL (0.3-1.0); Calcium 9.3 mg/dL (8.6-10.3); Globulin 3.2 g/dL (2.4-3.5); Potassium 3.8 mEq/L (3.5-5.1); Total Protein 7.3 g/dL (6.4-8.9); Troponin I 0.03 ng/mL (< 0.04)
[2020-09-11] MEDS ORDERED: Ondansetron 4 MG/2 ML VIAL IVP ONE (03:50)
[2020-09-11] MEDS ORDERED: Aspirin 81 MG TAB.CHEW PO ONE (04:28)
[2020-09-11] MEDS ORDERED: Ipratropium/Albuterol Neb 3 ML IH ONE (04:44)
[2020-09-11] MEDS ORDERED: Aspirin 81 MG TAB.CHEW ONE (05:26)
[2020-09-11] MEDS ORDERED: Isovue-370 500 ML BOTTLE IVP ONE (05:36)
[2020-09-11] MEDS ORDERED: predniSONE 20 MG TABLET PO ONE (05:39)
[2020-09-11] MEDS ORDERED: Ondansetron 4 MG/2 ML VIAL IVP PRN (09:47)
[2020-09-11] MEDS ORDERED: Naloxone 0.4 MG/ML INJ IVP PRN (09:47)
[2020-09-11 13:43] LABS: Adenovirus Not Detected (Not Detect); Coronavirus 229E Not Detected (Not Detect); Coronavirus HKU1 Not Detected (Not Detect); Coronavirus NL63 Not Detected (Not Detect); Coronavirus OC43 Not Detected (Not Detect); SARS-CoV-2 Not Detected (Not Detect)
[2020-09-11 13:44] LABS: Bordetella Pertussis Not Detected (Not Detect); Chlamydophila pneumoniae Not Detected (Not Detect); Human Metapneumovirus Not Detected (Not Detect); Human Rhinovirus/Enterovirus Not Detected (Not Detect); Influenza A Subtype 2009 H1 Not Detected (Not Detect); Influenza B Not Detected (Not Detect); Mycoplasma pneumoniae Not Detected (Not Detect); Parainfluenza Virus 1 Not Detected (Not Detect); Parainfluenza Virus 2 Not Detected (Not Detect); Parainfluenza Virus 3 Not Detected (Not Detect); Parainfluenza Virus 4 Not Detected (Not Detect); Respiratory Syncytial Virus Not Detected (Not Detect)
[2020-09-11 13:58] LABS: Bilirubin,Urine Negative (Negative); Blood,Urine Negative (Negative); Clarity,Urine Clear (Clear); Color,Urine Light-Yellow (Yellow); Glucose,Urine (UA) Normal (Normal); Ketones,Urine Negative (Negative); Leukocyte Esterase,Urine Negative (Negative); Nitrite,Urine Negative (Negative); Protein,Urine Trace mg/dL (Neg-Trace); Specific Gravity,Urine > 1.030 (1.010-1.025); Urobilinogen,Urine Normal (Normal)
[2020-09-11] MEDS: Isosorbide MONOnitrate (24 HR) 30 MG TAB.ER.24H PO SCH (14:22)
[2020-09-11] MEDS: Acetaminophen 325 MG TABLET PO PRN (20:23)
[2020-09-11] MEDS: *HR* Heparin 5,000 UNIT/ML VIAL SQ SCH (20:24)
[2020-09-11] MEDS: carvediloL 6.25 MG TABLET PO SCH (20:24)
[2020-09-12 02:48] LABS: Calcium 9.1 mg/dL (8.6-10.3); Potassium 4.7 mEq/L (3.5-5.1)
[2020-09-12] MEDS: *HR* Heparin 5,000 UNIT/ML VIAL SQ SCH (05:57)
[2020-09-12] MEDS: carvediloL 6.25 MG TABLET PO SCH (09:42)
[2020-09-12] MEDS: Isosorbide MONOnitrate (24 HR) 30 MG TAB.ER.24H PO SCH (09:42)
[2020-09-12 10:32] VITALS: BP 123/65
[2020-09-12] MEDS: Acetaminophen 325 MG TABLET PO PRN (15:08)
== END 2020-09-12 16:47 | disposition home health service (06) ==
LOC: 2NENU 02:35 → EMEROOARM 02:35 → SUATTDRO 09:54 → 2NENU 11:50
PROVIDERS: ADMIT Internal Medicine; ATTEND Internal Medicine

== ENCOUNTER 2020-11-02 11:27 | Observation (INO) ==
[2020-11-02 12:56] LABS: Basophils % 0.1 %; Hematocrit 36.8 % (37.5-50.1); Hemoglobin 11.5 g/dL (12.9-16.9); Immature Granulocytes % 0.3 % (0-4); Lymphocytes # 1.6 K/mcL (0.6-4.6); Lymphocytes % 23.6 %; Mean Corpuscular HGB Conc 31.3 g/dL (31.6-35.5); Mean Corpuscular Volume 86.4 fL (83.0-100.0); Mean Platelet Volume 10.9 fL (9.4-12.4); Monocytes # 0.2 K/mcL (0.0-1.3); Monocytes % 3.2 %; Platelet Count 198 K/mcL (140-400); Red Blood Count 4.26 M/mcL (4.19-5.50); Red Cell Distribution Width 14.9 % (11.5-14.5); Segmented Neutrophils % 72.8 %; White Blood Count 6.9 K/mcL (4.3-11.1)
[2020-11-02 13:15] LABS: BUN/Creatinine Ratio 17 (6-26); Blood Urea Nitrogen 22 mg/dL (8-23); Calcium 9.1 mg/dL (8.6-10.3); Carbon Dioxide 19 mEq/L (23-29); Chloride 107 mEq/L (98-107); Glucose 88 mg/dL (70-105); Osmolality,Calculated 285 (280-300); Potassium 4.6 mEq/L (3.5-5.1); Sodium 136 mEq/L (136-145); Troponin I < 0.03 ng/mL (< 0.04); eGFR For African Americans > 60 (> 60); eGFR For Non-African Americans 55 (> 60)
[2020-11-02] MEDS ORDERED: Ipratropium/Albuterol Neb 3 ML IH ONE (15:12)
[2020-11-02] MEDS ORDERED: Ipratropium/Albuterol Neb 3 ML IH PRN (16:26)
[2020-11-02] MEDS ORDERED: Azithromycin 250 MG TABLET PO ONE (16:26)
[2020-11-02] MEDS ORDERED: Naloxone 0.4 MG/ML INJ IVP PRN (16:37)
[2020-11-02] MEDS ORDERED: Dextrose Gel 15 GM/37.5 ML TUBE PO PRN ×2 (16:37)
[2020-11-02] MEDS ORDERED: Ondansetron 4 MG/2 ML VIAL IVP PRN (16:37)
[2020-11-02] MEDS ORDERED: Acetaminophen 325 MG TABLET PO PRN (16:37)
[2020-11-02] MEDS ORDERED: *HR* Dextrose 50 % in Water (Vial) 50 ML VIAL IVP PRN (16:37)
[2020-11-02] MEDS ORDERED: D5% in Water 1,000 ML IVC PRN (16:37)
[2020-11-02] MEDS ORDERED: Melatonin 3 MG TABLET PO PRN (16:37)
[2020-11-02 18:26] LABS: Adenovirus Not Detected (Not Detect); Bordetella Pertussis Not Detected (Not Detect); Chlamydophila pneumoniae Not Detected (Not Detect); Coronavirus 229E Not Detected (Not Detect); Coronavirus HKU1 Not Detected (Not Detect); Coronavirus NL63 Not Detected (Not Detect); Coronavirus OC43 Not Detected (Not Detect); Human Metapneumovirus Not Detected (Not Detect); Human Rhinovirus/Enterovirus Not Detected (Not Detect); Influenza A Subtype 2009 H1 Not Detected (Not Detect); Influenza B Not Detected (Not Detect); Mycoplasma pneumoniae Not Detected (Not Detect); Parainfluenza Virus 1 Not Detected (Not Detect); Parainfluenza Virus 2 Not Detected (Not Detect); Parainfluenza Virus 3 Not Detected (Not Detect); Parainfluenza Virus 4 Not Detected (Not Detect); Respiratory Syncytial Virus Not Detected (Not Detect); SARS-CoV-2 Not Detected (Not Detect)
[2020-11-02] MEDS: carvediloL 6.25 MG TABLET PO SCH (18:49)
[2020-11-02] MEDS: Ipratropium/Albuterol Neb 3 ML IH SCH ×2 (19:46→23:12)
[2020-11-03 03:35] LABS: Hematocrit 36.6 % (37.5-50.1); Hemoglobin 11.1 g/dL (12.9-16.9); Mean Corpuscular HGB Conc 30.3 g/dL (31.6-35.5); Mean Corpuscular Hemoglobin 26.2 pg (28.0-33.3); Mean Corpuscular Volume 86.5 fL (83.0-100.0); Platelet Count 188 K/mcL (140-400); Red Blood Count 4.23 M/mcL (4.19-5.50); Red Cell Distribution Width 14.7 % (11.5-14.5); White Blood Count 5.6 K/mcL (4.3-11.1)
[2020-11-03] MEDS: Ipratropium/Albuterol Neb 3 ML IH SCH ×2 (03:56→07:09)
[2020-11-03 04:00] LABS: BUN/Creatinine Ratio 20 (6-26); Blood Urea Nitrogen 25 mg/dL (8-23); Calcium 9.3 mg/dL (8.6-10.3); Carbon Dioxide 20 mEq/L (23-29); Chloride 105 mEq/L (98-107); Glucose 174 mg/dL (70-105); Magnesium 2.2 mg/dL (1.6-2.6); Osmolality,Calculated 289 (280-300); Potassium 4.2 mEq/L (3.5-5.1); Sodium 135 mEq/L (136-145); eGFR For African Americans > 60 (> 60); eGFR For Non-African Americans 56 (> 60)
[2020-11-03] MEDS ORDERED: *HR* Enoxaparin 40 MG/0.4 ML SYRINGE SQ SCH (06:00)
[2020-11-03 06:57] VITALS: BP 148/82; PULSE 64; TEMP 97.6; O2SAT 100
[2020-11-03] MEDS: carvediloL 6.25 MG TABLET PO SCH (08:32)
[2020-11-03] MEDS ORDERED: Isosorbide MONOnitrate (24 HR) 30 MG TAB.ER.24H PO SCH (09:00)
[2020-11-03] MEDS ORDERED: (Roflumilast [Daliresp] 500 MCG Tablet) PO SCH (09:00)
[2020-11-03] MEDS ORDERED: predniSONE 20 MG TABLET PO SCH (09:00)
[2020-11-03] MEDS ORDERED: Aspirin Enteric Coated 81 MG Tablet PO SCH (09:00)
[2020-11-03] MEDS ORDERED: Azithromycin 250 MG TABLET PO SCH (09:00)
[2020-11-03] MEDS ORDERED: Budesonide/Formoterol 160/4.5 1 PUFF INH IH SCH (10:00)
[2020-11-03] MEDS ORDERED: Tiotropium 10 INH DOSE IH SCH (10:00)
== END 2020-11-03 11:16 | disposition home or self-care (01) ==
LOC: 2ANU 11:27 → EMEROOARM 11:27 → SUATTDRO 16:39 → 2ANU 18:00
PROVIDERS: ADMIT Internal Medicine; ATTEND Internal Medicine

== ENCOUNTER 2021-03-21 11:19 | Observation (INO) ==
[2021-03-21] MEDS ORDERED: levoFLOXacin 750 MG/150 ML 750 MG/150 ML BAG IVPB ONE (11:48)
[2021-03-21] MEDS ORDERED: Ipratropium/Albuterol Neb 3 ML IH ONE (11:48)
[2021-03-21] MEDS ORDERED: methylPREDNISolone 125 MG/2 ML VIAL IVP ONE (11:48)
[2021-03-21] MEDS ORDERED: Azithromycin 500 MG in 0.9 % Sodium Chloride 250 ML IVPB ONE (12:02)
[2021-03-21] MEDS ORDERED: cefTRIAXone 1,000 MG in 0.9 % Sodium Chloride Mini Bag 100 ML IVPB ONE (12:02)
[2021-03-21 12:25] LABS: Basophils % 0.3 %; Eosinophils # 0.1 K/mcL (0.0-0.6); Eosinophils % 1.2 %; Hematocrit 42.5 % (37.5-50.1); Hemoglobin 13.1 g/dL (12.9-16.9); Immature Granulocytes % 0.6 % (0-4); Lymphocytes # 1.9 K/mcL (0.6-4.6); Lymphocytes % 27.1 %; Mean Corpuscular HGB Conc 30.8 g/dL (31.6-35.5); Mean Corpuscular Hemoglobin 28.6 pg (28.0-33.3); Mean Corpuscular Volume 92.8 fL (83.0-100.0); Mean Platelet Volume 10.8 fL (9.4-12.4); Monocytes # 0.2 K/mcL (0.0-1.3); Monocytes % 3.5 %; Neutrophils # 4.6 K/mcL (1.6-8.9); Platelet Count 168 K/mcL (140-400); Red Blood Count 4.58 M/mcL (4.19-5.50); Red Cell Distribution Width 17.4 % (11.5-14.5); Segmented Neutrophils % 67.3 %; White Blood Count 6.8 K/mcL (4.3-11.1)
[2021-03-21 12:38] LABS: BUN/Creatinine Ratio 18 (6-26); Blood Urea Nitrogen 29 mg/dL (8-23); Calcium 9.2 mg/dL (8.6-10.3); Carbon Dioxide 25 mEq/L (23-29); Chloride 104 mEq/L (98-107); Glucose 143 mg/dL (70-105); Osmolality,Calculated 292 (280-300); Potassium 4.6 mEq/L (3.5-5.1); Sodium 137 mEq/L (136-145); Troponin I < 0.03 ng/mL (< 0.04); eGFR For African Americans 52 (> 60); eGFR For Non-African Americans 43 (> 60)
[2021-03-21] MEDS ORDERED: Ondansetron 4 MG/2 ML VIAL IVP PRN (15:07)
[2021-03-21] MEDS ORDERED: Melatonin 3 MG TABLET PO PRN (15:07)
[2021-03-21] MEDS ORDERED: Naloxone 0.4 MG/ML INJ IVP PRN (15:07)
[2021-03-21] MEDS: Albuterol 2.5 MG/3 ML NEBULIZER IH SCH ×3 (16:13→23:53)
[2021-03-21] MEDS: *HR* Heparin 5,000 UNIT/ML VIAL SQ SCH (17:15)
[2021-03-21] MEDS: MethylPREDNISolone 40 MG/ML VIAL IVP SCH ×2 (17:16→23:23)
[2021-03-21] MEDS: lisinopriL 10 MG TABLET PO SCH (23:23)
[2021-03-22 02:47] LABS: Hematocrit 37.3 % (37.5-50.1); Hemoglobin 11.7 g/dL (12.9-16.9); Immature Granulocytes % 0.8 % (0-4); Lymphocytes # 1.2 K/mcL (0.6-4.6); Lymphocytes % 24.9 %; Mean Corpuscular HGB Conc 31.4 g/dL (31.6-35.5); Mean Corpuscular Hemoglobin 28.7 pg (28.0-33.3); Mean Corpuscular Volume 91.4 fL (83.0-100.0); Mean Platelet Volume 10.8 fL (9.4-12.4); Monocytes # 0.1 K/mcL (0.0-1.3); Neutrophils # 3.5 K/mcL (1.6-8.9); Platelet Count 147 K/mcL (140-400); Red Blood Count 4.08 M/mcL (4.19-5.50); Red Cell Distribution Width 16.8 % (11.5-14.5); Segmented Neutrophils % 73.3 %; White Blood Count 4.8 K/mcL (4.3-11.1)
[2021-03-22 02:58] LABS: Calcium 8.7 mg/dL (8.6-10.3); Potassium 4.7 mEq/L (3.5-5.1)
[2021-03-22] MEDS: Albuterol 2.5 MG/3 ML NEBULIZER IH SCH ×6 (03:55→23:54)
[2021-03-22] MEDS: *HR* Heparin 5,000 UNIT/ML VIAL SQ SCH ×2 (05:18→17:20)
[2021-03-22] MEDS: MethylPREDNISolone 40 MG/ML VIAL IVP SCH ×3 (05:18→23:40)
[2021-03-22] MEDS: carvediloL 6.25 MG TABLET PO SCH ×2 (08:02→17:19)
[2021-03-22] MEDS: lisinopriL 10 MG TABLET PO SCH ×2 (08:02→19:46)
[2021-03-22] MEDS ORDERED: NON-FORMULARY MEDICATION 1 EACH EACH (Albuterol Sulfate 8.5 GM Hfa.Aer.Ad) IH PRN (10:56)
[2021-03-22] MEDS: Budesonide/Formoterol 160/4.5 1 PUFF INH IH SCH ×2 (11:59→19:54)
[2021-03-22] MEDS: Aspirin Enteric Coated 81 MG Tablet PO SCH (12:22)
[2021-03-22] MEDS: allopurinoL 100 MG TABLET PO SCH (12:22)
[2021-03-22] MEDS: Azithromycin 250 MG TABLET PO SCH (12:22)
[2021-03-22] MEDS: Furosemide 20 MG TABLET PO SCH (12:22)
[2021-03-23 02:24] LABS: Basophils % 0.1 %; Hematocrit 38.3 % (37.5-50.1); Hemoglobin 11.7 g/dL (12.9-16.9); Immature Granulocytes % 0.5 % (0-4); Lymphocytes # 1.4 K/mcL (0.6-4.6); Mean Corpuscular HGB Conc 30.5 g/dL (31.6-35.5); Mean Corpuscular Hemoglobin 28.3 pg (28.0-33.3); Mean Corpuscular Volume 92.5 fL (83.0-100.0); Mean Platelet Volume 11.1 fL (9.4-12.4); Monocytes # 0.4 K/mcL (0.0-1.3); Monocytes % 3.6 %; Neutrophils # 8.4 K/mcL (1.6-8.9); Platelet Count 164 K/mcL (140-400); Red Blood Count 4.14 M/mcL (4.19-5.50); Red Cell Distribution Width 17.2 % (11.5-14.5); Segmented Neutrophils % 81.8 %; White Blood Count 10.3 K/mcL (4.3-11.1)
[2021-03-23 02:43] LABS: Potassium 4.4 mEq/L (3.5-5.1)
[2021-03-23] MEDS: Albuterol 2.5 MG/3 ML NEBULIZER IH SCH ×3 (04:17→11:32)
[2021-03-23] MEDS: *HR* Heparin 5,000 UNIT/ML VIAL SQ SCH (05:04)
[2021-03-23 07:10] VITALS: BP 148/75; PULSE 66; TEMP 97.3
[2021-03-23] MEDS: Budesonide/Formoterol 160/4.5 1 PUFF INH IH SCH (08:28)
[2021-03-23] MEDS ORDERED: (Roflumilast [Daliresp] 500 MCG Tablet) PO SCH (09:00)
[2021-03-23] MEDS: Aspirin Enteric Coated 81 MG Tablet PO SCH (09:29)
[2021-03-23] MEDS: allopurinoL 100 MG TABLET PO SCH (09:29)
[2021-03-23] MEDS: carvediloL 6.25 MG TABLET PO SCH (09:29)
[2021-03-23] MEDS: Azithromycin 250 MG TABLET PO SCH (09:30)
[2021-03-23] MEDS: Furosemide 20 MG TABLET PO SCH (09:30)
[2021-03-23] MEDS: lisinopriL 10 MG TABLET PO SCH (09:30)
[2021-03-23] MEDS: MethylPREDNISolone 40 MG/ML VIAL IVP SCH (09:31)
[2021-03-23] MEDS ORDERED: Tiotropium 10 INH DOSE IH SCH (10:00)
[2021-03-23 11:36] VITALS: O2SAT 98
== END 2021-03-23 12:37 | disposition home health service (06) ==
LOC: EMEROOARM 11:19 → 3BNU 11:19 → SUATTDRO 14:10 → 3BNU 15:30
PROVIDERS: ADMIT Hospitalist; ATTEND Internal Medicine

== ENCOUNTER 2021-05-08 17:14 | Observation (INO) ==
[2021-05-08] MEDS ORDERED: Ipratropium/Albuterol Neb 3 ML ONE (18:53)
[2021-05-08] MEDS ORDERED: Ipratropium/Albuterol Neb 3 ML IH ONE (18:53)
[2021-05-08] MEDS ORDERED: Magnesium Sulfate 1 GM/102 ML PIGGYBACK IVPB ONE (18:54)
[2021-05-08 19:13] LABS: Basophils # 0.1 K/mcL (0.0-0.2); Basophils % 0.6 %; Hematocrit 42.3 % (37.5-50.1); Hemoglobin 13.3 g/dL (12.9-16.9); Immature Granulocytes % 4.3 % (0-4); Lymphocytes # 1.3 K/mcL (0.6-4.6); Lymphocytes % 9.6 %; Mean Corpuscular HGB Conc 31.4 g/dL (31.6-35.5); Mean Corpuscular Hemoglobin 29.4 pg (28.0-33.3); Mean Corpuscular Volume 93.4 fL (83.0-100.0); Mean Platelet Volume 10.3 fL (9.4-12.4); Monocytes # 0.7 K/mcL (0.0-1.3); Monocytes % 5.3 %; Neutrophils # 10.8 K/mcL (1.6-8.9); Platelet Count 189 K/mcL (140-400); Red Blood Count 4.53 M/mcL (4.19-5.50); Red Cell Distribution Width 16.7 % (11.5-14.5); Segmented Neutrophils % 80.2 %; White Blood Count 13.5 K/mcL (4.3-11.1)
[2021-05-08 19:25] LABS: INR 1.1
[2021-05-08 19:36] LABS: Albumin 3.7 g/dL (3.5-5.7); Bilirubin,Total 0.4 mg/dL (0.3-1.0); Calcium 8.7 mg/dL (8.6-10.3); Globulin 3.7 g/dL (2.4-3.5); Potassium 4.3 mEq/L (3.5-5.1); Total Protein 7.4 g/dL (6.4-8.9); Troponin I 0.04 ng/mL (< 0.04)
[2021-05-08] MEDS ORDERED: Albuterol 2.5 MG/3 ML NEBULIZER IH ONE (19:41)
[2021-05-08 19:49] LABS: Activated Partial Thrombo Time 27.9 Seconds (26.0-36.0)
[2021-05-08] MEDS ORDERED: Aspirin 325 MG TABLET PO ONE (23:03)
[2021-05-08] MEDS ORDERED: Naloxone 0.4 MG/ML INJ IVP PRN (23:29)
[2021-05-08] MEDS ORDERED: Melatonin 3 MG TABLET PO PRN (23:29)
[2021-05-08] MEDS ORDERED: Ondansetron 4 MG/2 ML VIAL IVP PRN (23:29)
[2021-05-08] MEDS ORDERED: Acetaminophen 325 MG TABLET PO PRN (23:29)
[2021-05-08 23:41] LABS: Influenza A PCR Negative (Negative); Influenza B PCR Negative (Negative); Resp. Syncytial Virus PCR Negative (Negative)
[2021-05-08 23:43] LABS: SARS-CoV-2 by PCR (In House) Positive (Negative)
[2021-05-09] MEDS ORDERED: Perflutren Lipid Microsphere 1.3 ML in 0.9 % Sodium Chloride 8.7 ML IVP PRN (00:13)
[2021-05-09] MEDS ORDERED: Azithromycin 500 MG in 0.9 % Sodium Chloride 250 ML IVPB SCH (02:00)
[2021-05-09] MEDS: Ipratropium 1 PUFF INHALER IH SCH ×3 (04:33→11:21)
[2021-05-09 04:42] VITALS: O2SAT 98
[2021-05-09 05:41] LABS: Hematocrit 39.8 % (37.5-50.1); Hemoglobin 12.3 g/dL (12.9-16.9); Mean Corpuscular HGB Conc 30.9 g/dL (31.6-35.5); Mean Corpuscular Hemoglobin 28.7 pg (28.0-33.3); Mean Corpuscular Volume 92.8 fL (83.0-100.0); Platelet Count 150 K/mcL (140-400); Red Blood Count 4.29 M/mcL (4.19-5.50); Red Cell Distribution Width 16.8 % (11.5-14.5)
[2021-05-09] MEDS ORDERED: *HR* Heparin 5,000 UNIT/ML VIAL SQ SCH (06:00)
[2021-05-09 06:03] LABS: Troponin I 0.04 ng/mL (< 0.04)
[2021-05-09 06:06] LABS: Calcium 8.7 mg/dL (8.6-10.3); Potassium 4.5 mEq/L (3.5-5.1)
[2021-05-09] MEDS: MethylPREDNISolone 40 MG/ML VIAL IVP SCH ×2 (07:03→11:04)
[2021-05-09] MEDS ORDERED: Aspirin 81 MG TAB.CHEW PO SCH (10:45)
[2021-05-09 12:32] VITALS: BP 132/81; PULSE 99; TEMP 98.3
[2021-05-09] MEDS ORDERED: carvediloL 25 MG TABLET PO SCH (17:00)
[2021-05-10] MEDS ORDERED: lisinopriL 10 MG TABLET PO SCH (09:00)
[2021-05-10] MEDS ORDERED: Pantoprazole 40 MG VIAL IVP SCH (09:00)
== END 2021-05-09 15:43 | disposition left against medical advice (07) ==
LOC: EMEROOARM 17:14 → 2ANU 17:14
PROVIDERS: ADMIT Internal Medicine; ATTEND Internal Medicine